=== PATIENT | female | born 1980 | race Caucasian/White ===

== ENCOUNTER 2020-10-09 18:44 | Inpatient (IN) | payer SELFPAY ==
--- NOTE | ~2020-10-09 | CT_ITS ---
EXAMINATION: CT abdomen pelvis w con EXAM DATE: 10/09/2020 21:21 INDICATION: Intractable vomiting. History of Crohn's disease. TECHNIQUE: Spiral CT of the abdomen and pelvis was performed following intravenous injection of 100 m L Omnipaque 350. Axial, coronal and sagittal images were reviewed. The dose-length product (DLP) fo r this examination was 270.61 mGy-cm. The exposure was tailored according to patient size (auto mA e xposure control), and iterative reconstruction (ASIR) was used as additional dose reduction technique . Comparison is made to prior examination from 06/18/2018. FINDINGS: There is 9 cm of jejunal intussusception. No pneumatosis of the bowel. Ileum is collapsed. There is stool in cecal base, but remainder of colon is essentially collapsed. The liver, spleen, adr enal glands and pancreas are unremarkable. There are cholecystectomy clips. Portal and splenic vein s are patent. Kidneys enhance symmetrically. There is no hydronephrosis. The uterus is anteverted and morphologically normal. The bladder is unremarkable. There is no retroperitoneal or pelvic ly mphadenopathy. Small umbilical fat-containing hernia. The appendix is not positively visualized. There is no pericecal inflammatory change to suggest appe ndicitis. No free intraperitoneal gas. The heart is normal in size. There are no pericardial o r pleural effusions. The lung bases are unremarkable. The bones are unremarkable. IMPRESSION: Jejunal intussusception. I discussed this case with Dr. Rajput in the emergency room at 10/09/2020 21:29 PRODUCTION CONTROL ANALYST. Reviewed, dictated and finalized at location A. UCTION CONTROL ANALYST IMPRESSION: Jejunal intussusception. I discussed this case with Dr. Rajput in the emergency room at 10/09/2020 21 :29 PRODUCTION CONTROL ANALYST.
--- NOTE | ~2020-10-09 | XR_ITS ---
EXAMINATION: XR sm bowel follow through WS DATE: 10/10/2020 09:26 INDICATION: Small bowel obstruction, history of Crohn disease TECHNIQUE: Popcorn Candy Maker radiograph(s) of the abdomen was/were obtained. Oral contrast was administered, and sequential radiographs of the abdomen were obtained until oral contrast was noted to be in the proxi mal colon. Spot fluoroscopic images of the small bowel were obtained. Fluoroscopy exposure time was 1 .1 minutes. The DAP for this procedure was 14.793 Gycm2. COMPARISON: None. FINDINGS: Popcorn Candy Maker radiograph demonstrates the nasogastric tube within the stomach. The bowel gas patter n is normal. A small amount of contrast material seen in the urinary bladder from prior CT examinatio n. Cholecystectomy clips are noted. Transit time from the stomach to proximal colon was approximately 30 minutes. There is normal caliber and mucosal fold pattern throughout the small bowel. Terminal i leum is normal. No tethering or abnormal mass effect observed upon the small bowel with real-time fl uoroscopy. IMPRESSION: 1. Unremarkable small bowel follow-through. Reviewed, dictated and finalized at location A. SOLE SEWER
--- NOTE | ~2020-10-09 | XR_ITS ---
EXAMINATION: XR abdomen obstructive series DATE: 10/11/2020 10:12 INDICATION: Epigastric abdominal pain TECHNIQUE: Upright and supine views of the abdomen were obtained. COMPARISON: 10/10/2020 FINDINGS: There are no dilated loops of bowel. No free intraperitoneal gas is identified. A small dominic unt of enteric contrast material is seen in the colon from yesterday's small bowel follow-through exa mination. Cholecystectomy clips are noted. The lung bases are clear. IMPRESSION: 1. Nonobstructive bowel gas pattern. Reviewed, dictated and finalized at location A. D ADVISOR
--- NOTE | ~2020-10-09 | XR_ITS ---
EXAMINATION: XR abdomen NG/feed tube insert EXAM DATE: 10/09/2020 23:38 INDICATION: Feeding tube placement. Intussusception. TECHNIQUE: Frontal projection(s) of the abdomen for interpretation. Correlation is made to CT abdomen pelvis same date. FINDINGS: Feeding tube tip and side-port project over the stomach, expected position. There is contra st within the kidneys from the CT scan performed earlier. Nonobstructive bowel gas pattern. No basila r airspace disease. IMPRESSION: Feeding tube in position. Reviewed, dictated and finalized at location G. MODYNAMICS TEACHER IMPRESSION: Feeding tube in position.
[2020-10-09 18:46] VITALS: BP 133/98; PULSE 57; RESP 21; TEMP 37.1; O2SAT 100
[2020-10-09] MEDS: SODIUM CHLORIDE 0.9% IV 1,000 ML 999 ML IV CONT (19:16)
[2020-10-09] MEDS: ONDANSETRON INJ 4 MG/2 ML VIAL IV PUSH (19:16)
[2020-10-09] MEDS: MORPHINE SULFATE (*CRX) 4 MG/ML INJ IV PUSH (19:17)
[2020-10-09 19:24] LABS: Basophils Absolute Auto 0.1 K/mm3 (0.0-0.1); Basophils Percent Auto 0.4 % (0.2-1.2); Eosinophils Absolute Auto 0.1 K/mm3 (0-0.3); Hematocrit 42.9 % (37.0-47.0); Hemoglobin 14.8 g/dL (12.0-15.0); Immature Granulocyte Absolute 0.05 K/mm3 (0.00-0.031); Immature Granulocyte Percent A 0.3 % (0-0.5); Lymphocytes Absolute Auto 1.87 K/mm3 (0.9-3.2); Lymphocytes Percent Auto 12.8 % (18.3-44.2); Mean Corpuscular HGB Conc 34.5 g/dl (32-36); Mean Corpuscular Hemoglobin 30.8 pg (26-34); Mean Corpuscular Volume 89.4 fl (80-100); Mean Platelet Volume 9.8 fl (7.4-10.4); Neutrophils Absolute Auto 11.5 K/mm3 (1.3-6.7); Neutrophils Percent Auto 78.5 % (45.5-73.1); Platelet Count Result 228 k/mm3 (150-375); Red Cell Distribution Width 12.7 % (11.5-14.5); White Blood Count 14.6 K/mm3 (4.5-10.0)
[2020-10-09] MEDS: LORazepam INJ (*CRX) 2 MG/ML VIAL 1 MG IV PUSH (19:32)
--- NOTE | 2020-10-09 19:32 | ED.NAVMDI ---
HPI - Nausea/Vomiting/Diarrhea General Chief complaint: Nausea/Vomiting/Diarrhea <Ryan Brooks MD - Last Filed: 10/09/20 20:44> Stated complaint: n/v/fever <Ryan Brooks MD - Last Filed: 10/09/20 20:44> Time Seen by Provider: 10/09/20 18:50 <Ryan Brooks MD - Last Filed: 10/09/20 20:44> History of Present Illness HPI Narrative: Patient is a 39-year-old female who presents ER with nausea and vomiting. Reports she has been having upset stomach for couple of days. Today she ate a bowl of cereal and she has been having significant increase in epigastric pain as well as vomiting. Upon arrival patient is actively forcing herself to retch and vomit by placing her fingers in her mouth. Reports she is also been having loose stools. No history of bowel obstruction. She endorses history of Crohn's disease for which she sees a GI physician at [facility]. She is unable to give me the name. She denies take any immunosuppressants. Patient is denying any radiation of her pain. She cannot describe the character or any aggravating factors outside of eating cereal. <Ryan Brooks MD - Last Filed: 10/09/20 20:44> Related Data Home medications: Home Medications Medication Instructions Recorded Confirmed pantoprazole [Protonix] 20 mg PO QAM 10/09/20 10/09/20 <Ryan Brooks MD - Last Filed: 10/09/20 20:44> Allergies/Adverse reactions: Allergies Allergy/AdvReac Type Severity Reaction Status Date / Time No Known Allergies Allergy Unverified 10/09/20 18:55 <Ryan Brooks MD - Last Filed: 10/09/20 20:44> Review of Systems Review of Systems: All systems reviewed & are unremarkable except as noted in HPI and below <Ryan Brooks MD - Last Filed: 10/09/20 20:44> Constitutional: Constitutional: Denies chills, Denies fever(s) and Denies weakness <Ryan Brooks MD - Last Filed: 10/09/20 20:44> ENT: Denies nasal congestion and Denies sore throat <Ryan Brooks MD - Last Filed: 10/09/20 20:44> Respiratory: Respiratory: Denies cough, Denies dyspnea and Denies wheezing <Ryan Brooks MD - Last Filed: 10/09/20 20:44> Gastrointestinal: Gastrointestinal: Reports abdominal pain, Reports diarrhea, Reports nausea and Reports vomiting <Ryan Brooks MD - Last Filed: 10/09/20 20:44> Genitourinary: Genitourinary: Denies nocturia and Denies dysuria <Ryan Brooks MD - Last Filed: 10/09/20 20:44> PMFSH Past Medical History Medical History: Medical History (Updated 10/09/20 @ 22:37 by Mazin Rajput MD) Crohn's disease History of pancreatitis IBS (irritable bowel syndrome) Kidney stones <Ryan Brooks MD - Last Filed: 10/09/20 20:44> Surgical History Surgical History: Surgical History (Updated 10/09/20 @ 19:52 by Ryan Brooks MD) H/O lithotripsy <Ryan Brooks MD - Last Filed: 10/09/20 20:44> Social History Social History: Social History (Updated 10/09/20 @ 19:54 by Ryan Brooks MD) Substance use type: marijuana Gender identity (if verbalized by the patient): Female <Ryan Brooks MD - Last Filed: 10/09/20 20:44> Exam Narrative: Exam Narrative: GENERAL: Uncomfortable appearing writhing around on the bed forcing herself to vomit, well-nourished. HEAD: Normocephalic, atraumatic. EYES: PERRL and EOMI. ENT: Mucous membranes moist. CHEST: Clear to auscultation. No respiratory distress. HEART: Regular rate and rhythm. Normal peripheral pulses. ABDOMEN: Soft, nontender, nondistended. EXTREMITIES: Normal range of motion. No edema. SKIN: Warm, dry, no rash. NEURO: Alert and oriented x3. <Ryan Brooks MD - Last Filed: 10/09/20 20:44> Course Reevaluation(s) Reevaluation #1: Unremarkable labs. Urine pending. Patient has received morphine and Toradol for pain. She has received Zofran and Haldol for her persistent emesis and retching. She is also received Ativan to qu
[2020-10-09 19:40] LABS: Alanine Aminotransferase 17 U/L (4-35); Albumin Level 4.4 g/dL (3.5-5.1); Alkaline Phosphatase 63 U/L (38-126); Anion Gap 11 mmol/L (8-16); Aspartate Amino Transferase 29 U/L (14-36); Bilirubin,Total 0.3 mg/dL (0.2-1.3); Blood Urea Nitrogen 13 mg/dL (7-17); Calcium 8.8 mg/dL (8.4-10.2); Carbon Dioxide 21 mmol/L (22-30); Chloride 107 mmol/L (98-107); Estimated Glomerular Filt Rate > 60; Glucose 152 mg/dL (65-105); Lipase 93 U/L (23-300); Potassium 4.1 mmol/L (3.4-5.0); Sodium 139 mmol/L (137-145)
[2020-10-09] MEDS: HALOPERIDOL LACTATE 5 MG/ML VIAL IV PUSH (19:46)
[2020-10-09] MEDS: KETOROLAC 30 MG/ML VIAL (*BKC) IV PUSH (20:00)
[2020-10-09 20:02] VITALS: BP 145/71; PULSE 56; RESP 20; O2SAT 100
[2020-10-09 20:58] LABS: Add Urine Microscopic? YES; Appearance Urine Clear (Clear); Bacteria Urine Trace /hpf; Bilirubin Urine Negative (Negative); Blood Urine Negative (Negative); Color Urine Yellow (Yellow); Glucose Urine UA Negative (Negative); Ketones Urine Negative (Negative); Leukocyte Esterase Ur Trace LEU/UL (Negative); Mucus Urine Rare /lpf; Nitrate Urine Negative (Negative); Protein Urine 1+ mg/dL (Negative); RBC Urine 0-2 /hpf (0-2); Specific Grav Ur 1.027 (1.001-1.035); Squamous Epithelial Cell Urine Many /hpf (Few); Urobilinogen Urine Negative mg/dL (<2.0); WBC Urine 0-3 /hpf
[2020-10-09 21:26] VITALS: BP 128/56; PULSE 67; RESP 20; O2SAT 97
[2020-10-09 22:13] VITALS: BP 120/75; PULSE 57; RESP 18; O2SAT 96
[2020-10-09] MEDS: HYDROmorphone HCL INJ (*CRX) 1 MG/ML SYR (22:28)
--- NOTE | 2020-10-09 23:50 | ADMGEN ---
This patient, Tessa Roberts, was admitted to Medical Room 349-01. Patient/family oriented to hospital policies and general routines including ID bracelet, bed and alarms, visiting hours, pain management, procedures, bathroom and other care routines, personal items, smoking policy, room service/diet, and visiting hours. Information on how to activate the Rapid Response Team has been discussed. Patient/Family are encouraged to report perceived risks to care and to ask questions if they do not understand what they are told or what they should do.
[2020-10-09] MEDS: SODIUM CHLORIDE 0.9% IV 1,000 ML 125 ML IV CONT (23:55)
[2020-10-10] VITALS: BP 152/75; PULSE 53; RESP 16; TEMP 36.2; O2SAT 99; BMI 26.2
--- NOTE | 2020-10-10 00:47 | PC.NURSE ---
Upon entering patient room in attempt to give pain medicine. Noted patient sleeping with minimal response to calling of name. Head is currently tilted back on pillows, sitting in upright position and audibly snoring.
[2020-10-10] MEDS: ONDANSETRON INJ 4 MG/2 ML VIAL IV PUSH (01:10)
[2020-10-10] MEDS: HYDROmorphone HCL INJ (*CRX) 1 MG/ML SYR IV PUSH ×5 (01:10→17:47)
[2020-10-10] MEDS: PHENOL/SOD PHENO SPRAY CHERRY (*BKC) 1 SPRAY MUCOUS MEM ×2 (04:37→12:24)
[2020-10-10 06:00] VITALS: BP 106/52; PULSE 67; RESP 14; TEMP 36.5; O2SAT 97
[2020-10-10 06:09] LABS: Basophils Percent Auto 0.1 % (0.2-1.2); Hematocrit 38.9 % (37.0-47.0); Hemoglobin 13.3 g/dL (12.0-15.0); Immature Granulocyte Absolute 0.04 K/mm3 (0.00-0.031); Immature Granulocyte Percent A 0.4 % (0-0.5); Lymphocytes Absolute Auto 1.05 K/mm3 (0.9-3.2); Lymphocytes Percent Auto 10.2 % (18.3-44.2); Mean Corpuscular HGB Conc 34.2 g/dl (32-36); Mean Corpuscular Hemoglobin 31.3 pg (26-34); Mean Corpuscular Volume 91.5 fl (80-100); Mean Platelet Volume 10.2 fl (7.4-10.4); Monocytes Absolute Auto 0.6 K/mm3 (0.1-0.6); Monocytes Percent Auto 6.1 % (2.6-8.5); Neutrophils Absolute Auto 8.6 K/mm3 (1.3-6.7); Neutrophils Percent Auto 83.2 % (45.5-73.1); Platelet Count Result 187 k/mm3 (150-375); Red Blood Count 4.25 M/mm3 (4.2-5.4); Red Cell Distribution Width 13.1 % (11.5-14.5); White Blood Count 10.3 K/mm3 (4.5-10.0)
[2020-10-10 06:14] LABS: Anion Gap 4 mmol/L (8-16); Blood Urea Nitrogen 12 mg/dL (7-17); Calcium 7.9 mg/dL (8.4-10.2); Carbon Dioxide 26 mmol/L (22-30); Chloride 109 mmol/L (98-107); Estimated CRCL calculation 89 ml/min; Estimated Glomerular Filt Rate > 60; Glucose 104 mg/dL (65-105); Lipase 80 U/L (23-300); Potassium 4.4 mmol/L (3.4-5.0); Sodium 139 mmol/L (137-145)
[2020-10-10] MEDS: SODIUM CHLORIDE 0.9% IV 1,000 ML 125 ML IV CONT ×2 (09:44→20:56)
--- NOTE | 2020-10-10 13:23 | PM.IMHP ---
H&P: HPI History of Present Illness Date/Time: 10/10/20 13:23 Chief Complaint: abdominal pain Narrative: Tessa Roberts is a 39 year old female presenting to ED c/o severe upper abd pain, N/V. Pt reports symptoms progressively worsening over last few days. Pt c h/o Crohns' and managed at [facility]. Pt reports diarrhea during this episode. Review of Systems Constitutional: Constitutional: Reports anorexia, Denies chills, Reports fatigue, Denies fever(s), Denies increased appetite, Reports lethargy, Reports malaise, Reports poor appetite, Reports weakness, Denies weight gain and Denies weight loss Eyes: Eyes: Reports no additional eye complaints ENT: Reports system reviewed and no additional complaints, except as documented Cardiovascular: Cardiovascular: Reports no additional cardiovascular complaints Respiratory: Respiratory: Reports no additional respiratory complaints Gastrointestinal: Gastrointestinal: Reports as per HPI Genitourinary: Genitourinary: Reports no additional female genitourinary complaints Musculoskeletal: Musculoskeletal: Reports no additional musculoskeletal complaints Integumentary/Breasts: Skin/Breast: Reports system reviewed and no additional complaints, except as docu Neurologic: Reports system reviewed and no additional complaints, except as documented Psychiatric: Psychiatric: Reports no additional psychiatric complaints Endocrine: Endocrine: Reports no additional endocrine complaints Hematologic/Lymphatic: Hematologic/Lymphatic: Reports no additional hematologic/lymphatic complaints Allergic/Immunologic: Allergic/Immunologic: Reports no additional allergic/immunologic complaints PMFSH Past Medical History Medical History Crohn's disease History of pancreatitis IBS (irritable bowel syndrome) Kidney stones Surgical History Surgical History H/O lithotripsy Social History Social History Smoking status: Current every day smoker Second hand tobacco smoke exposure: No Additional smoking assessment comments: marijuana Alcohol intake: former Substance use: current Substance use type: marijuana Gender identity (if verbalized by the patient): Female Spiritual care concerns: No Comments pt denies any FH of IBD, CRC Meds Home Medications and Allergies Home Medications Medication Instructions Recorded Confirmed Type pantoprazole [Protonix] 20 mg PO TID 10/09/20 10/10/20 History Allergies Allergy/AdvReac Type Severity Reaction Status Date / Time No Known Allergies Allergy Unverified 10/10/20 00:01 Vital Signs Vital Signs - 24 hr 10/09/20 18:46 10/09/20 20:02 10/09/20 21:26 Temperature 37.1 C Pulse Rate 57 L 56 L 67 Respiratory Rate 21 H 20 20 Blood Pressure 133/98 H 145/71 H 128/56 L Pulse Oximetry 100 100 97 10/09/20 22:13 10/10/20 00:00 10/10/20 06:00 Temperature 36.2 C L 36.5 C Pulse Rate 57 L 53 L 67 Respiratory Rate 18 16 14 Blood Pressure 120/75 152/75 H 106/52 L Pulse Oximetry 96 99 97 Exam Const: General: cooperative, alert, awake, Physically active and acute distress mild Nutritional Appearance: average body habitus Orientation/consciousness: patient oriented x3 Limitations: no limitations HENMT: Head: normal to inspection, normocephalic and atraumatic Ears: hearing grossly normal bilaterally General nose exam: Normal external nose present Face and sinus: normal facial exam Mouth: Yes Normal oral and palatal mucosa present and Yes moist mucous membranes Eyes: General: appearance normal, both eyes and all related structures Pupils: Equal, round and reactive pupils present EOM: EOMs intact bilaterally Neck: Neck: normal visual inspection, full ROM and no lymphadenopathy Chest: Chest palpation & inspection: normal inspection of the chest Resp: Effort & Insp
[2020-10-10 14:00] VITALS: BP 121/65; PULSE 73; RESP 16; TEMP 36.8; O2SAT 99
--- NOTE | 2020-10-10 16:08 | WPDGICN ---
Assessment and Plan Assessment and plan (1) Jejunal intussusception: Code(s): K56.1 - Intussusception Status: Acute Assessment and Plan: treated medically SBFT ordered, she is feeling better now and tolerating liquid diet surgery on board (2) Abdominal pain: Qualifiers: Abdominal location: generalized Qualified Code(s): R10.84 - Generalized abdominal pain Code(s): R10.9 - Unspecified abdominal pain Status: Acute Assessment and Plan: improved now (3) Crohn's disease: Code(s): K50.90 - Crohn's disease, unspecified, without complications Status: Acute Assessment and Plan: I do not have old records (will request) and I am not even sure if indeed she has Crohn's- she is not on any treatment either will get inflammatory markers and awaiting on SBFT result (4) Marijuana smoker: Code(s): F12.90 - Cannabis use, unspecified, uncomplicated Status: Acute Assessment and Plan: probably contributing to nausea (5) Nausea and vomiting in adult: Code(s): R11.2 - Nausea with vomiting, unspecified Status: Acute Assessment and Plan: resolved (6) Anxiety: Code(s): F41.9 - Anxiety disorder, unspecified Status: Acute Assessment and Plan: she has high level of anxiety and says that sometimes triggers her gi symptoms GI Consult Note Consult date/time: 10/10/20 16:08 Reason for consult: abdominal pain HPI: Tessa Roberts is a 39 year old female with significant anxiety, IBS and also diagnosed with Crohn's disease about 1-2 years ago. She says that had EGD/colonoscopy last Nov at [facility] by GI physician but she is not taking any medication for Crohn's (she told me that was prescribed pantoprazole and bentyl for that). She smokes marijuana and says that recently took a new job position with high level of anxiety, normally she says that GI issues will get worse after being very anxious. She came here with nausea, vomiting and upset stomach for couple of days, moderate intensity and also had diarrhea (she says that at baseline has normal BM's). CT scan reviewed, showed 9 cm of jejunal intussusception. No pneumatosis of the bowel. Ileum is collapsed. There is stool in cecal base, but remainder of colon is essentially collapsed. Had mild leukocytosis yesterday, normal liver enzymes and lipase. She is feeling better now, no abdominal pain or nausea, tolerated liquid diet. Review of Systems Constitutional: Constitutional: Denies headache(s) and Denies weakness Eyes: Eyes: Denies blurry vision ENT: Reports Normal hearing present, Denies headache(s) and Denies neck pain Cardiovascular: Cardiovascular: Denies chest pain and Denies dyspnea Respiratory: Respiratory: Denies dyspnea Gastrointestinal: Gastrointestinal: Reports no additional gastrointestinal complaints Genitourinary: Genitourinary: Denies dysuria Musculoskeletal: Musculoskeletal: Denies neck pain Integumentary/Breasts: Skin/Breast: Denies dry skin Neurologic: Reports Normal hearing present, Denies headache(s) and Denies weakness Psychiatric: Psychiatric: Reports anxiety Endocrine: Endocrine: Denies change in body appearance Hematologic/Lymphatic: Hematologic/Lymphatic: Denies easy bleeding Allergic/Immunologic: Allergic/Immunologic: Denies urticaria PMFSH Past Medical History Medical History (Updated 10/10/20 @ 16:30 by Edgardo Bennett MD) Anxiety Crohn's disease History of pancreatitis IBS (irritable bowel syndrome) Kidney stones Marijuana smoker Nausea and vomiting in adult Surgical History Surgical History H/O lithotripsy Social History Social History Smoking status: Current every day smoker Second hand tobacco smoke exposure: No Additional smoking assessment comments: marijuana Alcohol intake: former Substance u
[2020-10-10 20:09] VITALS: BP 140/60; PULSE 55; RESP 14; TEMP 36.6; O2SAT 100
[2020-10-10] MEDS: HYDROcodone/acetaminophen (*CRX) 7.5-325 MG TABLET 1 TAB PO (22:06)
[2020-10-10] MEDS: ZOLPIDEM TARTRATE (*CRX) 5 MG TABLET PO (22:06)
[2020-10-11] MEDS: HYDROcodone/acetaminophen (*CRX) 7.5-325 MG TABLET 1 TAB PO (05:50)
[2020-10-11 06:00] VITALS: BP 139/70; PULSE 61; RESP 14; TEMP 36.6; O2SAT 100
[2020-10-11 06:17] LABS: CRP < 0.5 mg/dL (<1.0)
[2020-10-11] MEDS: ONDANSETRON INJ 4 MG/2 ML VIAL IV PUSH (07:50)
[2020-10-11] MEDS: HYDROmorphone HCL INJ (*CRX) 1 MG/ML SYR IV PUSH (07:50)
[2020-10-11] MEDS: SODIUM CHLORIDE 0.9% IV 1,000 ML 125 ML IV CONT (07:58)
[2020-10-11] MEDS: ALPRAZolam (*CRX) 0.5 MG TABLET PO (09:21)
[2020-10-11 09:27] LABS: Erythrocyte Sedimentation Rate 12 mm/hr (0-20)
--- NOTE | 2020-10-11 09:48 | PM.PNGS ---
Progress Note: A&P Assessment and Plan (1) Abdominal pain: Qualifiers: Abdominal location: generalized Qualified Code(s): R10.84 - Generalized abdominal pain Code(s): R10.9 - Unspecified abdominal pain Status: Acute Assessment and Plan: improved c bowel rest, NG decompression. patient did pretty well overnight. Tried clear liquids for supper last night and did alright but not doing well this morning. Will do a plain film the abdomen and see how she is feeling by lunch. Encouraged her to get up and walk once the pain medicine has taken hold. (2) Crohn's disease: Code(s): K50.90 - Crohn's disease, unspecified, without complications Status: Acute Assessment and Plan: ? flare, await GI workup and input. normal inflammatory markers. Another possibility may be gastritis or peptic ulcer disease. Will be sure patient is on a PPI. (3) Jejunal intussusception: Code(s): K56.1 - Intussusception Status: Acute Assessment and Plan: No findings on subsequent SBS, likely incidental intussusception caught on CT scan. (4) Anxiety: Code(s): F41.9 - Anxiety disorder, unspecified Status: Acute Assessment and Plan: using Anxiolytic for this now. Subjective Subjective Date/Time Seen: 10/11/20 09:48 Ms. Cope is lying in bed when I entered the room. The nurse called me and told me that she is complaining of rather severe central upper abdominal pain again this morning. Patient states that is at the level of her umbilicus and above. She had a small bowel movement yesterday but none yet today. She states she is passing gas. She is not hungry. Also somewhat anxious in the nurse gave her something for that about 2 hours ago. Review of Systems Constitutional: Constitutional: Reports anorexia, Denies chills, Reports fatigue, Denies fever(s), Denies increased appetite, Reports lethargy, Reports malaise, Reports poor appetite, Reports weakness, Denies weight gain and Denies weight loss Eyes: Eyes: Reports no additional eye complaints ENT: Reports system reviewed and no additional complaints, except as documented Cardiovascular: Cardiovascular: Reports no additional cardiovascular complaints Respiratory: Respiratory: Reports no additional respiratory complaints Gastrointestinal: Gastrointestinal: Reports as per HPI, Reports abdominal pain ( Mainly upper abdominal.) and Reports other ( No history of peptic ulcer disease in the past.) Comments: History of a laparoscopic cholecystectomy several years back. discussed with Dr. Pyle. Her history of Crohn's disease is not complete. She may have IBS. She was not on anything for Crohn's disease upon admission. Genitourinary: Genitourinary: Reports no additional female genitourinary complaints Musculoskeletal: Musculoskeletal: Reports no additional musculoskeletal complaints Integumentary/Breasts: Skin/Breast: Reports system reviewed and no additional complaints, except as docu Neurologic: Reports system reviewed and no additional complaints, except as documented and Reports weakness Psychiatric: Psychiatric: Reports no additional psychiatric complaints and Reports as per HPI Comments: History of anxiety. Endocrine: Endocrine: Reports no additional endocrine complaints and Reports fatigue Hematologic/Lymphatic: Hematologic/Lymphatic: Reports no additional hematologic/lymphatic complaints Allergic/Immunologic: Allergic/Immunologic: Reports no additional allergic/immunologic complaints Exam Const: General: cooperative, alert, awake, Physically active and acute distress mild Nutritional Appearance: average body habitus Orientation/consciousness: patient oriented x3 Limitations: no limitations HENMT: Head: normal to inspection, normocephalic and atraumatic Ears: hearing grossly normal bilaterally General nose exam: Normal external nose present Face and sinus: normal facial exam Mouth: Ye
[2020-10-11 09:59] VITALS: O2SAT 98
--- NOTE | 2020-10-11 10:24 | WPDGIPROGNO ---
Progress Note: A&P Assessment and Plan (1) Jejunal intussusception: Code(s): K56.1 - Intussusception Status: Acute Assessment and Plan: SBFT reviewed and no signs of abnormal findings now probably can go home today if pain is better and tolerates diet (2) Abdominal pain: Qualifiers: Abdominal location: generalized Qualified Code(s): R10.84 - Generalized abdominal pain Code(s): R10.9 - Unspecified abdominal pain Status: Acute Assessment and Plan: improved, she is feeling like going home (3) Nausea and vomiting in adult: Code(s): R11.2 - Nausea with vomiting, unspecified Status: Acute (4) Marijuana smoker: Code(s): F12.90 - Cannabis use, unspecified, uncomplicated Status: Acute (5) Crohn's disease: Code(s): K50.90 - Crohn's disease, unspecified, without complications Status: Acute Assessment and Plan: unsure if she has Crohn's, will need previous records to document history and she can follow-up with me or her former GI doctor in 3-4 weeks inflammatory markers are normal. (6) Anxiety: Code(s): F41.9 - Anxiety disorder, unspecified Status: Acute Assessment and Plan: she is quite anxious and will need follow-up with her pcp Subjective Date/time seen: 10/11/20 10:24 Interval history: today was quite anxious and had more abdominal pain but now feeling better after got pain med and xanax. She would like to go home Review of Systems Review of Systems: All systems reviewed & are unremarkable except as noted in HPI and below Exam Const: General: comfortable and no acute distress HENMT: General nose exam: Normal nares present Eyes: General: appearance normal, both eyes and all related structures Neck: Neck: no JVD Resp: Auscultation: clear to auscultation bilaterally Cardio: Rate: regular rate Rhythm: regular rhythm GI: Inspection: non-distended GI Palp: Yes Soft to palpation and No Guarding due to palpation present (GI) Auscultation: normal bowel sounds Skin: General skin exam: normal color Neuro: Speech: normal speech Motor exam (neuro): Normal motor muscle tone present throughout Extrem: General: normal to inspection Psych: Mental Status: mental status grossly normal Objective Data Vital Signs Vital Signs: Vital Signs - 24 hr 10/10/20 14:00 10/10/20 20:09 10/11/20 06:00 Temperature 98.3 F 98 F 97.8 F Pulse Rate 73 55 L 61 Respiratory Rate 16 14 14 Blood Pressure 121/65 140/60 139/70 Pulse Oximetry 99 100 100 10/11/20 09:59 Temperature Pulse Rate Respiratory Rate Blood Pressure Pulse Oximetry 98 Intake/Output Intake/Output: Intake & Output 10/08/20 10/09/20 10/10/20 10/11/20 23:59 23:59 23:59 23:59 Intake Total 2240 1000 Output Total 2100 400 Balance 140 600 Meds/Results Medications: Active Medications Generic Name Dose Route Start Last Admin Trade Name Freq PRN Reason Stop Dose Admin Acetaminophen 1,000 mg 10/10/20 21:44 Acetaminophen 500 Mg Tablet PO Q6H PRN Mild Pain (1-3) or Fever Hydrocodone Bitart/Acetaminophen 1 tab 10/10/20 21:44 Hydrocodone/Acetaminophen (*Crx) 5-325 Mg Tablet PO Q6H PRN Pain Rated 4-6 Hydrocodone Bitart/Acetaminophen 1 tab 10/10/20 21:44 10/11/20 05:50 Hydrocodone/Acetaminophen (*Crx) 7.5-325 Mg Tablet PO 1 tab Q6H PRN Administration Pain Rated 7-10 Alprazolam 0.5 mg 10/11/20 08:13 10/11/20 09:21 Alprazolam (*Crx) 0.5 Mg Tablet PO 0.5 mg Q8HR PRN Administration Anxiety Hydromorphone HCl 1 mg 10/09/20 22:31 10/11/20 07:50 Hydromorphone Hcl Inj (*Crx) 1 Mg/Ml Syr IV PUSH 1 mg Q4H PRN Administration Pain Rated 7-10 Sodium Chloride 1,000 mls @ 125 mls/hr 10/09/20 22:35 10/11/20 07:58 Normal Saline Iv IV CONT 125 mls/hr .Q8H JAZMIN Administration Ondansetron HCl 4 mg 10/09/20 22:31 10/11/20 07:50 Ondansetron Inj 4 Mg/2 Ml
[2020-10-11] MEDS: PANTOPRAZOLE 40 MG TABLET PO (12:33)
[2020-10-11 14:00] VITALS: BP 149/86; PULSE 58; RESP 18; TEMP 36.7; O2SAT 99
--- NOTE | 2020-10-11 15:56 | PM.DS ---
DS: Admitting Diagnosis Admitting Diagnosis Admitting Diagnosis: Abdominal pain DS: Discharge Diagnosis Discharge Diagnosis (1) Anxiety: Onset Date: Unknown Code(s): F41.9 - Anxiety disorder, unspecified Status: Acute Assessment and Plan: apparently this has been a problem for the patient as an outpatient for some time period we suggested that she see her PCP regarding this and work with him for further counseling as needed. (2) Marijuana smoker: Code(s): F12.90 - Cannabis use, unspecified, uncomplicated Status: Acute Assessment and Plan: Recommended smoking cessation (3) Jejunal intussusception: Code(s): K56.1 - Intussusception Status: Acute Assessment and Plan: This was probably transitory and caught on CT scan when she had her CT in the ER for her abdominal pain. No other specific problems identified. No specific thickening of the distal ileum to suggest recurrent Crohn's disease or even primary Crohn's disease. (4) Abdominal pain: Onset Date: ~10/09/20 Qualifiers: Abdominal location: generalized Qualified Code(s): R10.84 - Generalized abdominal pain Code(s): R10.9 - Unspecified abdominal pain Status: Acute Assessment and Plan: Unknown etiology. May be related to anxiety or may be related to IBS. GI consultation was obtained. Her inflammatory markers were normal. Dr. Pyle stated that he would be willing to follow her in the office or if she wants to go to the GI physician she had at [facility] she can schedule appointment with them as an outpatient after discharge also. DS: Summary Hospital Course Reason for hospitalization: Abdominal pain with transient jejunal intussusception by CT Hospital Course: hospital course: The patient was admitted after being evaluated in the emergency room and still having abdominal pain. She was treated with bowel rest and NG decompression. Subsequent small-bowel follow-through showed no obstruction. Therefore, NG was removed and she was started on clear liquids. Over the next 24 hour she gradually was able to tolerate these. She exhibited significant anxiety and had to be started on Xanax q.[address] anxiety[address] Dr. Pyle saw her in consultation and he felt that he was not even sure that she has had a true diagnosis of Crohn's disease. She may have anxiety and IBS. He is willing to follow her up as an outpatient or she can reschedule to see her GI physician at [facility] as an outpatient as an alternative. We suggested that she follow-up with her PCP for further evaluation and treatment of the anxiety. By the time of discharge in the afternoon of 10/11/2020 she was not complaining of abdominal pain or nausea she was tolerating liquids and wanting to go home. Time spent discussing smoking cessation with patient: more than 10 minutes Status at Discharge Cognitive/behavioral status at discharge: Still showing some a element of anxiety. Functional status at discharge: independent ambulation Overall status at discharge: patient is not back to baseline ( still showing some element of anxiety) Time Spent with Patient Time attestation: Total time spent providing and/or coordinating discharge services: Time spent: Greater than 30 minutes Specific discharge activities: Patient follow-up with PCP regarding anxiety Patient to follow up with either Dr. Spangler or her [facility] top icer for further workup. Exam Const: General: cooperative, no acute distress, alert and awake Orientation/consciousness: patient oriented x3 HENMT: Mouth: Yes moist mucous membranes Neck: Neck: normal visual inspection Chest: Chest palpation & inspection: normal inspection of the chest Resp: Effort & Inspection: normal respiratory effort Auscultation: clear to auscultation bilaterally Cardio: Jugular venous distension: no JVD Rate: regular rate Rhythm: regular rhythm GI: Inspection: normal to
--- NOTE | 2020-10-11 16:39 | PC.NURSE ---
Went thoroughly over discharge packet with patient. Information on Crohns given. 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
== END 2020-10-11 16:40 | disposition home or self-care (01) | DRG 247 ==
LOC: ANHED 22:37 → ANH3MED 23:06
PROVIDERS: Emergency Medicine; Internal Medicine Gastroenterology; Admitting Provider Surgery; Emergency Provider Emergency Medicine; PCP Family Medicine; Visit Provider Surgery
DX: K56.1 Intussusception (principal); K58.9 Irritable bowel syndrome, unspecified; F41.9 Anxiety disorder, unspecified; F17.200 Nicotine dependence, unspecified, uncomplicated; F12.90 Cannabis use, unspecified, uncomplicated; Z79.899 Other long term (current) drug therapy
CPT/HCPCS: 36415; 74019; 74177; 74250; 80048; 80053; 81001; 83690; 85025; 85652; 86140; 96361; 96374; 96375; 96376; 99285; A9270; G0378; G0379; J1170; J1630; J1885; J2060; J2270; J2405; J7030; Q9967

== ENCOUNTER 2020-10-22 23:07 | Emergency (ER) | payer OTHER, SELFPAY ==
--- NOTE | ~2020-10-22 | CT_ITS ---
EXAMINATION: CT abdomen pelvis w con DATE: 10/23/2020 01:24 INDICATION: Abdominal pain. TECHNIQUE: Computed tomography (CT) of the abdomen and pelvis was performed with 100 mL Omnipaque 350 intravenous contrast. Automated exposure control and iterative reconstruction technique were employe d. The dose-length product was 253.65 mGy-cm. COMPARISON: CT abdomen and pelvis 10/09/2020 FINDINGS: The visualized portions of the lung bases are clear without pneumonia or pleural effusion. The heart size is normal. No pericardial effusion. The nasogastric tube tip is in the stomach. The li clive is normal. There are changes of cholecystectomy. The spleen, pancreas, adrenal glands, and kidney s are normal. There are no dilated loops of bowel. There are no pathologically enlarged lymph nodes. There is no free intraperitoneal fluid. There is severe lower lumbar spondylosis. IMPRESSION: 1. No etiology for the patient's symptoms. Reviewed, dictated and finalized at location A. HT RESERVATIONS MANAGER
--- NOTE | ~2020-10-22 | XR_ITS ---
EXAMINATION: XR abdomen NG/feed tube insert DATE: 10/23/2020 00:39 INDICATION: Nasogastric tube placement. TECHNIQUE: An upright view of the abdomen was obtained. COMPARISON: CT abdomen and pelvis 10/23/2020 FINDINGS: The lower abdomen is excluded. Surgical clips in the right upper quadrant are likely from c holecystectomy. The nasogastric tube tip is in the stomach. IMPRESSION: 1. Nasogastric tube tip in the stomach. Reviewed, dictated and finalized at location A. SEALER
[2020-10-22 23:09] VITALS: BP 142/100; PULSE 76; RESP 16; TEMP 36.2; O2SAT 96
[2020-10-22 23:42] LABS: Basophils Absolute Auto 0.1 K/mm3 (0.0-0.1); Basophils Percent Auto 0.6 % (0.2-1.2); Eosinophils Absolute Auto 0.2 K/mm3 (0-0.3); Eosinophils Percent Auto 2.1 % (0-4.4); Hematocrit 40.8 % (37.0-47.0); Hemoglobin 13.8 g/dL (12.0-15.0); Immature Granulocyte Absolute 0.04 K/mm3 (0.00-0.031); Immature Granulocyte Percent A 0.3 % (0-0.5); Lymphocytes Absolute Auto 5.25 K/mm3 (0.9-3.2); Lymphocytes Percent Auto 45.1 % (18.3-44.2); Mean Corpuscular HGB Conc 33.8 g/dl (32-36); Mean Corpuscular Hemoglobin 30.4 pg (26-34); Mean Corpuscular Volume 89.9 fl (80-100); Mean Platelet Volume 10.3 fl (7.4-10.4); Monocytes Percent Auto 8.8 % (2.6-8.5); Neutrophils Percent Auto 43.1 % (45.5-73.1); Platelet Count Result 259 k/mm3 (150-375); Red Blood Count 4.54 M/mm3 (4.2-5.4); White Blood Count 11.6 K/mm3 (4.5-10.0)
[2020-10-22 23:50] LABS: Alanine Aminotransferase 18 U/L (4-35); Albumin Level 4.2 g/dL (3.5-5.1); Alkaline Phosphatase 55 U/L (38-126); Anion Gap 8 mmol/L (8-16); Aspartate Amino Transferase 31 U/L (14-36); Bilirubin,Total 0.4 mg/dL (0.2-1.3); Blood Urea Nitrogen 11 mg/dL (7-17); Calcium 8.5 mg/dL (8.4-10.2); Carbon Dioxide 26 mmol/L (22-30); Chloride 105 mmol/L (98-107); Estimated Glomerular Filt Rate > 60; Glucose 94 mg/dL (65-105); Lipase 158 U/L (23-300); Potassium 3.6 mmol/L (3.4-5.0); Sodium 139 mmol/L (137-145)
[2020-10-23] MEDS: HYDROmorphone HCL INJ (*CRX) 1 MG/ML SYR IV PUSH (00:15)
--- NOTE | 2020-10-23 00:39 | PC.NURSE ---
Patient refusing to urinate at this time.
[2020-10-23] MEDS: ONDANSETRON INJ 4 MG/2 ML VIAL IV PUSH (00:41)
[2020-10-23 00:45] VITALS: TEMP 36.2
--- NOTE | 2020-10-23 01:28 | PC.NURSE ---
Patient returned to ED from CT. Patient still rolling in bed screaming please help me. EDP Todd aware of patient's pain.
[2020-10-23] MEDS: LORazepam INJ (*CRX) 2 MG/ML VIAL 1 MG IV PUSH (01:37)
[2020-10-23] MEDS: DICYCLOMINE HCL INJ 20 MG/2 ML VIAL IM (01:40)
--- NOTE | 2020-10-23 01:56 | PC.NURSE ---
Patient unable to urinate at this time due to pain.
--- NOTE | 2020-10-23 01:59 | ED.ABDPAIN ---
HPI - Abdominal Pain General Chief Complaint: Abdominal Pain <Ryan Brooks MD - Last Filed: 10/23/20 02:04> Stated Complaint: abd pain <Ryan Brooks MD - Last Filed: 10/23/20 02:04> Time Seen by Provider: 10/23/20 00:07 <Ryan Brooks MD - Last Filed: 10/23/20 02:04> History of Present Illness HPI narrative: Patient is a 39-year-old female who presents ER with abdominal pain and nausea and vomiting. Sudden onset tonight. Reports she cannot stand the pain. Reports in her upper abdomen. Patient has history of irritable bowel syndrome and also reports Crohn's disease. She is seen here recently and diagnosed with a 9 cm intussusception of the jejunum. She was observed in the hospital and the intussusception cleared with bowel rest. Patient reports she was just hospitalized at [facility] in [place] for enteritis and possible colitis. She reports they thought she was septic and she is discharged yesterday. She is not discharged with any medications. <Ryan Brooks MD - Last Filed: 10/23/20 02:04> Related Data Home Medications: Home Medications Medication Instructions Recorded Confirmed pantoprazole [Protonix] 20 mg PO TID 10/09/20 10/10/20 <Ryan Brooks MD - Last Filed: 10/23/20 02:04> Allergies/Adverse Reactions: Allergies Allergy/AdvReac Type Severity Reaction Status Date / Time No Known Allergies Allergy Unverified 10/10/20 00:01 <Ryan Brooks MD - Last Filed: 10/23/20 02:04> Review of Systems Review of Systems: All systems reviewed & are unremarkable except as noted in HPI and below <Ryan Brooks MD - Last Filed: 10/23/20 02:04> Constitutional: Constitutional: Denies chills, Denies fever(s) and Denies weakness <Ryan Brooks MD - Last Filed: 10/23/20 02:04> Cardiovascular: Cardiovascular: Denies chest pain and Denies rapid heart rate <Ryan Brooks MD - Last Filed: 10/23/20 02:04> Respiratory: Respiratory: Denies cough and Denies dyspnea <Ryan Brooks MD - Last Filed: 10/23/20 02:04> Gastrointestinal: Gastrointestinal: Reports abdominal pain, Denies bloating, Denies diarrhea, Reports nausea and Reports vomiting <Ryan Brooks MD - Last Filed: 10/23/20 02:04> [facility] Past Medical History Medical History: Medical History (Updated 10/23/20 @ 02:55 by Filiberto Parrish MD) Anxiety (Unknown) Crohn's disease History of pancreatitis IBS (irritable bowel syndrome) Kidney stones Marijuana smoker Nausea and vomiting in adult <Ryan Brooks MD - Last Filed: 10/23/20 02:04> Surgical History Surgical History: Surgical History H/O lithotripsy <Ryan Brooks MD - Last Filed: 10/23/20 02:04> Social History Social History: Social History Smoking status: Current every day smoker Second hand tobacco smoke exposure: No Additional smoking assessment comments: marijuana Alcohol intake: former Substance use: current Substance use type: marijuana Gender identity (if verbalized by the patient): Female Spiritual care concerns: No <Ryan Brooks MD - Last Filed: 10/23/20 02:04> Exam Narrative: Exam Narrative: GENERAL: Uncomfortable-appearing, well-nourished, and thrashing around in bed moaning. HEAD: Normocephalic, atraumatic. ENT: Mucous membranes moist. CHEST: Clear to auscultation. No respiratory distress. HEART: Regular rate and rhythm. Normal peripheral pulses. ABDOMEN: Soft, nontender, nondistended. EXTREMITIES: Normal range of motion. No edema. SKIN: Warm, dry, no rash. NEURO: Alert and oriented x3. PSYCH: Normal mood and affect. <Ryan Brooks MD - Last Filed: 10/23/20 02:04> Course Course Emergency Course: NG tube immediately placed by nursing staff with 500 mL return of gastric contents. Patient given Dilaudid for pain. Af
--- NOTE | 2020-10-23 02:01 | PC.NURSE ---
Patient had bowel movement in bed [place].
--- NOTE | 2020-10-23 02:07 | PC.NURSE ---
Per WILLEM Brooks, no urine specimen needed.
--- NOTE | 2020-10-23 02:09 | PC.NURSE ---
PO challenging patient at this time.
[2020-10-23 02:33] VITALS: BP 125/87; PULSE 61; RESP 14; O2SAT 97
[2020-10-23] MEDS: SODIUM CHLORIDE 0.9% IV 1,000 ML 999 ML IV CONT (02:50)
--- NOTE | 2020-10-23 03:27 | PC.NURSE ---
Patient updated on plan of care for IV fluid administration then discharge. Patient able to avoid emesis after PO liquids. Patient is stating, can I at least have a pain shot or Ativan before I go. WILLEM Parrish aware.
== END 2020-10-23 04:08 | disposition home or self-care (01) ==
PROVIDERS: Emergency Provider Emergency Medicine; PCP Family Medicine
DX: R11.2 Nausea with vomiting, unspecified (principal); R10.10 Upper abdominal pain, unspecified; K50.90 Crohn's disease, unspecified, without complications; Z87.442 Personal history of urinary calculi; F17.200 Nicotine dependence, unspecified, uncomplicated
CPT/HCPCS: 36415; 74177; 80053; 83690; 85025; 96361; 96372; 96374; 96375; 99284; J0500; J1170; J2060; J2405; J7030; Q9967

== ENCOUNTER 2020-10-23 12:18 | Emergency (ER) | payer OTHER, SELFPAY ==
--- NOTE | ~2020-10-23 | CT_ITS ---
EXAMINATION: CT abdomen pelvis wo con EXAM DATE: 10/23/2020 13:27 INDICATION: Generalized pain. History Crohn's disease. TECHNIQUE: Spiral CT of the abdomen and pelvis was performed without contrast. Axial, coronal and sag ittal images were reviewed. The dose-length product (DLP) for this examination was 265.47 mGy-cm. T he exposure was tailored according to patient size (auto mA exposure control), and iterative reconstr uction (ASIR) was used as additional dose reduction technique. Comparison is made to prior examinatio n from earlier same date. FINDINGS: Study is limited due to patient motion. Nasogastric tube has been removed. Mild persistent contrast within the collecting system from CT scan performed earlier. The uterus is anteverted and m orphologically normal. The bladder is unremarkable. Mild hepatomegaly. The spleen, adrenal glands a nd pancreas are unremarkable. Gallbladder not identified, patient likely has had cholecystectomy. T here is no retroperitoneal or pelvic lymphadenopathy. Small umbilical fat-containing hernia. There are no findings to suggest appendicitis. The stomach and small bowel are unremarkable. There is expected amount of colonic stool. No free intraperitoneal gas. The heart is normal in size. T here are no pericardial or pleural effusions. The lung bases are unremarkable. There are no osteobl astic or osteolytic lesions identified. IMPRESSION: 1. No acute intra-abdominal findings. 2. Mild hepatomegaly. Reviewed, dictated and finalized at location A. 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
[2020-10-23 12:37] VITALS: BP 180/78; PULSE 66; RESP 22; TEMP 37.1; O2SAT 99
--- NOTE | 2020-10-23 12:37 | ED.ABDPAIN ---
HPI - Abdominal Pain General Chief Complaint: Abdominal Pain Stated Complaint: abd pain Time Seen by Provider: 10/23/20 12:37 History of Present Illness HPI narrative: Generalized abdominal pain and vomiting. She was seen here overnight for the same thing. She had a negative CT with contrast and unremarkable labs. She was discharged home and says that she was feeling better. History limited by poor historian. Related Data Home Medications Medication Instructions Recorded Confirmed pantoprazole [Protonix] 20 mg PO TID 10/09/20 10/10/20 Allergies Allergy/AdvReac Type Severity Reaction Status Date / Time No Known Allergies Allergy Verified 10/23/20 12:19 Review of Systems Review of Systems: All systems reviewed & are unremarkable except as noted in HPI and below Constitutional: Constitutional: Denies fever(s) and Reports weakness Cardiovascular: Cardiovascular: Denies chest pain Respiratory: Respiratory: Denies dyspnea Gastrointestinal: Gastrointestinal: Reports abdominal pain, Reports nausea and Reports vomiting Genitourinary: Genitourinary: Denies dysuria PMFSH Past Medical History Medical History Anxiety (Unknown) Crohn's disease History of pancreatitis IBS (irritable bowel syndrome) Kidney stones Marijuana smoker Nausea and vomiting in adult Surgical History Surgical History H/O lithotripsy Social History Social History Smoking status: Current every day smoker Second hand tobacco smoke exposure: No Additional smoking assessment comments: marijuana Alcohol intake: former Substance use: current Substance use type: marijuana Gender identity (if verbalized by the patient): Female Spiritual care concerns: No Exam Const: General: alert Nutritional Appearance: well nourished Orientation/consciousness: patient oriented x3 Other: restless, writhing in bed and thrashing her legs. HENMT: Head: normal to inspection Resp: Effort & Inspection: normal respiratory effort Auscultation: clear to auscultation bilaterally Cardio: Rate: regular rate Rhythm: regular rhythm GI: Inspection: non-distended GI Palp: Yes Soft to palpation Other: Not allowing thorough exam Skin: General skin exam: normal color Neuro: General: patient oriented x3 and moves all extremities Speech: normal speech Extrem: General: normal to inspection Course Course Emergency Course: I attempted to discharge the patient after her work-up again failed to reveal any cuase for her symptoms. Shortly after going to the waiting room she returned to the desk to check herself back in. She was once again thrashing around in bed and inconsolable. I called the hospitalist about possible admission. She reviewed the chart and said that they could find no reason to admit her at this time. I explained this to the patient. I will attempt to discharge her again. Vital Signs Vital signs: Vital Signs Temperature 37.1 C 10/23/20 12:37 Pulse Rate 66 10/23/20 12:37 Respiratory Rate 22 H 10/23/20 12:37 Blood Pressure 180/78 H 10/23/20 12:37 Pulse Oximetry 99 10/23/20 12:37 Temperature 37.1 C 10/23/20 12:37 Pulse Rate 64 10/23/20 15:59 Respiratory Rate 18 10/23/20 15:59 Blood Pressure 176/74 H 10/23/20 15:59 Pulse Oximetry 99 10/23/20 15:59 MDM - Abdominal Pain MDM Narrative Medical decision making narrative: Labs and imaging unremarkable. Lab Data Result diagrams: 10/23/20 12:55 10/23/20 12:55 Labs: Lab Results 10/23/20 10/23/20 10/23/20 Range/Units 12:55 12:55 15:00 WBC 15.9 H (4.5-10.0) K/mm3 RBC 4.46 (4.2-5.4) M/mm3 Hgb 13.8 (12.0-15.0) g/dL Hct 39.8 (37.0-47.0) % MCV 89.2 (80-100) fl MCH 30.9 (26-34) pg MCHC 34.7 (32-36) g/dl RDW 12.9 (1
[2020-10-23] MEDS: DICYCLOMINE HCL INJ 20 MG/2 ML VIAL IM (13:00)
[2020-10-23 13:13] LABS: Basophils Percent Auto 0.1 % (0.2-1.2); Hematocrit 39.8 % (37.0-47.0); Hemoglobin 13.8 g/dL (12.0-15.0); Immature Granulocyte Absolute 0.05 K/mm3 (0.00-0.031); Immature Granulocyte Percent A 0.3 % (0-0.5); Lymphocytes Absolute Auto 2.06 K/mm3 (0.9-3.2); Mean Corpuscular HGB Conc 34.7 g/dl (32-36); Mean Corpuscular Hemoglobin 30.9 pg (26-34); Mean Corpuscular Volume 89.2 fl (80-100); Mean Platelet Volume 10.7 fl (7.4-10.4); Monocytes Absolute Auto 1.5 K/mm3 (0.1-0.6); Monocytes Percent Auto 9.5 % (2.6-8.5); Neutrophils Absolute Auto 12.3 K/mm3 (1.3-6.7); Neutrophils Percent Auto 77.1 % (45.5-73.1); Platelet Count Result 243 k/mm3 (150-375); Red Blood Count 4.46 M/mm3 (4.2-5.4); Red Cell Distribution Width 12.9 % (11.5-14.5); White Blood Count 15.9 K/mm3 (4.5-10.0)
--- NOTE | 2020-10-23 13:38 | PC.NURSE ---
Pt unable to give urine at this time.
[2020-10-23 13:53] LABS: Alanine Aminotransferase 20 U/L (4-35); Albumin Level 4.4 g/dL (3.5-5.1); Alkaline Phosphatase 62 U/L (38-126); Anion Gap 10 mmol/L (8-16); Aspartate Amino Transferase 48 U/L (14-36); Bilirubin,Total 0.7 mg/dL (0.2-1.3); Blood Urea Nitrogen 9 mg/dL (7-17); Calcium 8.9 mg/dL (8.4-10.2); Carbon Dioxide 23 mmol/L (22-30); Chloride 105 mmol/L (98-107); Estimated CRCL calculation 77 ml/min; Estimated Glomerular Filt Rate > 60; Glucose 97 mg/dL (65-105); Lipase 68 U/L (23-300); Potassium 3.7 mmol/L (3.4-5.0); Sodium 138 mmol/L (137-145)
[2020-10-23] MEDS: KETOROLAC 30 MG/ML VIAL (*BKC) IV PUSH (14:48)
[2020-10-23 15:11] LABS: Add Urine Microscopic? YES; Appearance Urine Clear (Clear); Bilirubin Urine Negative (Negative); Blood Urine Negative (Negative); Color Urine Yellow (Yellow); Glucose Urine UA Negative (Negative); Ketones Urine 1+ mg/dL (Negative); Leukocyte Esterase Ur Trace LEU/UL (Negative); Mucus Urine Rare /lpf; Nitrate Urine Negative (Negative); Protein Urine 1+ mg/dL (Negative); Specific Grav Ur 1.028 (1.001-1.035); Squamous Epithelial Cell Urine Occasional /hpf (Few); Urobilinogen Urine Negative mg/dL (<2.0); WBC Urine 0-3 /hpf
[2020-10-23 15:59] VITALS: BP 176/74; PULSE 64; RESP 18; O2SAT 99
[2020-10-23] MEDS: METOCLOPRAMIDE HCL INJ 10 MG/2 ML VIAL IV PUSH (16:45)
== END 2020-10-23 17:48 | disposition home or self-care (01) ==
PROVIDERS: Emergency Medicine; Emergency Provider Emergency Medicine; PCP Family Medicine
DX: R10.84 Generalized abdominal pain (principal); K50.90 Crohn's disease, unspecified, without complications; Z87.442 Personal history of urinary calculi; F17.200 Nicotine dependence, unspecified, uncomplicated; R16.0 Hepatomegaly, not elsewhere classified
CPT/HCPCS: 36415; 74176; 80053; 81001; 81025; 83690; 85025; 96372; 96374; 96375; 99284; J0500; J1885; J2765

== ENCOUNTER 2020-10-24 04:07 | Emergency (ER) | payer OTHER, SELFPAY ==
[2020-10-24 04:05] VITALS: BP 160/94; PULSE 60; RESP 20; TEMP 36.6; O2SAT 99
--- NOTE | 2020-10-24 04:18 | ECG_ITS ---
Measurements Intervals [place] Rate: 57 P: 73 RI: 152 QRS: 65 QRSD: 113 T: 56 QT: 439 QTc: 430 Interpretive Statements SINUS BRADYCARDIA INTRAVENTRICULAR CONDUCTION DELAY BASELINE ARTIFACT- I, II, III, AVR, AVL, AVF, V1-V6 BORDERLINE ECG Electronically Signed On 10-24-2020 7:01:23 PEANUT BUTTER MAKER by Gaston Moctezuma D.O.
[2020-10-24] MEDS: LACTATED RINGERS 1,000 ML 999 ML IV CONT (04:23)
[2020-10-24] MEDS: LORazepam INJ (*CRX) 2 MG/ML VIAL 1 MG IV PUSH (04:24)
[2020-10-24] MEDS: HALOPERIDOL LACTATE 5 MG/ML VIAL IM (04:24)
--- NOTE | 2020-10-24 04:25 | ED.ABDPAIN ---
HPI - Abdominal Pain General Chief Complaint: Abdominal Pain Stated Complaint: Abd pain Time Seen by Provider: 10/24/20 04:08 Source: patient Mode of arrival: EMS History of Present Illness HPI narrative: This is a 39 year old female with history of colitis and anxiety who presents via EMS for evaluation of abdominal pain. Patient reports severe right lower abdominal pain and flank pain that has been presents for the past 3 weeks. She was admitted to hospital 3 weeks ago with this pain and she was diagnosed with intussuseption. She was discharged from the hospital after evaluation by GI And general surgery. GI did not think patient had chrohns. This is her 3rd ER visit in the past 24 hours for this pain. She had labs and CT performed. Her CT scan was unremarkable so she was discharged home. Related Data Home Medications Medication Instructions Recorded Confirmed pantoprazole [Protonix] 20 mg PO TID 10/09/20 10/10/20 Allergies Allergy/AdvReac Type Severity Reaction Status Date / Time No Known Allergies Allergy Verified 10/23/20 12:19 Review of Systems Review of Systems: All systems reviewed & are unremarkable except as noted in HPI and below Constitutional: Constitutional: Denies chills and Denies fever(s) Gastrointestinal: Gastrointestinal: Reports abdominal pain and Reports nausea PMFSH Past Medical History Medical History Anxiety (Unknown) Crohn's disease History of pancreatitis IBS (irritable bowel syndrome) Kidney stones Marijuana smoker Nausea and vomiting in adult Surgical History Surgical History H/O lithotripsy Social History Social History Smoking status: Current every day smoker Second hand tobacco smoke exposure: No Additional smoking assessment comments: marijuana Alcohol intake: former Substance use: current Substance use type: marijuana Gender identity (if verbalized by the patient): Female Spiritual care concerns: No Exam Const: General: alert Orientation/consciousness: patient oriented x3 Other: patient restless in bed Eyes: EOM: EOMs intact bilaterally Resp: Effort & Inspection: normal respiratory effort and no retractions Auscultation: clear to auscultation bilaterally Cardio: Rate: regular rate Rhythm: regular rhythm GI: GI Palp: Yes Soft to palpation, No Tenderness to palpation present (GI), No Guarding due to palpation present (GI) and No Rigid due to palpation Auscultation: normal bowel sounds Neuro: General: patient oriented x3 and moves all extremities Psych: Affect: Anxious affect present Course Reevaluation(s) Reevaluation #1: Patient is laying comfortably in bed. No acute distress. sHe states she feels better. I Discussed I Reviewed her previous ED visits. She has received 2 CT scans in past 24 hours so I will not repeat as they have been unremarkable. wbc has decreased. She will discontinue her antibiotics as CT was normal. She has an appointment with Dr. Pyle in 1 week. Date: 10/24/20 Time: 05:45 Reevaluation #2: she states she feels better. She is sitting up in bed with no complaints. She has no vomiting in ER. Date: 10/24/20 Time: 07:11 Vital Signs Vital signs: Vital Signs Temperature 97.9 F 10/24/20 04:05 Pulse Rate 60 10/24/20 04:05 Respiratory Rate 20 10/24/20 04:05 Blood Pressure 160/94 H 10/24/20 04:05 Pulse Oximetry 99 10/24/20 04:05 Temperature 97.9 F 10/24/20 04:05 Pulse Rate 60 10/24/20 04:05 Respiratory Rate 20 10/24/20 04:05 Blood Pressure 109/70 10/24/20 06:30 Pulse Oximetry 98 10/24/20 04:46 MDM - Abdominal Pain Medical Records Attestation: I reviewed the patient's medical records. Lab Data Attestation: I reviewed the patient's lab results. Result diagrams: 10/24/20 04:31
[2020-10-24 04:45] LABS: Basophils Absolute Auto 0.1 K/mm3 (0.0-0.1); Basophils Percent Auto 0.4 % (0.2-1.2); Eosinophils Percent Auto 0.2 % (0-4.4); Hematocrit 41.8 % (37.0-47.0); Hemoglobin 14.3 g/dL (12.0-15.0); Immature Granulocyte Absolute 0.05 K/mm3 (0.00-0.031); Immature Granulocyte Percent A 0.4 % (0-0.5); Lymphocytes Absolute Auto 1.69 K/mm3 (0.9-3.2); Lymphocytes Percent Auto 12.7 % (18.3-44.2); Mean Corpuscular HGB Conc 34.2 g/dl (32-36); Mean Corpuscular Volume 90.5 fl (80-100); Mean Platelet Volume 10.1 fl (7.4-10.4); Monocytes Percent Auto 7.7 % (2.6-8.5); Neutrophils Absolute Auto 10.5 K/mm3 (1.3-6.7); Neutrophils Percent Auto 78.6 % (45.5-73.1); Platelet Count Result 231 k/mm3 (150-375); Red Blood Count 4.62 M/mm3 (4.2-5.4); Red Cell Distribution Width 12.9 % (11.5-14.5); White Blood Count 13.3 K/mm3 (4.5-10.0)
[2020-10-24 04:46] VITALS: O2SAT 98
[2020-10-24 04:58] LABS: Alanine Aminotransferase 23 U/L (4-35); Albumin Level 4.2 g/dL (3.5-5.1); Alkaline Phosphatase 60 U/L (38-126); Anion Gap 7 mmol/L (8-16); Aspartate Amino Transferase 45 U/L (14-36); Bilirubin,Total 0.8 mg/dL (0.2-1.3); Blood Urea Nitrogen 12 mg/dL (7-17); Calcium 8.8 mg/dL (8.4-10.2); Carbon Dioxide 28 mmol/L (22-30); Chloride 102 mmol/L (98-107); Estimated CRCL calculation 61 ml/min; Estimated Glomerular Filt Rate > 60; Glucose 105 mg/dL (65-105); Lipase 132 U/L (23-300); Potassium 2.9 mmol/L (3.4-5.0); Sodium 137 mmol/L (137-145)
--- NOTE | 2020-10-24 05:33 | PC.NURSE ---
Called to add on trop.
[2020-10-24 05:56] LABS: Troponin I < 0.012 ng/mL (0.000-0.034)
[2020-10-24 06:30] VITALS: BP 109/70
[2020-10-24] MEDS: diphenhydrAMINE HCl INJ 50 MG/ML VIAL 25 MG IV PUSH (06:38)
[2020-10-24 07:55] VITALS: BP 111/71; PULSE 65; RESP 18; O2SAT 100
== END 2020-10-24 07:30 | disposition home or self-care (01) ==
PROVIDERS: Emergency Provider General Practice; PCP Family Medicine
DX: R11.2 Nausea with vomiting, unspecified (principal); K50.90 Crohn's disease, unspecified, without complications; Z87.442 Personal history of urinary calculi; F17.200 Nicotine dependence, unspecified, uncomplicated; R00.1 Bradycardia, unspecified; I45.9 Conduction disorder, unspecified
CPT/HCPCS: 36415; 80053; 81025; 83690; 84484; 85025; 93005; 96361; 96372; 96374; 96375; 99284; J1200; J1630; J2060; J7120

== ENCOUNTER 2020-10-25 04:03 | Observation (INO) | payer OTHER, SELFPAY ==
[2020-10-25] VITALS (9 sets, daily range): BP systolic 94–172; BP diastolic 50–91; PULSE 52–68; RESP 18–24; TEMP 36.2–36.7; O2SAT 97–100
--- NOTE | ~2020-10-25 | US_ITS ---
EXAMINATION: US abdomen complete EXAM DATE: 10/25/2020 07:49 INDICATION: Abdominal pain with nausea, vomiting. TECHNIQUE: Multiple grayscale and Doppler images of the complete abdomen were obtained (by a technolo gist who performed the scan) and subsequently reviewed. Correlation is made to CT abdomen 10/23/2020. FINDINGS: The abdominal aorta is normal in caliber. Visualized portion IVC is patent. The pancreatic head a nd body are normal in appearance. The pancreatic tail is not visualized. The liver has normal echogenicity and contour. There are no focal liver lesions identified. There is no evidence of intrahepatic biliary duct dilation. Portal venous flow was seen in the hepatopedal , normal direction and has normal Doppler waveform. Common bile duct measures 2 mm, which is normal. The gallbladder fossa is unremarkable. Right kidney: There is normal contour and echogenicity. It measures 11.2 x 3.3 x 5.7 centimeters. There are no focal renal lesions identified. There is no hydronephrosis. Left kidney: There is normal contour and echogenicity. It measures 12.7 x 4.9 x 4.4 centimeters. T here are no focal renal lesions identified. There is no hydronephrosis. The spleen measures 10 centimeters and is morphologically normal. IMPRESSION: 1. Unremarkable complete abdominal ultrasound exam. Reviewed, dictated and finalized at location A. UTER ENGINEERING TECHNOLOGIST
--- NOTE | 2020-10-25 04:20 | PC.NURSE ---
pt placed fingers down her throat to make herself vomit, aware
[2020-10-25 04:40] LABS: Basophils Absolute Auto 0.1 K/mm3 (0.0-0.1); Basophils Percent Auto 0.5 % (0.2-1.2); Eosinophils Absolute Auto 0.1 K/mm3 (0-0.3); Hematocrit 40.1 % (37.0-47.0); Hemoglobin 13.9 g/dL (12.0-15.0); Immature Granulocyte Absolute 0.03 K/mm3 (0.00-0.031); Immature Granulocyte Percent A 0.2 % (0-0.5); Lymphocytes Absolute Auto 1.82 K/mm3 (0.9-3.2); Lymphocytes Percent Auto 13.6 % (18.3-44.2); Mean Corpuscular HGB Conc 34.7 g/dl (32-36); Mean Corpuscular Hemoglobin 31.1 pg (26-34); Mean Corpuscular Volume 89.7 fl (80-100); Mean Platelet Volume 9.9 fl (7.4-10.4); Monocytes Percent Auto 7.3 % (2.6-8.5); Neutrophils Absolute Auto 10.3 K/mm3 (1.3-6.7); Neutrophils Percent Auto 77.4 % (45.5-73.1); Platelet Count Result 198 k/mm3 (150-375); Red Blood Count 4.47 M/mm3 (4.2-5.4); Red Cell Distribution Width 12.5 % (11.5-14.5); White Blood Count 13.4 K/mm3 (4.5-10.0)
[2020-10-25 04:52] LABS: Alanine Aminotransferase 24 U/L (4-35); Alkaline Phosphatase 53 U/L (38-126); Anion Gap 8 mmol/L (8-16); Aspartate Amino Transferase 43 U/L (14-36); Bilirubin,Total 0.7 mg/dL (0.2-1.3); Blood Urea Nitrogen 12 mg/dL (7-17); Calcium 8.3 mg/dL (8.4-10.2); Carbon Dioxide 25 mmol/L (22-30); Chloride 103 mmol/L (98-107); Estimated CRCL calculation 68 ml/min; Estimated Glomerular Filt Rate > 60; Glucose 121 mg/dL (65-105); Lipase 75 U/L (23-300); Potassium 3.1 mmol/L (3.4-5.0); Sodium 136 mmol/L (137-145)
[2020-10-25 04:53] LABS: Lactic Acid Reflex 1.6 mmol/L (0.7-2.1)
[2020-10-25] MEDS: HALOPERIDOL LACTATE 5 MG/ML VIAL IM (04:56)
[2020-10-25 06:43] LABS: Add Urine Microscopic? YES; Appearance Urine Clear (Clear); Bacteria Urine Trace /hpf; Bilirubin Urine Negative (Negative); Blood Urine Negative (Negative); Color Urine Yellow (Yellow); Glucose Urine UA Negative (Negative); Ketones Urine 1+ mg/dL (Negative); Leukocyte Esterase Ur Negative LEU/UL (Negative); Mucus Urine Rare /lpf; Nitrate Urine Negative (Negative); Protein Urine 1+ mg/dL (Negative); RBC Urine 0-2 /hpf (0-2); Squamous Epithelial Cell Urine Rare /hpf (Few); Urobilinogen Urine Negative mg/dL (<2.0); WBC Urine 0-3 /hpf
--- NOTE | 2020-10-25 07:01 | ED.GENADULT ---
HPI - General Adult General Chief complaint: Abdominal Pain Stated complaint: abd pain Time Seen by Provider: 10/25/20 04:03 History of Present Illness HPI narrative: Patient is a 39-year-old female who presents to the ER with abdominal pain and reports of vomiting. Reports she woke up around 2 PM yesterday and started having recurrence of her abdominal pain. She then started feeling nauseated and retching. As patient arrived she is received 8 of Zofran from EMS orally. She is actively trying to make herself vomit by forcing her fingers into the back of her throat. She is rolling around on the cot will not sit still. Patient has been seen multiple times in the last 48 hours and has had 2 CT scans of her abdomen. Patient reports symptoms are aggravated by eating food. Reports she had a turkey sandwich today which may have made things worse. Denies using marijuana. Related Data Home Medications Medication Instructions Recorded Confirmed pantoprazole [Protonix] 20 mg PO TID 10/09/20 10/10/20 Allergies Allergy/AdvReac Type Severity Reaction Status Date / Time No Known Allergies Allergy Verified 10/25/20 07:26 Review of Systems Review of Systems: All systems reviewed & are unremarkable except as noted in HPI and below Constitutional: Constitutional: Denies chills, Reports fatigue and Denies fever(s) Cardiovascular: Cardiovascular: Denies chest pain and Denies radiating jaw, neck or arm pain Respiratory: Respiratory: Denies cough and Denies dyspnea Gastrointestinal: Gastrointestinal: Reports abdominal pain, Denies diarrhea, Reports nausea and Reports vomiting Genitourinary: Genitourinary: Denies nocturia and Denies dysuria [facility] Past Medical History Medical History Anxiety (Unknown) Crohn's disease History of pancreatitis IBS (irritable bowel syndrome) Kidney stones Marijuana smoker Nausea and vomiting in adult Surgical History Surgical History H/O lithotripsy Social History Social History Smoking status: Current every day smoker Second hand tobacco smoke exposure: No Additional smoking assessment comments: marijuana Alcohol intake: former Substance use: current Substance use type: marijuana Gender identity (if verbalized by the patient): Female Spiritual care concerns: No Exam Narrative: Exam Narrative: GENERAL: Unkempt-appearing, well-nourished, and rolling around on the gurney. HEAD: Normocephalic, atraumatic. EYES: PERRL and EOMI. ENT: Mucous membranes moist. CHEST: Clear to auscultation. No respiratory distress. HEART: Regular rate and rhythm. Normal peripheral pulses. ABDOMEN: Soft, mild diffuse discomfort without rebound or guarding, nondistended. EXTREMITIES: Normal range of motion. No edema. SKIN: Warm, dry, no rash. NEURO: Alert and oriented x3. Course Course Emergency Course: Patient has had no real change in her lab work. She has been imaged multiple times. Seems to be improving with Haldol and is no longer trying to force herself to vomit. Patient is still squirming in the bed and reporting diffuse discomfort of her abdomen and nausea. Patient will be admitted for observation and I discussed this with the hospitalist service. I will keep her n.p.o. and give her IV fluids. Will perform an ultrasound of her abdomen and they will later determine if she needs an MRI. I think most of this stems from untreated psychiatric issues and she may require transition to a psychiatric bed if all organic pathology can be ruled out. Vital Signs Vital signs: Vital Signs Temperature 98.0 F 10/25/20 04:02 Pulse Rate 68 10/25/20 04:02 Respiratory Rate 24 H 10/25/20 04:02 Blood Pressure 153/91 H 10/25/20 04:02 Pulse Oximetry 98 10/25/20 04:02 Temperature 98.0 F 10/25/20 04:02 Pulse Rate 68
[2020-10-25] MEDS: PROMETHAZINE HCL 25 MG/ML AMPUL 12.5 MG IV PUSH ×3 (08:10→19:34)
[2020-10-25] MEDS: SODIUM CHLORIDE 0.9% IV 50 ML 100 ML (08:11)
--- NOTE | 2020-10-25 09:02 | ADMGEN ---
This patient, Tessa Roberts, was admitted to Medical Room 249-01. Patient/family oriented to hospital policies and general routines including ID bracelet, bed and alarms, visiting hours, pain management, procedures, bathroom and other care routines, personal items, smoking policy, room service/diet, and visiting hours. Information on how to activate the Rapid Response Team has been discussed. Patient/Family are encouraged to report perceived risks to care and to ask questions if they do not understand what they are told or what they should do.
--- NOTE | 2020-10-25 09:48 | PM.IMHP ---
H&P: HPI History of Present Illness Date/Time: 10/25/20 09:48 Chief Complaint: Generalized abdominal pain Narrative: Tessa Roberts is a 39 year old female presented emergency department with a complaint abdominal pain nausea and vomiting this is patient 5th visit to ER in last 2 days, CT scan abdomen did not show any pathology, her pain is persisting, patient states the pain is so severe she woulk like to remove her intestine, in ER patient was given Phenergan with little improvement, I discussed with the ER physician to further evaluate we ordered abdominal ultrasound which is essentially normal without any pathology, patient states and 1 time she was diagnosed with a colitis and feels is having same symptoms, patient also burning epigastric pain, will start the patient on Protonix drip, Carafate, Zosyn and IV fluids, will given [place] 5/325 every 6 hours as needed, will try to avoid IV pain medications. Will continue to monitor, we did not have GI for weekend, will continue to monitor and if the patient dementia in the hospital will consult GI on Tuesday. Review of Systems Review of Systems: All systems reviewed & are unremarkable except as noted in HPI and below PMFSH Past Medical History Medical History Anxiety (Unknown) Crohn's disease History of pancreatitis IBS (irritable bowel syndrome) Kidney stones Marijuana smoker Nausea and vomiting in adult Surgical History Surgical History H/O lithotripsy Social History Social History Smoking status: Current every day smoker Second hand tobacco smoke exposure: No Additional smoking assessment comments: marijuana Alcohol intake: former Substance use: current Substance use type: marijuana Gender identity (if verbalized by the patient): Female Spiritual care concerns: No Meds Home Medications and Allergies Home Medications Medication Instructions Recorded Confirmed Type pantoprazole [Protonix] 20 mg PO TID 10/09/20 10/10/20 History alprazolam 0.5 mg PO Q8HR PRN #6 tablet 10/11/20 Rx ondansetron HCl [Zofran] 4 mg PO Q8H PRN #10 tablet 10/23/20 Rx hyoscyamine sulfate [Levsin] 0.125 mg PO QID PRN #10 tablet 10/24/20 Rx Lidocaine Base PO Q6H PRN 10/25/20 History amitriptyline 12 mg PO HS 10/25/20 10/25/20 History ciprofloxacin HCl 10/25/20 History metronidazole 10/25/20 History sucralfate 1 g PO QID 10/25/20 10/25/20 History Allergies Allergy/AdvReac Type Severity Reaction Status Date / Time No Known Allergies Allergy Verified 10/25/20 11:13 Vital Signs Vital Signs - 24 hr 10/25/20 04:02 10/25/20 07:30 10/25/20 08:00 Temperature 98.0 F 97.5 F L Pulse Rate 68 57 L 52 L Respiratory Rate 24 H 18 20 Blood Pressure 153/91 H 172/81 H 168/70 H Pulse Oximetry 98 97 100 10/25/20 08:22 10/25/20 08:52 Temperature 98.0 F 98.0 F Pulse Rate Respiratory Rate Blood Pressure Pulse Oximetry Exam Narrative: Exam Narrative: Patient is comfortable, NAD HEENT: eyes are clear and none icteric LUNGS:CTA HEART: RR S1S2 ABD: BS+, Soft diffusely tender Lower extremities: no edema SKIN: nonjaundiced Neuro: grossly intact. H&P: Results Labs Labs: Short CBC 10/25/20 Range/Units 04:35 WBC 13.4 H (4.5-10.0) K/mm3 Hgb 13.9 (12.0-15.0) g/dL Hct 40.1 (37.0-47.0) % Plt Count 198 (150-375) k/mm3 BMP 10/25/20 04:35 Sodium 136 L Potassium 3.1 L Chloride 103 Carbon Dioxide 25 BUN 12 Creatinine 0.80 Glucose 121 H Calcium 8.3 L Liver Function 10/25/20 Range/Units 04:35 Total Bilirubin 0.7 (0.2-1.3) mg/dL AST 43 H (14-36) U/L ALT 24 (4-35) U/L Alkaline Phosphatase 53 (38-126) U/L Albumin 4.0 (3.5-5.1) g/dL Urine 10/25/20 Range/Units 06:32 Urine Color Yellow (Yellow) Urine Appearance Cl
[2020-10-25] MEDS: ALPRAZolam (*CRX) 0.25 MG TABLET PO ×2 (10:01→18:10)
[2020-10-25] MEDS: SODIUM CHLORIDE 0.9% IV 1,000 ML 125 ML IV CONT ×2 (10:01→18:11)
[2020-10-25] MEDS: SUCRALFATE SUSP 100 MG/ML 10 ML UDC 1000 MG PO ×3 (11:03→20:16)
[2020-10-25] MEDS: HYDROcodone/acetaminophen (*CRX) 5-325 MG TABLET 1 TAB PO ×2 (14:09→19:39)
[2020-10-26] MEDS: METOCLOPRAMIDE HCL INJ 10 MG/2 ML VIAL IV PUSH (00:41)
[2020-10-26] MEDS: ALPRAZolam (*CRX) 0.25 MG TABLET PO (00:44)
--- NOTE | 2020-10-26 00:52 | PC.NURSE ---
10/25/20 @ 1999 Pt requested that I call the Doctor and get her IV pain medications. She said, I need IV pain medication! I explained to her that her [place] is due and she said, I will take it but it doesn't work! She took the [place] then again said, CALL THE DOCTOR AND GET ME IV PAIN MEDICATION! She is swaying in the bed. Is very anxious and restless. She is yelling that she needs something more for pain. Notified Marcie LIZAMA She did not want to change her pain medication nor give her more nausea medication.
--- NOTE | 2020-10-26 00:55 | PC.NURSE ---
10/25/20 @ 2313 Pt requesting more pain medications and nausea medications. She said, I need more pain medication She walked up to the nurses station requesting I call the doctor now to get her more pain medication. Dr. Sousa was at the nurses station and witnessed her request. I directed the patient to her room and explained to her I was discussing her requests with the DR. At this time Dr. Sousa does not want to increase or change her pain medication. I also explained to Dr. Sousa that Marcie dc'd her Phenergan so I have nothing PRN for her nausea. Dr. Sousa said she does not need PRN nausea medication. She said after midnight I can give her a one time dose of Reglan 10mg IVP.
--- NOTE | 2020-10-26 01:02 | PC.NURSE ---
10/25/20 @ 0026 Pt requesting a heating pad for abdominal pain. Also wants something for nausea. Pt is also requesting IV pain medications. Notified Dr. Sousa and she ordered a K-pad and just wanted me to give her the one time dose of Reglan.
--- NOTE | 2020-10-26 01:04 | PC.NURSE ---
Addendum entered by Geeta Ayoub RN 10/26/20 01:06: on 10/25/20 at 2100 Original Note: At 2100 observed pt lying in bed relaxed. She is watching TV and playing on her phone. No emesis visible. Have the green emesis bag at bedside and it is empty.
--- NOTE | 2020-10-26 01:07 | PC.NURSE ---
10/25/20 at 2145 Pt is lying in bed with eyes closed.
--- NOTE | 2020-10-26 01:08 | PC.NURSE ---
10/25/20 at 2300 pt is on the bed positioned on her knees rocking back and fourth on the bed. She is yelling, I am in pain, I am in pain! She is now requesting to take a shower. We are getting her shower set up. Will monitor closely.
--- NOTE | 2020-10-26 01:11 | PC.NURSE ---
At 0000 received a call from the patients mom. She is asking that we give her daughter pain medication. She also said Tessa called her and asked her to speak to her nurse and see if they will give me more pain medication. I spent some time with her mom on the phone and explained to her all the medications we are giving her and the current plan of care. Her mom voiced understanding with no complaints.
[2020-10-26] MEDS: HYDROcodone/acetaminophen (*CRX) 5-325 MG TABLET 1 TAB PO ×2 (02:10→08:04)
[2020-10-26] MEDS: SODIUM CHLORIDE 0.9% IV 1,000 ML 125 ML IV CONT ×2 (02:16→09:17)
[2020-10-26 05:17] LABS: Hematocrit 35.7 % (37.0-47.0); Hemoglobin 12.4 g/dL (12.0-15.0); Mean Corpuscular HGB Conc 34.7 g/dl (32-36); Mean Corpuscular Hemoglobin 30.9 pg (26-34); Mean Platelet Volume 10.1 fl (7.4-10.4); Platelet Count Result 196 k/mm3 (150-375); Red Blood Count 4.01 M/mm3 (4.2-5.4); Red Cell Distribution Width 12.2 % (11.5-14.5); White Blood Count 8.4 K/mm3 (4.5-10.0)
[2020-10-26 05:27] VITALS: BP 111/58; PULSE 73; RESP 16; TEMP 36.4; O2SAT 100
[2020-10-26 05:27] LABS: Magnesium 1.7 mg/dL (1.6-2.3)
[2020-10-26] MEDS: SUCRALFATE SUSP 100 MG/ML 10 ML UDC 1000 MG PO (06:07)
--- NOTE | 2020-10-26 08:12 | PC.NURSE ---
Pt asked to speak to a copy supervisor. I spoke to the patient in her room. Pt sitting in bed, rocking, squirming, crying, stating, I can't do this today. Pt complaint that she was in trouble for asking for meds from the night doctor. Pt requesting more pain medicine. Pt received [place] five minutes before requesting me come speak to her. Pt asking if she can get her tylenol & phenergen back. I told her I would speak to the doctor about it.
--- NOTE | 2020-10-26 08:18 | PC.NURSE ---
Patient screaming, crying in room when I entered. She requested pain medication at 0730 and was instructed it was not due until 0810 and I would be back to administer it then. Pt repeatedly called out asking for me to administer it early. Instructed patient, again, that I was only able to administer it per the parameters and I would be back at 0810 to give it to her. Upon arrival to room, patient hysterically crying stating we are all hurting her. She requested to speak to my supervisor cured meats. Gabriela Renee called and is at bedside speaking with patient.
--- NOTE | 2020-10-26 08:27 | PC.NURSE ---
Dr. Richard notified of patients request for IV Tylenol and anti nausea medicine.
--- NOTE | 2020-10-26 09:00 | PC.NURSE ---
At bedside with Dr. Richard. Dr. Richard discussing lab results, scans, etc. to patient and patient became agitated and screaming at us to leave. Pt states we haven't done anything for her RLQ pain. Dr Richard discussed discharge with patient at bedside. Pt still agitated and yelling.
--- NOTE | 2020-10-26 09:08 | PM.DS ---
DS: Admitting Diagnosis Admitting Diagnosis Admitting Diagnosis: Chief Complaint: Generalized abdominal pain DS: Discharge Diagnosis Discharge Diagnosis (1) Generalized abdominal pain: Code(s): R10.84 - Generalized abdominal pain Status: Acute Assessment and Plan: Tessa Roberts is a 39 year old female presented emergency department with a complaint abdominal pain nausea and vomiting this is patient 5th visit to ER in last 2 days, CT scan abdomen did not show any pathology, her pain is persisting, patient states the pain is so severe she woulk like to remove her intestine, in ER patient was given Phenergan with little improvement, I discussed with the ER physician to further evaluate we ordered abdominal ultrasound which is essentially normal without any pathology, patient states and 1 time she was diagnosed with a colitis and feels is having same symptoms, patient also burning epigastric pain, will start the patient on Protonix drip, Carafate, Zosyn and IV fluids, will given [place] 5/325 every 6 hours as needed, will try to avoid IV pain medications. Will continue to monitor, we did not have GI for weekend, will continue to monitor and if the patient dementia in the hospital will consult GI on Tuesday. (2) Anxiety: Onset Date: Unknown Code(s): F41.9 - Anxiety disorder, unspecified Status: Acute Assessment and Plan: Will give Xanax her home medication as needed (3) Nausea and vomiting in adult: Code(s): R11.2 - Nausea with vomiting, unspecified Status: Acute Assessment and Plan: Etiology uncertain will monitor and consult GI for further recommendation DS: Summary Hospital Course Reason for hospitalization: Chief Complaint: Generalized abdominal pain Narrative: Tessa Roberts is a 39 year old female presented emergency department with a complaint abdominal pain nausea and vomiting this is patient 5th visit to ER in last 2 days, CT scan abdomen did not show any pathology, her pain is persisting, patient states the pain is so severe she woulk like to remove her intestine, in ER patient was given Phenergan with little improvement, I discussed with the ER physician to further evaluate we ordered abdominal ultrasound which is essentially normal without any pathology, patient states and 1 time she was diagnosed with a colitis and feels is having same symptoms, patient also burning epigastric pain, will start the patient on Protonix drip, Carafate, Zosyn and IV fluids, will given [place] 5/325 every 6 hours as needed, will try to avoid IV pain medications. Will continue to monitor, we did not have GI for weekend, will continue to monitor and if the patient dementia in the hospital will consult GI on Tuesday. Hospital Course: Tessa Roberts is a 39 year old female presented emergency department with a complaint abdominal pain nausea and vomiting this is patient 5th visit to ER in last 2 days, CT scan abdomen did not show any pathology, her pain is persisting, patient states the pain is so severe she woulk like to remove her intestine, in ER patient was given Phenergan with little improvement, I discussed with the ER physician to further evaluate we ordered abdominal ultrasound which is essentially normal without any pathology, patient states and 1 time she was diagnosed with a colitis and feels is having same symptoms, patient also burning epigastric pain, will start the patient on Protonix drip, Carafate, Zosyn and IV fluids, will given [place] 5/325 every 6 hours as needed, will try to avoid IV pain medications. Will continue to monitor, we did not have GI for weekend, will continue to monitor and if the patient dementia in the hospital will consult GI on Tuesday. Patient is clinically stable, will discharge to follow up with GI as an outpatient. Status at Discharge Functional status at discharge: independent ambulation Overall status at discharge: patient is back to baseline Time Spent with Patient Time
--- NOTE | 2020-10-26 09:15 | PC.NURSE ---
Patient refused to allow me to go over discharge instructions.
--- NOTE | 2020-10-26 09:32 | PC.NURSE ---
0105 Pt call light answered. Pt states, Send somebody in here right now to take these IVs out of my arm. IVs removed and dressing applied to 2 IV sites. Pt states, I'm going to [facility] and I'm calling a tankage grinder operator as soon as I get out of here. This doctor is a quack. Pt no longer rocking and squirming in the bed. Pt jumped out of bed and walked into bathroom without assistance. Steady gait.
== END 2020-10-26 09:25 | disposition home or self-care (01) ==
LOC: ANHED 07:26 → ANH2MED 08:19
PROVIDERS: Admitting Provider Family Medicine; Emergency Provider Emergency Medicine; PCP Family Medicine; Visit Provider Family Medicine
DX: R10.84 Generalized abdominal pain (principal); F12.90 Cannabis use, unspecified, uncomplicated; F41.9 Anxiety disorder, unspecified; R11.2 Nausea with vomiting, unspecified
CPT/HCPCS: 36415; 76700; 80053; 81001; 81025; 83605; 83690; 83735; 85025; 85027; 96365; 96366; 96367; 96368; 96372; 96375; 96376; 99285; A9270; C9113; G0378; J0131; J1630; J2543; J2550; J2765; J7030; J7060

== ENCOUNTER 2020-12-02 19:48 | Observation (INO) | payer OTHER, SELFPAY ==
--- NOTE | ~2020-12-02 | CT_ITS ---
EXAMINATION: CT abdomen pelvis w con DATE: 12/02/2020 23:11 INDICATION: Abdominal pain TECHNIQUE: Computed tomography (CT) of the abdomen and pelvis was performed with 100 cc Omnipaque 350 intravenous contrast. Automated exposure control and iterative reconstruction technique were employe d. Exam dose: 223.54 mGy-cm total exam DLP. COMPARISON: 10/25/2020 complete abdominal ultrasound examination, reported unremarkable 10/25/[address] abdomen pelvis FINDINGS: Emphysematous changes of the lungs are suggested. No infiltrate or consolidation at the radha g bases. Normal heart size. No pericardial or pleural effusion. Status post cholecystectomy. No bile duct or pancreatic duct dilatation. Diffuse hepatic steatosis. No hepatic space-occupying mass lesion. No pancreatic mass lesion is evide nt. Normal splenic size. No adrenal mass lesion. 6 mm upper pole right renal cyst. Approximately 3 mm nonobstructing mid right renal calculus possible subtle pinpoint nonobstructing lower pole right renal calculus. No other urinary tract calculus or h ydroureteronephrosis is evident. Normal caliber of the abdominal aorta. No intraperitoneal or retroperitoneal or pelvic mass lesion or adenopathy or ascites. Uterus, adnexal areas and urinary bladder are unremarkable. There is small bowel small bowel intussusception in the left parasagittal abdomen slightly below the level of the umbilicus. No bowel obstruction or intraperitoneal free air. Small fat-containing umbilical hernia. No suspicious osteolytic or osteoblastic lesions are noted. IMPRESSION: Small bowel small bowel intussusception at mid abdomen, without evidence of obstruction; consider surgical consultation and investigation for lead point Status post cholecystectomy line diffuse hepatic steatosis 6 mm upper pole right renal cyst Small nonobstructing right renal calculus (calculi) Reviewed, dictated and finalized at [facility]. Reviewed, dictated and finalized at location A. IMPRESSION: Small bowel small bowel intussusception at mid abdomen, without ev idence of obstruction; consider surgical consultation and investigation for eimly d point Status post cholecystectomy line diffuse hepatic steatosis 6 mm upper pole right renal cyst Small nonobstructing right renal calculus (calculi)
--- NOTE | ~2020-12-02 | XR_ITS ---
EXAMINATION: XR abdomen obstructive series DATE: 12/04/2020 15:35 INDICATION: Abdominal pain TECHNIQUE: Upright and supine views of the abdomen were obtained. COMPARISON: 12/03/2020 FINDINGS: Enteric contrast material from yesterday's small bowel follow-through partially opacifies t he colon. Contrast is seen in the rectum. No dilated loops of bowel are identified. The small bowel i s relatively gasless. No free intraperitoneal gas is seen. Cholecystectomy clips are noted. The visua lized lung bases are clear. IMPRESSION: 1. Nonobstructive bowel gas pattern. Reviewed, dictated and finalized at location B.
--- NOTE | ~2020-12-02 | XR_ITS ---
EXAMINATION: XR sm bowel follow through WS EXAM DATE: 12/03/2020 12:09 INDICATION: Recurrent small bowel intussusception. TECHNIQUE: Missile Tracking Technician radiograph was acquired. Small bowel series was performed with water-soluble Omnip aque 350 solution. Spot images of the small bowel were acquired. Pulsed dose reduction fluoroscopy was used with fluoroscopic time of 0.1 minutes. A total of 27 images obtained for the exam. The DAP for this procedure was 10.3 Gycm2. Correlation is made to CT abdomen pelvis from 12/02/2020. FINDINGS: At 15 minutes, contrast is within stomach and proximal portion of the duodenum which is nor mal in caliber. 30 minutes demonstrates more contrast within jejunum which is mildly distended. By 45 minutes, contrast throughout most of the ileum, and at 1 hour to the hepatic flexure of the colon, n ormal transit time. There is no masslike displacement of bowel loops or other finding to suggest pers istent intussusception. No intraluminal filling defects are identified. Terminal ileal region is unre markable. IMPRESSION: 1. Mildly dilated jejunum probably mild ileus. 2. No evidence of intussusception. Normal transit time. Reviewed, dictated and finalized at location A.
[2020-12-02 19:49] VITALS: BP 164/89; PULSE 70; RESP 14; TEMP 36.7; O2SAT 99
--- NOTE | 2020-12-02 20:00 | PC.NURSE ---
Pt. screaming at bedside. I hurts It hurts. Can I get help in here. grad intern informed pt. she cannot be yelling.
--- NOTE | 2020-12-02 20:05 | PC.NURSE ---
WILLEM Greer notified of pt symptoms and presentation, further intervention required at this time.
[2020-12-02 20:08] LABS: Basophils Absolute Auto 0.1 K/mm3 (0.0-0.1); Basophils Percent Auto 0.3 % (0.2-1.2); Eosinophils Absolute Auto 0.2 K/mm3 (0-0.3); Eosinophils Percent Auto 1.2 % (0-4.4); Hemoglobin 13.9 g/dL (12.0-15.0); Immature Granulocyte Absolute 0.06 K/mm3 (0.00-0.031); Immature Granulocyte Percent A 0.4 % (0-0.5); Lymphocytes Absolute Auto 2.83 K/mm3 (0.9-3.2); Lymphocytes Percent Auto 16.8 % (18.3-44.2); Mean Corpuscular HGB Conc 34.8 g/dl (32-36); Mean Corpuscular Hemoglobin 30.6 pg (26-34); Mean Corpuscular Volume 88.1 fl (80-100); Mean Platelet Volume 9.9 fl (7.4-10.4); Monocytes Absolute Auto 1.1 K/mm3 (0.1-0.6); Monocytes Percent Auto 6.5 % (2.6-8.5); Neutrophils Absolute Auto 12.6 K/mm3 (1.3-6.7); Neutrophils Percent Auto 74.8 % (45.5-73.1); Platelet Count Result 192 k/mm3 (150-375); Red Blood Count 4.54 M/mm3 (4.2-5.4); Red Cell Distribution Width 12.7 % (11.5-14.5); White Blood Count 16.8 K/mm3 (4.5-10.0)
[2020-12-02 20:18] LABS: Alanine Aminotransferase 19 U/L (4-35); Albumin Level 4.4 g/dL (3.5-5.1); Alkaline Phosphatase 56 U/L (38-126); Anion Gap 8 mmol/L (8-16); Aspartate Amino Transferase 33 U/L (14-36); Bilirubin,Total 0.5 mg/dL (0.2-1.3); Blood Urea Nitrogen 14 mg/dL (7-17); Carbon Dioxide 23 mmol/L (22-30); Chloride 110 mmol/L (98-107); Estimated CRCL calculation 93 ml/min; Estimated Glomerular Filt Rate > 60; Glucose 137 mg/dL (65-105); Lipase 129 U/L (23-300); Potassium 3.5 mmol/L (3.4-5.0); Sodium 141 mmol/L (137-145)
--- NOTE | 2020-12-02 20:20 | PC.NURSE ---
PT. thrashing in bed and holding her breath saying My muscles are locked, my muscles are locked.
--- NOTE | 2020-12-02 20:34 | PC.NURSE ---
pt is in the waiting room yelling and screaming and throwing herself to the floor. explained to the patient that there was people in front of her and we would see her when it was her turn. pt continues to yell and scream.
--- NOTE | 2020-12-02 20:45 | PC.NURSE ---
Pt. attempting to stand up on stretcher and leaning over the bed. pt. repeatedly placed in bed an instructed to remain still and calm. Pt. not cooperative. Sitter at bedside.
--- NOTE | 2020-12-02 21:00 | PC.NURSE ---
Pt. requesting to have a BM in bed [place]. pt. provided with bed [place] and wipes to clean up. PT. refusing to provide a urine sample at this time.
--- NOTE | 2020-12-02 21:30 | PC.NURSE ---
Pt. verbalized to RN it is okay to preform a straight cath. on pt.
--- NOTE | 2020-12-02 21:53 | ED.GENADULT ---
HPI - General Adult General Chief complaint: Nausea/Vomiting/Diarrhea Stated complaint: abd pain Time Seen by Provider: 12/02/20 21:35 History of Present Illness HPI narrative: Patient is a 40-year-old female since emergency department with chief complaint of abdominal pain nausea and vomiting. The patient states the discomfort began approximately 6 PM tonight states that she has been unable to get comfortable in any position and has had multiple episodes of trying to vomit. Patient does have prior history of multiple visits to the emergency department with abdominal pain complaints has one time had intussusception and patient is followed by gastroenterology. Patient reports that she is unable to get comfortable in any position. Patient reports is not improved by anything. Related Data Home Medications Medication Instructions Recorded Confirmed sucralfate 1 g PO QID 10/25/20 11/19/20 Allergies Allergy/AdvReac Type Severity Reaction Status Date / Time No Known Allergies Allergy Verified 11/19/20 14:40 Review of Systems Review of Systems: Narrative: A 10 system review of systems was completed on the patient and is negative except for what is stated in the HPI. Nursing and ancillary documentation was reviewed. [facility] Past Medical History Medical History Anxiety (Unknown) Crohn's disease History of pancreatitis IBS (irritable bowel syndrome) Irritable bowel syndrome with constipation Kidney stones Marijuana smoker Nausea and vomiting in adult Surgical History Surgical History H/O lithotripsy Social History Social History Smoking status: Former smoker Second hand tobacco smoke exposure: No Additional smoking assessment comments: marijuana Alcohol intake: former Substance use: current Substance use type: marijuana Gender identity (if verbalized by the patient): Female Spiritual care concerns: No Exam Narrative: Exam Narrative: GENERAL: Well-appearing, well-nourished, extremely anxious writhing around on the stretcher. HEAD: Normocephalic, atraumatic. EYES: PERRLA and EOMI. ENT: Nares clear, no rhinorrhea or epistaxis. Mucous membranes moist. NECK: Supple. CHEST: Clear to auscultation. No respiratory distress. HEART: Regular rate and rhythm. No murmur heard. Normal peripheral pulses. ABDOMEN: Soft, mild tenderness to palpation, nondistended, normal active bowel sounds. EXTREMITIES: Normal range of motion. No edema. SKIN: Warm, dry, no rash. NEURO: No focal deficits. Alert and oriented x3. PSYCH: Anxious affect Course Course Emergency Course: CT scan showed evidence of intussusception. The case was discussed with Dr. Eugene who is on-call for general surgery he is actually familiar with the patient he recommended that the patient be admitted to the hospitalist service for medical management and he will be happy to consult from a surgical perspective I also recommended that tomorrow that the hospitalist service should consider consulting gastroenterology. Vital Signs Vital signs: Vital Signs Temperature 36.7 C 12/02/20 19:49 Pulse Rate 70 12/02/20 19:49 Respiratory Rate 14 12/02/20 19:49 Blood Pressure 164/89 H 12/02/20 19:49 Pulse Oximetry 99 12/02/20 19:49 Temperature 36.7 C 12/02/20 19:49 Pulse Rate 70 12/02/20 22:54 Respiratory Rate 19 12/02/20 22:54 Blood Pressure 140/74 12/02/20 22:54 Pulse Oximetry 97 12/02/20 22:54 Medical Decision Making Vital Signs Vital Signs: Vital Signs Temperature 36.7 C 12/02/20 19:49 Pulse Rate 70 12/02/20 19:49 Respiratory Rate 14 12/02/20 19:49 Blood Pressure 164/89 H 12/02/20 19:49 Pulse Oximetry 99 12/02/20 19:49 Temperature 36.7 C 12/02/20 19:49 Pulse Rate 70 12/02/20 22:54 Respiratory Ra
[2020-12-02] MEDS: DICYCLOMINE HCL INJ 20 MG/2 ML VIAL IM (21:55)
[2020-12-02] MEDS: diphenhydrAMINE HCl INJ 50 MG/ML VIAL IV PUSH (21:55)
[2020-12-02] MEDS: SODIUM CHLORIDE 0.9% IV 1,000 ML 999 ML IV CONT (21:55)
[2020-12-02] MEDS: HALOPERIDOL LACTATE 5 MG/ML VIAL IV PUSH (21:55)
[2020-12-02 22:11] VITALS: BP 143/74; PULSE 75; RESP 14; O2SAT 98
--- NOTE | 2020-12-02 22:20 | PC.NURSE ---
pt. unable to urinate at this time.
[2020-12-02 22:54] VITALS: BP 140/74; PULSE 70; RESP 19; O2SAT 97
[2020-12-02 22:56] LABS: Add Urine Microscopic? YES; Appearance Urine Cloudy (Clear); Bilirubin Urine Negative (Negative); Blood Urine 3+ (Negative); Color Urine Straw (Yellow); Glucose Urine UA 1+ mg/dL (Negative); Ketones Urine 1+ mg/dL (Negative); Leukocyte Esterase Ur Trace LEU/UL (Negative); Mucus Urine Rare /lpf; Nitrate Urine Negative (Negative); Protein Urine 1+ mg/dL (Negative); RBC Urine >75 /hpf (0-2); Specific Grav Ur 1.014 (1.001-1.035); Squamous Epithelial Cell Urine Occasional /hpf (Few); Urobilinogen Urine Negative mg/dL (<2.0)
[2020-12-03] MEDS: HYDROmorphone HCL INJ (*CRX) 1 MG/ML SYR IV PUSH (00:31)
[2020-12-03 00:33] VITALS: BP 128/78; PULSE 79; RESP 12; O2SAT 97
[2020-12-03] MEDS: SODIUM CHLORIDE 0.9% IV 1,000 ML 125 ML IV CONT ×2 (00:51→09:15)
--- NOTE | 2020-12-03 00:54 | ADMGEN ---
This patient, Tessa Roberts, was admitted to Medical Room 254-01. Patient/family oriented to hospital policies and general routines including ID bracelet, bed and alarms, visiting hours, pain management, procedures, bathroom and other care routines, personal items, smoking policy, room service/diet, and visiting hours. Information on how to activate the Rapid Response Team has been discussed. Patient/Family are encouraged to report perceived risks to care and to ask questions if they do not understand what they are told or what they should do.
[2020-12-03 00:56] VITALS: BMI 23.3
[2020-12-03 00:57] VITALS: BP 171/77; PULSE 55; RESP 20; TEMP 36.3; O2SAT 100
[2020-12-03] MEDS: ONDANSETRON INJ 4 MG/2 ML VIAL IV PUSH ×4 (00:58→20:41)
--- NOTE | 2020-12-03 01:09 | PC.NURSE ---
PT SLEEPING AT THIS TIME
[2020-12-03] MEDS: MORPHINE SULFATE (*CRX) 4 MG/ML INJ IV PUSH ×6 (02:03→13:38)
--- NOTE | 2020-12-03 05:00 | PM.IMHP ---
H&P: HPI History of Present Illness Date/Time: 12/03/20 05:00 Chief Complaint: Acute Abdominal pain, nausea, and vomiting. Narrative: This is a pleasant 40-year-old female with known past medical history of Crohn's disease and IBS who presented to the hospital with a complaint of diffuse lower abdominal pain, nausea, and vomiting that started yesterday around 6:00 p.m.. The patient does have a history of previous kidney stones and initially believe she was having another kidney stone. She denies any fevers, chills, shortness of breath, chest pain, diarrhea, hematuria, dysuria, or other symptoms. The patient tonight also complains of right flank discomfort. The patient was found to have a small bowel intussusception at mid abdomen on CT scan without evidence of obstruction. She does have a history of a previous intussusception. General surgery was consulted by ER provider as well as Gastroenterology. General surgery has asked that we admit the patient to the hospital for them. On my encounter with the patient she was having minimal abdominal discomfort and not having any nausea or vomiting. She has no other complaints at this time. Review of Systems Review of Systems: All systems reviewed & are unremarkable except as noted in HPI and below PMFSH Past Medical History Medical History Anxiety (Unknown) Crohn's disease History of pancreatitis IBS (irritable bowel syndrome) Irritable bowel syndrome with constipation Kidney stones Marijuana smoker Nausea and vomiting in adult Surgical History Surgical History H/O lithotripsy History of cholecystectomy Family History Family History Mother Acute myocardial infarction Asthma Chronic obstructive pulmonary disease Son Asthma Father Chronic obstructive pulmonary disease Diabetes mellitus Sibling Diabetes mellitus Social History Social History Smoking status: Former smoker Second hand tobacco smoke exposure: No Additional smoking assessment comments: marijuana Alcohol intake: never Substance use: never Substance use type: marijuana Gender identity (if verbalized by the patient): Female Sexual Orientation (if Verbalized by the Patient): Straight or Heterosexual Spiritual care concerns: No Meds Home Medications and Allergies Home Medications Medication Instructions Recorded Confirmed Type linaclotide 145 mcg capsule 145 mcg PO DAILY #30 cap 10/30/20 12/03/20 Rx dicyclomine 10 mg PO DAILY PRN 12/03/20 12/03/20 History Allergies Allergy/AdvReac Type Severity Reaction Status Date / Time No Known Allergies Allergy Verified 12/03/20 01:13 Vital Signs Vital Signs - 24 hr 12/02/20 19:49 12/02/20 22:11 12/02/20 22:54 Temperature 36.7 C Pulse Rate 70 75 70 Respiratory Rate 14 14 19 Blood Pressure 164/89 H 143/74 H 140/74 Pulse Oximetry 99 98 97 12/03/20 00:33 12/03/20 00:57 Temperature 36.3 C L Pulse Rate 79 55 L Respiratory Rate 12 20 Blood Pressure 128/78 171/77 H Pulse Oximetry 97 100 Exam Const: General: cooperative, no acute distress, alert and awake Nutritional Appearance: well nourished Orientation/consciousness: patient oriented x3 HENMT: Head: normal to inspection General nose exam: Normal external nose present Face and sinus: normal facial exam Mouth: Yes Normal oral and palatal mucosa present and Yes oropharynx normal Eyes: Pupils: Equal, round and reactive pupils present EOM: EOMs intact bilaterally Neck: Neck: supple and no JVD Thyroid: thyroid normal Lymphatic: lymphadenopathy not noted Resp: Effort & Inspection: normal respiratory effort Auscultation: clear to auscultation bilaterally Cardio: Rate: regular rate Rhythm: regular rhythm Heart sounds: no murmurs GI: Inspect
[2020-12-03 05:09] VITALS: BP 112/81; PULSE 56; RESP 18; TEMP 36.3; O2SAT 100
[2020-12-03 05:43] LABS: Basophils Percent Auto 0.1 % (0.2-1.2); Hematocrit 36.8 % (37.0-47.0); Hemoglobin 12.7 g/dL (12.0-15.0); Immature Granulocyte Absolute 0.06 K/mm3 (0.00-0.031); Immature Granulocyte Percent A 0.4 % (0-0.5); Lymphocytes Absolute Auto 1.03 K/mm3 (0.9-3.2); Lymphocytes Percent Auto 7.3 % (18.3-44.2); Mean Corpuscular HGB Conc 34.5 g/dl (32-36); Mean Corpuscular Hemoglobin 30.3 pg (26-34); Mean Corpuscular Volume 87.8 fl (80-100); Monocytes Absolute Auto 0.4 K/mm3 (0.1-0.6); Monocytes Percent Auto 2.8 % (2.6-8.5); Neutrophils Absolute Auto 12.6 K/mm3 (1.3-6.7); Neutrophils Percent Auto 89.4 % (45.5-73.1); Platelet Count Result 153 k/mm3 (150-375); Red Blood Count 4.19 M/mm3 (4.2-5.4); Red Cell Distribution Width 12.5 % (11.5-14.5); White Blood Count 14.1 K/mm3 (4.5-10.0)
[2020-12-03 05:50] LABS: Anion Gap 6 mmol/L (8-16); Blood Urea Nitrogen 9 mg/dL (7-17); Calcium 8.3 mg/dL (8.4-10.2); Carbon Dioxide 26 mmol/L (22-30); Chloride 108 mmol/L (98-107); Estimated CRCL calculation 88 ml/min; Estimated Glomerular Filt Rate > 60; Glucose 107 mg/dL (65-105); Potassium 3.7 mmol/L (3.4-5.0); Sodium 140 mmol/L (137-145)
--- NOTE | 2020-12-03 11:37 | PM.CNGS ---
Assessment and Plan Assessment and plan (1) Intussusception of small bowel: Code(s): K56.1 - Intussusception Status: Acute Assessment and Plan: Small bowel intussusception seen on the CT scan. Discussed findings with patient in detail. Since this is her second presentation with this in the past 2 months, there is more concern for a lead point. She has clinically improved and her exam is benign this morning. She is hemodynamically stable. We will get a Gastrografin small bowel follow through today to further assess. Keep her NPO and on IV fluids while awaiting these results. Further plan depending on how she progresses. We may need to consider seeing if GI could do a capsule endoscopy to evaluate the small bowel as an outpatient. Thank you for allowing us to see the patient in consultation and we will continue to follow along with you. (2) Leukocytosis: Qualifiers: Leukocytosis type: unspecified Qualified Code(s): D72.829 - Elevated white blood cell count, unspecified Code(s): D72.829 - Elevated white blood cell count, unspecified Status: Acute Assessment and Plan: WBC down today. Continue to trend labs. Could be related to the inflammation from intussusception. Discussed with the Hospitalist who feels she may also have also passed a kidney stone. (3) Crohn's disease: Qualifiers: Digestive disease complication type: other complication Gastrointestinal tract location: unspecified location Qualified Code(s): K50.918 - Crohn's disease, unspecified, with other complication Code(s): K50.90 - Crohn's disease, unspecified, without complications Status: Chronic Assessment and Plan: Follow-up with GI as scheduled. (4) Irritable bowel syndrome with constipation: Code(s): K58.1 - Irritable bowel syndrome with constipation Status: Acute (5) Anxiety: Onset Date: Unknown Code(s): F41.9 - Anxiety disorder, unspecified Status: Acute Additional Plan I have discussed the patient's case and plan of care with Dr. Eugene. History of Present Illness Consult details Consult date: 12/03/20 Reason for consult: other (Small-bowel intussusception) Requesting physician: Mazin Rajput MD Narrative: This is a 40-year-old female with a history of Crohn's disease, irritable bowel syndrome, chronic abdominal pain, and fairly recent jejunal intussusception in September 2020 that was felt to be transient and treated conservatively. The patient reports dealing with a longstanding history abdominal pain that occurs daily. She has recently established care with a supervisor dock in September of 2020 and started new medications, which she feels has helped her abdominal pain. Although yesterday, she developed a sudden onset of severe generalized abdominal pain in the afternoon after drinking some water. She also reports associated nausea, vomiting, and chills. She nearly immediately came to the ER for evaluation. CT scan of the abdomen and pelvis showed a small bowel intussusception at the mid abdomen without obstruction. Labs revealed a white blood cell count 16,000. Urinalysis showed + ketones, +blood, + protein, > 75 RBC. The patient was admitted to the hospitalist service. She was started on IV fluids, analgesics, and made NPO. Our service was consulted for the recurrent small bowel intussusception. The patient is now seen on the medical floor. She reports her abdominal pain and bloating has improved significantly. She is no longer feeling nauseated. She reports vomiting in the ER, but has not vomited since being on the medical floor. She also reports having diarrhea about 15 times over the past 24 hours, with the last loose bowel movement around 5:00 a.m. this morning. Denies hematochezia or melena. No other complaints at this time. When she was last seen in September for a jejunal intussusception, she had a Gastrografin small-bowel follow-throu
[2020-12-03 13:45] VITALS: BP 114/61; PULSE 67; RESP 16; TEMP 36.2; O2SAT 99
[2020-12-03 13:57] VITALS: BMI 23.3
--- NOTE | 2020-12-03 14:05 | PC.NURSE ---
On 12/03/20, the student, [Yessy Escobedo ], provided care and completed [facility] documentation on this patient. I have reviewed the student's documentation and agree with the findings.
--- NOTE | 2020-12-03 14:32 | PM.IMPN ---
Progress Note: A&P Assessment and Plan (1) Intussusception of small bowel: Code(s): K56.1 - Intussusception Status: Acute Assessment and Plan: The patient has been placed in observation status. The patient is nontoxic appearing. Continue pain control and antiemetics as needed. Continue IV fluid hydration. General surgery has been consulted and ordered a SBFT which is pending. General surgery to manage intussusception of small bowel. Continue monitoring symptoms. Stable at this time. (2) Leukocytosis: Qualifiers: Leukocytosis type: unspecified Qualified Code(s): D72.829 - Elevated white blood cell count, unspecified Code(s): D72.829 - Elevated white blood cell count, unspecified Status: Acute Assessment and Plan: Likely secondary to intussusception in inflammation. Monitor CBCD (3) Crohn's disease: Qualifiers: Gastrointestinal tract location: unspecified location Digestive disease complication type: other complication Qualified Code(s): K50.918 - Crohn's disease, unspecified, with other complication Code(s): K50.90 - Crohn's disease, unspecified, without complications Status: Chronic Assessment and Plan: Gastroenterology has been consulted by ER provider. Continue GI recommendations. Time Spent With Patient Time with patient: 25 - 35 minutes Subjective Date/time seen: 12/03/20 14:32 Interval history: Date of Service 12/03/20: She is still having abdominal pain, central abdomen. No nausea, vomiting at this time. She is having some bowel movements after SBFT. She denies any fever, chills, chest pain, SOB, cough, dysuria, leg swelling, calf pain or any other symptoms at this time. Review of Systems Review of Systems: All systems reviewed & are unremarkable except as noted in HPI and below Exam Narrative: Exam Narrative: General: 40-year-old woman laying in bed resting, then comes to a sitting position to talk to me. Appears comfortable. In no acute distress. Skin: No jaundice or cyanosis. Good skin turgor. Neck: Full range of motion. Supple. Respiratory: Lungs are clear to auscultation bilaterally. No bony chest wall tenderness. Cardiovascular: The heart has a regular rate and rhythm without murmur. No carotid bruits. Lower extremities: No lower extremity edema. Distal pulses are easily palpated. No calf tenderness to palpation. Gastrointestinal: Slight tenderness to palpation, no rebound or guarding. The abdomen is otherwise soft, nondistended with active bowel sounds. Psychiatric: Lucid and oriented. Memory intact. Neurologic: No focal deficits. Speech is clear. No facial drooping. Objective Data Vital Signs Vital Signs: Vital Signs - 24 hr 12/02/20 19:49 12/02/20 22:11 12/02/20 22:54 Temperature 98.0 F Pulse Rate 70 75 70 Respiratory Rate 14 14 19 Blood Pressure 164/89 H 143/74 H 140/74 Pulse Oximetry 99 98 97 12/03/20 00:33 12/03/20 00:57 12/03/20 05:09 Temperature 97.4 F L 97.4 F L Pulse Rate 79 55 L 56 L Respiratory Rate 12 20 18 Blood Pressure 128/78 171/77 H 112/81 Pulse Oximetry 97 100 100 12/03/20 13:45 Temperature 97.2 F L Pulse Rate 67 Respiratory Rate 16 Blood Pressure 114/61 Pulse Oximetry 99 Intake/Output Intake/Output: Intake & Output 11/30/20 12/01/20 12/02/20 12/03/20 23:59 23:59 23:59 23:59 Intake Total 1100 1000 Output Total 300 Balance 1100 700 Meds/Results Medications: Active Medications Generic Name Dose Route Start Last Admin Trade Name Freq PRN Reason Stop Dose Admin Acetaminophen 1,000 mg in 100 mls @ 400 mls/hr 12/03/20 00:12 Ofirmev 1,000 Mg Ivpb IVPB 12/04/20 00:13 Q6H PRN Mild Pain (1-3) or Fever Sodium Chloride 1,000 mls @ 125 mls/hr 12/03/20 00:15 12/03/20 09:15 Norm
[2020-12-03] MEDS: HYDROcodone/acetaminophen (*CRX) 5-325 MG TABLET 1 TAB PO ×2 (15:56→23:46)
--- NOTE | 2020-12-03 16:58 | WPDGICN ---
Assessment and Plan Assessment and plan (1) Intussusception of small bowel: Code(s): K56.1 - Intussusception Status: Acute Assessment and Plan: second episode, she is responding to conservative management and SBFT without anymore intussusception may need surgical intervention if recurrent episodes will try to get records of previous EGD/colonoscopy but if can not find then we can perform both scopes as outpatient, also consideration to do small bowel capsule endoscopy to assess small bowel I am not even sure if she has Crohn's (she is not taking any meds for IBD) she has been treated for ibs-constipation at home (2) Leukocytosis: Qualifiers: Leukocytosis type: unspecified Qualified Code(s): D72.829 - Elevated white blood cell count, unspecified Code(s): D72.829 - Elevated white blood cell count, unspecified Status: Acute (3) Irritable bowel syndrome with constipation: Code(s): K58.1 - Irritable bowel syndrome with constipation Status: Acute Assessment and Plan: treated as outpatient (4) Generalized abdominal pain: Code(s): R10.84 - Generalized abdominal pain Status: Acute Assessment and Plan: chronic and previous ER visit (5) Anxiety: Onset Date: Unknown Code(s): F41.9 - Anxiety disorder, unspecified Status: Acute GI Consult Note Consult date/time: 12/03/20 16:58 HPI: Tessa Roberts is a 40 year old female who I met her during recent hospitalization 09/2020 then follow up in office in two different times. She has significant anxiety, IBS, constipation and was admitted last time with 9 cm of jejunal intussusception but this was followed by a normal SBFT and repeat CT scan normal. Apparently she had egd and colonoscopy at [place] more than a year ago (no records to review- she wonders if had Crohn's however never been on any medication for IBD), work up during recent hospitalization with normal esr, crp and SBFT. She had chronic abdominal pain and since her office visit using elavil, linzess and bentyl with good control of symptoms. This time she was admitted with sudden onset of severe generalized abdominal pain after drinking some water, also associated nausea, vomiting, and chills. CT scan of the abdomen and pelvis reviewed and showed a small bowel intussusception at the mid abdomen without obstruction. Labs revealed a white blood cell count 16,000. Admitted to hospital, she is doing better today. Still npo. New SBFT showed mildly dilated jejunum probably mild ileus, no evidence of intussusception. Normal transit time. Review of Systems Constitutional: Constitutional: Reports chills Eyes: Eyes: Denies blurry vision ENT: Reports Normal hearing present Cardiovascular: Cardiovascular: Denies chest pain Respiratory: Respiratory: Denies dyspnea Gastrointestinal: Gastrointestinal: Reports abdominal pain, Reports nausea and Reports vomiting Genitourinary: Genitourinary: Denies hematuria Musculoskeletal: Musculoskeletal: Denies neck pain Integumentary/Breasts: Skin/Breast: Denies dry skin Neurologic: Denies headache(s) Psychiatric: Psychiatric: Reports anxiety PMFSH Past Medical History Medical History Anxiety (Unknown) Crohn's disease History of pancreatitis Irritable bowel syndrome with constipation Kidney stones Marijuana smoker Nausea and vomiting in adult Surgical History Surgical History H/O lithotripsy History of cholecystectomy Laparoscopic cholecystectomy Family History Family History Mother Acute myocardial infarction Asthma Chronic obstructive pulmonary disease Son Asthma Father Chronic obstructive pulmonary disease Diabetes mellitus Sibling Diabetes mellitus Social History Social History (Reviewed 12/03/20 @ 11:38 by Dread
[2020-12-03] MEDS: SODIUM CHLORIDE 0.9% IV 1,000 ML 50 ML IV CONT (19:07)
[2020-12-03 20:00] VITALS: PULSE 66; RESP 18; O2SAT 99
[2020-12-03] MEDS: ACETAMINOPHEN 500 MG TABLET 1000 MG PO (20:39)
[2020-12-03] MEDS: FAMOTIDINE 20 MG TABLET PO (21:00)
[2020-12-03 21:40] VITALS: BP 108/65; PULSE 66; RESP 18; TEMP 37.2; O2SAT 99
[2020-12-04 05:50] VITALS: BP 116/72; PULSE 54; RESP 16; TEMP 36.7; O2SAT 99
[2020-12-04] MEDS: HYDROcodone/acetaminophen (*CRX) 5-325 MG TABLET 1 TAB PO ×2 (06:28→12:42)
[2020-12-04 06:41] LABS: Anion Gap 4 mmol/L (8-16); Blood Urea Nitrogen 7 mg/dL (7-17); Carbon Dioxide 25 mmol/L (22-30); Chloride 112 mmol/L (98-107); Estimated CRCL calculation 76 ml/min; Estimated Glomerular Filt Rate > 60; Glucose 77 mg/dL (65-105); Potassium 3.4 mmol/L (3.4-5.0); Sodium 141 mmol/L (137-145)
[2020-12-04 07:05] LABS: Basophils Percent Auto 0.5 % (0.2-1.2); Eosinophils Absolute Auto 0.1 K/mm3 (0-0.3); Eosinophils Percent Auto 1.4 % (0-4.4); Hemoglobin 11.9 g/dL (12.0-15.0); Immature Granulocyte Absolute 0.04 K/mm3 (0.00-0.031); Immature Granulocyte Percent A 0.6 % (0-0.5); Lymphocytes Absolute Auto 2.69 K/mm3 (0.9-3.2); Lymphocytes Percent Auto 43.1 % (18.3-44.2); Mean Corpuscular Hemoglobin 30.3 pg (26-34); Mean Corpuscular Volume 89.1 fl (80-100); Mean Platelet Volume 10.5 fl (7.4-10.4); Monocytes Absolute Auto 0.5 K/mm3 (0.1-0.6); Monocytes Percent Auto 7.7 % (2.6-8.5); Neutrophils Absolute Auto 2.9 K/mm3 (1.3-6.7); Neutrophils Percent Auto 46.7 % (45.5-73.1); Platelet Count Result 152 k/mm3 (150-375); Red Blood Count 3.93 M/mm3 (4.2-5.4); Red Cell Distribution Width 12.8 % (11.5-14.5); White Blood Count 6.2 K/mm3 (4.5-10.0)
[2020-12-04 10:10] VITALS: PULSE 117; RESP 18; O2SAT 93
[2020-12-04] MEDS: FAMOTIDINE 20 MG TABLET PO ×2 (10:22→22:07)
--- NOTE | 2020-12-04 10:52 | PM.PNGS ---
Progress Note: A&P Assessment and Plan (1) Intussusception of small bowel: Code(s): K56.1 - Intussusception Status: Acute Assessment and Plan: SBFT showed normal transit time to the colon and no intussusception. Her diet has been advanced to a low fiber diet, which she is tolerating well. +Bowel function. Abdominal pain has improved. GI's recommendations noted and appreciated. Okay from a surgical standpoint to discharge the patient today. Follow-up with surgery only on an as needed basis. Recommend to follow-up with GI as planned for further outpatient work-up. (2) Leukocytosis: Qualifiers: Leukocytosis type: unspecified Qualified Code(s): D72.829 - Elevated white blood cell count, unspecified Code(s): D72.829 - Elevated white blood cell count, unspecified Status: Acute Assessment and Plan: Resolved. (3) Crohn's disease: Qualifiers: Gastrointestinal tract location: unspecified location Digestive disease complication type: other complication Qualified Code(s): K50.918 - Crohn's disease, unspecified, with other complication Code(s): K50.90 - Crohn's disease, unspecified, without complications Status: Chronic Assessment and Plan: GI attempting to obtain records. (4) Irritable bowel syndrome with constipation: Code(s): K58.1 - Irritable bowel syndrome with constipation Status: Acute Assessment and Plan: Continue current treatment for this per GI. Symptoms have improved since establishing care with Dr. Pyle. Additional Plan I have discussed the patient's case and plan of care with Dr. Eugene. Subjective Subjective Date/Time Seen: 12/04/20 10:00 Patient reports: no new complaints, feels better, pain is less, flatus and bowel movement Interval history: Patient seen this morning with no new complaints. Feeling better and reports her abdominal pain is actually better now than the chronic abd pain she typically deals with. No nausea, vomiting, or bloating. Reports headache. No other complaints. Review of Systems Review of Systems: All systems reviewed & are unremarkable except as noted in HPI and below Exam Const: General: comfortable, no acute distress, alert and awake GI: Inspection: non-distended GI Palp: Yes Soft to palpation, Yes Tenderness to palpation present (GI) (diffusely tender in upper abdomen), No Guarding due to palpation present (GI), No Hernia present and No Rebound tenderness present Auscultation: normal bowel sounds Neuro: General: moves all extremities and no focal motor deficits Extrem: General: no clubbing, cyanosis or edema Psych: Mental Status: mental status grossly normal Insight: Good insight present (Psych) Judgement: Good judgement present (Psych) Objective Data Vital Signs Vital Signs: Vital Signs - 24 hr 12/03/20 13:45 12/03/20 20:00 12/03/20 21:40 Temperature 97.2 F L 99.0 F Pulse Rate 67 66 66 Respiratory Rate 16 18 18 Blood Pressure 114/61 108/65 Pulse Oximetry 99 99 99 12/04/20 05:50 Temperature 98.0 F Pulse Rate 54 L Respiratory Rate 16 Blood Pressure 116/72 Pulse Oximetry 99 Intake/Output Intake/Output: Intake & Output 12/01/20 12/02/20 12/03/20 12/04/20 23:59 23:59 23:59 23:59 Intake Total 1100 2240 350 Output Total 300 700 Balance 1100 1940 -350 Meds/Results Medications: Active Medications Generic Name Dose Route Start Last Admin Trade Name Freq PRN Reason Stop Dose Admin Acetaminophen 1,000 mg 12/03/20 14:38 12/03/20 20:39 Acetaminophen 500 Mg Tablet PO 1,000 mg Q6H PRN Administration Mild Pain (1-3) or Fever Hydrocodone Bitart/Acetaminophen 1 tab 12/03/20 14:38 12/04/20 06:28 Hydrocodone/Acetaminophen (*Crx) 5-325 Mg Tablet PO 1 tab Q6H PRN Administration Pain Rated 4-6 Famotidine 20 mg 12/03/20 21:00 12/04/20 10:22 Famotidine 20 Mg Tablet PO 20 mg Q12HR JAZMIN Administration Ket
[2020-12-04] MEDS: KETOROLAC 15 MG/ML VIAL (*BKC) IV PUSH (11:11)
[2020-12-04] MEDS: ONDANSETRON INJ 4 MG/2 ML VIAL IV PUSH ×2 (12:44→17:04)
--- NOTE | 2020-12-04 14:05 | PC.NURSE ---
Patient called around 1320, freaking out, hollering about being in pain. MD notified and to come and see patient.
--- NOTE | 2020-12-04 14:26 | PC.NURSE ---
Patient continuing to call and complain of pain, says she needs a doctor/yelling. Ally notified x 2 and to come and evaluate patient.
--- NOTE | 2020-12-04 14:31 | PC.NURSE ---
On 12/04/20, the student, [ Korin Wilhelm], provided care and completed [facility] documentation on this patient. I have reviewed the student's documentation and agree with the findings.
[2020-12-04] MEDS: MORPHINE SULFATE (*CRX) 4 MG/ML INJ IV PUSH ×4 (15:24→22:07)
--- NOTE | 2020-12-04 15:32 | PM.IMPN ---
Progress Note: A&P Assessment and Plan (1) Abdominal pain: Code(s): R10.9 - Unspecified abdominal pain Status: Acute Assessment and Plan: I was called to the patient's at 14:30 and was told that the patient was driving in pain. I evaluated the patient in she was squatting down on the side of the bed, complaining of central diffuse abdominal pain and cramping. She is still having some diarrhea episodes. Denies any melena or hematochezia. She had been given oral [place] and nausea meds prior to this episode and is not improved her pain much at all. She states this is the pain that she has been getting intermittently 1 brought her into the emergency room initially a few days ago. She denies any vomiting, fever, chills. She is concerned at this time to assess or intussusception causing the symptoms. I called the GI specialist Dr. Pyle to had just reviewed her and is copy and colonoscopy from an outside hospital and stated there was no evidence of Crohn's disease and otherwise was unremarkable. He is unsure why she is having so much pain at this time and recommended talking to surgery for further recommendations. From his standpoint he wants her to follow-up as an outpatient to have a capsule endoscopy in further evaluation. I called Dr. Eugene surgery who recommended getting an obstructive series and a urinalysis because when she came in she had blood in her urine which could have min she had a kidney stone which she had had in the past. We will continue monitoring the patient, pain control with IV morphine, p.o. [place], antiemetics p.r.n.. Continue her on diet this time since she has not had any vomiting episodes. Continue monitoring symptoms. Stable at this time. (2) Hematuria: Code(s): R31.9 - Hematuria, unspecified Status: Acute Assessment and Plan: Patient had hematuria on arrival 3+ Blood and >75 wbcs. She does have a history of kidney stones in the past. CT Abd showed Small nonobstructing right renal calculus (calculi). Will check repeat UA to see if still having blood which could mean her abdominal pain is from a kidney stone. (3) Intussusception of small bowel: Code(s): K56.1 - Intussusception Status: Acute Assessment and Plan: The patient has been placed in observation status. The patient is nontoxic appearing. Continue pain control and antiemetics as needed. Continue IV fluid hydration. General surgery had ordered a small-bowel follow-through showing mildly dilated jejunum, probable mild ileus. No evidence of intussusception. Normal transit time. General surgery recommended due to her normal small-bowel follow-through, they recommended a low-fiber diet and to follow-up with GI as an outpatient. No needs for surgical evaluation as outpatient. (4) Leukocytosis: Qualifiers: Leukocytosis type: unspecified Qualified Code(s): D72.829 - Elevated white blood cell count, unspecified Code(s): D72.829 - Elevated white blood cell count, unspecified Status: Acute Assessment and Plan: Likely secondary to intussusception in inflammation. Normalized. Normal neutrophil count. Monitor CBCD (5) Crohn's disease: Qualifiers: Gastrointestinal tract location: unspecified location Digestive disease complication type: other complication Qualified Code(s): K50.918 - Crohn's disease, unspecified, with other complication Code(s): K50.90 - Crohn's disease, unspecified, without complications Status: Chronic Assessment and Plan: GI evaluated the patient's EGD and colonoscopy from [facility] and said there were no signs of Crohn's disease and otherwise was unremarkable. GI would like follow-up of further capsule endoscopy as a
--- NOTE | 2020-12-04 16:11 | WPDGIPROGNO ---
Progress Note: A&P Assessment and Plan (1) Jejunal intussusception: Code(s): K56.1 - Intussusception Status: Acute Assessment and Plan: resolved after repeat small bowel XR but she is having pain again agree with obstructive series she had colonoscopy 02/2020 that showed normal colon mucosa (including random colon bx, no signs of Crohn's), EGD 04/2020 only mild gastritis, bx negative for celiac (she has known history of intermittent abdominal pain)- records reviewed personally ([facility]) (2) Abdominal pain: Onset Date: ~10/09/20 Qualifiers: Abdominal location: generalized Qualified Code(s): R10.84 - Generalized abdominal pain Code(s): R10.9 - Unspecified abdominal pain Status: Acute Assessment and Plan: get obstructive series, get UA and then reassess will add random porphyria in urine given chronic abdominal pain (3) Nausea and vomiting in adult: Code(s): R11.2 - Nausea with vomiting, unspecified Status: Acute (4) Marijuana smoker: Code(s): F12.90 - Cannabis use, unspecified, uncomplicated Status: Acute (5) Anxiety: Onset Date: Unknown Code(s): F41.9 - Anxiety disorder, unspecified Status: Acute Assessment and Plan: she is quite anxious and will need follow-up with her pcp Subjective Date/time seen: 12/04/20 16:12 Interval history: she was doing much better but after lunch again with more abdominal pain, also loose stools Review of Systems Review of Systems: All systems reviewed & are unremarkable except as noted in HPI and below Exam Const: Other: now is complaining of abdominal pain again HENMT: General nose exam: Normal nares present Eyes: General: appearance normal, both eyes and all related structures Neck: Neck: supple Resp: Auscultation: clear to auscultation bilaterally Cardio: Rate: regular rate GI: GI Palp: Yes Tenderness to palpation present (GI) and No Guarding due to palpation present (GI) Auscultation: normal bowel sounds Other: no rebound Skin: General skin exam: normal color Neuro: Speech: normal speech Extrem: General: normal to inspection Psych: Affect: Anxious affect present Other: tearful Objective Data Vital Signs Vital Signs: Vital Signs - 24 hr 12/03/20 20:00 12/03/20 21:40 12/04/20 05:50 Temperature 99.0 F 98.0 F Pulse Rate 66 66 54 L Respiratory Rate 18 18 16 Blood Pressure 108/65 116/72 Pulse Oximetry 99 99 99 Intake/Output Intake/Output: Intake & Output 12/01/20 12/02/20 12/03/20 12/04/20 23:59 23:59 23:59 23:59 Intake Total 1100 2240 350 Output Total 300 700 Balance 1100 1940 -350 Meds/Results Medications: Active Medications Generic Name Dose Route Start Last Admin Trade Name Freq PRN Reason Stop Dose Admin Acetaminophen 1,000 mg 12/03/20 14:38 12/03/20 20:39 Acetaminophen 500 Mg Tablet PO 1,000 mg Q6H PRN Administration Mild Pain (1-3) or Fever Hydrocodone Bitart/Acetaminophen 1 tab 12/03/20 14:38 12/04/20 12:42 Hydrocodone/Acetaminophen (*Crx) 5-325 Mg Tablet PO 1 tab Q6H PRN Administration Pain Rated 4-6 Famotidine 20 mg 12/03/20 21:00 12/04/20 10:22 Famotidine 20 Mg Tablet PO 20 mg Q12HR JAZMIN Administration Ketorolac Tromethamine 15 mg 12/04/20 10:27 12/04/20 11:11 Ketorolac 15 Mg/Ml Vial (*Bkc) IV PUSH 15 mg Q6H PRN Administration Pain Rated 4-6 Morphine Sulfate 4 mg 12/04/20 15:16 12/04/20 15:24 Morphine Sulfate (*Crx) 4 Mg/Ml Inj IV PUSH 4 mg Q2H PRN Administration Pain Rated 7-10 Ondansetron HCl 4 mg 12/03/20 00:12 12/04/20 12:44 Ondansetron Inj 4 Mg/2 Ml Vial IV PUSH 4 mg Q4H PRN Administration Nausea Radiology Results: ITS Impressions Abdomen/Pelvis CT 12/02/20 23:25 IMPRESSION: Small bowel small bowel intussusception at mid abdomen, without evidence of obstruction; consider surgical consultation and inve
[2020-12-04 17:54] LABS: Add Urine Microscopic? YES; Appearance Urine Cloudy (Clear); Bilirubin Urine Negative (Negative); Blood Urine 3+ (Negative); Color Urine Yellow (Yellow); Glucose Urine UA Negative (Negative); Ketones Urine Trace mg/dL (Negative); Leukocyte Esterase Ur Negative LEU/UL (Negative); Mucus Urine Rare /lpf; Nitrate Urine Negative (Negative); Protein Urine Negative (Negative); RBC Urine 0-2 /hpf (0-2); Specific Grav Ur 1.016 (1.001-1.035); Squamous Epithelial Cell Urine Many /hpf (Few); Urobilinogen Urine Negative mg/dL (<2.0); WBC Urine 0-3 /hpf
[2020-12-04 20:59] VITALS: BP 133/79; PULSE 53; RESP 18; TEMP 36.3; O2SAT 100
[2020-12-04] MEDS: busPIRone HCL 5 MG TABLET PO (22:07)
[2020-12-05] MEDS: MORPHINE SULFATE (*CRX) 4 MG/ML INJ IV PUSH ×3 (00:21→06:00)
[2020-12-05] MEDS: ONDANSETRON INJ 4 MG/2 ML VIAL IV PUSH (02:36)
[2020-12-05] MEDS: HYDROcodone/acetaminophen (*CRX) 5-325 MG TABLET 1 TAB PO (04:01)
[2020-12-05 05:06] VITALS: BP 132/82; PULSE 50; RESP 18; TEMP 36.3; O2SAT 99
[2020-12-05 05:36] LABS: Hematocrit 33.7 % (37.0-47.0); Hemoglobin 11.9 g/dL (12.0-15.0); Mean Corpuscular HGB Conc 35.3 g/dl (32-36); Mean Corpuscular Hemoglobin 30.8 pg (26-34); Mean Corpuscular Volume 87.3 fl (80-100); Platelet Count Result 151 k/mm3 (150-375); Red Blood Count 3.86 M/mm3 (4.2-5.4); Red Cell Distribution Width 12.2 % (11.5-14.5); White Blood Count 7.8 K/mm3 (4.5-10.0)
[2020-12-05 05:48] LABS: Anion Gap 2 mmol/L (8-16); Blood Urea Nitrogen 8 mg/dL (7-17); Calcium 7.9 mg/dL (8.4-10.2); Carbon Dioxide 28 mmol/L (22-30); Chloride 109 mmol/L (98-107); Estimated CRCL calculation 76 ml/min; Estimated Glomerular Filt Rate > 60; Glucose 79 mg/dL (65-105); Magnesium 1.7 mg/dL (1.6-2.3); Potassium 3.4 mmol/L (3.4-5.0); Sodium 139 mmol/L (137-145)
--- NOTE | 2020-12-05 08:17 | PM.DS ---
DS: Admitting Diagnosis Admitting Diagnosis Admitting Diagnosis: Abd pain DS: Discharge Diagnosis Discharge Diagnosis (1) Abdominal pain: Code(s): R10.9 - Unspecified abdominal pain Status: Acute Assessment and Plan: I was called to the patient's at 14:30 and was told that the patient was driving in pain. I evaluated the patient in she was squatting down on the side of the bed, complaining of central diffuse abdominal pain and cramping. She is still having some diarrhea episodes. Denies any melena or hematochezia. She had been given oral Pierce and nausea meds prior to this episode and is not improved her pain much at all. She states this is the pain that she has been getting intermittently 1 brought her into the emergency room initially a few days ago. She denies any vomiting, fever, chills. She is concerned at this time to assess or intussusception causing the symptoms. I called the GI specialist Dr. Pyle to had just reviewed her and is copy and colonoscopy from an outside hospital and stated there was no evidence of Crohn's disease and otherwise was unremarkable. He is unsure why she is having so much pain at this time and recommended talking to surgery for further recommendations. From his standpoint he wants her to follow-up as an outpatient to have a capsule endoscopy in further evaluation. I called Dr. Eugene surgery who recommended getting an obstructive series and a urinalysis because when she came in she had blood in her urine which could have min she had a kidney stone which she had had in the past. We will continue monitoring the patient, pain control with IV morphine, p.o. Pierce, antiemetics p.r.n.. Continue her on diet this time since she has not had any vomiting episodes. 12/05/20-patient is feeling much better today. She is eating when drinking without any issues at this time. Repeat obstructive Series showed nonobstructive bowel gas pattern. Repeat urinalysis showed 3+ blood present, no signs of UTI. The patient is feeling much better at this time and wants to go home. Will discharge home with a few doses oral Zofran for nausea in the future. (2) Hematuria: Code(s): R31.9 - Hematuria, unspecified Status: Acute Assessment and Plan: Patient had hematuria on arrival 3+ Blood and >75 wbcs. She does have a history of kidney stones in the past. CT Abd showed Small nonobstructing right renal calculus (calculi). Repeat UA showed 3+ blood still present. Patient not having any urinary symptoms or flank pain at this time. She is asymptomatic and stable for discharge. May need a further evaluate per primary care. (3) Intussusception of small bowel: Code(s): K56.1 - Intussusception Status: Acute Assessment and Plan: The patient has been placed in observation status. The patient is nontoxic appearing. Continue pain control and antiemetics as needed. Continue IV fluid hydration. General surgery had ordered a small-bowel follow-through showing mildly dilated jejunum, probable mild ileus. No evidence of intussusception. Normal transit time. Repeat obstructive series was normal. Surgery recommends a low-fiber diet and to follow-up with GI as an outpatient. No needs for surgical evaluation as outpatient. (4) Leukocytosis: Qualifiers: Leukocytosis type: unspecified Qualified Code(s): D72.829 - Elevated white blood cell count, unspecified Code(s): D72.829 - Elevated white blood cell count, unspecified Status: Acute Assessment and Plan: Likely secondary to intussusception in inflammation. Normalized. Normal neutrophil count. (5) Crohn's disease: Qualifiers: Digestive disease complication type: other complication Gastrointestinal
== END 2020-12-05 08:17 | disposition home or self-care (01) ==
LOC: ANHED 12-03 00:10 → ANH2MED 12-03 00:24
PROVIDERS: Emergency Medicine; Physician Assistant; Admitting Provider Family Medicine; Emergency Provider Emergency Medicine; PCP Family Medicine; Visit Provider Internal Medicine
DX: R10.84 Generalized abdominal pain (principal); K56.1 Intussusception; R11.2 Nausea with vomiting, unspecified; D72.829 Elevated white blood cell count, unspecified; R31.9 Hematuria, unspecified; K58.1 Irritable bowel syndrome with constipation; G89.29 Other chronic pain; F41.9 Anxiety disorder, unspecified; K76.0 Fatty (change of) liver, not elsewhere classified; N20.0 Calculus of kidney; N28.1 Cyst of kidney, acquired; F12.90 Cannabis use, unspecified, uncomplicated; Z87.891 Personal history of nicotine dependence
CPT/HCPCS: 36415; 51701; 74019; 74177; 74250; 80048; 80053; 81001; 81025; 83690; 83735; 85025; 85027; 87086; 96361; 96372; 96374; 96375; 96376; 99285; A9270; G0378; J0131; J0500; J1170; J1200; J1630; J1885; J2270; J2405; J7030; Q9967

== ENCOUNTER 2020-12-26 05:36 | Outpatient (CLI) | payer OTHER, SELFPAY ==
--- NOTE | 2020-12-22 12:01 | PC.NURSE ---
CAPSULE PRE-OP QUESTIONARE INTERVIEW DONE, MEDICATIONS AND ALLERGIES UPDATED. INSTRUCTIONS REVIEWED FOR PATENCY CAPSULE WITH PATIENT FOR DAY PRIOR TO PROCEDURE AND DAY OF PROCEDURE. WILL REVIEW AGAIN WHEN PATIENT IS IN FOR PROCEDURE
--- NOTE | 2020-12-26 07:07 | SUR.OPER ---
Patient brought to GI Lab. Instructions for patient undergoing Capsule Endoscopy reviewed with patient. Consent form signed. Patient swallowed capsule with 8 ozs of water . Patient instructed they may have clear liquids at 0900 this AM and eat or drink at 1100 this AM. Patient instructed to WATCH FOR THE CAPSULE TO PASS THROUGH, IF UNABLE TO VISULIZE BY NOON THE DAY AFTER PROCEED TO [facility] WITH YOUR PRESCRIPTION FOR KUB and to call [phone] or to return to the hospital if any nausea and vomiting or abdominal pain is experienced.
== END 2020-12-26 05:37 | disposition home or self-care (01) ==
PROVIDERS: PCP Family Medicine; Visit Provider Internal Medicine Gastroenterology
PROC: 0DJ07ZZ Inspection of Upper Intestinal Tract, Via Natural or Artificial Opening (ICD-10-PCS; CPT 91110; principal; 2020-12-26 07:00)
DX: Z01.818 Encounter for other preprocedural examination (principal)
CPT/HCPCS: 91110

== ENCOUNTER 2020-12-27 09:45 | Outpatient (CLI) | payer OTHER, SELFPAY ==
--- NOTE | ~2020-12-27 | XR_ITS ---
XR abdomen/kub 1V 12/27/2020 10:04 Indication: Capsule study. Procedure: KUB Comparison: Comparison to multiple prior studies sequentially, with oldest reviewed study dated 10/11. Findings: Bowel gas pattern nonobstructive. There is a radiopaque capsule overlying the upper sacrum, , possibly in the transverse colon. There are pelvic phleboliths. There are cholecystectomy clips. Impression: 1: Radiopaque capsule in the central lower abdomen, possibly in transverse colon. Reviewed, dictated and finalized at location A. Impression: 1: Radiopaque capsule in the central lower abdomen, possibly in transverse colo n.
== END 2020-12-27 09:46 | disposition home or self-care (01) ==
LOC: ANHIMG 09:52
PROVIDERS: PCP Family Medicine; Visit Provider Internal Medicine Gastroenterology
DX: Z12.10 Encounter for screening for malignant neoplasm of intestinal tract, unspecified (principal)
CPT/HCPCS: 74018

== ENCOUNTER 2020-12-29 22:23 | Emergency (ER) | payer OTHER, SELFPAY ==
--- NOTE | ~2020-12-29 | CT_ITS ---
EXAMINATION: CT abdomen pelvis w con DATE: 12/30/2020 00:43 INDICATION: Abdominal pain. TECHNIQUE: Computed tomography (CT) of the abdomen and pelvis was performed with 100 mL Omnipaque 350 intravenous contrast. Automated exposure control and iterative reconstruction technique were employe d. The dose-length product was 257.75 mGy-cm. COMPARISON: CT abdomen and pelvis 12/02/2020 FINDINGS: The visualized portions of the lung bases are clear without pneumonia or pleural effusion. The heart size is normal. No pericardial effusion. The liver is normal. There are changes of cholecys tectomy. The spleen, pancreas, adrenal glands, and kidneys are normal. There are no dilated loops of bowel. The appendix is normal. There are no pathologically enlarged lymph nodes. There is no free int raperitoneal fluid. There is severe lower lumbar spondylosis. IMPRESSION: 1. No specific etiology for the patient's symptoms. Reviewed, dictated and finalized at location B.
[2020-12-29 22:31] VITALS: BP 151/89; PULSE 65; RESP 18; TEMP 35.3; O2SAT 100
[2020-12-29] MEDS: HYDROmorphone HCL INJ (*CRX) 1 MG/ML SYR (22:58)
[2020-12-29] MEDS: SODIUM CHLORIDE 0.9% IV 1,000 ML 999 ML IV CONT (22:58)
[2020-12-29] MEDS: ONDANSETRON INJ 4 MG/2 ML VIAL IV PUSH (22:58)
[2020-12-29 23:13] LABS: Basophils Absolute Auto 0.1 K/mm3 (0.0-0.1); Basophils Percent Auto 0.5 % (0.2-1.2); Eosinophils Absolute Auto 0.2 K/mm3 (0-0.3); Eosinophils Percent Auto 1.7 % (0-4.4); Hemoglobin 14.7 g/dL (12.0-15.0); Immature Granulocyte Absolute 0.03 K/mm3 (0.00-0.031); Immature Granulocyte Percent A 0.2 % (0-0.5); Lymphocytes Absolute Auto 2.99 K/mm3 (0.9-3.2); Lymphocytes Percent Auto 22.3 % (18.3-44.2); Mean Corpuscular HGB Conc 34.2 g/dl (32-36); Mean Corpuscular Hemoglobin 30.7 pg (26-34); Mean Corpuscular Volume 89.8 fl (80-100); Mean Platelet Volume 10.2 fl (7.4-10.4); Monocytes Absolute Auto 0.9 K/mm3 (0.1-0.6); Monocytes Percent Auto 6.5 % (2.6-8.5); Neutrophils Absolute Auto 9.2 K/mm3 (1.3-6.7); Neutrophils Percent Auto 68.8 % (45.5-73.1); Platelet Count Result 270 k/mm3 (150-375); Red Blood Count 4.79 M/mm3 (4.2-5.4); White Blood Count 13.4 K/mm3 (4.5-10.0)
[2020-12-29 23:31] LABS: INR 0.9; Prothrombin Time 13.2 Seconds (11.1-14.7)
[2020-12-29] MEDS: HYDROmorphone HCL INJ (*CRX) 1 MG/ML SYR IV PUSH (23:43)
[2020-12-30 00:14] LABS: Alanine Aminotransferase 17 U/L (4-35); Albumin Level 4.5 g/dL (3.5-5.1); Alkaline Phosphatase 58 U/L (38-126); Anion Gap 8 mmol/L (8-16); Aspartate Amino Transferase 30 U/L (14-36); Bilirubin,Total 0.4 mg/dL (0.2-1.3); Blood Urea Nitrogen 16 mg/dL (7-17); Calcium 9.3 mg/dL (8.4-10.2); Carbon Dioxide 25 mmol/L (22-30); Chloride 108 mmol/L (98-107); Estimated CRCL calculation 76 ml/min; Estimated Glomerular Filt Rate > 60; Glucose 145 mg/dL (65-105); Lipase 86 U/L (23-300); Potassium 3.7 mmol/L (3.4-5.0); Sodium 141 mmol/L (137-145)
[2020-12-30 00:15] LABS: Lactic Acid Reflex 2.1 mmol/L (0.7-2.1)
[2020-12-30 00:33] LABS: Add Urine Microscopic? YES; Amorphous Sediment Urine Few; Appearance Urine Cloudy (Clear); Bacteria Urine 2+ /hpf; Bilirubin Urine Negative (Negative); Blood Urine 2+ (Negative); Color Urine Yellow (Yellow); Glucose Urine UA Negative (Negative); Ketones Urine Trace mg/dL (Negative); Leukocyte Esterase Ur Trace LEU/UL (Negative); Mucus Urine Rare /lpf; Nitrate Urine Negative (Negative); Protein Urine 2+ mg/dL (Negative); RBC Urine >75 /hpf (0-2); Specific Grav Ur 1.018 (1.001-1.035); Squamous Epithelial Cell Urine Moderate /hpf (Few); Urobilinogen Urine Negative mg/dL (<2.0)
[2020-12-30 00:41] LABS: Amphetamine Screen Urine Negative (Negative); Barbiturate Screen Urine Negative (Negative); Benzodiazepines Screen Urine Negative (Negative); Cannabinoid Screen Urine Positive (Negative); Cocaine Screen Urine Negative (Negative); Methadone Screen Urine Negative (Negative); Opiate Screen Urine Positive (Negative); Phencyclidine Screen Urine Negative (Negative)
[2020-12-30] MEDS: ONDANSETRON INJ 4 MG/2 ML VIAL (00:46)
--- NOTE | 2020-12-30 00:47 | PC.NURSE ---
pt is actively putting fingers in throat to make herself vomit
[2020-12-30 00:55] VITALS: BP 163/97; PULSE 63; RESP 20; O2SAT 97
--- NOTE | 2020-12-30 00:58 | PC.NURSE ---
Pt has been continuously using the call light to request medication, although this RN and other ED staff have been present in room for much of pt's visit. pt alternates between yelling, moaning, and gagging, even seen putting her fingers down her throat in effort to make herself vomit. pt will not keep mask on, and is coughing on staff whenever they are present in room. will not keep monitoring equipment on, although asked to repeatedly by this RN and other staff. Pt reports she took mag citrate earlier this evening before her arrival, as she is scheduled to have a camera scope done in am. passing gas.
[2020-12-30] MEDS: HALOPERIDOL LACTATE 5 MG/ML VIAL IV PUSH (01:05)
--- NOTE | 2020-12-30 01:23 | ED.ABDPAIN ---
HPI - Abdominal Pain General Chief Complaint: Abdominal Pain Stated Complaint: abd pain Time Seen by Provider: 12/29/20 22:34 Source: patient Mode of arrival: ambulatory Limitations: no limitations History of Present Illness HPI narrative: 40-year-old with a history of anxiety, cannabis use, history of intussusception here with the complaints of severe abdominal pain, nausea vomiting for past few hours. She denies any fever or chills. Patient states that she is scheduled for capsule endoscopy tomorrow morning. MD elicited complaint: abdominal pain Pertinent past history: none Pain Consistency: constant Location: diffuse Severity: severe Quality: cramping Radiation: none Migration to: no migration Exacerbating factors: nothing Relieving factors: nothing Related Data Home Medications Medication Instructions Recorded Confirmed dicyclomine 10 mg PO DAILY PRN 12/03/20 12/22/20 Allergies Allergy/AdvReac Type Severity Reaction Status Date / Time codeine AdvReac Intermediate Nausea and Verified 12/26/20 06:30 Vomiting Review of Systems Review of Systems: All systems reviewed & are unremarkable except as noted in HPI and below Constitutional: Constitutional: Reports no additional constitutional complaints Eyes: Eyes: Reports no additional eye complaints ENT: Reports system reviewed and no additional complaints, except as documented Cardiovascular: Cardiovascular: Reports no additional cardiovascular complaints Respiratory: Respiratory: Reports no additional respiratory complaints Gastrointestinal: Gastrointestinal: Reports as per HPI Genitourinary: Genitourinary: Reports no additional female genitourinary complaints Neurologic: Reports system reviewed and no additional complaints, except as documented PMF Past Medical History Medical History Anxiety (Unknown) Crohn's disease History of pancreatitis Irritable bowel syndrome with constipation Kidney stones Marijuana smoker Nausea and vomiting in adult Surgical History Surgical History H/O lithotripsy History of cholecystectomy Laparoscopic cholecystectomy Family History Family History Mother Acute myocardial infarction Asthma Chronic obstructive pulmonary disease Son Asthma Father Chronic obstructive pulmonary disease Diabetes mellitus Sibling Diabetes mellitus Social History Social History Smoking status: Former smoker Second hand tobacco smoke exposure: No Additional smoking assessment comments: marijuana Alcohol intake: never Substance use: never Substance use type: marijuana Gender identity (if verbalized by the patient): Female Spiritual care concerns: No Exam Narrative: Exam Narrative: GENERAL: Patient is in moderate distress secondary to pain unable to lay down still dry heaving at the same time. HEAD: Normocephalic, atraumatic. EYES: PERRLA and EOMI. NECK: Supple. CHEST: Clear to auscultation. No respiratory distress. HEART: Regular rate and rhythm. No murmur heard. Normal peripheral pulses. ABDOMEN: Soft, diffuse tenderness , nondistended, normal active bowel sounds. EXTREMITIES: Normal range of motion. No edema. SKIN: Warm, dry, no rash. NEURO: No focal deficits. Alert and oriented x3. PSYCH: Normal mood and affect. Course Course Emergency Course: Potassium given history of intussusception not do CBC chemistry and a CT of the abdomen meanwhile I will give hydromorphone for pain and Zofran for nausea. Patient continues to be in pain even after 2 mg of IV Dilaudid and she continues to have dry heaves I did give her 5 mg of Haldol to control her nausea and pain. I discussed lab value and CT findings with the patient. Advised her to follow-up with her GI doctor for recurrent abdominal
[2020-12-30 02:57] LABS: Reflex Lactic Acid Yes or No Add Lactic
== END 2020-12-30 01:55 | disposition home or self-care (01) ==
PROVIDERS: Emergency Provider Family Medicine; PCP Family Medicine
DX: R10.84 Generalized abdominal pain (principal); F41.9 Anxiety disorder, unspecified; K50.90 Crohn's disease, unspecified, without complications; K56.1 Intussusception; Z87.442 Personal history of urinary calculi; Z87.891 Personal history of nicotine dependence
CPT/HCPCS: 36415; 74177; 80053; 80307; 81001; 83605; 83690; 85025; 85610; 87086; 87088; 96361; 96374; 96375; 99284; J1170; J1630; J2405; J7030; Q9967

== ENCOUNTER 2020-12-30 06:01 | Outpatient (CLI) | payer OTHER, SELFPAY ==
--- NOTE | 2020-12-30 06:33 | SUR.OPER ---
Patient brought to GI Lab. Instructions for patient undergoing Capsule Endoscopy reviewed with patient. Consent form signed. Sensor array applied to patient's abdomen and connected to recorded. Patient swallowed capsule with 16 ozs of water infused with Simethicone. Patient instructed they may have clear liquids at 0830 this AM and eat or drink at 1030 this AM. Patient instructed to return to GI Lab at 1500 this afternoon for removal of recording device and to call [phone] or to return to the hospital if any nausea and vomiting or abdominal pain is experienced.
== END 2020-12-30 06:02 | disposition home or self-care (01) ==
PROVIDERS: PCP Family Medicine; Visit Provider Internal Medicine Gastroenterology
PROC: 0DJ07ZZ Inspection of Upper Intestinal Tract, Via Natural or Artificial Opening (ICD-10-PCS; CPT 91110; principal; 2020-12-30 07:00)
DX: Z12.13 Encounter for screening for malignant neoplasm of small intestine (principal)
CPT/HCPCS: 91110

== ENCOUNTER 2021-01-24 22:15 | Emergency (ER) | payer OTHER, SELFPAY ==
--- NOTE | ~2021-01-24 | CT_ITS ---
EXAMINATION: CT abdomen pelvis w con DATE: 01/25/2021 01:14 INDICATION: Abdominal pain. Nausea and vomiting. TECHNIQUE: Computed tomography (CT) of the abdomen and pelvis was performed with 100 cc Omnipaque 350 intravenous contrast. Automated exposure control and iterative reconstruction technique were employe d. Exam dose: 217.43 mGy-cm total exam DLP. COMPARISON: 12/30/2020 CT abdomen pelvis FINDINGS: The lung bases are clear. Normal heart size. No pericardial or pleural effusion. Hepatic steatosis. Status post cholecystectomy. No bile duct or pancreatic duct dilatation. No hepati c, splenic, pancreatic, and adrenal or suspicious renal space occupying mass lesion is detected. Ther e is a 7 mm right renal cyst. No apparent urinary tract calculus; no hydroureteronephrosis is evident . The urinary bladder is evacuated, essentially unremarkable. There is some fluid in the endometrial cavity of uterus. The uterus and adnexal areas are otherwise unremarkable. Moderately prominent degenerative disc disease and mild retrolisthesis at L5-S1. No suspicious osteol ytic or osteoblastic lesions are noted. IMPRESSION: Status post cholecystectomy Hepatic steatosis. Reviewed, dictated and finalized at Location [facility]. Reviewed, dictated and finalized at location A.
[2021-01-24 22:34] VITALS: BP 157/88; PULSE 72; RESP 16; TEMP 36.6; O2SAT 98
[2021-01-24 22:47] VITALS: O2SAT 100
[2021-01-24 22:49] VITALS: BP 143/114; O2SAT 98
[2021-01-24] MEDS: HYDROmorphone HCL INJ (*CRX) 1 MG/ML SYR 0.5 MG IV PUSH ×2 (23:02→23:30)
[2021-01-24] MEDS: SODIUM CHLORIDE 0.9% IV 1,000 ML 999 ML IV CONT (23:02)
[2021-01-24] MEDS: ONDANSETRON INJ 4 MG/2 ML VIAL 8 MG IV PUSH (23:02)
--- NOTE | 2021-01-24 23:02 | ED.ABDPAIN ---
HPI - Abdominal Pain General Chief Complaint: Abdominal Pain <Zoe Hastings MD - Last Filed: 01/25/21 00:32> Stated Complaint: abdominal pain <Zoe Hastings MD - Last Filed: 01/25/21 00:32> Time Seen by Provider: 01/24/21 22:52 <Zoe Hastings MD - Last Filed: 01/25/21 00:32> Source: family and RN notes reviewed <Zoe Hastings MD - Last Filed: 01/25/21 00:32> History of Present Illness HPI narrative: Patient is 40 years old white female presents with sudden onset of mid abdominal pain prior to arrival to the emergency room associated with nausea. Patient had recurrent similar symptoms. CAT scan on December 02, 2020 showed small bowel intussusception at mid abdomen without evidence of obstruction. Patient in severe pain, unable to answer questions, at the bedside <Zoe Hastings MD - Last Filed: 01/25/21 00:32> Related Data Home Medications: Home Medications Medication Instructions Recorded Confirmed dicyclomine 10 mg PO DAILY PRN 12/03/20 12/22/20 <Zoe Hastings MD - Last Filed: 01/25/21 00:32> Allergies/Adverse Reactions: Allergies Allergy/AdvReac Type Severity Reaction Status Date / Time codeine AdvReac Intermediate Nausea and Verified 01/24/21 22:34 Vomiting <Zoe Hastings MD - Last Filed: 01/25/21 00:32> Review of Systems Review of Systems: ROS unobtainable: Yes unobtainable due to medical condition <Zoe Hastings MD - Last Filed: 01/25/21 00:32> [facility] Past Medical History Medical History: Medical History Anxiety (Unknown) Crohn's disease History of pancreatitis Irritable bowel syndrome with constipation Kidney stones Marijuana smoker Nausea and vomiting in adult <Zoe Hastings MD - Last Filed: 01/25/21 00:32> Surgical History Surgical History: Surgical History H/O lithotripsy History of cholecystectomy Laparoscopic cholecystectomy <Zoe Hastings MD - Last Filed: 01/25/21 00:32> Family History Family History: Family History Mother Acute myocardial infarction Asthma Chronic obstructive pulmonary disease Son Asthma Father Chronic obstructive pulmonary disease Diabetes mellitus Sibling Diabetes mellitus <Zoe Hastings MD - Last Filed: 01/25/21 00:32> Social History Social History: Social History Smoking status: Former smoker Second hand tobacco smoke exposure: No Additional smoking assessment comments: marijuana Alcohol intake: never Substance use: never Substance use type: marijuana Gender identity (if verbalized by the patient): Female Spiritual care concerns: No <Zoe Hastings MD - Last Filed: 01/25/21 00:32> Exam Narrative: Exam Narrative: General appearance: Well-developed, well-nourished, in pain, at the bedside Skin: Normal color Head: Normocephalic, nontraumatic Eyes: Clear conjunctiva ENT: Oropharynx normal, ears normal, nose normal Neck: Supple, nontender Chest and respiratory: Airway patent, no respiratory distress, no accessory muscle use Heart: Regular rate/rhythm Abdomen: Diffuse tenderness, and guarding, quiet bowel sounds <Zoe Hastings MD - Last Filed: 01/25/21 00:32> Course Course Emergency Course: Stable, improving <Zoe Hastings MD - Last Filed: 01/25/21 00:32> Care turned over to myself at shift change seen evaluate myself agrees initial H&P reviewed old records patient's been seen this facility several times for similar complaints performed past
[2021-01-24 23:33] LABS: Basophils Absolute Auto 0.1 K/mm3 (0.0-0.1); Basophils Percent Auto 0.6 % (0.2-1.2); Eosinophils Absolute Auto 0.3 K/mm3 (0-0.3); Eosinophils Percent Auto 2.2 % (0-4.4); Hematocrit 44.8 % (37.0-47.0); Hemoglobin 15.3 g/dL (12.0-15.0); Immature Granulocyte Absolute 0.03 K/mm3 (0.00-0.031); Immature Granulocyte Percent A 0.2 % (0-0.5); Lymphocytes Absolute Auto 2.92 K/mm3 (0.9-3.2); Lymphocytes Percent Auto 21.2 % (18.3-44.2); Mean Corpuscular HGB Conc 34.2 g/dl (32-36); Mean Corpuscular Hemoglobin 30.8 pg (26-34); Mean Corpuscular Volume 90.3 fl (80-100); Mean Platelet Volume 10.1 fl (7.4-10.4); Monocytes Absolute Auto 0.9 K/mm3 (0.1-0.6); Monocytes Percent Auto 6.4 % (2.6-8.5); Neutrophils Absolute Auto 9.5 K/mm3 (1.3-6.7); Neutrophils Percent Auto 69.4 % (45.5-73.1); Platelet Count Result 281 k/mm3 (150-375); Red Blood Count 4.96 M/mm3 (4.2-5.4); Red Cell Distribution Width 13.2 % (11.5-14.5); White Blood Count 13.8 K/mm3 (4.5-10.0)
[2021-01-24 23:38] LABS: Alanine Aminotransferase 20 U/L (4-35); Albumin Level 4.6 g/dL (3.5-5.1); Alkaline Phosphatase 51 U/L (38-126); Anion Gap 11 mmol/L (8-16); Aspartate Amino Transferase 40 U/L (14-36); Bilirubin,Total 0.3 mg/dL (0.2-1.3); Blood Urea Nitrogen 16 mg/dL (7-17); Calcium 9.4 mg/dL (8.4-10.2); Carbon Dioxide 22 mmol/L (22-30); Chloride 109 mmol/L (98-107); Estimated CRCL calculation 76 ml/min; Estimated Glomerular Filt Rate > 60; Glucose 104 mg/dL (65-105); Lipase 163 U/L (23-300); Potassium 4.1 mmol/L (3.4-5.0); Sodium 142 mmol/L (137-145)
[2021-01-24 23:39] VITALS: O2SAT 79
--- NOTE | 2021-01-24 23:40 | PC.NURSE ---
pt screaming in room 11, states shes in pain. this rn informed her that she just got a dose of dilaudid and it may take some time to take full affect and we will reassess shortly. still denies being able to give urine sample.
--- NOTE | 2021-01-24 23:40 | PC.NURSE ---
pt states she isnt able to give urine sample at this time, refused straight cath.
[2021-01-24] MEDS: LORazepam INJ (*CRX) 2 MG/ML VIAL 0.5 MG IV PUSH (23:53)
[2021-01-25 00:30] VITALS: BP 140/89; PULSE 50; RESP 18; O2SAT 100
[2021-01-25] MEDS: HYDROmorphone HCL INJ (*CRX) 1 MG/ML SYR 0.5 MG IV PUSH ×2 (00:39→02:10)
[2021-01-25] MEDS: LORazepam INJ (*CRX) 2 MG/ML VIAL 0.5 MG IV PUSH (00:42)
--- NOTE | 2021-01-25 00:46 | PC.NURSE ---
pt ambulated to restroom at this time.
--- NOTE | 2021-01-25 01:01 | PC.NURSE ---
pt in ct at this time.
[2021-01-25 01:07] LABS: Add Urine Microscopic? YES; Appearance Urine Cloudy (Clear); Bacteria Urine Trace /hpf; Bilirubin Urine Negative (Negative); Blood Urine 3+ (Negative); Color Urine Yellow (Yellow); Glucose Urine UA Negative (Negative); Ketones Urine Negative (Negative); Leukocyte Esterase Ur Negative LEU/UL (Negative); Mucus Urine Rare /lpf; Nitrate Urine Negative (Negative); Protein Urine 1+ mg/dL (Negative); RBC Urine 21-50 /hpf (0-2); Specific Grav Ur 1.024 (1.001-1.035); Squamous Epithelial Cell Urine Occasional /hpf (Few); Urobilinogen Urine Negative mg/dL (<2.0); WBC Urine 0-3 /hpf
[2021-01-25 01:13] VITALS: O2SAT 100
[2021-01-25 01:30] VITALS: BP 149/86; O2SAT 100
--- NOTE | 2021-01-25 01:55 | PC.NURSE ---
pt has used call light to contact nurses station 10x in last 15 minutes stating her pain is 10/10. pt instructed that md has been made aware.
[2021-01-25 02:24] VITALS: BP 153/77; PULSE 53; RESP 20; O2SAT 100
== END 2021-01-25 02:17 | disposition home or self-care (01) ==
PROVIDERS: Emergency Medicine; Emergency Provider Emergency Medicine; PCP Family Medicine
DX: K50.90 Crohn's disease, unspecified, without complications (principal); Z87.442 Personal history of urinary calculi; Z87.891 Personal history of nicotine dependence; R10.84 Generalized abdominal pain
CPT/HCPCS: 36415; 74177; 80053; 81001; 81025; 83690; 85025; 96361; 96374; 96375; 96376; 99284; J1170; J2060; J2405; J7030; Q9967

== ENCOUNTER 2021-01-25 06:34 | Emergency (ER) | payer OTHER, SELFPAY ==
[2021-01-25 06:40] VITALS: BP 135/75; PULSE 63; RESP 18; TEMP 36.6; O2SAT 100
--- NOTE | 2021-01-25 07:22 | ECG_ITS ---
Measurements Intervals [place] Rate: 57 P: 75 GA: 155 QRS: 67 QRSD: 107 T: 33 QT: 486 QTc: 476 Interpretive Statements SINUS BRADYCARDIA WITH SINUS ARRHYTHMIA PROLONGED QT INTERVAL ABNORMAL ECG Electronically Signed On 01-25-2021 7:48:22 CDT by Gaston Moctezuma D.O.
[2021-01-25] MEDS: LACTATED RINGERS 1,000 ML 999 ML IV CONT ×2 (07:40→09:30)
[2021-01-25] MEDS: METOCLOPRAMIDE HCL INJ 10 MG/2 ML VIAL IV PUSH (07:41)
[2021-01-25] MEDS: diphenhydrAMINE HCl INJ 50 MG/ML VIAL IV PUSH (07:41)
--- NOTE | 2021-01-25 07:41 | ED.ABDPAIN ---
HPI - Abdominal Pain General Chief Complaint: Abdominal Pain Stated Complaint: abdominal pain Time Seen by Provider: 01/25/21 07:01 Source: patient, RN notes reviewed and old records reviewed Mode of arrival: ambulatory Limitations: no limitations History of Present Illness HPI narrative: This is a 40 year old female with history of IBS, recurrent abdominal pain, anxiety who presents for evaluation of mid abdominal pain and back pain. She states her pain started last night. She was evaluated in ER and discharged a few hours ago. She was given pain medication and discharged after her CT was shown to be unremarkable. She states she thinks she has been stressed at work that that exacerbates her pain. She states she was vomiting prior to arrival, but she denies diarrhea. She is unsure of fever but she states she has intermittent swelling. She is currently on her menstrual cycle. This patient has been admitted several times for this pain. She recently had small bowel endoscopy performed with pill cam and it was unremarkable. Related Data Home Medications Medication Instructions Recorded Confirmed linaclotide [Linzess] mcg 01/25/21 Allergies Allergy/AdvReac Type Severity Reaction Status Date / Time codeine AdvReac Intermediate Nausea and Verified 01/25/21 06:48 Vomiting Review of Systems Review of Systems: All systems reviewed & are unremarkable except as noted in HPI and below PMFSH Past Medical History Medical History Anxiety (Unknown) Crohn's disease History of pancreatitis Irritable bowel syndrome with constipation Kidney stones Marijuana smoker Nausea and vomiting in adult Surgical History Surgical History H/O lithotripsy History of cholecystectomy Laparoscopic cholecystectomy Family History Family History Mother Acute myocardial infarction Asthma Chronic obstructive pulmonary disease Son Asthma Father Chronic obstructive pulmonary disease Diabetes mellitus Sibling Diabetes mellitus Social History Social History Smoking status: Former smoker Second hand tobacco smoke exposure: No Additional smoking assessment comments: marijuana Alcohol intake: never Substance use: never Substance use type: marijuana Gender identity (if verbalized by the patient): Female Spiritual care concerns: No Exam Const: General: alert Orientation/consciousness: patient oriented x3 Other: patient is anxious and rolling around in bed Resp: Effort & Inspection: normal respiratory effort and no retractions Cardio: Rate: regular rate Rhythm: regular rhythm Heart sounds: no murmurs GI: GI Palp: Yes Soft to palpation, No Guarding due to palpation present (GI) and No Rigid due to palpation Auscultation: normal bowel sounds Other: abdomen is soft, no guarding or grimacing with palpation when talking to patient. : Other: no rectal bleeding Back/Spine/Pelvis: Back: no CVA tenderness Skin: General skin exam: normal color Rashes: no rashes Neuro: General: patient oriented x3, moves all extremities and CN's II-XI intact bilaterally Course Reevaluation(s) Reevaluation #1: Patient has been ambulatory around ER in no distress for the past 2 hours. She also has had no emesis or dry heaving in ER. I discussed I reviewed her labs and imaging for earlier this morning and CT was normal. Date: 01/25/21 Time: 10:09 Reevaluation #2: Patient was able to tolerate PO. Nursing staff reports she is eager for dishcarge home Date: 01/25/21 Time: 10:37 Vital Signs Vital signs: Vital Signs Temperature 98 F 01/25/21 06:40 Pulse Rate 63 01/25/21 06:40 Respiratory Rate 18 01/25/21 06:40 Blood Pressure 135/75 01/25/21 06:40 Pulse Oximetry 100 01/25/21 06:40 Te
[2021-01-25] MEDS: LORazepam INJ (*CRX) 2 MG/ML VIAL 1 MG IV PUSH (07:42)
[2021-01-25 09:16] LABS: Alanine Aminotransferase 26 U/L (4-35); Albumin Level 4.6 g/dL (3.5-5.1); Alkaline Phosphatase 54 U/L (38-126); Anion Gap 14 mmol/L (8-16); Aspartate Amino Transferase 39 U/L (14-36); Bilirubin,Total 0.6 mg/dL (0.2-1.3); Blood Urea Nitrogen 11 mg/dL (7-17); Calcium 9.5 mg/dL (8.4-10.2); Carbon Dioxide 20 mmol/L (22-30); Chloride 105 mmol/L (98-107); Estimated Glomerular Filt Rate > 60; Glucose 110 mg/dL (65-105); Lipase 103 U/L (23-300); Magnesium 1.5 mg/dL (1.6-2.3); Potassium 3.7 mmol/L (3.4-5.0); Sodium 139 mmol/L (137-145)
[2021-01-25] MEDS: MAGNESIUM SULF 1 GM/D5W 100 ML 1 GM/100 ML BAG IVPB (09:36)
[2021-01-25 09:46] VITALS: BP 127/87; PULSE 62; RESP 18; O2SAT 100
[2021-01-25] MEDS: KETOROLAC 30 MG/ML VIAL (*BKC) IV PUSH (10:02)
[2021-01-25] MEDS: ONDANSETRON INJ 4 MG/2 ML VIAL IV PUSH (10:03)
== END 2021-01-25 10:44 | disposition home or self-care (01) ==
PROVIDERS: Emergency Provider General Practice; PCP Family Medicine
DX: K58.1 Irritable bowel syndrome with constipation (principal); F41.9 Anxiety disorder, unspecified; Z87.442 Personal history of urinary calculi; Z87.891 Personal history of nicotine dependence; R10.84 Generalized abdominal pain
CPT/HCPCS: 36415; 80053; 81025; 83690; 83735; 93005; 96361; 96365; 96375; 99284; J1200; J1885; J2060; J2405; J2765; J3475; J7120

== ENCOUNTER 2021-01-26 21:22 | Emergency (ER) | payer OTHER, SELFPAY ==
[2021-01-26 21:56] VITALS: BP 144/78; PULSE 54; RESP 14; TEMP 36.3; O2SAT 99
[2021-01-26 22:07] LABS: Basophils Absolute Auto 0.1 K/mm3 (0.0-0.1); Basophils Percent Auto 0.7 % (0.2-1.2); Eosinophils Absolute Auto 0.4 K/mm3 (0-0.3); Eosinophils Percent Auto 3.3 % (0-4.4); Hematocrit 41.9 % (37.0-47.0); Hemoglobin 14.2 g/dL (12.0-15.0); Immature Granulocyte Absolute 0.04 K/mm3 (0.00-0.031); Immature Granulocyte Percent A 0.4 % (0-0.5); Lymphocytes Absolute Auto 3.35 K/mm3 (0.9-3.2); Lymphocytes Percent Auto 30.3 % (18.3-44.2); Mean Corpuscular HGB Conc 33.9 g/dl (32-36); Mean Corpuscular Hemoglobin 30.5 pg (26-34); Mean Corpuscular Volume 89.9 fl (80-100); Mean Platelet Volume 9.3 fl (7.4-10.4); Monocytes Absolute Auto 0.9 K/mm3 (0.1-0.6); Monocytes Percent Auto 8.3 % (2.6-8.5); Neutrophils Absolute Auto 6.3 K/mm3 (1.3-6.7); Platelet Count Result 241 k/mm3 (150-375); Red Blood Count 4.66 M/mm3 (4.2-5.4); Red Cell Distribution Width 13.2 % (11.5-14.5); White Blood Count 11.1 K/mm3 (4.5-10.0)
[2021-01-26 22:20] LABS: Alanine Aminotransferase 27 U/L (4-35); Albumin Level 4.3 g/dL (3.5-5.1); Alkaline Phosphatase 49 U/L (38-126); Anion Gap 11 mmol/L (8-16); Aspartate Amino Transferase 47 U/L (14-36); Bilirubin,Total 0.3 mg/dL (0.2-1.3); Blood Urea Nitrogen 13 mg/dL (7-17); Calcium 8.7 mg/dL (8.4-10.2); Carbon Dioxide 25 mmol/L (22-30); Chloride 106 mmol/L (98-107); Estimated CRCL calculation 70 ml/min; Estimated Glomerular Filt Rate > 60; Glucose 96 mg/dL (65-105); Lipase 177 U/L (23-300); Potassium 3.3 mmol/L (3.4-5.0); Sodium 142 mmol/L (137-145)
[2021-01-26] MEDS: HALOPERIDOL LACTATE 5 MG/ML VIAL IM (23:07)
--- NOTE | 2021-01-26 23:08 | PC.NURSE ---
Pt continuously yelling and screaming in room, can be heard throughout entire ED. multiple staff members attempted to educate pt on lower voice and not screaming at staff. Labs resulted and this RN in room to administer meds as ordered. pt provided with mask as she is coughing and spitting uncontrollably while yelling, and at present talking on the phone loudly I need my Daddy! I need my Daddy! Pt instructed to remain still for IM injection, but continues to writhe around in bed and has spilled and/or thrown one of her full vomit bags onto the floor. this RN exited the room, and charge nurse notified. pt then allegedly called the [place] police department, reporting to them that the ED doctor would not help her, and she was having pain. charge nurse aware and pd in room to talk to pt.
[2021-01-27] MEDS: LORazepam INJ (*CRX) 2 MG/ML VIAL 0.5 MG IM (00:17)
[2021-01-27 00:38] LABS: Add Urine Microscopic? YES; Appearance Urine Clear (Clear); Bilirubin Urine Negative (Negative); Blood Urine 3+ (Negative); Color Urine Yellow (Yellow); Glucose Urine UA Negative (Negative); Ketones Urine Negative (Negative); Leukocyte Esterase Ur Negative LEU/UL (Negative); Mucus Urine Rare /lpf; Nitrate Urine Negative (Negative); Protein Urine 1+ mg/dL (Negative); Specific Grav Ur 1.021 (1.001-1.035); Squamous Epithelial Cell Urine Few /hpf (Few); Urobilinogen Urine Negative mg/dL (<2.0)
[2021-01-27 01:28] VITALS: BP 132/89; PULSE 57; O2SAT 100
--- NOTE | 2021-01-27 01:29 | ED.ABDPAIN ---
HPI - Abdominal Pain General Chief Complaint: Abdominal Pain Stated Complaint: n/v, abd pain Time Seen by Provider: 01/26/21 22:50 Source: patient Mode of arrival: ambulatory Limitations: no limitations History of Present Illness HPI narrative: 40-year-old with a history of recurrent abdominal pain here with complaints of abdominal pain, nausea and vomiting. She stated the pain started few hours ago. She is is a poor historian. Any question asked she started screaming I am in pain and main pain. MD elicited complaint: abdominal pain Pertinent past history: other (Recurrent abdominal pain) Onset (ago): day(s) (1) Pain Consistency: constant Location: diffuse Severity: moderate Quality: cramping Radiation: none Migration to: no migration Exacerbating factors: nothing Relieving factors: nothing Related Data Home Medications Medication Instructions Recorded Confirmed linaclotide [Linzess] mcg 01/25/21 Allergies Allergy/AdvReac Type Severity Reaction Status Date / Time codeine AdvReac Intermediate Nausea and Verified 01/25/21 06:48 Vomiting Review of Systems Review of Systems: All systems reviewed & are unremarkable except as noted in HPI and below Constitutional: Constitutional: Reports no additional constitutional complaints Eyes: Eyes: Reports no additional eye complaints ENT: Reports system reviewed and no additional complaints, except as documented Cardiovascular: Cardiovascular: Reports no additional cardiovascular complaints Respiratory: Respiratory: Reports no additional respiratory complaints Gastrointestinal: Gastrointestinal: Reports as per HPI Genitourinary: Genitourinary: Reports no additional female genitourinary complaints [facility] Past Medical History Medical History Anxiety (Unknown) Crohn's disease History of pancreatitis Irritable bowel syndrome with constipation Kidney stones Marijuana smoker Nausea and vomiting in adult Surgical History Surgical History H/O lithotripsy History of cholecystectomy Laparoscopic cholecystectomy Family History Family History Mother Acute myocardial infarction Asthma Chronic obstructive pulmonary disease Son Asthma Father Chronic obstructive pulmonary disease Diabetes mellitus Sibling Diabetes mellitus Social History Social History Smoking status: Former smoker Second hand tobacco smoke exposure: No Additional smoking assessment comments: marijuana Alcohol intake: never Substance use: never Substance use type: marijuana Gender identity (if verbalized by the patient): Female Spiritual care concerns: No Exam Narrative: Exam Narrative: GENERAL:rolling on the bed screaming I am in pain. HEAD: Normocephalic, atraumatic. EYES: PERRLA and EOMI. ENT: Nares clear, no rhinorrhea or epistaxis. Mucous membranes moist. NECK: Supple. CHEST: Clear to auscultation. No respiratory distress. HEART: Regular rate and rhythm. No murmur heard. Normal peripheral pulses. ABDOMEN: Soft, nontender, nondistended, normal active bowel sounds.surgical scar EXTREMITIES: Normal range of motion. No edema. SKIN: Warm, dry, no rash. NEURO: No focal deficits. Alert and oriented x3. PSYCH: Normal mood and affect. Course Course Emergency Course: I have clearly told her that I would not give her any narcotic pain medication I will give her Haldol for her nausea and abdominal pain. Patient called 911. After there PD arrival patient agreed to take Haldol. She started screaming again. I did give her Ativan to calm her down. I have observed her for close to 2 hours she did not have any further episodes of nausea or vomiting. Vital Signs Vital signs: Vital Signs Temperature 36.3 C L 01/26/21 21:56 Pulse Rate 54 L 01/26/21 21:
== END 2021-01-27 02:09 | disposition home or self-care (01) ==
PROVIDERS: Emergency Provider Family Medicine; PCP Family Medicine
DX: R10.84 Generalized abdominal pain (principal); F41.9 Anxiety disorder, unspecified; K50.90 Crohn's disease, unspecified, without complications; Z87.891 Personal history of nicotine dependence
CPT/HCPCS: 36415; 80053; 81001; 81025; 83690; 85025; 96372; 99284; J1630; J2060

== ENCOUNTER 2021-03-13 23:39 | Emergency (ER) | payer OTHER, SELFPAY ==
[2021-03-13 23:42] VITALS: BP 138/92; PULSE 64; RESP 20; TEMP 35.7; O2SAT 100
--- NOTE | 2021-03-13 23:48 | PC.NURSE ---
Patient refusing to sit still and refusing blood draw. Patient being uncooperative and yelling in triage.
--- NOTE | 2021-03-14 01:44 | PC.NURSE ---
Patient yelling in the waiting room, screaming help me! help me! and laying on the floor. Patient leaning and reaching across the intake desk. Patient informed she cannot lay on the ground and that she must go wait in the waiting room. Patient still refusing any blood draw. Patient continues to yell. regulatory affairs portfolio leader aware.
--- NOTE | 2021-03-14 01:55 | PC.NURSE ---
Patient did allow this nurse to draw blood.
[2021-03-14 02:00] LABS: Basophils Absolute Auto 0.1 K/mm3 (0.0-0.1); Basophils Percent Auto 0.4 % (0.2-1.2); Eosinophils Percent Auto 0.1 % (0-4.4); Hematocrit 45.7 % (37.0-47.0); Hemoglobin 15.2 g/dL (12.0-15.0); Immature Granulocyte Absolute 0.07 K/mm3 (0.00-0.031); Immature Granulocyte Percent A 0.4 % (0-0.5); Lymphocytes Absolute Auto 2.04 K/mm3 (0.9-3.2); Lymphocytes Percent Auto 12.1 % (18.3-44.2); Mean Corpuscular HGB Conc 33.3 g/dl (32-36); Mean Corpuscular Hemoglobin 30.3 pg (26-34); Mean Platelet Volume 9.5 fl (7.4-10.4); Monocytes Absolute Auto 0.7 K/mm3 (0.1-0.6); Platelet Count Result 249 k/mm3 (150-375); Red Blood Count 5.02 M/mm3 (4.2-5.4); Red Cell Distribution Width 12.9 % (11.5-14.5); White Blood Count 16.9 K/mm3 (4.5-10.0)
[2021-03-14 02:10] LABS: Alanine Aminotransferase 29 U/L (4-35); Albumin Level 4.9 g/dL (3.5-5.1); Alkaline Phosphatase 59 U/L (38-126); Anion Gap 10 mmol/L (8-16); Aspartate Amino Transferase 35 U/L (14-36); Bilirubin,Total 0.4 mg/dL (0.2-1.3); Blood Urea Nitrogen 12 mg/dL (7-17); Calcium 9.3 mg/dL (8.4-10.2); Carbon Dioxide 22 mmol/L (22-30); Chloride 110 mmol/L (98-107); Estimated Glomerular Filt Rate > 60; Glucose 139 mg/dL (65-110); Lipase 100 U/L (23-300); Potassium 3.9 mmol/L (3.4-5.0); Sodium 142 mmol/L (137-145)
--- NOTE | 2021-03-14 02:42 | PC.NURSE ---
Patient ambulated to the intake desk, yelling I'm going home! I'm leaving. Patient seen leaving ED and to parking lot at [phone].
== END 2021-03-14 04:01 | disposition left against medical advice (07) ==
LOC: ANHED 03-14 02:49
PROVIDERS: Emergency Provider Emergency Medicine; PCP Family Medicine
DX: R10.9 Unspecified abdominal pain (principal)
CPT/HCPCS: 36415; 80053; 83690; 85025; 99199

== ENCOUNTER 2021-03-14 09:15 | Emergency (ER) | payer OTHER, SELFPAY ==
--- NOTE | ~2021-03-14 | CT_ITS ---
EXAMINATION: CT abdomen pelvis w con EXAM DATE: 03/14/2021 11:27 INDICATION: Lower abdominal pain. TECHNIQUE: Spiral CT of the abdomen and pelvis was performed following intravenous injection of 100 m L Omnipaque 350. Axial, coronal and sagittal images of the abdomen and pelvis were reviewed. The do se-length product (DLP) for this examination was 258.50 mGy-cm. The exposure was tailored according to patient size (auto mA exposure control), and iterative reconstruction (ASIR) was used as additiona l dose reduction technique. Comparison is made to prior examination from 01/25/2021. FINDINGS: The liver, spleen, adrenal glands and pancreas are unremarkable. There are cholecystectomy clips. Portal and splenic veins are patent. Kidneys enhance symmetrically. There is no hydronephr osis. The uterus is anteverted and morphologically normal. The bladder is unremarkable. There is no retroperitoneal or pelvic lymphadenopathy. The appendix is normal. The stomach and small bowel are unremarkable. There is expected amount of c olonic stool. No free intraperitoneal gas. The heart is normal in size. There are no pericardial or pleural effusions. The lung bases are unremarkable. There are no osteoblastic or osteolytic les ions identified. IMPRESSION: 1. No acute intra-abdominal findings. Reviewed, dictated and finalized at location G.
[2021-03-14 09:13] VITALS: PULSE 72; RESP 20; TEMP 37; O2SAT 100
--- NOTE | 2021-03-14 09:29 | ED.ABDPAIN ---
HPI - Abdominal Pain General Chief Complaint: Abdominal Pain Stated Complaint: abd pain, n Time Seen by Provider: 03/14/21 09:21 History of Present Illness HPI narrative: 40 yo female with chronic abdominal pain presents to the ED for LLQ pain. This is associated with nausea, vomiting, and diarrhea. She sees Dr. Pyle. He evaluation from him has been largely unremarkable. She was reportedly here last night, but left without being seen because the wait was too long. Related Data Home Medications Medication Instructions Recorded Confirmed linaclotide [Linzess] 145 mcg PO DAILY 01/25/21 03/14/21 Allergies Allergy/AdvReac Type Severity Reaction Status Date / Time codeine AdvReac Intermediate Nausea and Verified 03/14/21 09:19 Vomiting Review of Systems Review of Systems: All systems reviewed & are unremarkable except as noted in HPI and below Constitutional: Constitutional: Denies fever(s) Cardiovascular: Cardiovascular: Denies chest pain Respiratory: Respiratory: Denies dyspnea Genitourinary: Genitourinary: Reports no additional female genitourinary complaints PMFSH Past Medical History Medical History Anxiety (Unknown) Crohn's disease History of pancreatitis Irritable bowel syndrome with constipation Kidney stones Marijuana smoker Nausea and vomiting in adult Surgical History Surgical History H/O lithotripsy History of cholecystectomy Laparoscopic cholecystectomy Family History Family History Mother Acute myocardial infarction Asthma Chronic obstructive pulmonary disease Son Asthma Father Chronic obstructive pulmonary disease Diabetes mellitus Sibling Diabetes mellitus Social History Social History Smoking status: Former smoker Second hand tobacco smoke exposure: No Additional smoking assessment comments: marijuana Alcohol intake: never Substance use: never Substance use type: marijuana Gender identity (if verbalized by the patient): Female Spiritual care concerns: No Exam Const: General: alert Nutritional Appearance: well nourished Orientation/consciousness: patient oriented x3 Other: Flailing and gyrating in bed. Yelling out. HENMT: Head: normal to inspection Resp: Effort & Inspection: normal respiratory effort Auscultation: clear to auscultation bilaterally Cardio: Rate: regular rate Rhythm: regular rhythm GI: Inspection: non-distended GI Palp: Yes Soft to palpation and Yes Tenderness to palpation present (GI) Skin: General skin exam: normal color Neuro: General: patient oriented x3 and moves all extremities Extrem: General: normal to inspection Psych: Affect: Anxious affect present Course Vital Signs Vital signs: Vital Signs Temperature 37.0 C 03/14/21 09:13 Pulse Rate 72 03/14/21 09:13 Respiratory Rate 03/14/21 09:13 Pulse Oximetry 100 03/14/21 09:13 Temperature 37.0 C 03/14/21 09:13 Pulse Rate 64 03/14/21 11:58 Respiratory Rate 03/14/21 11:58 Blood Pressure 120/82 03/14/21 11:58 Pulse Oximetry 100 03/14/21 11:58 MDM - Abdominal Pain MDM Narrative Medical decision making narrative: CT negative. Moderate leukocytosis. No localizing signs of infection Differential Diagnosis Differential diagnosis: Likely constipation, diverticulitis, pancreatitis and small bowel obstruction Medical Records Attestation: I reviewed the patient's medical records. Lab Data Attestation: I reviewed the patient's lab results. Result diagrams: 03/14/21 09:24 03/14/21 10:22 Labs: Lab Results 03/14/21 03/14/21 03/14/21 Range/Units 09:24 10:22 10:31 WBC 18.0 H (4.5-10.0) K/mm3 RBC 4.77 (4.2-5.4) M/mm3 Hgb 14.8 (12.0-15.0) g/dL Hct 4
[2021-03-14 09:32] LABS: Basophils Percent Auto 0.1 % (0.2-1.2); Hematocrit 41.8 % (37.0-47.0); Hemoglobin 14.8 g/dL (12.0-15.0); Immature Granulocyte Absolute 0.06 K/mm3 (0.00-0.031); Immature Granulocyte Percent A 0.3 % (0-0.5); Immature Platelet Fraction Pct 3.4 % (0.9-11.2); Lymphocytes Absolute Auto 1.32 K/mm3 (0.9-3.2); Lymphocytes Percent Auto 7.3 % (18.3-44.2); Mean Corpuscular HGB Conc 35.4 g/dl (32-36); Mean Corpuscular Volume 87.6 fl (80-100); Mean Platelet Volume 9.9 fl (7.4-10.4); Monocytes Absolute Auto 0.5 K/mm3 (0.1-0.6); Monocytes Percent Auto 2.8 % (2.6-8.5); Neutrophils Absolute Auto 16.1 K/mm3 (1.3-6.7); Neutrophils Percent Auto 89.5 % (45.5-73.1); Platelet Count Result 226 k/mm3 (150-375); Red Blood Count 4.77 M/mm3 (4.2-5.4); Red Cell Distribution Width 12.5 % (11.5-14.5)
[2021-03-14] MEDS: DICYCLOMINE HCL INJ 20 MG/2 ML VIAL IM (09:51)
[2021-03-14] MEDS: SODIUM CHLORIDE 0.9% IV 1,000 ML 999 ML IV CONT (09:51)
[2021-03-14] MEDS: PANTOPRAZOLE SODIUM IV 40 MG VIAL IV PUSH (09:52)
[2021-03-14 10:00] VITALS: BP 119/99; PULSE 70; RESP 20; O2SAT 100
--- NOTE | 2021-03-14 10:01 | PC.NURSE ---
PT ATTEMPTED TO URINATE. UNSUCCESSFUL. WILL CONTINUE TO MONITOR
[2021-03-14] MEDS: fentaNYL CITRATE INJ (*CRX) 100 MCG/2 ML VIAL 50 MCG IV PUSH (10:12)
[2021-03-14 10:45] LABS: Alanine Aminotransferase 39 U/L (4-35); Albumin Level 4.9 g/dL (3.5-5.1); Alkaline Phosphatase 55 U/L (38-126); Anion Gap 14 mmol/L (8-16); Aspartate Amino Transferase 49 U/L (14-36); Bilirubin,Total 0.8 mg/dL (0.2-1.3); Blood Urea Nitrogen 12 mg/dL (7-17); Calcium 9.5 mg/dL (8.4-10.2); Carbon Dioxide 18 mmol/L (22-30); Chloride 108 mmol/L (98-107); Estimated CRCL calculation 88 ml/min; Estimated Glomerular Filt Rate > 60; Glucose 107 mg/dL (65-110); Lipase 72 U/L (23-300); Potassium 3.5 mmol/L (3.4-5.0); Sodium 140 mmol/L (137-145)
[2021-03-14 10:48] LABS: Add Urine Microscopic? YES; Appearance Urine Clear (Clear); Bacteria Urine Trace /hpf; Bilirubin Urine Negative (Negative); Blood Urine Negative (Negative); Color Urine Yellow (Yellow); Glucose Urine UA Negative (Negative); Ketones Urine 2+ mg/dL (Negative); Leukocyte Esterase Ur Negative LEU/UL (Negative); Mucus Urine Few /lpf; Nitrate Urine Negative (Negative); Protein Urine 2+ mg/dL (Negative); Specific Grav Ur 1.029 (1.001-1.035); Squamous Epithelial Cell Urine Occasional /hpf (Few); Urobilinogen Urine Negative mg/dL (<2.0); WBC Urine 0-3 /hpf
[2021-03-14 11:58] VITALS: BP 120/82; PULSE 64; RESP 20; O2SAT 100
== END 2021-03-14 12:04 | disposition home or self-care (01) ==
PROVIDERS: Emergency Provider Emergency Medicine; PCP Family Medicine
DX: R10.32 Left lower quadrant pain (principal); G89.29 Other chronic pain; K50.90 Crohn's disease, unspecified, without complications; Z87.442 Personal history of urinary calculi; Z87.891 Personal history of nicotine dependence
CPT/HCPCS: 36415; 74177; 80053; 81001; 81025; 83690; 85025; 85055; 96361; 96372; 96374; 96375; 99284; C9113; J0500; J3010; J7030; Q9967

== ENCOUNTER 2021-03-15 22:40 | Emergency (ER) | payer OTHER, SELFPAY ==
[2021-03-15 22:42] VITALS: BP 157/91; PULSE 98; RESP 17; TEMP 36.7; O2SAT 99
[2021-03-16] VITALS (15 sets, daily range): BP systolic 120–132; BP diastolic 56–92; PULSE 53–63; RESP 13–23; O2SAT 95–100
--- NOTE | 2021-03-16 02:01 | ECG_ITS ---
Measurements Intervals [place] Rate: 58 P: 78 [place]: 141 QRS: 48 QRSD: 117 T: 45 QT: 455 QTc: 448 Interpretive Statements SINUS BRADYCARDIA BASELINE ARTIFACT- I, II, III, AVR, AVL, AVF, V3-V6 BORDERLINE ECG Electronically Signed On 03-16-2021 6:31:52 CDT by Gaston Moctezuma D.O.
[2021-03-16] MEDS: KETOROLAC 30 MG/ML VIAL (*BKC) IV PUSH (02:09)
[2021-03-16] MEDS: LORazepam INJ (*CRX) 2 MG/ML VIAL 1 MG IV PUSH (02:09)
--- NOTE | 2021-03-16 03:08 | PC.NURSE ---
Patient tough stick. 2 RNs attempted to obtain blood, unsuccessful.
--- NOTE | 2021-03-16 03:10 | ED.ABDPAIN ---
HPI - Abdominal Pain General Chief Complaint: Abdominal Pain Stated Complaint: abd pain Time Seen by Provider: 03/16/21 01:27 Source: patient and RN notes reviewed Mode of arrival: ambulatory Limitations: no limitations History of Present Illness HPI narrative: This is a 40 year old female with history of anxiety and chronic abdominal pain who presents for evaluation of abdominal pain. She reports severe abdominal pain and vaginal spotting. She was diagnosed with endometriosis last week. She states she was given an injection that was suppose to stop her pain. She does not understand why she is bleeding. She states her bleeding is not heavy , and she is not even using a pad or tampon. She was evaluated at here 2 days ago for abdominal pain. She has labs and unremarkable CT abdomen and pelvis. PAtient is well known to ER and come frequently for this pain. Related Data Home Medications Medication Instructions Recorded Confirmed linaclotide [Linzess] 145 mcg PO DAILY 01/25/21 03/14/21 Allergies Allergy/AdvReac Type Severity Reaction Status Date / Time codeine AdvReac Intermediate Nausea and Verified 03/14/21 09:19 Vomiting Review of Systems Review of Systems: All systems reviewed & are unremarkable except as noted in HPI and below PMFSH Past Medical History Medical History Anxiety (Unknown) Crohn's disease History of pancreatitis Irritable bowel syndrome with constipation Kidney stones Marijuana smoker Nausea and vomiting in adult Surgical History Surgical History H/O lithotripsy History of cholecystectomy Laparoscopic cholecystectomy Family History Family History Mother Acute myocardial infarction Asthma Chronic obstructive pulmonary disease Son Asthma Father Chronic obstructive pulmonary disease Diabetes mellitus Sibling Diabetes mellitus Social History Social History Smoking status: Former smoker Second hand tobacco smoke exposure: No Additional smoking assessment comments: marijuana Alcohol intake: never Substance use: never Substance use type: marijuana Gender identity (if verbalized by the patient): Female Spiritual care concerns: No Exam Const: General: alert Nutritional Appearance: thin Other: patient is restless , anxious Eyes: EOM: EOMs intact bilaterally Resp: Effort & Inspection: normal respiratory effort and no retractions Auscultation: clear to auscultation bilaterally Cardio: Rate: regular rate Rhythm: regular rhythm Heart sounds: no murmurs GI: GI Palp: Yes Soft to palpation, No Tenderness to palpation present (GI), No Guarding due to palpation present (GI) and No Rigid due to palpation Auscultation: normal bowel sounds Neuro: General: patient oriented x3 and moves all extremities Psych: Affect: Anxious affect present Course Reevaluation(s) Reevaluation #1: PAtient states she feels much better. She is scheduled for a laparoscopy tomorrow with OBGYN to evaluated for endometriosis as the cause of her abdominal pain issues. She wants it noted the she was instantly better after she received ativan tonight. Her labs are unremarkable with improving leukocytosis. Her symptoms are likely related to anxiety. Date: 03/16/21 Time: 04:57 Vital Signs Vital signs: Vital Signs Temperature 98.1 F 03/15/21 22:42 Pulse Rate 98 03/15/21 22:42 Respiratory Rate 17 03/15/21 22:42 Blood Pressure 157/91 H 03/15/21 22:42 Pulse Oximetry 99 03/15/21 22:42 Temperature 98.1 F 03/15/21 22:42 Pulse Rate 57 L 03/16/21 05:09 Respiratory Rate 18 03/16/21 05:09 Blood Pressure 121/61 03/16/21 05:09 Pulse Oximetry 95 03/16/21 05:09 MDM - Abdominal Pain Lab Data Attestation: I reviewed the patient's
[2021-03-16 03:39] LABS: Basophils Percent Auto 0.2 % (0.2-1.2); Hematocrit 36.7 % (37.0-47.0); Hemoglobin 12.8 g/dL (12.0-15.0); Immature Granulocyte Absolute 0.05 K/mm3 (0.00-0.031); Immature Granulocyte Percent A 0.4 % (0-0.5); Lymphocytes Absolute Auto 0.98 K/mm3 (0.9-3.2); Lymphocytes Percent Auto 7.9 % (18.3-44.2); Mean Corpuscular HGB Conc 34.9 g/dl (32-36); Mean Corpuscular Hemoglobin 30.9 pg (26-34); Mean Corpuscular Volume 88.6 fl (80-100); Mean Platelet Volume 9.6 fl (7.4-10.4); Monocytes Absolute Auto 0.3 K/mm3 (0.1-0.6); Monocytes Percent Auto 2.4 % (2.6-8.5); Neutrophils Absolute Auto 11.1 K/mm3 (1.3-6.7); Neutrophils Percent Auto 89.1 % (45.5-73.1); Platelet Count Result 177 k/mm3 (150-375); Red Blood Count 4.14 M/mm3 (4.2-5.4); Red Cell Distribution Width 12.4 % (11.5-14.5); White Blood Count 12.4 K/mm3 (4.5-10.0)
[2021-03-16 03:59] LABS: Alanine Aminotransferase 28 U/L (4-35); Alkaline Phosphatase 39 U/L (38-126); Anion Gap 10 mmol/L (8-16); Aspartate Amino Transferase 45 U/L (14-36); Bilirubin,Total 0.8 mg/dL (0.2-1.3); Blood Urea Nitrogen 14 mg/dL (7-17); Calcium 8.2 mg/dL (8.4-10.2); Carbon Dioxide 22 mmol/L (22-30); Chloride 102 mmol/L (98-107); Estimated CRCL calculation 103 ml/min; Estimated Glomerular Filt Rate > 60; Glucose 96 mg/dL (65-110); Lipase 66 U/L (23-300); Potassium 3.7 mmol/L (3.4-5.0); Sodium 134 mmol/L (137-145)
== END 2021-03-16 05:11 | disposition home or self-care (01) ==
PROVIDERS: Emergency Provider General Practice; PCP Family Medicine
DX: F41.9 Anxiety disorder, unspecified (principal); R10.84 Generalized abdominal pain; N80.9 Endometriosis, unspecified; K50.90 Crohn's disease, unspecified, without complications; Z87.442 Personal history of urinary calculi; Z87.891 Personal history of nicotine dependence; R00.1 Bradycardia, unspecified
CPT/HCPCS: 36415; 80053; 83690; 85025; 93005; 96374; 96375; 99284; J1885; J2060

== ENCOUNTER 2021-05-24 02:54 | Emergency (ER) | payer OTHER, SELFPAY ==
--- NOTE | ~2021-05-24 | CT_ITS ---
EXAMINATION: CT abdomen pelvis w con DATE: 05/24/2021 05:14 INDICATION: Epigastric pain. History of intussusception. Nausea, vomiting and diarrhea TECHNIQUE: Computed tomography (CT) of the abdomen and pelvis was performed with 100 cc Omnipaque 350 intravenous contrast. The dose-length product was 202.56 mGy-cm. Automated exposure control and iter ative reconstruction technique were employed. COMPARISON: CT dated 03/14/2021. FINDINGS: Lung bases are unremarkable. Heart size normal. No significant pleural or pericardial effus ion. No significant vascular abnormality. No lymphadenopathy. Mild diffuse colonic wall thickening, c onsistent with colitis. Status post cholecystectomy with prominence of the bile ducts. The spleen, pancreas, adrenal glands a nd kidneys are unremarkable. No evidence for obstruction. No free air or free fluid. There are promin ent parametrial vessels, associated with pelvic congestion syndrome. IMPRESSION: 1. Diffuse thickening of the colon, compatible with colitis. 2: Prominent parametrial vessels, associated with pelvic congestion syndrome. Correlate clinically. Reviewed, dictated and finalized at location A. IMPRESSION: 1. Diffuse thickening of the colon, compatible with colitis. 2: Prominent parametrial vessels, associated with pelvic congestion syndrome. C orrelate clinically.
[2021-05-24 02:53] VITALS: BP 130/82; PULSE 64; RESP 20; TEMP 36.6; O2SAT 100
--- NOTE | 2021-05-24 03:30 | PC.NURSE ---
Pt refuses to change into gown per ER request.
[2021-05-24 04:19] LABS: Basophils Percent Auto 0.3 % (0.2-1.2); Eosinophils Percent Auto 0.1 % (0-4.4); Hematocrit 42.4 % (37.0-47.0); Hemoglobin 15.3 g/dL (12.0-15.0); Immature Granulocyte Absolute 0.03 K/mm3 (0.00-0.031); Immature Granulocyte Percent A 0.3 % (0-0.5); Lymphocytes Absolute Auto 1.13 K/mm3 (0.9-3.2); Lymphocytes Percent Auto 9.8 % (18.3-44.2); Mean Corpuscular HGB Conc 36.1 g/dl (32-36); Mean Corpuscular Hemoglobin 32.2 pg (26-34); Mean Corpuscular Volume 89.3 fl (80-100); Mean Platelet Volume 9.5 fl (7.4-10.4); Monocytes Absolute Auto 0.4 K/mm3 (0.1-0.6); Monocytes Percent Auto 3.4 % (2.6-8.5); Neutrophils Percent Auto 86.1 % (45.5-73.1); Platelet Count Result 225 k/mm3 (150-375); Red Blood Count 4.75 M/mm3 (4.2-5.4); Red Cell Distribution Width 12.4 % (11.5-14.5); White Blood Count 11.6 K/mm3 (4.5-10.0)
[2021-05-24 04:37] LABS: Alanine Aminotransferase 19 U/L (4-35); Albumin Level 5.2 g/dL (3.5-5.1); Alkaline Phosphatase 60 U/L (38-126); Anion Gap 13 mmol/L (8-16); Aspartate Amino Transferase 29 U/L (14-36); Bilirubin,Total 0.7 mg/dL (0.2-1.3); Blood Urea Nitrogen 15 mg/dL (7-17); Calcium 9.5 mg/dL (8.4-10.2); Carbon Dioxide 21 mmol/L (22-30); Chloride 105 mmol/L (98-107); Estimated CRCL calculation 67 ml/min; Estimated Glomerular Filt Rate > 60; Glucose 112 mg/dL (65-110); Lipase 87 U/L (23-300); Potassium 4.3 mmol/L (3.4-5.0); Sodium 139 mmol/L (137-145)
[2021-05-24] MEDS: MORPHINE SULFATE (*CRX) 4 MG/ML INJ IV PUSH (04:37)
[2021-05-24] MEDS: ONDANSETRON INJ 4 MG/2 ML VIAL IV PUSH (04:37)
[2021-05-24 04:52] LABS: Add Urine Microscopic? YES; Appearance Urine Clear (Clear); Bilirubin Urine Negative (Negative); Blood Urine Negative (Negative); Color Urine Yellow (Yellow); Glucose Urine UA Negative (Negative); Ketones Urine 1+ mg/dL (Negative); Leukocyte Esterase Ur Negative LEU/UL (Negative); Mucus Urine Rare /lpf; Nitrate Urine Negative (Negative); Protein Urine 1+ mg/dL (Negative); RBC Urine 21-50 /hpf (0-2); Specific Grav Ur 1.028 (1.001-1.035); Squamous Epithelial Cell Urine Moderate /hpf (Few); Urobilinogen Urine Negative mg/dL (<2.0); WBC Urine 0-3 /hpf
[2021-05-24] MEDS: LORazepam INJ (*CRX) 2 MG/ML VIAL 1 MG IV PUSH (05:38)
--- NOTE | 2021-05-24 06:06 | ED.ABDPAIN ---
HPI - Abdominal Pain General Chief Complaint: Abdominal Pain Stated Complaint: abd pain Time Seen by Provider: 05/24/21 04:02 History of Present Illness HPI narrative: Patient is a 40-year-old female who presents ER with abdominal pain. Sudden onset this evening. Has history of intussusception and Crohn's disease. She sees Dr. Pyle here. She reports that this pain is ruining her life and she does not have a controlled. She has tried Linzess as well as Bentyl and Zofran at home without relief of discomfort. She reports she has been compliant with her strict diet and has not deviated. She did have emesis tonight. Patient did have some diarrhea yesterday that was nonbloody. Related Data Allergies Allergy/AdvReac Type Severity Reaction Status Date / Time codeine AdvReac Intermediate Nausea and Verified 03/14/21 09:19 Vomiting Review of Systems Review of Systems: All systems reviewed & are unremarkable except as noted in HPI and below Constitutional: Constitutional: Denies chills, Denies fever(s) and Denies weakness ENT: Denies nasal congestion and Denies sore throat Gastrointestinal: Gastrointestinal: Reports abdominal pain, Reports bloating, Denies diarrhea, Reports nausea and Reports vomiting Genitourinary: Genitourinary: Denies nocturia and Denies dysuria Neurologic: Denies focal weakness and Denies numbness PMFSH Past Medical History Medical History Anxiety (Unknown) Crohn's disease History of pancreatitis Irritable bowel syndrome with constipation Kidney stones Marijuana smoker Nausea and vomiting in adult Surgical History Surgical History H/O lithotripsy History of cholecystectomy Laparoscopic cholecystectomy Family History Family History Mother Acute myocardial infarction Asthma Chronic obstructive pulmonary disease Son Asthma Father Chronic obstructive pulmonary disease Diabetes mellitus Sibling Diabetes mellitus Social History Social History Smoking status: Former smoker Second hand tobacco smoke exposure: No Additional smoking assessment comments: marijuana Alcohol intake: never Substance use: never Substance use type: marijuana Gender identity (if verbalized by the patient): Female Sexual Orientation (if Verbalized by the Patient): Straight or Heterosexual Spiritual care concerns: No Exam Narrative: GENERAL: Uncomfortable-appearing, well-nourished, and in moderate distress. HEAD: Normocephalic, atraumatic. ENT: Mucous membranes moist. CHEST: Clear to auscultation. No respiratory distress. HEART: Regular rate and rhythm. Normal peripheral pulses. ABDOMEN: Soft, mild diffuse tenderness with increased pain in the epigastrium, nondistended, normal active bowel sounds. EXTREMITIES: Normal range of motion. No edema. SKIN: Warm, dry, no rash. NEURO: Alert and oriented x3. PSYCH: Normal mood and affect. Course Course Emergency Course: Patient feels markedly improved after Ativan/morphine/Zofran. Informed of results. Discharge home. Vital Signs Vital signs: Vital Signs Temperature 97.9 F 05/24/21 02:53 Pulse Rate 64 05/24/21 02:53 Respiratory Rate 20 05/24/21 02:53 Blood Pressure 130/82 05/24/21 02:53 Pulse Oximetry 100 05/24/21 02:53 Temperature 97.9 F 05/24/21 02:53 Pulse Rate 80 05/24/21 06:08 Respiratory Rate 18 05/24/21 06:08 Blood Pressure 136/78 05/24/21 06:08 Pulse Oximetry 99 05/24/21 06:08 MDM - Abdominal Pain Lab Data Result diagrams: 05/24/21 03:54 05/24/21 03:54 Labs: Lab Results 05/24/21 05/24/21 05/24/21 Range/Units 03:54 03:54 04:35 WBC 11.6 H (4.5-10.0) K/mm3 RBC 4.75 (4.2-5.4) M/mm3 Hgb 15.3 H (12.0-15.0) g/dL Hct
[2021-05-24 06:08] VITALS: BP 136/78; PULSE 80; RESP 18; O2SAT 99
== END 2021-05-24 06:39 | disposition home or self-care (01) ==
PROVIDERS: Emergency Provider Emergency Medicine; PCP Family Medicine
DX: K52.9 Noninfective gastroenteritis and colitis, unspecified (principal); K50.90 Crohn's disease, unspecified, without complications; K56.1 Intussusception; Z87.442 Personal history of urinary calculi; Z87.891 Personal history of nicotine dependence
CPT/HCPCS: 36415; 74177; 80053; 81001; 81025; 83690; 85025; 96374; 96375; 99284; J2060; J2270; J2405; Q9967

== ENCOUNTER 2021-07-03 02:05 | Emergency (ER) | payer OTHER, SELFPAY ==
[2021-07-03 02:03] VITALS: BP 144/106; PULSE 66; RESP 18; TEMP 36.2; O2SAT 98
[2021-07-03] MEDS: SODIUM CHLORIDE 0.9% IV 1,000 ML 999 ML IV CONT (02:24)
[2021-07-03] MEDS: MORPHINE SULFATE (*CRX) 4 MG/ML INJ IV PUSH (02:27)
[2021-07-03] MEDS: ONDANSETRON INJ 4 MG/2 ML VIAL IV PUSH (02:28)
[2021-07-03] MEDS: LORazepam INJ (*CRX) 2 MG/ML VIAL 1 MG IV PUSH (02:29)
--- NOTE | 2021-07-03 02:29 | ED.GENADULT ---
HPI - General Adult General Chief complaint: Abdominal Pain Stated complaint: abd pain Time Seen by Provider: 07/03/21 02:06 History of Present Illness HPI narrative: Patient 40-year-old female presents the emergency department with chief complaint of abdominal pain. The patient has been seen multiple times in the emergency department for chronic abdominal pain patient states she is scheduled for surgery at [facility] this month and reports that she had sudden onset this evening of diffuse abdominal pain reports with certain typical flareup. Patient reports has had nausea with this reports she still had bowel movements and is still passing gas. Related Data Allergies Allergy/AdvReac Type Severity Reaction Status Date / Time codeine AdvReac Intermediate Nausea and Verified 03/14/21 09:19 Vomiting Review of Systems Review of Systems: A 10 system review of systems was completed on the patient and is negative except for what is stated in the HPI. Nursing and ancillary documentation was reviewed. [facility] Past Medical History Medical History Anxiety (Unknown) Crohn's disease History of pancreatitis Irritable bowel syndrome with constipation Kidney stones Marijuana smoker Nausea and vomiting in adult Surgical History Surgical History H/O lithotripsy History of cholecystectomy Laparoscopic cholecystectomy Family History Family History Mother Acute myocardial infarction Asthma Chronic obstructive pulmonary disease Son Asthma Father Chronic obstructive pulmonary disease Diabetes mellitus Sibling Diabetes mellitus Social History Social History Smoking status: Former smoker Second hand tobacco smoke exposure: No Additional smoking assessment comments: marijuana Alcohol intake: never Substance use: never Substance use type: marijuana Gender identity (if verbalized by the patient): Female Sexual Orientation (if Verbalized by the Patient): Straight or Heterosexual Spiritual care concerns: No Exam Narrative: GENERAL: Well-appearing, well-nourished, and in moderate acute pain distress. HEAD: Normocephalic, atraumatic. EYES: PERRLA and EOMI. ENT: Nares clear, no rhinorrhea or epistaxis. Mucous membranes moist. NECK: Supple. CHEST: Clear to auscultation. No respiratory distress. HEART: Regular rate and rhythm. No murmur heard. Normal peripheral pulses. ABDOMEN: Soft, diffusely tender, nondistended, normal active bowel sounds. EXTREMITIES: Normal range of motion. No edema. SKIN: Warm, dry, no rash. NEURO: No focal deficits. Alert and oriented x3. PSYCH: Normal mood and affect. Course Vital Signs Vital signs: Vital Signs Temperature 36.2 C L 07/03/21 02:03 Pulse Rate 66 07/03/21 02:03 Respiratory Rate 18 07/03/21 02:03 Blood Pressure 144/106 H 07/03/21 02:03 Pulse Oximetry 98 07/03/21 02:03 Temperature 36.2 C L 07/03/21 02:03 Pulse Rate 64 07/03/21 03:50 Respiratory Rate 14 07/03/21 03:50 Blood Pressure 131/67 07/03/21 03:50 Pulse Oximetry 99 07/03/21 03:50 Medical Decision Making Vital Signs Vital Signs: Vital Signs Temperature 36.2 C L 07/03/21 02:03 Pulse Rate 66 07/03/21 02:03 Respiratory Rate 18 07/03/21 02:03 Blood Pressure 144/106 H 07/03/21 02:03 Pulse Oximetry 98 07/03/21 02:03 Temperature 36.2 C L 07/03/21 02:03 Pulse Rate 64 07/03/21 03:50 Respiratory Rate 14 07/03/21 03:50 Blood Pressure 131/67 07/03/21 03:50 Pulse Oximetry 99 07/03/21 03:50 Lab Data Result diagrams: 07/03/21 02:21 07/03/21 02:21 Labs: Lab Results 07/03/21 07/03/21 07/03/21 Range/Units 02:21 02:21 02:21 WBC 14.0 H (4.5-10.0) K/mm3 R
[2021-07-03 02:32] LABS: Basophils Absolute Auto 0.1 K/mm3 (0.0-0.1); Basophils Percent Auto 0.6 % (0.2-1.2); Eosinophils Absolute Auto 0.1 K/mm3 (0-0.3); Eosinophils Percent Auto 0.5 % (0-4.4); Hematocrit 43.9 % (37.0-47.0); Hemoglobin 15.4 g/dL (12.0-15.0); Immature Granulocyte Absolute 0.04 K/mm3 (0.00-0.031); Immature Granulocyte Percent A 0.3 % (0-0.5); Lymphocytes Percent Auto 14.3 % (18.3-44.2); Mean Corpuscular HGB Conc 35.1 g/dl (32-36); Mean Corpuscular Hemoglobin 31.8 pg (26-34); Mean Corpuscular Volume 90.7 fl (80-100); Mean Platelet Volume 9.8 fl (7.4-10.4); Monocytes Absolute Auto 0.6 K/mm3 (0.1-0.6); Monocytes Percent Auto 4.5 % (2.6-8.5); Neutrophils Absolute Auto 11.2 K/mm3 (1.3-6.7); Neutrophils Percent Auto 79.8 % (45.5-73.1); Platelet Count Result 222 k/mm3 (150-375); Red Blood Count 4.84 M/mm3 (4.2-5.4); Red Cell Distribution Width 12.6 % (11.5-14.5)
[2021-07-03 02:43] LABS: Lactic Acid Reflex 1.3 mmol/L (0.7-2.1)
[2021-07-03] MEDS: HALOPERIDOL LACTATE 5 MG/ML VIAL IV PUSH (02:55)
[2021-07-03] MEDS: HYDROmorphone HCL INJ (*CRX) 1 MG/ML SYR IV PUSH (02:55)
[2021-07-03 03:25] LABS: Potassium 4.4 mmol/L (3.4-5.0)
[2021-07-03 03:27] LABS: Alanine Aminotransferase 22 U/L (4-35); Albumin Level 4.9 g/dL (3.5-5.1); Alkaline Phosphatase 51 U/L (38-126); Anion Gap 10 mmol/L (8-16); Aspartate Amino Transferase 33 U/L (14-36); Bilirubin,Total 0.6 mg/dL (0.2-1.3); Blood Urea Nitrogen 11 mg/dL (7-17); Calcium 9.8 mg/dL (8.4-10.2); Carbon Dioxide 20 mmol/L (22-30); Chloride 111 mmol/L (98-107); Estimated CRCL calculation 76 ml/min; Estimated Glomerular Filt Rate > 60; Glucose 138 mg/dL (65-110); Lipase 79 U/L (23-300); Magnesium 1.9 mg/dL (1.6-2.3); Sodium 141 mmol/L (137-145)
[2021-07-03 03:50] VITALS: BP 131/67; PULSE 64; RESP 14; O2SAT 99
[2021-07-03 04:20] LABS: Add Urine Microscopic? YES; Appearance Urine Clear (Clear); Bilirubin Urine Negative (Negative); Blood Urine 2+ (Negative); Color Urine Yellow (Yellow); Glucose Urine UA Negative (Negative); Ketones Urine Trace mg/dL (Negative); Leukocyte Esterase Ur Negative LEU/UL (Negative); Mucus Urine Rare /lpf; Nitrate Urine Negative (Negative); Protein Urine Negative (Negative); Specific Grav Ur 1.019 (1.001-1.035); Squamous Epithelial Cell Urine Occasional /hpf (Few); Urobilinogen Urine Negative mg/dL (<2.0); WBC Urine 0-3 /hpf
[2021-07-03 04:53] VITALS: BP 146/78; PULSE 67; RESP 18; O2SAT 99
== END 2021-07-03 04:54 | disposition home or self-care (01) ==
PROVIDERS: Emergency Provider Emergency Medicine; PCP Family Medicine
DX: G89.29 Other chronic pain (principal); R10.84 Generalized abdominal pain; F41.9 Anxiety disorder, unspecified; Z87.19 Personal history of other diseases of the digestive system; Z87.442 Personal history of urinary calculi; Z90.49 Acquired absence of other specified parts of digestive tract; Z87.891 Personal history of nicotine dependence
CPT/HCPCS: 36415; 80053; 81001; 83605; 83690; 83735; 85025; 96361; 96374; 96375; 99284; J1170; J1630; J2060; J2270; J2405; J7030

== ENCOUNTER 2021-07-08 12:14 | Emergency (ER) | payer OTHER, SELFPAY ==
[2021-07-08 12:17] VITALS: BP 116/84; PULSE 65; RESP 16; TEMP 36.5; O2SAT 99
[2021-07-08 12:51] LABS: Basophils Absolute Auto 0.1 K/mm3 (0.0-0.1); Basophils Percent Auto 0.6 % (0.2-1.2); Eosinophils Absolute Auto 0.3 K/mm3 (0-0.3); Eosinophils Percent Auto 2.9 % (0-4.4); Hematocrit 38.7 % (37.0-47.0); Hemoglobin 13.8 g/dL (12.0-15.0); Immature Granulocyte Absolute 0.03 K/mm3 (0.00-0.031); Immature Granulocyte Percent A 0.3 % (0-0.5); Lymphocytes Percent Auto 22.2 % (18.3-44.2); Mean Corpuscular HGB Conc 35.7 g/dl (32-36); Mean Corpuscular Hemoglobin 32.1 pg (26-34); Mean Platelet Volume 9.3 fl (7.4-10.4); Monocytes Absolute Auto 0.8 K/mm3 (0.1-0.6); Monocytes Percent Auto 7.5 % (2.6-8.5); Neutrophils Absolute Auto 7.2 K/mm3 (1.3-6.7); Neutrophils Percent Auto 66.5 % (45.5-73.1); Platelet Count Result 188 k/mm3 (150-375); Red Cell Distribution Width 12.6 % (11.5-14.5); White Blood Count 10.8 K/mm3 (4.5-10.0)
[2021-07-08] MEDS: PROMETHAZINE HCL 25 MG/ML AMPUL 12.5 MG IV PUSH (12:52)
[2021-07-08] MEDS: SODIUM CHLORIDE 0.9% IV 1,000 ML 999 ML IV CONT (12:53)
[2021-07-08 13:07] LABS: Alanine Aminotransferase 28 U/L (4-35); Albumin Level 4.2 g/dL (3.5-5.1); Alkaline Phosphatase 49 U/L (38-126); Anion Gap 10 mmol/L (8-16); Aspartate Amino Transferase 34 U/L (14-36); Bilirubin,Total 0.4 mg/dL (0.2-1.3); Blood Urea Nitrogen 16 mg/dL (7-17); Calcium 8.6 mg/dL (8.4-10.2); Carbon Dioxide 23 mmol/L (22-30); Chloride 103 mmol/L (98-107); Estimated CRCL calculation 67 ml/min; Estimated Glomerular Filt Rate > 60; Glucose 94 mg/dL (65-110); Lipase 173 U/L (23-300); Potassium 3.5 mmol/L (3.4-5.0); Sodium 136 mmol/L (137-145)
[2021-07-08] MEDS: MORPHINE SULFATE (*CRX) 4 MG/ML INJ IV PUSH ×2 (13:08→14:07)
[2021-07-08 14:47] LABS: Add Urine Microscopic? YES; Amorphous Sediment Urine Moderate; Appearance Urine Cloudy (Clear); Bilirubin Urine Negative (Negative); Blood Urine 2+ (Negative); Color Urine Yellow (Yellow); Glucose Urine UA Negative (Negative); Ketones Urine Negative (Negative); Leukocyte Esterase Ur Negative LEU/UL (Negative); Mucus Urine Rare /lpf; Nitrate Urine Negative (Negative); Protein Urine Negative (Negative); Specific Grav Ur 1.015 (1.001-1.035); Squamous Epithelial Cell Urine Moderate /hpf (Few)
--- NOTE | 2021-07-08 15:24 | ED.ABDPAIN ---
HPI - Abdominal Pain General Chief Complaint: Abdominal Pain Stated Complaint: ABD pain Time Seen by Provider: 07/08/21 12:22 History of Present Illness HPI narrative: Patient is a 40-year-old female with history of Crohn's disease and small bowel intussusception that presents ER with abdominal pain. She reports when anytime she eats she feels like she needs to vomit. Last bowel movement was yesterday. Does not think she has passed gas today. No abdominal distention. She has been taking her Linzess as well as her Bentyl at home with only mild relief. No fevers or chills or sweats. No vomiting today despite feeling nauseated when she eats. Patient has a hysterectomy scheduled for next month and then is supposed to see specialist at [facility] to help manage her small bowel issues. She is unsure if they will be performing the surgery or not. Related Data Allergies Allergy/AdvReac Type Severity Reaction Status Date / Time codeine AdvReac Intermediate Nausea and Verified 03/14/21 09:19 Vomiting Review of Systems Review of Systems: All systems reviewed & are unremarkable except as noted in HPI and below Constitutional: Constitutional: Denies chills, Denies fever(s) and Denies weakness ENT: Denies nasal congestion and Denies sore throat Cardiovascular: Cardiovascular: Denies chest pain, Denies rapid heart rate and Denies radiating jaw, neck or arm pain Respiratory: Respiratory: Denies cough and Denies dyspnea Gastrointestinal: Gastrointestinal: Reports abdominal pain, Denies bloating, Denies diarrhea, Reports nausea and Denies vomiting Genitourinary: Genitourinary: Denies nocturia and Denies dysuria [facility] Past Medical History Medical History Anxiety (Unknown) Crohn's disease History of pancreatitis Irritable bowel syndrome with constipation Kidney stones Marijuana smoker Nausea and vomiting in adult Surgical History Surgical History H/O lithotripsy History of cholecystectomy Laparoscopic cholecystectomy Family History Family History Mother Acute myocardial infarction Asthma Chronic obstructive pulmonary disease Son Asthma Father Chronic obstructive pulmonary disease Diabetes mellitus Sibling Diabetes mellitus Social History Social History Smoking status: Former smoker Second hand tobacco smoke exposure: No Additional smoking assessment comments: marijuana Alcohol intake: never Substance use: never Substance use type: marijuana Gender identity (if verbalized by the patient): Female Sexual Orientation (if Verbalized by the Patient): Straight or Heterosexual Spiritual care concerns: No Exam Narrative: GENERAL: Anxious-appearing, well-nourished, and in no acute distress. HEAD: Normocephalic, atraumatic. ENT: Mucous membranes moist. CHEST: Clear to auscultation. No respiratory distress. HEART: Regular rate and rhythm. Normal peripheral pulses. ABDOMEN: Soft, nontender, nondistended. EXTREMITIES: Normal range of motion. No edema. SKIN: Warm, dry, no rash. NEURO: Alert and oriented x3. Course Course Emergency Course: Labs unremarkable. Exam without distension or focal tenderness. Appears more comfortable and less anxious. D/c. Vital Signs Vital signs: Vital Signs Temperature 97.7 F 07/08/21 12:17 Pulse Rate 65 07/08/21 12:17 Respiratory Rate 16 07/08/21 12:17 Blood Pressure 116/84 07/08/21 12:17 Pulse Oximetry 99 07/08/21 12:17 Temperature 97.7 F 07/08/21 12:17 Pulse Rate 65 07/08/21 12:17 Respiratory Rate 16 07/08/21 12:17 Blood Pressure 116/84 07/08/21 12:17 Pulse Oximetry 99 07/08/21 12:17 MDM - Abdominal Pain Lab Data Result diagrams: 07/08/21 12:46 07/08/21 12:46
[2021-07-08 17:18] VITALS: BP 120/87; PULSE 68; RESP 16; O2SAT 99
== END 2021-07-08 17:05 | disposition home or self-care (01) ==
PROVIDERS: Emergency Provider Emergency Medicine; PCP Family Medicine
DX: R10.84 Generalized abdominal pain (principal); R11.2 Nausea with vomiting, unspecified; F41.9 Anxiety disorder, unspecified
CPT/HCPCS: 36415; 80053; 81001; 81025; 83690; 85025; 96361; 96374; 96375; 96376; 99284; J2270; J2550; J7030

== ENCOUNTER 2021-08-18 03:44 | Emergency (ER) | payer OTHER, SELFPAY ==
--- NOTE | ~2021-08-18 | CT_ITS ---
EXAMINATION: CT abdomen pelvis w con EXAM DATE: 08/18/2021 06:57 INDICATION: Abdominal pain . History Crohn's disease, pancreatitis. TECHNIQUE: Spiral CT of the abdomen and pelvis was performed following intravenous injection of 100 m L Omnipaque 350. Axial, coronal and sagittal images of the abdomen and pelvis were reviewed. The do se-length product (DLP) for this examination was 205.90 mGy-cm. The exposure was tailored according to patient size (auto mA exposure control), and iterative reconstruction (ASIR) was used as additiona l dose reduction technique. Comparison is made to prior examination from 05/24/2021. FINDINGS: The liver, spleen, adrenal glands and pancreas are unremarkable. There are cholecystectomy clips. Portal and splenic veins are patent. Kidneys enhance symmetrically. There is no hydronephr osis. The uterus is anteverted and morphologically normal. The bladder is unremarkable. There is no retroperitoneal or pelvic lymphadenopathy. Probable identification of a normal appendix. No pericecal inflammation. The stomach and small hazel l are unremarkable. The colon is underdistended. No free intraperitoneal gas. The heart is milagros l in size. There are no pericardial or pleural effusions. The lung bases are unremarkable. There a re no osteoblastic or osteolytic lesions identified. IMPRESSION: 1. No acute intra-abdominal findings. Reviewed, dictated and finalized at location A. DIALYSIS TECHNICIAN
[2021-08-18 03:51] VITALS: BP 140/72; PULSE 66; RESP 22; TEMP 36.7; O2SAT 97
[2021-08-18] MEDS: HYDROmorphone HCL INJ (*CRX) 1 MG/ML SYR IV PUSH (04:41)
[2021-08-18] MEDS: ONDANSETRON INJ 4 MG/2 ML VIAL IV PUSH (04:41)
[2021-08-18] MEDS: SODIUM CHLORIDE 0.9% IV 1,000 ML 999 ML IV CONT ×2 (04:46→06:38)
--- NOTE | 2021-08-18 05:06 | ED.ABDPAIN ---
HPI - Abdominal Pain General Chief Complaint: Abdominal Pain <DO Michel Gaspar Last Filed: 08/18/21 07:07> Stated Complaint: abd pain <DO Michel Gaspar Last Filed: 08/18/21 07:07> Time Seen by Provider: 08/18/21 04:32 <DO Michel Gaspar Last Filed: 08/18/21 07:07> Source: RN notes reviewed <DO Michel Gaspar Last Filed: 08/18/21 07:07> History of Present Illness HPI narrative: Patient presents emergency room from home via EMS for abdominal pain. Patient states she has a history of endometriosis was to be having a hysterectomy next month states that she had increased pain last evening associated with nausea vomiting pain is diffuse throughout the abdomen described as sharp and stabbing states she had several episodes of nausea vomiting states she is not taking any pain medication or nausea medication at home. She denies any fevers or chills chest pain or any other symptoms <DO Michel Gaspar Last Filed: 08/18/21 07:07> Related Data Allergies/Adverse Reactions: Allergies Allergy/AdvReac Type Severity Reaction Status Date / Time codeine AdvReac Intermediate Nausea and Verified 03/14/21 09:19 Vomiting <DO Michel Gaspar Last Filed: 08/18/21 07:07> Review of Systems Review of Systems: Gen.: Denies fevers or chills ENT: Denies congestion Respiratory: Denies shortness of breath or cough CV: Denies chest pain or palpitations GI: See HPI denies burning, urgency, frequency or hematuria Musculoskeletal: Denies back pain or muscle pain Neuro: Denies numbness, tingling, weakness or focal weakness Skin: Denies rash Except as documented, all other systems reviewed and negative <DO Michel Gaspar Last Filed: 08/18/21 07:07> PMFSH Past Medical History Medical History: Medical History Anxiety (Unknown) Crohn's disease History of pancreatitis Irritable bowel syndrome with constipation Kidney stones Marijuana smoker Nausea and vomiting in adult <DO Michel Gaspar Last Filed: 08/18/21 07:07> Surgical History Surgical History: Surgical History H/O lithotripsy History of cholecystectomy Laparoscopic cholecystectomy <DO Michel Gaspar Last Filed: 08/18/21 07:07> Family History Family History: Family History Mother Acute myocardial infarction Asthma Chronic obstructive pulmonary disease Son Asthma Father Chronic obstructive pulmonary disease Diabetes mellitus Sibling Diabetes mellitus <Filiberto Marc DO - Last Filed: 08/18/21 07:07> Social History Social History: Social History Smoking status: Former smoker Second hand tobacco smoke exposure: No Additional smoking assessment comments: marijuana Alcohol intake: never Substance use: never Substance use type: marijuana Gender identity (if verbalized by the patient): Female Sexual Orientation (if Verbalized by the Patient): Straight or Heterosexual Spiritual care concerns: No <DO Michel Gaspar Last Filed: 08/18/21 07:07> Exam Narrative: APPEARANCE: Writhing in bed nontoxic in appearance HEENT: Normocephalic, atraumatic, OMM RESPIRATORY: No respiratory distress, clear to auscultation bilaterally with no rhonchi wheezing or rales CARDIOVASCULAR: RRR s murmur ABDOMINAL: Soft nondistended diffusely tender to palpation no rebound or guarding MUSCULOSKELETAl: Moves all extremities. No clubbing, cyanosis or edema. NEURO: Awake and alert. Following commands, speech normal, no focal deficits SKIN:: Warm, dry. Normal Color PSYCHIATRIC: Normal affect/mood <Filiberto Marc DO - Last Filed: 08/18/21 07:07> Course Course Emergency Course: Care turned over to Dr. madison at shift change a
[2021-08-18 05:21] LABS: Basophils Absolute Auto 0.1 K/mm3 (0.0-0.1); Basophils Percent Auto 0.6 % (0.2-1.2); Eosinophils Percent Auto 0.1 % (0-4.4); Hematocrit 43.7 % (37.0-47.0); Hemoglobin 15.3 g/dL (12.0-15.0); Immature Granulocyte Absolute 0.04 K/mm3 (0.00-0.031); Immature Granulocyte Percent A 0.4 % (0-0.5); Lymphocytes Absolute Auto 1.28 K/mm3 (0.9-3.2); Lymphocytes Percent Auto 11.9 % (18.3-44.2); Mean Corpuscular Hemoglobin 31.6 pg (26-34); Mean Corpuscular Volume 90.3 fl (80-100); Mean Platelet Volume 9.7 fl (7.4-10.4); Monocytes Absolute Auto 0.4 K/mm3 (0.1-0.6); Monocytes Percent Auto 3.8 % (2.6-8.5); Neutrophils Percent Auto 83.2 % (45.5-73.1); Platelet Count Result 188 k/mm3 (150-375); Red Blood Count 4.84 M/mm3 (4.2-5.4); Red Cell Distribution Width 12.5 % (11.5-14.5); White Blood Count 10.8 K/mm3 (4.5-10.0)
[2021-08-18 05:38] LABS: Alanine Aminotransferase 22 U/L (4-35); Albumin Level 4.8 g/dL (3.5-5.1); Alkaline Phosphatase 71 U/L (38-126); Anion Gap 10 mmol/L (8-16); Aspartate Amino Transferase 29 U/L (14-36); Bilirubin,Total 0.5 mg/dL (0.2-1.3); Blood Urea Nitrogen 12 mg/dL (7-17); Calcium 9.6 mg/dL (8.4-10.2); Carbon Dioxide 19 mmol/L (22-30); Chloride 110 mmol/L (98-107); Estimated Glomerular Filt Rate > 60; Glucose 148 mg/dL (65-110); Lipase 67 U/L (23-300); Potassium 3.8 mmol/L (3.4-5.0); Sodium 139 mmol/L (137-145)
[2021-08-18] MEDS: DICYCLOMINE HCL INJ 20 MG/2 ML VIAL IM (05:48)
[2021-08-18 06:30] LABS: Add Urine Microscopic? YES; Appearance Urine Clear (Clear); Bilirubin Urine Negative (Negative); Blood Urine 1+ (Negative); Color Urine Yellow (Yellow); Glucose Urine UA Negative (Negative); Ketones Urine 2+ mg/dL (Negative); Leukocyte Esterase Ur Negative LEU/UL (Negative); Mucus Urine Rare /lpf; Nitrate Urine Negative (Negative); Protein Urine 1+ mg/dL (Negative); RBC Urine 0-2 /hpf (0-2); Specific Grav Ur 1.026 (1.001-1.035); Squamous Epithelial Cell Urine Few /hpf (Few); Urobilinogen Urine Negative mg/dL (<2.0); WBC Urine 0-3 /hpf
[2021-08-18] MEDS: HYDROmorphone HCL INJ (*CRX) 1 MG/ML SYR 0.5 MG IV PUSH (06:49)
--- NOTE | 2021-08-18 08:23 | PC.NURSE ---
Patient yelling out in room about more pain medications at this time. patient yelling and thrashing around in bed.
== END 2021-08-18 09:06 | disposition left against medical advice (07) ==
PROVIDERS: Emergency Provider Emergency Medicine; PCP Family Medicine
DX: R10.9 Unspecified abdominal pain (principal); Z87.19 Personal history of other diseases of the digestive system; Z87.442 Personal history of urinary calculi; Z87.891 Personal history of nicotine dependence
CPT/HCPCS: 36415; 74177; 80053; 81001; 81025; 83690; 85025; 96361; 96372; 96374; 96375; 96376; 99284; J0500; J1170; J2405; J7030; Q9967

== ENCOUNTER 2021-08-18 10:41 | Emergency (ER) | payer OTHER, SELFPAY ==
[2021-08-18 10:55] VITALS: BP 127/79; PULSE 73; RESP 20; TEMP 36.7; O2SAT 99
--- NOTE | 2021-08-18 12:33 | PC.NURSE ---
States her pain is almost gone and she wants to leave. IV from left hand removed.
== END 2021-08-19 02:56 | disposition left against medical advice (07) ==
LOC: ANHED 12:39
PROVIDERS: PCP Family Medicine
DX: Z53.21 Procedure and treatment not carried out due to patient leaving prior to being seen by health care provider (principal)
CPT/HCPCS: 99199

== ENCOUNTER 2021-08-20 01:03 | Emergency (ER) | payer OTHER, SELFPAY ==
[2021-08-20 01:10] VITALS: BP 166/91; PULSE 67; RESP 22; TEMP 37.1; O2SAT 98
--- NOTE | 2021-08-20 01:20 | PC.NURSE ---
pt given ms 4mg and zofran 4mg per ems
[2021-08-20 01:56] LABS: Basophils Absolute Auto 0.1 K/mm3 (0.0-0.1); Basophils Percent Auto 0.7 % (0.2-1.2); Eosinophils Absolute Auto 0.2 K/mm3 (0-0.3); Eosinophils Percent Auto 2.1 % (0-4.4); Hematocrit 40.1 % (37.0-47.0); Immature Granulocyte Absolute 0.02 K/mm3 (0.00-0.031); Immature Granulocyte Percent A 0.2 % (0-0.5); Lymphocytes Absolute Auto 2.51 K/mm3 (0.9-3.2); Lymphocytes Percent Auto 24.8 % (18.3-44.2); Mean Corpuscular HGB Conc 34.9 g/dl (32-36); Mean Corpuscular Hemoglobin 31.7 pg (26-34); Mean Corpuscular Volume 90.7 fl (80-100); Mean Platelet Volume 9.4 fl (7.4-10.4); Monocytes Absolute Auto 0.9 K/mm3 (0.1-0.6); Monocytes Percent Auto 8.5 % (2.6-8.5); Neutrophils Absolute Auto 6.4 K/mm3 (1.3-6.7); Neutrophils Percent Auto 63.7 % (45.5-73.1); Platelet Count Result 200 k/mm3 (150-375); Red Blood Count 4.42 M/mm3 (4.2-5.4); Red Cell Distribution Width 12.6 % (11.5-14.5); White Blood Count 10.1 K/mm3 (4.5-10.0)
[2021-08-20 02:45] LABS: Alanine Aminotransferase 26 U/L (4-35); Albumin Level 4.6 g/dL (3.5-5.1); Alkaline Phosphatase 44 U/L (38-126); Anion Gap 10 mmol/L (8-16); Aspartate Amino Transferase 49 U/L (14-36); Bilirubin,Total 0.4 mg/dL (0.2-1.3); Blood Urea Nitrogen 16 mg/dL (7-17); Calcium 8.9 mg/dL (8.4-10.2); Carbon Dioxide 21 mmol/L (22-30); Chloride 106 mmol/L (98-107); Estimated CRCL calculation 67 ml/min; Estimated Glomerular Filt Rate > 60; Glucose 105 mg/dL (65-110); Lipase 134 U/L (23-300); Potassium 4.3 mmol/L (3.4-5.0); Sodium 137 mmol/L (137-145)
--- NOTE | 2021-08-20 03:24 | PC.NURSE ---
PT CONTINUES TO CALL OUT CENTRIFUGAL CASTING MACHINE OPERATOR LIGHT I AM IN PAIN AND NO ONE WILL GIVE ME PAIN MEDICINE . NURSE AND CHARGE NURSE WERE TOLD.
--- NOTE | 2021-08-20 03:44 | PC.NURSE ---
pt yelling and crying states no one is helping her with her pain
[2021-08-20 03:45] VITALS: BP 175/100; PULSE 66; RESP 22; O2SAT 98
[2021-08-20] MEDS: LORazepam INJ (*CRX) 2 MG/ML VIAL 0.5 MG IV PUSH (03:45)
--- NOTE | 2021-08-20 04:12 | PC.NURSE ---
pt called out data operations manager light and stated I called my doctor at [facility] and he said you could transfer me there . This tech told certified caregiverJuliane and EDP Dr Brooks.
--- NOTE | 2021-08-20 04:20 | ED.GENADULT ---
HPI - General Adult General Chief complaint: Abdominal Pain Stated complaint: abd pain Time Seen by Provider: 08/20/21 01:14 History of Present Illness HPI narrative: Patient is a 40-year-old female who presents ER with lower abdominal pain. She reports that one of her surgeons at [facility] called her with abnormal lab results that were drawn 2 days ago and told her that there is something wrong with her colon. She is unsure what is wrong and after getting the phone call she was having a lot of pain. Patient was seen in this emergency department on 08/18 with normal lab work and a normal CT scan of the abdomen and pelvis. Patient has history in the past of intussusception as well as irritable bowel syndrome. Patient reports she is supposed to have a hysterectomy for endometriosis and is supposed to have a follow-up intestinal surgery. Patient reports she thinks she has diverticulitis because she is having some bloating along with her pain. Related Data Allergies Allergy/AdvReac Type Severity Reaction Status Date / Time codeine AdvReac Intermediate Nausea and Verified 03/14/21 09:19 Vomiting Review of Systems Review of Systems: All systems reviewed & are unremarkable except as noted in HPI and below Constitutional: Constitutional: Denies chills, Denies fever(s) and Denies weakness Cardiovascular: Cardiovascular: Denies chest pain, Denies rapid heart rate and Denies radiating jaw, neck or arm pain Respiratory: Respiratory: Denies cough and Denies dyspnea Gastrointestinal: Gastrointestinal: Reports abdominal pain, Reports bloating, Reports nausea and Reports vomiting Neurologic: Denies headache(s), Denies focal weakness and Denies numbness Psychiatric: Psychiatric: Reports anxiety PMFSH Past Medical History Medical History Anxiety (Unknown) Crohn's disease History of pancreatitis Irritable bowel syndrome with constipation Kidney stones Marijuana smoker Nausea and vomiting in adult Surgical History Surgical History H/O lithotripsy History of cholecystectomy Laparoscopic cholecystectomy Family History Family History Mother Acute myocardial infarction Asthma Chronic obstructive pulmonary disease Son Asthma Father Chronic obstructive pulmonary disease Diabetes mellitus Sibling Diabetes mellitus Social History Social History Smoking status: Former smoker Second hand tobacco smoke exposure: No Additional smoking assessment comments: marijuana Alcohol intake: never Substance use: never Substance use type: marijuana Gender identity (if verbalized by the patient): Female Sexual Orientation (if Verbalized by the Patient): Straight or Heterosexual Spiritual care concerns: No Exam Narrative: GENERAL: Well-nourished, rolling around in bed shouting. HEAD: Normocephalic, atraumatic. ENT: Mucous membranes moist. CHEST: Clear to auscultation. No respiratory distress. HEART: Regular rate and rhythm. Normal peripheral pulses. ABDOMEN: Soft, tender palpation left lower quadrant intermittently with voluntary guarding, nondistended, normal active bowel sounds. EXTREMITIES: Normal range of motion. No edema. SKIN: Warm, dry, no rash. NEURO: Alert and oriented x3 Course Course Emergency Course: Patient informed of normal blood work. Patient had a normal CT scan 2 days ago. Patient was given a small dose of Ativan for anxiety. She had received morphine and Zofran by EMS for pain and nausea. Discussed with patient I would not give her any additional narcotic therapy. Patient requesting a transfer for an evaluation in a different hospital by a different ER physician. Discussed with her that there is no acute decompensating issue that were necessitate transfer and th
--- NOTE | 2021-08-20 04:33 | PC.NURSE ---
to room with Dr. Brooks per pt request. pt sitting in stretcher, no longer thrashing. pt states she wants to go to [facility] where they know what's going on . pt not in any distress.
== END 2021-08-20 04:41 | disposition home or self-care (01) ==
PROVIDERS: Emergency Provider Emergency Medicine; PCP Family Medicine
DX: R10.30 Lower abdominal pain, unspecified (principal); K50.90 Crohn's disease, unspecified, without complications; Z87.442 Personal history of urinary calculi; Z87.891 Personal history of nicotine dependence
CPT/HCPCS: 36415; 80053; 83690; 85025; 96374; 99284; J2060

== ENCOUNTER 2021-10-09 23:08 | Emergency (ER) | payer OTHER, SELFPAY ==
--- NOTE | ~2021-10-09 | CT_ITS ---
EXAMINATION: CT abdomen pelvis w con DATE: 10/10/2021 01:02 INDICATION: Diffuse abdominal pain, back pain, nausea and vomiting TECHNIQUE: Computed tomography (CT) of the abdomen and pelvis was performed with 100 mL Omnipaque-350 intravenous contrast. Automated exposure control and iterative reconstruction technique were employe d. The dose-length product was 240.86 mGy-cm. COMPARISON: 08/18/2021 FINDINGS: Lung bases are clear. Heart size is normal. No pericardial or pleural effusion. Cholecystectomy clips the gallbladder fossa. Liver, spleen, pancreas, bilateral adrenal glands and left kidney are normal. 2 mm nonobstructing right renal stone. The appendix is not visualized. No pericecal inflammatory arlette nge to suggest acute appendicitis. No bowel obstruction. No bladder, anteverted uterus and bilateral adnexa are unremarkable. Free intraperitoneal gas or fluid. No pathologically enlarged abdominal or p elvic lymphadenopathy. Moderate to severe disc height loss at L5-S1 and moderate disc height loss at a few levels in the lower thoracic spine. IMPRESSION: 1. No acute intra-abdominal/pelvic process. Reviewed, dictated and finalized at location A. TRONIC ASSEMBLER GROUP LEADER
[2021-10-09 23:17] VITALS: BP 145/86; PULSE 61; RESP 24; TEMP 35.8; O2SAT 98
[2021-10-09] MEDS: SODIUM CHLORIDE 0.9% IV 1,000 ML 999 ML IV CONT (23:28)
[2021-10-09] MEDS: ONDANSETRON INJ 4 MG/2 ML VIAL IV PUSH (23:28)
[2021-10-09 23:38] LABS: Basophils Absolute Auto 0.1 K/mm3 (0.0-0.1); Basophils Percent Auto 0.5 % (0.2-1.2); Eosinophils Absolute Auto 0.2 K/mm3 (0-0.3); Hematocrit 43.2 % (37.0-47.0); Immature Granulocyte Absolute 0.04 K/mm3 (0.00-0.031); Immature Granulocyte Percent A 0.4 % (0-0.5); Lymphocytes Percent Auto 21.9 % (18.3-44.2); Mean Corpuscular HGB Conc 34.7 g/dl (32-36); Mean Corpuscular Hemoglobin 31.7 pg (26-34); Mean Corpuscular Volume 91.3 fl (80-100); Mean Platelet Volume 9.9 fl (7.4-10.4); Monocytes Absolute Auto 0.6 K/mm3 (0.1-0.6); Monocytes Percent Auto 5.2 % (2.6-8.5); Platelet Count Result 195 k/mm3 (150-375); Red Blood Count 4.73 M/mm3 (4.2-5.4); Red Cell Distribution Width 12.7 % (11.5-14.5); White Blood Count 11.4 K/mm3 (4.5-10.0)
--- NOTE | 2021-10-09 23:52 | ED.ABDPAIN ---
HPI - Abdominal Pain General Chief Complaint: Abdominal Pain Stated Complaint: abd pain worsening anxiety with pain Time Seen by Provider: 10/09/21 23:21 History of Present Illness HPI narrative: 40-year-old female presenting to the emergency room complaining of abdominal pain started 3 hours prior to arrival, associated with multiple episodes of vomiting. Patient states she is supposed to have surgery for hysterectomy and an intussusception. Related Data Allergies Allergy/AdvReac Type Severity Reaction Status Date / Time codeine AdvReac Intermediate Nausea and Verified 09/10/21 09:54 Vomiting Review of Systems Review of Systems: CONSTITUTIONAL: Denies fever, chills, or sweats. EYES: Denies visual changes, redness, or discharge. ENT: Denies rhinorrhea, congestion, sore throat, or otalgia. CARDIOVASCULAR: Denies chest pain, palpitations, or edema. RESPIRATORY: Denies cough or dyspnea. GASTROINTESTINAL: Reports abdominal pain, nausea, vomiting. GENITOURINARY: Denies dysuria or hematuria. SKIN: Denies rash or itching. MUSCULOSKELETAL: Denies back pain, joint pain, or myalgia. NEUROLOGIC: Denies headache, numbness, dizziness, or weakness. PSYCHIATRIC: Denies anxiety or depression. PMFSH Past Medical History Medical History Anxiety (Unknown) Crohn's disease History of pancreatitis Irritable bowel syndrome with constipation Kidney stones Marijuana smoker Nausea and vomiting in adult Pelvic congestion Surgical History Surgical History H/O lithotripsy History of cholecystectomy Laparoscopic cholecystectomy Family History Family History Mother Acute myocardial infarction Asthma Chronic obstructive pulmonary disease Son Asthma Father Chronic obstructive pulmonary disease Diabetes mellitus Sibling Diabetes mellitus Social History Social History Second hand tobacco smoke exposure: No Additional smoking assessment comments: marijuana Alcohol intake: never Substance use: never Substance use type: marijuana Gender identity (if verbalized by the patient): Female Sexual Orientation (if Verbalized by the Patient): Straight or Heterosexual Spiritual care concerns: No Exam Narrative: GENERAL: Well-appearing, well-nourished. HEAD: Normocephalic, atraumatic. EYES: PERRLA and EOMI. NECK: Supple. No adenopathy or masses. No carotid bruits or JVD CHEST: Clear to auscultation. No respiratory distress. No wheezes rales or rhonchi HEART: Regular rate and rhythm. No murmur heard. Normal peripheral pulses. ABDOMEN: Soft, diffuse tenderness, nondistended, normal active bowel sounds. EXTREMITIES: Normal range of motion. No edema. SKIN: Warm, dry, no rash. NEURO: No focal deficits. Alert and oriented x3. PSYCH: Anxious. Course Course Emergency Course: 4-year-old female presented to the emergency room with complaints of abdominal pain multiple episodes of vomiting. Patient given 2 L of fluid Phenergan Zofran 1 mg of Ativan due to highly anxious behavior. CBC CMP were within normal limits. CT abdomen demonstrated no acute abnormalities. Will discharge patient and have her follow-up with PCP in 3 to 4 days. Vital Signs Vital signs: Vital Signs Temperature 35.8 C L 10/09/21 23:17 Pulse Rate 61 10/09/21 23:17 Respiratory Rate 24 H 10/09/21 23:17 Blood Pressure 145/86 H 10/09/21 23:17 Pulse Oximetry 98 10/09/21 23:17 Temperature 35.8 C L 10/09/21 23:17 Pulse Rate 61 10/09/21 23:17 Respiratory Rate 24 H 10/09/21 23:17 Blood Pressure 145/86 H 10/09/21 23:17 Pulse Oximetry 98 10/09/21 23:17 MDM - Abdominal Pain Differential Diagnosis Differential diagnosis: Likely abdominal pain Lab Data Result diagrams: 10/09/21 23:30 10/09/21 2
[2021-10-09 23:59] LABS: Alanine Aminotransferase 23 U/L (4-35); Albumin Level 4.8 g/dL (3.5-5.1); Alkaline Phosphatase 45 U/L (38-126); Anion Gap 10 mmol/L (8-16); Aspartate Amino Transferase 31 U/L (14-36); Bilirubin,Total 0.4 mg/dL (0.2-1.3); Blood Urea Nitrogen 16 mg/dL (7-17); Calcium 9.6 mg/dL (8.4-10.2); Carbon Dioxide 21 mmol/L (22-30); Chloride 112 mmol/L (98-107); Estimated CRCL calculation 67 ml/min; Estimated Glomerular Filt Rate > 60; Glucose 112 mg/dL (65-110); Potassium 4.3 mmol/L (3.4-5.0); Sodium 143 mmol/L (137-145)
[2021-10-10] MEDS: PROMETHAZINE HCL 25 MG/ML AMPUL 12.5 MG IV PUSH (00:23)
[2021-10-10] MEDS: SODIUM CHLORIDE 0.9% IV 1,000 ML 999 ML IV CONT (00:24)
[2021-10-10] MEDS: LORazepam INJ (*CRX) 2 MG/ML VIAL 1 MG IV PUSH (00:42)
[2021-10-10 01:48] VITALS: BP 118/73; PULSE 81; RESP 20; TEMP 36.2; O2SAT 100
== END 2021-10-10 01:47 | disposition home or self-care (01) ==
PROVIDERS: Emergency Provider Nurse Practitioner Family; PCP Family Medicine
DX: R10.84 Generalized abdominal pain (principal); F41.9 Anxiety disorder, unspecified; K50.90 Crohn's disease, unspecified, without complications; Z87.442 Personal history of urinary calculi
CPT/HCPCS: 36415; 74177; 80053; 85025; 96361; 96374; 96375; 99284; J2060; J2405; J2550; J7030; Q9967

== ENCOUNTER 2022-01-27 03:16 | Emergency (ER) | payer OTHER, SELFPAY ==
--- NOTE | ~2022-01-27 | CT_ITS ---
EXAMINATION: CT abdomen pelvis wo con DATE: 01/27/2022 04:22 INDICATION: Generalized abdominal pain. TECHNIQUE: Computed tomography (CT) of the abdomen and pelvis was performed without intravenous contr ast. Automated exposure control and iterative reconstruction technique were employed. The dose-length product was 232.39 mGy-cm. COMPARISON: CT abdomen and pelvis 10/10/2021 FINDINGS: The visualized portions of the lung bases demonstrate mild atelectasis. No pleural effusion . The heart size is normal. No pericardial effusion. The liver is normal. There are changes of cholec ystectomy. The spleen, pancreas, and adrenal glands are normal. There are 1 mm and 2 mm stones in rig ht kidney. Left kidney is normal. There is diverticulosis of the colon without evidence of diverticul itis. There are no dilated loops of bowel. The appendix is normal. There are no pathologically enlarg ed lymph nodes. There is no free intraperitoneal fluid. There is severe lower lumbar spondylosis. The re is mild thoracic spondylosis. IMPRESSION: 1. No etiology for the patient's symptoms. Reviewed, dictated and finalized at location A.
[2022-01-27 03:17] VITALS: BP 168/108; PULSE 60; RESP 18; TEMP 36.6; O2SAT 100
[2022-01-27 03:37] LABS: Basophils Absolute Auto 0.1 K/mm3 (0.0-0.1); Basophils Percent Auto 0.6 % (0.2-1.2); Eosinophils Absolute Auto 0.4 K/mm3 (0-0.3); Eosinophils Percent Auto 2.9 % (0-4.4); Hematocrit 40.6 % (37.0-47.0); Immature Granulocyte Absolute 0.06 K/mm3 (0.00-0.031); Immature Granulocyte Percent A 0.4 % (0-0.5); Lymphocytes Absolute Auto 2.82 K/mm3 (0.9-3.2); Lymphocytes Percent Auto 20.7 % (18.3-44.2); Mean Corpuscular HGB Conc 34.5 g/dl (32-36); Mean Corpuscular Hemoglobin 31.2 pg (26-34); Mean Corpuscular Volume 90.4 fl (80-100); Mean Platelet Volume 9.8 fl (7.4-10.4); Monocytes Absolute Auto 0.9 K/mm3 (0.1-0.6); Monocytes Percent Auto 6.4 % (2.6-8.5); Neutrophils Absolute Auto 9.4 K/mm3 (1.3-6.7); Platelet Count Result 257 k/mm3 (150-375); Red Blood Count 4.49 M/mm3 (4.2-5.4); Red Cell Distribution Width 12.9 % (11.5-14.5); White Blood Count 13.7 K/mm3 (4.5-10.0)
[2022-01-27] MEDS: LACTATED RINGERS 1,000 ML 999 ML IV CONT (03:42)
[2022-01-27] MEDS: MORPHINE SULFATE (*CRX) 4 MG/ML INJ IV PUSH (03:43)
--- NOTE | 2022-01-27 03:51 | ED.ABDPAIN ---
HPI - Abdominal Pain General Chief Complaint: Abdominal Pain Stated Complaint: ABD PAIN Time Seen by Provider: 01/27/22 03:23 History of Present Illness HPI narrative: 41-year-old female with history of endometriosis for which she had a radical hysterectomy 3 weeks ago presents with severe pain in her abdomen, she describes it as sharp and stabbing, similar to her prior endometriosis pain, no particular area that hurts, she is also endorsing nausea and vomiting. Related Data Allergies Allergy/AdvReac Type Severity Reaction Status Date / Time codeine AdvReac Intermediate Nausea and Verified 09/10/21 09:54 Vomiting Review of Systems Review of Systems: CONST: No fever. HEENT: No sore throat C/V: No chest pain RESP: No cough GI: Reports abdominal pain, nausea, vomiting : No dysuria. Minimal vaginal discharge. M/S: No joint pain. SKIN: No rash. NEURO: [No headache or focal numbness or weakness] PSYCH: [No depression] PMFSH Past Medical History Medical History Anxiety (Unknown) Crohn's disease History of pancreatitis Irritable bowel syndrome with constipation Kidney stones Marijuana smoker Nausea and vomiting in adult Pelvic congestion Surgical History Surgical History H/O lithotripsy History of cholecystectomy Laparoscopic cholecystectomy Family History Family History Mother Acute myocardial infarction Asthma Chronic obstructive pulmonary disease Son Asthma Father Chronic obstructive pulmonary disease Diabetes mellitus Sibling Diabetes mellitus Social History Social History Second hand tobacco smoke exposure: No Additional smoking assessment comments: marijuana Alcohol intake: never Substance use: never Substance use type: marijuana Gender identity (if verbalized by the patient): Female Sexual Orientation (if Verbalized by the Patient): Straight or Heterosexual Spiritual care concerns: No Exam Narrative: EXAMINATION OF ORGAN SYSTEMS/BODY AREAS: Constitutional: Vital signs per nursing GENERAL: Writhing in pain HEAD: Normal with no signs of head trauma. EYES: EOMI, conjunctiva normal ENT: Hearing grossly intact LUNGS: Nonlabored breathing. HEART: [Regular rate and rhythm] ABD: [Soft], [nontender to palpation] : No adnexal or cervical motion tenderness, minimal blood in vault without any discharge EXT: Normal range of motion SKIN: [No rashes or lesions.] NEURO: [Alert and oriented x 3. No gross focal sensory or strength deficits.] Course Vital Signs Vital signs: Vital Signs Temperature 97.8 F 01/27/22 03:17 Pulse Rate 60 01/27/22 03:17 Respiratory Rate 18 01/27/22 03:17 Blood Pressure 168/108 H 01/27/22 03:17 Pulse Oximetry 100 01/27/22 03:17 Oxygen Delivery Room Air 01/27/22 03:17 Temperature 97.8 F 01/27/22 03:17 Pulse Rate 60 01/27/22 03:17 Respiratory Rate 18 01/27/22 03:17 Blood Pressure 168/108 H 01/27/22 03:17 Pulse Oximetry 100 01/27/22 03:17 Oxygen Delivery Room Air 01/27/22 03:17 MDM - Abdominal Pain MDM Narrative Medical decision making narrative: 41-year-old female presenting with abdominal pain 3 weeks after hysterectomy, vital signs stable, exam shows patient was writhing around in the bed screaming that she is in pain, but abdomen is soft and nontender to palpation, and no vaginal discharge or tenderness on pelvic exam. Differential diagnosis includes postop pain, doubt PID/TOA without pelvic tenderness and no discharge and patient has not been sexually active since surgery, also considered appendicitis or kidney stones or pyelonephritis. Labs notable only for leukocytosis, CT of the abdomen pelvis is negative for any acute abnormality. Patient is given multiple rounds of pain medication, and afterwar
[2022-01-27 03:55] LABS: Lactic Acid Reflex 1.7 mmol/L (0.7-2.0)
[2022-01-27 03:56] LABS: Alanine Aminotransferase 18 U/L (6-35); Albumin Level 4.8 g/dL (3.5-5.1); Alkaline Phosphatase 58 U/L (38-126); Anion Gap 9 mmol/L (8-16); Aspartate Amino Transferase 31 U/L (14-36); Bilirubin,Total 0.4 mg/dL (0.2-1.3); Blood Urea Nitrogen 19 mg/dL (7-17); Carbon Dioxide 30 mmol/L (22-30); Chloride 104 mmol/L (98-107); Estimated Glomerular Filt Rate > 60; Glucose 122 mg/dL (65-110); Lipase 178 U/L (23-300); Sodium 143 mmol/L (137-145)
[2022-01-27] MEDS: diphenhydrAMINE HCl INJ 50 MG/ML VIAL 25 MG IV PUSH (04:46)
[2022-01-27] MEDS: HALOPERIDOL LACTATE 5 MG/ML VIAL 2.5 MG IV PUSH (04:46)
[2022-01-27] MEDS: HYDROmorphone HCL INJ (*CRX) 1 MG/ML SYR IV PUSH (04:47)
[2022-01-27 06:24] LABS: Appearance Urine Cloudy (Clear); Bilirubin Urine Negative (Negative); Blood Urine Negative (Negative); Color Urine Yellow (Yellow); Glucose Urine UA Negative (Negative); Ketones Urine Negative (Negative); Leukocyte Esterase Ur Negative LEU/UL (Negative); Nitrate Urine Negative (Negative); Protein Urine 1+ mg/dL (Negative); Specific Grav Ur 1.015 (1.001-1.035); Urobilinogen Urine 0.2 mg/dL (<2.0); pH Urine 8.5 (5.0-9.0)
[2022-01-27 06:32] LABS: Amorphous Sediment Urine Few; Mucus Urine Rare /lpf; RBC Urine 0-2 /hpf (0-2); Squamous Epithelial Cell Urine Rare /hpf (Few); WBC Urine 0-3 /hpf
[2022-01-27 06:35] LABS: Add Urine Microscopic? YES
[2022-01-27 06:52] VITALS: BP 106/63; PULSE 59; RESP 18; O2SAT 99
== END 2022-01-27 06:54 | disposition home or self-care (01) ==
LOC: ANHED 06:31
PROVIDERS: Emergency Provider Emergency Medicine; PCP Family Medicine
DX: R10.84 Generalized abdominal pain (principal); Z98.890 Other specified postprocedural states; K50.90 Crohn's disease, unspecified, without complications; Z87.442 Personal history of urinary calculi
CPT/HCPCS: 36415; 74176; 80053; 81001; 83605; 83690; 85025; 87070; 87491; 87591; 96361; 96374; 96375; 99284; J1170; J1200; J1630; J2270; J7120

== ENCOUNTER 2022-02-11 00:05 | Emergency (ER) | payer OTHER, SELFPAY ==
--- NOTE | ~2022-02-11 | CT_ITS ---
EXAMINATION: CT abdomen pelvis wo con DATE: 02/11/2022 02:48 INDICATION: Abdominal pain. TECHNIQUE: Computed tomography (CT) of the abdomen and pelvis was performed without intravenous contr ast. Automated exposure control and iterative reconstruction technique were employed. The dose-length product was 242.55 mGy-cm. COMPARISON: CT abdomen and pelvis 01/27/2022 FINDINGS: The visualized portions of the lung bases demonstrate minimal atelectasis on the left. No p leural effusion. The heart size is normal. No pericardial effusion. The liver is normal. There are ch anges of cholecystectomy. The spleen, pancreas, and adrenal glands are normal. There are two [address] yasemin in right kidney. Left kidney is normal. There are no dilated loops of bowel. The appendix is not visualized. There are no pathologically enlarged lymph nodes. There is no free intraperitoneal fluid. There is severe lower lumbar spondylosis. IMPRESSION: 1. Small nonobstructing right kidney stones. Reviewed, dictated and finalized at location A.
[2022-02-11 00:11] VITALS: BP 126/98; PULSE 68; RESP 16; O2SAT 99
[2022-02-11 00:28] LABS: Basophils Absolute Auto 0.1 K/mm3 (0.0-0.1); Basophils Percent Auto 0.4 % (0.2-1.2); Eosinophils Absolute Auto 0.1 K/mm3 (0-0.3); Eosinophils Percent Auto 0.4 % (0-4.4); Hematocrit 39.8 % (37.0-47.0); Hemoglobin 14.1 g/dL (12.0-15.0); Immature Granulocyte Absolute 0.03 K/mm3 (0.00-0.031); Immature Granulocyte Percent A 0.2 % (0-0.5); Lymphocytes Absolute Auto 1.48 K/mm3 (0.9-3.2); Lymphocytes Percent Auto 10.5 % (18.3-44.2); Mean Corpuscular HGB Conc 35.4 g/dl (32-36); Mean Corpuscular Hemoglobin 31.5 pg (26-34); Mean Corpuscular Volume 88.8 fl (80-100); Mean Platelet Volume 11.7 fl (7.4-10.4); Monocytes Absolute Auto 0.4 K/mm3 (0.1-0.6); Neutrophils Absolute Auto 12.1 K/mm3 (1.3-6.7); Neutrophils Percent Auto 85.5 % (45.5-73.1); Platelet Count Result 306 k/mm3 (150-375); Red Blood Count 4.48 M/mm3 (4.2-5.4); Red Cell Distribution Width 13.5 % (11.5-14.5); White Blood Count 14.1 K/mm3 (4.5-10.0)
[2022-02-11 01:54] LABS: Alanine Aminotransferase 24 U/L (6-35); Albumin Level 4.9 g/dL (3.5-5.1); Alkaline Phosphatase 69 U/L (38-126); Anion Gap 7 mmol/L (8-16); Aspartate Amino Transferase 30 U/L (14-36); Bilirubin,Total 0.2 mg/dL (0.2-1.3); Blood Urea Nitrogen 16 mg/dL (7-17); Carbon Dioxide 24 mmol/L (22-30); Chloride 108 mmol/L (98-107); Estimated CRCL calculation 75 ml/min; Estimated Glomerular Filt Rate > 60; Glucose 146 mg/dL (65-110); Lipase 69 U/L (23-300); Potassium 3.8 mmol/L (3.4-5.0); Sodium 139 mmol/L (137-145)
[2022-02-11] MEDS: ONDANSETRON INJ 4 MG/2 ML VIAL IV PUSH (02:05)
[2022-02-11] MEDS: SODIUM CHLORIDE 0.9% IV 1,000 ML 999 ML IV CONT (02:05)
[2022-02-11] MEDS: HALOPERIDOL LACTATE 5 MG/ML VIAL 2.5 MG IV PUSH (02:25)
--- NOTE | 2022-02-11 03:02 | ED.ABDPAIN ---
HPI - Abdominal Pain General Chief Complaint: Abdominal Pain Stated Complaint: abd pain Time Seen by Provider: 02/11/22 01:45 Source: patient Mode of arrival: ambulatory Limitations: no limitations History of Present Illness HPI narrative: 41-year-old female presents today with complaints of abdominal pain that woke her up out of sleep. Patient with history of abdominal pain, endometriosis, multiple ER visits due to abdominal pain. Patient states she has had pain like this before but it was after her surgery for endometriosis. Patient does endorse marijuana usage on a daily basis. Patient had hysterectomy with bilateral salpingo-oophorectomy and cholecystectomy. Patient states she still has her appendix. Patient endorses increased urinary frequency but denies dysuria, back pain. Related Data Allergies Allergy/AdvReac Type Severity Reaction Status Date / Time codeine AdvReac Intermediate Nausea and Verified 02/11/22 00:13 Vomiting Review of Systems Review of Systems: CONSTITUTIONAL: Denies fever, chills, or sweats. EYES: Denies visual changes, redness, or discharge. ENT: Denies rhinorrhea, congestion, sore throat, or otalgia. CARDIOVASCULAR: Denies chest pain, palpitations, or edema. RESPIRATORY: Denies cough or dyspnea. GASTROINTESTINAL: Abdominal pain. Denies nausea, vomiting, or diarrhea. GENITOURINARY: Denies dysuria or hematuria. SKIN: Denies rash or itching. MUSCULOSKELETAL: Denies back pain, joint pain, or myalgia. NEUROLOGIC: Denies headache, numbness, dizziness, or weakness. PSYCHIATRIC: Denies anxiety or depression. [facility] Past Medical History Medical History Anxiety (Unknown) Crohn's disease History of pancreatitis Irritable bowel syndrome with constipation Kidney stones Marijuana smoker Nausea and vomiting in adult Pelvic congestion Surgical History Surgical History H/O lithotripsy History of cholecystectomy Laparoscopic cholecystectomy Family History Family History Mother Acute myocardial infarction Asthma Chronic obstructive pulmonary disease Son Asthma Father Chronic obstructive pulmonary disease Diabetes mellitus Sibling Diabetes mellitus Social History Social History Second hand tobacco smoke exposure: No Additional smoking assessment comments: marijuana Alcohol intake: never Substance use: never Substance use type: marijuana Gender identity (if verbalized by the patient): Female Sexual Orientation (if Verbalized by the Patient): Straight or Heterosexual Spiritual care concerns: No Exam Narrative: GENERAL: illl-appearing, well-nourished, and in moderate distress from pain. HEAD: Normocephalic, atraumatic. EYES: PERRLA and EOMI. ENT: Nares clear, no rhinorrhea or epistaxis. Mucous membranes moist. Oropharynx without tonsillar hypertrophy exudate or other lesions. Bilateral TMs pearly cook nonbulging NECK: Supple. No adenopathy or masses. No carotid bruits or JVD CHEST: Clear to auscultation. No respiratory distress. No wheezes rales or rhonchi HEART: Regular rate and rhythm. No murmur heard. Normal peripheral pulses. ABDOMEN: Soft, nondistended, normal active bowel sounds. Patient abdomen tender in all quadrants. EXTREMITIES: Normal range of motion. No edema. SKIN: Warm, dry, no rash. NEURO: No focal deficits. Alert and oriented x3. PSYCH: Normal mood and affect. Course Course Emergency Course: 41-year-old female with much improvement after IV Zofran and Haldol. White count elevated at 14.1. CMP without concerning findings. CT shows no acute findings. Vital Signs Vital signs: Vital Signs Pulse Rate 68 02/11/22 00:11 Respiratory Rate 16 02/11/22 00:11 Blood Pressure 126/98 H 02/11/22 00:11 Pulse Oximetry 99 02/11
[2022-02-11 05:24] LABS: Appearance Urine Clear (Clear); Bilirubin Urine 1+ (Negative); Color Urine Yellow (Yellow); Glucose Urine UA Negative (Negative); Ketones Urine 3+ mg/dL (Negative); Leukocyte Esterase Ur Negative LEU/UL (Negative); Nitrate Urine Negative (Negative); Protein Urine Trace mg/dL (Negative); Urobilinogen Urine 0.2 mg/dL (<2.0)
[2022-02-11 05:29] LABS: Mucus Urine Rare /lpf; Squamous Epithelial Cell Urine Occasional /hpf (Few); WBC Urine 0-3 /hpf
[2022-02-11 05:33] LABS: Add Urine Microscopic? YES; Blood Urine Trace (Negative)
[2022-02-11 06:06] VITALS: BP 139/73; PULSE 86; RESP 18; O2SAT 98
== END 2022-02-11 06:09 | disposition home or self-care (01) ==
PROVIDERS: Emergency Medicine; Emergency Provider Nurse Practitioner Family; PCP Family Medicine
DX: R10.9 Unspecified abdominal pain (principal); R11.10 Vomiting, unspecified; K50.90 Crohn's disease, unspecified, without complications; Z87.442 Personal history of urinary calculi; N20.0 Calculus of kidney; F12.90 Cannabis use, unspecified, uncomplicated; Z90.710 Acquired absence of both cervix and uterus
CPT/HCPCS: 36415; 74176; 80053; 81001; 83690; 85025; 96361; 96374; 96375; 99284; J1630; J2405; J7030

== ENCOUNTER 2022-03-11 03:01 | Emergency (ER) | payer OTHER, SELFPAY ==
--- NOTE | ~2022-03-11 | CT_ITS ---
EXAMINATION: CT abdomen pelvis w con DATE: 03/11/2022 03:49 INDICATION: Generalized abdominal pain with nausea, vomiting and diarrhea. History of Crohn's disease . TECHNIQUE: Computed tomography (CT) of the abdomen and pelvis was performed with 100 cc Omnipaque 300 intravenous contrast. The dose-length product was 246.41 mGy-cm. Automated exposure control and iter ative reconstruction technique were employed. COMPARISON: CT dated 02/11/2022 lung bases are unremarkable. Heart size normal. FINDINGS: Lung bases unremarkable. Heart size normal. No significant pleural or pericardial effusion. No significant vascular abnormality. No lymphadenopathy. There is mild diffuse thickening of the colon. There is mild thickening of the terminal ileum. Findin gs suspicious for enterocolitis, possibly secondary to patient's known Crohn's disease. Trace free fl uid in the pelvis. Small low-density lesions in the kidneys, most likely benign cysts. Status post cholecystectomy. The liver, spleen, pancreas, adrenal glands and kidneys are unremarkable . Small fat-containing umbilical hernia. IMPRESSION: 1. Mild thickening of the colon and terminal ileum which may be due to underdistention, although ente rocolitis secondary to infection or Crohn's disease should be considered in the appropriate clinical setting. No obstruction. Reviewed, dictated and finalized at location L. IMPRESSION: 1. Mild thickening of the colon and terminal ileum which may be due to underdis tention, although enterocolitis secondary to infection or Crohn's disease shoul d be considered in the appropriate clinical setting. No obstruction.
[2022-03-11 03:02] VITALS: BP 162/86; PULSE 56; RESP 20; TEMP 36.4; O2SAT 100
--- NOTE | 2022-03-11 03:08 | ED.GENADULT ---
HPI - General Adult General Chief complaint: Abdominal Pain Stated complaint: ABD PAIN HX: CROHNS Time Seen by Provider: 03/11/22 03:05 History of Present Illness HPI narrative: Patient 41-year-old female who presents the emergency department with chief complaint of abdominal pain. The patient reports she has history of Crohn's has had surgeries before in her abdomen done over at [place] patient states this evening she woke up from sleep started having severe abdominal pain called EMS and was transported to the emergency department patient states pain is not improved by anything reports is worsened by movement. Related Data Allergies Allergy/AdvReac Type Severity Reaction Status Date / Time codeine AdvReac Intermediate Nausea and Verified 03/04/22 09:54 Vomiting Review of Systems Review of Systems: A 10 system review of systems was completed on the patient and is negative except for what is stated in the HPI. Nursing and ancillary documentation was reviewed. [facility] Past Medical History Medical History Anxiety (Unknown) Crohn's disease Endometriosis History of pancreatitis Irritable bowel syndrome with constipation Kidney stones Marijuana smoker Nausea and vomiting in adult Pelvic congestion Surgical History Surgical History H/O lithotripsy H/O: hysterectomy History of cholecystectomy Laparoscopic cholecystectomy Family History Family History Mother Acute myocardial infarction Asthma Chronic obstructive pulmonary disease Son Asthma Father Chronic obstructive pulmonary disease Diabetes mellitus Sibling Diabetes mellitus Social History Social History Smoking status: Never smoker Second hand tobacco smoke exposure: No Additional smoking assessment comments: marijuana Alcohol intake: never Substance use: never Substance use type: marijuana Gender identity (if verbalized by the patient): Female Sexual Orientation (if Verbalized by the Patient): Straight or Heterosexual Spiritual care concerns: No Exam Narrative: GENERAL: Extremely anxious screaming. HEAD: Normocephalic, atraumatic. EYES: PERRLA and EOMI. ENT: Nares clear, no rhinorrhea or epistaxis. Mucous membranes moist. NECK: Supple. CHEST: Clear to auscultation. No respiratory distress. HEART: Regular rate and rhythm. No murmur heard. Normal peripheral pulses. ABDOMEN: Soft, diffusely tender, nondistended, normal active bowel sounds. EXTREMITIES: Normal range of motion. No edema. SKIN: Warm, dry, no rash. NEURO: No focal deficits. Alert and oriented x3. PSYCH: Normal mood and affect. Course Vital Signs Vital signs: Vital Signs Temperature 36.4 C L 03/11/22 03:02 Pulse Rate 56 L 03/11/22 03:02 Respiratory Rate 20 03/11/22 03:02 Blood Pressure 162/86 H 03/11/22 03:02 Pulse Oximetry 100 03/11/22 03:02 Oxygen Delivery Room Air 03/11/22 03:02 Temperature 36.4 C L 03/11/22 03:02 Pulse Rate 60 03/11/22 05:22 Respiratory Rate 16 03/11/22 05:22 Blood Pressure 94/57 L 03/11/22 05:22 Pulse Oximetry 98 03/11/22 05:22 Oxygen Delivery Room Air 03/11/22 03:02 Medical Decision Making Vital Signs Vital Signs: Vital Signs Temperature 36.4 C L 03/11/22 03:02 Pulse Rate 56 L 03/11/22 03:02 Respiratory Rate 20 03/11/22 03:02 Blood Pressure 162/86 H 03/11/22 03:02 Pulse Oximetry 100 03/11/22 03:02 Oxygen Delivery Room Air 03/11/22 03:02 Temperature 36.4 C L 03/11/22 03:02 Pulse Rate 60 03/11/22 05:22 Respiratory Rate 16 03/11/22 05:22 Blood Pressure 94/57 L 03/11/22 05:22 Pulse Oximetry 98 03/11/22 05:22 Oxygen Delivery Room Air 03/11/22 03:02 Lab Data Result diagrams: 03/11/22 03:08
[2022-03-11] MEDS: SODIUM CHLORIDE 0.9% IV 1,000 ML 999 ML IV CONT (03:10)
[2022-03-11] MEDS: HYDROmorphone HCL INJ (*CRX) 1 MG/ML SYR IV PUSH (03:11)
[2022-03-11] MEDS: DICYCLOMINE HCL INJ 20 MG/2 ML VIAL IM (03:11)
[2022-03-11] MEDS: ONDANSETRON INJ 4 MG/2 ML VIAL IV PUSH (03:11)
[2022-03-11 03:13] LABS: Basophils Absolute Auto 0.1 K/mm3 (0.0-0.1); Basophils Percent Auto 0.3 % (0.2-1.2); Eosinophils Percent Auto 0.1 % (0-4.4); Hematocrit 38.4 % (37.0-47.0); Hemoglobin 13.1 g/dL (12.0-15.0); Immature Granulocyte Absolute 0.08 K/mm3 (0.00-0.031); Immature Granulocyte Percent A 0.4 % (0-0.5); Lymphocytes Absolute Auto 1.25 K/mm3 (0.9-3.2); Lymphocytes Percent Auto 6.4 % (18.3-44.2); Mean Corpuscular HGB Conc 34.1 g/dl (32-36); Mean Corpuscular Hemoglobin 31.2 pg (26-34); Mean Corpuscular Volume 91.4 fl (80-100); Mean Platelet Volume 9.7 fl (7.4-10.4); Monocytes Absolute Auto 1.3 K/mm3 (0.1-0.6); Monocytes Percent Auto 6.7 % (2.6-8.5); Neutrophils Absolute Auto 16.8 K/mm3 (1.3-6.7); Neutrophils Percent Auto 86.1 % (45.5-73.1); Platelet Count Result 208 k/mm3 (150-375); Red Cell Distribution Width 13.2 % (11.5-14.5); White Blood Count 19.5 K/mm3 (4.5-10.0)
[2022-03-11] MEDS: HALOPERIDOL LACTATE 5 MG/ML VIAL IV PUSH (03:13)
[2022-03-11 03:17] VITALS: BP 137/84; PULSE 58; RESP 16; O2SAT 100
[2022-03-11 03:31] LABS: Alanine Aminotransferase 24 U/L (6-35); Albumin Level 4.7 g/dL (3.5-5.1); Alkaline Phosphatase 65 U/L (38-126); Anion Gap 9 mmol/L (8-16); Aspartate Amino Transferase 29 U/L (14-36); Bilirubin,Total 0.8 mg/dL (0.2-1.3); Blood Urea Nitrogen 14 mg/dL (7-17); Calcium 8.8 mg/dL (8.4-10.2); Carbon Dioxide 22 mmol/L (22-30); Chloride 105 mmol/L (98-107); Estimated Glomerular Filt Rate > 60; Glucose 161 mg/dL (65-110); Lipase 42 U/L (23-300); Potassium 3.8 mmol/L (3.4-5.0); Sodium 136 mmol/L (137-145)
[2022-03-11 03:32] LABS: Lactic Acid Reflex 1.4 mmol/L (0.7-2.0)
[2022-03-11 04:10] LABS: Appearance Urine Clear (Clear); Bilirubin Urine Negative (Negative); Blood Urine Trace-lysed (Negative); Color Urine Yellow (Yellow); Glucose Urine UA Negative (Negative); Ketones Urine 3+ mg/dL (Negative); Leukocyte Esterase Ur Negative LEU/UL (Negative); Nitrate Urine Negative (Negative); Protein Urine Negative (Negative); Specific Grav Ur 1.015 (1.001-1.035); Urobilinogen Urine 0.2 mg/dL (<2.0); pH Urine 7.5 (5.0-9.0)
[2022-03-11 04:16] LABS: Mucus Urine Rare /lpf; Squamous Epithelial Cell Urine Occasional /hpf (Few)
[2022-03-11 04:23] LABS: Add Urine Microscopic? YES
[2022-03-11 04:27] VITALS: BP 126/74; PULSE 55; RESP 18; O2SAT 99
[2022-03-11 05:22] VITALS: BP 94/57; PULSE 60; RESP 16; O2SAT 98
[2022-03-11 06:03] VITALS: BP 97/65; PULSE 62; RESP 16; O2SAT 97
== END 2022-03-11 06:14 | disposition home or self-care (01) ==
PROVIDERS: Emergency Provider Emergency Medicine; PCP Family Medicine
DX: K52.9 Noninfective gastroenteritis and colitis, unspecified (principal); K50.90 Crohn's disease, unspecified, without complications; Z87.442 Personal history of urinary calculi
CPT/HCPCS: 36415; 74177; 80053; 81001; 81025; 83605; 83690; 85025; 96361; 96372; 96374; 96375; 99284; J0500; J1170; J1630; J2405; J7030; Q9967

== ENCOUNTER 2022-03-11 21:23 | Emergency (ER) | payer OTHER, SELFPAY ==
[2022-03-11 21:44] VITALS: BP 163/88; PULSE 72; RESP 18; TEMP 36.5; O2SAT 100
--- NOTE | 2022-03-11 23:45 | ED.GENADULT ---
HPI - General Adult General Chief complaint: Abdominal Pain Stated complaint: abd pain Time Seen by Provider: 03/11/22 23:37 History of Present Illness HPI narrative: 41-year-old female with history of Crohn's and frequent abdominal pain presents to the emergency department for evaluation of nausea vomiting and lower abdominal pain. Patient was evaluated emergency department last night and had a CT scan. Patient states at that time she did feel improved with medications for nausea and for pain control. Patient states that her symptoms really worsened today. Patient did have a recent hysterectomy. Patient does have follow-up with GI. Related Data Allergies Allergy/AdvReac Type Severity Reaction Status Date / Time codeine AdvReac Intermediate Nausea and Verified 03/11/22 15:00 Vomiting Review of Systems Review of Systems: CONSTITUTIONAL: Denies fever, chills, or sweats. EYES: Denies visual changes, redness, or discharge. ENT: Denies rhinorrhea, congestion, sore throat, or otalgia. CARDIOVASCULAR: Denies chest pain, palpitations, or edema. RESPIRATORY: Denies cough or dyspnea. GASTROINTESTINAL: See HPI GENITOURINARY: Denies dysuria or hematuria. SKIN: Denies rash or itching. MUSCULOSKELETAL: Denies back pain, joint pain, or myalgia. NEUROLOGIC: Denies headache, numbness, or weakness. [facility] Past Medical History Medical History (Updated 03/12/22 @ 01:32 by Raul Roland MD) Anxiety (Unknown) Crohn's disease Endometriosis History of pancreatitis Irritable bowel syndrome with constipation Kidney stones Marijuana smoker Nausea and vomiting in adult Pelvic congestion Surgical History Surgical History (Updated 03/11/22 @ 15:00 by Reji Frost) H/O lithotripsy H/O: hysterectomy History of cholecystectomy Laparoscopic cholecystectomy Family History Family History (System 03/11/22 @ 15:00 by Reji Frost) Mother Acute myocardial infarction Asthma Chronic obstructive pulmonary disease Son Asthma Father Chronic obstructive pulmonary disease Diabetes mellitus Sibling Diabetes mellitus Social History Social History (System 03/11/22 @ 15:00 by Reji Frost) Smoking status: Never smoker Second hand tobacco smoke exposure: No Additional smoking assessment comments: marijuana Alcohol intake: never Substance use: never Substance use type: marijuana Gender identity (if verbalized by the patient): Female Sexual Orientation (if Verbalized by the Patient): Straight or Heterosexual Spiritual care concerns: No Exam Narrative: APPEARANCE: Distressed appearing due to nausea HEAD: normocephalic, atraumatic. EYES: PERRLA/EOMI, conjunctivae clear. NOSE: Normal no drainage THROAT: Pharynx clear, no exudate. NECK: Supple. No adenopathy, no masses. RESPIRATORY: Airway patent, respirations nonlabored. Clear to auscultation bilaterally, no rales, rhonchi, wheezing. CARDIOVASCULAR: Regular rate and rhythm without murmurs rubs or gallops. ABDOMINAL: Soft, nondistended, normal bowel sounds. Minimal tenderness to palpation. No tenderness to palpation on reexamination. Nonsurgical abdomen. MUSCULOSKELETAL: Moves all extremities. Strength/ROM intact, No edema, No calf tenderness. NEURO: Alert. Cranial nerves II through XII intact. Grossly intact SKIN: Warm, dry. Normal Color Course Course Emergency Course: Patient's CT scan from this morning showed IMPRESSION: 1. Mild thickening of the colon and terminal ileum which may be due to underdistention, although enterocolitis secondary to infection or Crohn's disease should be considered in the appropriate clinical setting. No obstruction. Patient does have a leukocytosis but is afebrile. Patient does feel improved with treatment. Patient was encouraged to continue to follow-up with GI. All question concerns were addressed. Patient was well-appearing at time of discharge. Vital Signs Vital signs: Vital Signs Temperature 97.7 F 03/11/22 21
[2022-03-12] VITALS: BP 128/79; PULSE 88; RESP 14; TEMP 36.7; O2SAT 98
[2022-03-12] MEDS: SODIUM CHLORIDE 0.9% IV 1,000 ML 999 ML IV CONT ×2 (00:06→00:24)
[2022-03-12 00:21] LABS: Basophils Absolute Auto 0.1 K/mm3 (0.0-0.1); Basophils Percent Auto 0.2 % (0.2-1.2); Hematocrit 39.8 % (37.0-47.0); Hemoglobin 13.5 g/dL (12.0-15.0); Immature Granulocyte Percent A 0.4 % (0-0.5); Lymphocytes Absolute Auto 0.99 K/mm3 (0.9-3.2); Lymphocytes Percent Auto 4.4 % (18.3-44.2); Mean Corpuscular HGB Conc 33.9 g/dl (32-36); Mean Corpuscular Volume 91.5 fl (80-100); Mean Platelet Volume 10.1 fl (7.4-10.4); Monocytes Absolute Auto 1.1 K/mm3 (0.1-0.6); Neutrophils Absolute Auto 20.2 K/mm3 (1.3-6.7); Platelet Count Result 213 k/mm3 (150-375); Red Blood Count 4.35 M/mm3 (4.2-5.4); Red Cell Distribution Width 13.3 % (11.5-14.5); White Blood Count 22.5 K/mm3 (4.5-10.0)
[2022-03-12] MEDS: HALOPERIDOL LACTATE 5 MG/ML VIAL IM (00:23)
[2022-03-12] MEDS: DICYCLOMINE HCL INJ 20 MG/2 ML VIAL IM (00:23)
[2022-03-12] MEDS: HYDROmorphone HCL INJ (*CRX) 1 MG/ML SYR IV PUSH (00:24)
[2022-03-12 00:30] LABS: Alanine Aminotransferase 42 U/L (6-35); Albumin Level 4.9 g/dL (3.5-5.1); Alkaline Phosphatase 69 U/L (38-126); Anion Gap 10 mmol/L (8-16); Aspartate Amino Transferase 40 U/L (14-36); Blood Urea Nitrogen 10 mg/dL (7-17); Calcium 8.6 mg/dL (8.4-10.2); Carbon Dioxide 21 mmol/L (22-30); Chloride 104 mmol/L (98-107); Estimated CRCL calculation 87 ml/min; Estimated Glomerular Filt Rate > 60; Glucose 115 mg/dL (65-110); Lipase 48 U/L (23-300); Potassium 3.8 mmol/L (3.4-5.0); Sodium 135 mmol/L (137-145)
[2022-03-12 00:31] LABS: Lactic Acid Reflex 0.9 mmol/L (0.7-2.0)
[2022-03-12 01:00] VITALS: BP 111/64; PULSE 54; RESP 14; O2SAT 99
[2022-03-12] MEDS: ONDANSETRON INJ 4 MG/2 ML VIAL IV PUSH (01:03)
[2022-03-12 02:09] VITALS: BP 123/88; PULSE 67; RESP 14; O2SAT 100
[2022-03-12 02:25] VITALS: BP 136/88; PULSE 88; RESP 19; O2SAT 97
== END 2022-03-12 02:25 | disposition home or self-care (01) ==
PROVIDERS: Emergency Provider Emergency Medicine; PCP Family Medicine
DX: R11.2 Nausea with vomiting, unspecified (principal); R10.84 Generalized abdominal pain; K50.90 Crohn's disease, unspecified, without complications; Z90.710 Acquired absence of both cervix and uterus; Z87.442 Personal history of urinary calculi
CPT/HCPCS: 36415; 74177; 80053; 81001; 81025; 83605; 83690; 85025; 96361; 96372; 96374; 96375; 99284; J0500; J1170; J1630; J2405; J7030; Q9967

== ENCOUNTER 2022-03-12 09:09 | Inpatient (IN) | payer OTHER, SELFPAY ==
[2022-03-12 09:24] VITALS: BP 166/91; PULSE 63; RESP 16; TEMP 36.9; O2SAT 100
[2022-03-12] MEDS: DICYCLOMINE HCL INJ 20 MG/2 ML VIAL IM (10:25)
[2022-03-12] MEDS: PROMETHAZINE HCL 25 MG/ML AMPUL 12.5 MG IV PUSH ×3 (10:25→21:09)
[2022-03-12] MEDS: SODIUM CHLORIDE 0.9% IV 1,000 ML 999 ML IV CONT (10:25)
[2022-03-12] MEDS: HYDROmorphone HCL INJ (*CRX) 1 MG/ML SYR 0.5 MG IV PUSH ×3 (10:26→20:47)
--- NOTE | 2022-03-12 10:52 | ED.ABDPAIN ---
HPI - Abdominal Pain General Chief Complaint: Abdominal Pain Stated Complaint: abd pain Time Seen by Provider: 03/12/22 09:35 Source: patient, RN notes reviewed and old records reviewed Mode of arrival: ambulatory Limitations: no limitations History of Present Illness HPI narrative: This is a 41 year old female with history of anxiety who presents for evaluation of nausea, vomiting and abdominal pain. Patient has been having nausea, vomiting and diarrhea for 2 days. This is her 3rd ER in past 36 hours for these symptoms. She has had labs and CT abdomen/pelvis. She had CT done 03/11/22 that showed possible colitis, and she was discharged with Cipro and Flagyl. She states she has continued to have nausea and vomiting with diffuse abdominal pain. She last took Zofran 1 hour ago and her last episode of emesis was 1 hour ago. Related Data Home Medications Medication Instructions Recorded Confirmed linaclotide 290 mcg capsule 290 mcg PO DAILY 03/12/22 03/12/22 (Linzess) Allergies Allergy/AdvReac Type Severity Reaction Status Date / Time codeine AdvReac Intermediate Nausea and Verified 03/11/22 15:00 Vomiting Review of Systems Review of Systems: All systems reviewed & are unremarkable except as noted in HPI and below Constitutional: Constitutional: Denies chills, Denies fatigue and Denies fever(s) Cardiovascular: Cardiovascular: Denies chest pain Respiratory: Respiratory: Denies chest congestion and Denies cough Gastrointestinal: Gastrointestinal: Reports abdominal pain, Reports diarrhea, Reports nausea and Reports vomiting PMFSH Past Medical History Medical History Anxiety (Unknown) Crohn's disease Endometriosis History of pancreatitis Irritable bowel syndrome with constipation Kidney stones Pelvic congestion Surgical History Surgical History H/O lithotripsy H/O: hysterectomy History of cholecystectomy Laparoscopic cholecystectomy Family History Family History (Updated 03/12/22 @ 15:46 by Estela Thomas PA-C) Mother Acute myocardial infarction Asthma Chronic obstructive pulmonary disease Son Asthma Father Chronic obstructive pulmonary disease Diabetes mellitus Liver cancer Kidney malignancy Sibling Diabetes mellitus Social History Social History (Updated 03/12/22 @ 15:48 by Estela Thomas PA-C) Social History: She lives at home with her fiance and her step-father. She is independent in her daily activities. 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 Her PCP is Dr. Sunil Grant. She designates her fiance, Jae, as her surrogate decision maker. She would like to be a full code. Smoking status: Never smoker Second hand tobacco smoke exposure: No Additional smoking assessment comments: marijuana Alcohol intake: never Substance use type: marijuana Last use: 03/01/2022 Spiritual care concerns: No Exam Const: General: alert Orientation/consciousness: patient oriented x3 Limitations: no limitations Other: patient is moaning in pain. appears anxious HENMT: Mouth: Yes Normal oral and palatal mucosa present Throat: posterior oropharynx normal Neck: Neck: normal visual inspection Chest: Chest palpation & inspection: normal inspection of the chest Resp: Effort & Inspection: normal respiratory effort Auscultation: clear to auscultation bilaterally Cardio: Rate: regular rate Rhythm: regular rhythm Heart sounds: no murmurs GI: GI Palp: Yes Soft to palpation, Yes Tenderness to palpation present (GI) (diffuse), No Guarding due to palpation present (GI) and No Rigid due to palpation Auscultation: normal bowel sounds Skin: General skin exam: normal color Rashes: no rashes Wounds: no wounds Neuro: General: patient oriented x3, moves all extremities and CN's II-XI intact bilaterally Extrem: General: normal to inspection Psych:
[2022-03-12 11:31] LABS: SARS-CoV-2 RNA PCR Negative
[2022-03-12] MEDS: PIPERACILLIN/TAZOBACTAM SOD 4.5 GM in SODIUM CHLORIDE 0.9% IV 100 ML 200 ML IVPB (11:32)
[2022-03-12 12:27] VITALS: BP 142/72; PULSE 78; RESP 18; O2SAT 99
--- NOTE | 2022-03-12 14:03 | ADMGEN ---
This patient, Tessa Ovalle, was admitted to [facility] Surg Room 311-01 at 1340. Patient/family oriented to hospital policies and general routines including ID bracelet, bed and alarms, visiting hours, pain management, procedures, bathroom and other care routines, personal items, smoking policy, room service/diet, and visiting hours. Information on how to activate the Rapid Response Team has been discussed. Patient/Family are encouraged to report perceived risks to care and to ask questions if they do not understand what they are told or what they should do.
[2022-03-12 14:05] VITALS: BMI 23.0
[2022-03-12 14:10] VITALS: BP 110/64; PULSE 52; RESP 16; TEMP 36.5; O2SAT 99
[2022-03-12] MEDS: LACTATED RINGERS 1,000 ML 125 ML IV CONT (14:12)
--- NOTE | 2022-03-12 15:32 | PM.IMHP ---
H&P: HPI History of Present Illness Date/Time: 03/12/22 15:32 Chief Complaint: abdominal pain Narrative: Date of service: 03/12/2022 Tessa Ovalle is a 41-year-old female with a history of IBS, questionable Crohn's history ( diagnosed with Crohn's several years ago, recently told by GI that she does not have Crohn's and is not on medications), anxiety, nephrolithiasis, marijuana use, endometriosis s/p hysterectomy on 01/01/2022 who presented to the emergency department with complaints of abdominal pain. this was her 3rd emergency visit at this facility over 24 hours. She has a complicated GI history and is established with jordan man, Dr. Pyle. Patient states about 2 months ago after her hysterectomy she had been taking narcotic pain medications and became very constipated. She was admitted at [facility] for aggressive bowel series. constipation resolved and she was discharge. A few weeks later she went to [facility] with concerns of vaginal bleeding after her hysterectomy at that time also had blood in her stool. She was informed that this was due to hemorrhoids. She did see Dr. Pyle in the office on 03/04/2022 due to complaints of constipation. At that time, her Linzess was stopped and she was switched to Amitiza. She did not immediately start taking this and in fact just started taking the Amitiza yesterday. She has continued to take Linzess. 2 days ago, she had sexual intercourse after being cleared by her azure architect following her hysterectomy. Following this she developed vaginal bleeding and also again noted rectal bleeding. She described bright red blood in the toilet bowl mixed with stool. She also noticed that after intercourse she had very severe abdominal pain that she described as stabbing in nature throughout her whole abdomen, especially in the periumbilical region. She went to the ED yesterday due to this pain and had a CT scan of her abdomen / pelvis which showed mild thickening of the colon and terminal ileum which may be due to under distension, although enterocolitis secondary to infection or Crohn's disease could not be excluded. No evidence of obstruction. She was started on ciprofloxacin and metronidazole and has taken 3 doses of this medication. Unfortunately, her abdominal pain has been persistent the past 2 days without much improvement. She has been having diarrhea the past 2 days. Also endorses nausea and vomiting. She has not been able to tolerate meals. She last ate a turkey sandwich 2 days ago and has had no solids since then. She is able to keep down liquids. She endorses a fever of 101.3? at home yesterday, but has been afebrile in her ER visits and so far this admission. She estimates about 6 episodes of diarrhea today. her pain has gradually worsened and she states now that she can not stand this pain anymore. this prompted return to the ED this morning. On presentation, she was afebrile, her vital signs were stable, laboratory workup revealed increased leukocytosis ( WBC 22.5) with mildly elevated LFTs. Lipase within normal limits. She did receive antiemetics and Dilaudid for pain and she stated this helped for a bit but is now wearing off in her pain is very severe again. She is tearful during my encounter. She is being admitted to the hospitalist service for observation. Supervising physician for this history and physical is Dr. Zaina Richard. Review of Systems Review of Systems: All systems reviewed with pertinent positives and negatives as per HPI. Additionally, patient endorses feeling weak and fatigued. She denies shortness of breath, cough, chest pain. She completed COVID vaccination and flu vaccine. she stopped using marijuana 1.5 weeks ago as she was informed that this could contribute to nausea and vomiting. she has recently undergone colonoscopy an EGD that were reportedly unremarkable (we do not have access to these records in this EMR
[2022-03-12] MEDS: DICYCLOMINE HCL 10 MG CAPSULE PO (21:44)
[2022-03-12 22:00] VITALS: BP 108/57; PULSE 55; RESP 18; TEMP 36.7; O2SAT 98
[2022-03-13] MEDS: HYDROmorphone HCL INJ (*CRX) 1 MG/ML SYR 0.5 MG IV PUSH ×6 (01:07→20:43)
[2022-03-13] MEDS: LACTATED RINGERS 1,000 ML 75 ML IV CONT ×2 (01:09→16:30)
[2022-03-13] MEDS: DICYCLOMINE HCL 10 MG CAPSULE PO ×3 (04:45→23:54)
[2022-03-13 05:24] VITALS: BP 127/76; PULSE 58; RESP 18; TEMP 36.6; O2SAT 98
[2022-03-13 06:43] LABS: Basophils Percent Auto 0.3 % (0.2-1.2); Eosinophils Absolute Auto 0.1 K/mm3 (0-0.3); Eosinophils Percent Auto 0.5 % (0-4.4); Hematocrit 35.9 % (37.0-47.0); Hemoglobin 12.5 g/dL (12.0-15.0); Immature Granulocyte Absolute 0.04 K/mm3 (0.00-0.031); Immature Granulocyte Percent A 0.4 % (0-0.5); Lymphocytes Absolute Auto 1.93 K/mm3 (0.9-3.2); Mean Corpuscular HGB Conc 34.8 g/dl (32-36); Mean Corpuscular Hemoglobin 31.5 pg (26-34); Mean Corpuscular Volume 90.4 fl (80-100); Mean Platelet Volume 10.3 fl (7.4-10.4); Monocytes Absolute Auto 0.7 K/mm3 (0.1-0.6); Monocytes Percent Auto 7.5 % (2.6-8.5); Neutrophils Absolute Auto 6.9 K/mm3 (1.3-6.7); Neutrophils Percent Auto 71.3 % (45.5-73.1); Platelet Count Result 153 k/mm3 (150-375); Red Blood Count 3.97 M/mm3 (4.2-5.4); Red Cell Distribution Width 13.1 % (11.5-14.5); White Blood Count 9.7 K/mm3 (4.5-10.0)
[2022-03-13] MEDS: PROMETHAZINE HCL 25 MG/ML AMPUL 12.5 MG IV PUSH (06:46)
[2022-03-13 06:53] LABS: Alanine Aminotransferase 32 U/L (6-35); Albumin Level 3.4 g/dL (3.5-5.1); Alkaline Phosphatase 50 U/L (38-126); Anion Gap 9 mmol/L (8-16); Aspartate Amino Transferase 44 U/L (14-36); Bilirubin,Total 0.6 mg/dL (0.2-1.3); Blood Urea Nitrogen 9 mg/dL (7-17); Calcium 7.8 mg/dL (8.4-10.2); Carbon Dioxide 19 mmol/L (22-30); Chloride 108 mmol/L (98-107); Estimated CRCL calculation 75 ml/min; Estimated Glomerular Filt Rate > 60; Glucose 62 mg/dL (65-110); Potassium 3.2 mmol/L (3.4-5.0); Sodium 136 mmol/L (137-145)
[2022-03-13 07:55] VITALS: O2SAT 98
--- NOTE | 2022-03-13 08:08 | WPDGICN ---
Assessment and Plan Assessment and plan (1) Colitis: Code(s): K52.9 - Noninfective gastroenteritis and colitis, unspecified Status: Acute Assessment and Plan: CT scan done a couple days ago shows mild diffuse thickening of the entire colon and also in the terminal ileum, raising the possibility of inflammatory bowel disease she believes she had a colonoscopy here few years ago and was told that she had slight colitis. She states that she was once told that she had Crohn's disease when she was seen in an emergency room in [place] but was not placed on medication for that. We will schedule her for colonoscopy to be done on Tuesday. (2) Nausea and vomiting in adult: Code(s): R11.2 - Nausea with vomiting, unspecified Status: Acute Assessment and Plan: this began over last few days it may be related to Amitiza which she just began taking. She states however that she has nausea frequently and had blamed it on her endometriosis and other problems. She also had been hospitalized in the past with suspected jejunal intussusception. (3) Irritable bowel syndrome with constipation: Code(s): K58.1 - Irritable bowel syndrome with constipation Status: Acute Assessment and Plan: She takes dicyclomine which was prescribed by Dr. Pyle,which helps somewhat with her cramping. She usually takes it 3 times a day (4) Leukocytosis: Qualifiers: Leukocytosis type: unspecified Qualified Code(s): D72.829 - Elevated white blood cell count, unspecified Code(s): D72.829 - Elevated white blood cell count, unspecified Status: Acute Assessment and Plan: etiology unclear. She was started on antibiotics in the emergency room 2 days ago (5) Endometriosis: Code(s): N80.9 - Endometriosis, unspecified Status: Acute Assessment and Plan: she had surgery at [facility] for this and thought that her abdominal discomfort would be resolved after that surgery but actually is having more pain now. (6) Crohn's disease: Qualifiers: Digestive disease complication type: other complication Gastrointestinal tract location: unspecified location Qualified Code(s): K50.918 - Crohn's disease, unspecified, with other complication Code(s): K50.90 - Crohn's disease, unspecified, without complications Status: Chronic Assessment and Plan: This has never been documented, she was told she had Crohn's disease when emergency room physician saw her a few years ago. Apparently a colonoscopy done about 3 years ago was negative but I do not have those results, And cannot find evidence in our system but she has had 1 at this institution. She was scheduled for colonoscopy to be done Tuesday by Dr. Pyle GI Consult Note Consult date/time: 03/13/22 08:08 HPI: Tessa Ovalle is a 41 year old female who has been followed by Dr. Pyle for the past couple of years. There is remote history that she might have Crohn's disease but we do not have documentation of that. He has been treating her with antispasmodics and medication for her chronic constipation. She had been on Linzess and felt that it was no longer working. Last week he started her on Amitiza. 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 She did start having nausea and vomiting the last couple of days which was after she began taking Amitiza. Diarrhea she states is new for her. She has also lost weight. She states she has lost 60 lb in the last year so, that she normally weighs about 185 and has gone down to 126. She presented to the emergency department for evaluation of nausea vomiting and lower abdominal pain yesterday. Patient was evaluated emergency department The previous night and had a CT scan.? Patient states at that time she did
[2022-03-13] MEDS: POTASSIUM CHLORIDE 20 MEQ PACKET (FOR LIQUID) 40 MEQ PO (09:16)
--- NOTE | 2022-03-13 12:46 | P.PNIM_ITS ---
Progress Note: A&P Assessment and Plan (1) Abdominal pain: Onset Date: ~10/09/20 Qualifiers: Abdominal location: generalized Qualified Code(s): R10.84 - Generalized abdominal pain Code(s): R10.9 - Unspecified abdominal pain Status: Acute Assessment and Plan: Patient with persistent abdominal pain * CT of the abdomen/pelvis on 03/11 showed mild thickening of the colon and terminal ileum which may be due to under distension vs enterocolitis secondary to infection or Crohn's * Appreciate gastroenterology consultation * Supportive care. Analgesics available as needed. Continue dicyclomine * Findings concerning for inflammatory bowel disease. She does have questionable Crohn's history. Planning for colonoscopy on Tuesday * Holding on antibiotics at this time. White blood cell count has normalized. No signs/symptoms to suggest acute infection * Stool cultures ordered, awaiting specimen for collection * Advanced to clear liquid diet per GI recommendation. Continue gentle IV fluid hydration until tolerating p.o. intake (2) Rectal bleeding: Code(s): K62.5 - Hemorrhage of anus and rectum Status: Acute Assessment and Plan: Patient endorses bright red rectal bleeding * patient not on aspirin, NSAIDs, blood thinners * reports history of hemorrhoids * H&H is stable * No active bleeding at this time * Appreciate GI evaluation. Planning for colonoscopy (3) N&V (nausea and vomiting): Qualifiers: Vomiting type: unspecified Qualified Code(s): R11.2 - Nausea with vomiting, unspecified Code(s): R11.2 - Nausea with vomiting, unspecified Status: Inactive Assessment and Plan: Improved * see plan as above * antiemetics as needed (4) Irritable bowel syndrome with constipation: Code(s): K58.1 - Irritable bowel syndrome with constipation Status: Acute Assessment and Plan: Established with GI, has had extensive workup * recently transitioned from Linzess to Amitiza. Per GI, Amitiza may contribute to nausea. Hold both medications at this time (5) Leukocytosis: Qualifiers: Leukocytosis type: unspecified Qualified Code(s): D72.829 - Elevated white blood cell count, unspecified Code(s): D72.829 - Elevated white blood cell count, unspecified Status: Acute Assessment and Plan: Resolved. Appears patient has chronic leukocytosis on review of prior labs. * WBC elevated at 22 on presentation and declined to 9 today * Continue to monitor CBC with differential (6) Transaminitis: Code(s): R74.01 - Elevation of levels of liver transaminase levels Status: Acute Assessment and Plan: Mild elevation * AST mildly elevated at 44. ALT normal * Liver is unremarkable on CT a/p * Patient is s/p cholecystectomy * Continue to trend LFTs Subjective Date/time seen: 03/13/22 12:46 Interval history: Date of service: 03/13/2022 Tessa Ovalle is a 41-year-old female with a history of IBS, questionable Crohn's history ( diagnosed with Crohn's several years ago, recently told by GI that she does not have Crohn's and is not on medications), anxiety, nephrolithiasis, marijuana use, endometriosis s/p hysterectomy on 01/01/2022 who is seen in follow up for abdominal pain. She has no improvement in pain today. Continues to endorse 9/10 diffuse abdominal pain. Diarrhea has resolved. She has not had a bowel movement today. Denies rectal bleeding. She complains of gas discomfort and states she has
--- NOTE | 2022-03-13 12:46 | PM.IMPN ---
Progress Note: A&P Assessment and Plan (1) Abdominal pain: Onset Date: ~10/09/20 Qualifiers: Abdominal location: generalized Qualified Code(s): R10.84 - Generalized abdominal pain Code(s): R10.9 - Unspecified abdominal pain Status: Acute Assessment and Plan: Patient with persistent abdominal pain CT of the abdomen/pelvis on 03/11 showed mild thickening of the colon and terminal ileum which may be due to under distension vs enterocolitis secondary to infection or Crohn's Appreciate gastroenterology consultation Supportive care. Analgesics available as needed. Continue dicyclomine Findings concerning for inflammatory bowel disease. She does have questionable Crohn's history. Planning for colonoscopy on Tuesday Holding on antibiotics at this time. White blood cell count has normalized. No signs/symptoms to suggest acute infection Stool cultures ordered, awaiting specimen for collection Advanced to clear liquid diet per GI recommendation. Continue gentle IV fluid hydration until tolerating p.o. intake (2) Rectal bleeding: Code(s): K62.5 - Hemorrhage of anus and rectum Status: Acute Assessment and Plan: Patient endorses bright red rectal bleeding patient not on aspirin, NSAIDs, blood thinners reports history of hemorrhoids H&H is stable No active bleeding at this time Appreciate GI evaluation. Planning for colonoscopy (3) N&V (nausea and vomiting): Qualifiers: Vomiting type: unspecified Qualified Code(s): R11.2 - Nausea with vomiting, unspecified Code(s): R11.2 - Nausea with vomiting, unspecified Status: Inactive Assessment and Plan: Improved see plan as above antiemetics as needed (4) Irritable bowel syndrome with constipation: Code(s): K58.1 - Irritable bowel syndrome with constipation Status: Acute Assessment and Plan: Established with GI, has had extensive workup recently transitioned from Linzess to Amitiza. Per GI, Amitiza may contribute to nausea. Hold both medications at this time (5) Leukocytosis: Qualifiers: Leukocytosis type: unspecified Qualified Code(s): D72.829 - Elevated white blood cell count, unspecified Code(s): D72.829 - Elevated white blood cell count, unspecified Status: Acute Assessment and Plan: Resolved. Appears patient has chronic leukocytosis on review of prior labs. WBC elevated at 22 on presentation and declined to 9 today Continue to monitor CBC with differential (6) Transaminitis: Code(s): R74.01 - Elevation of levels of liver transaminase levels Status: Acute Assessment and Plan: Mild elevation AST mildly elevated at 44. ALT normal Liver is unremarkable on CT a/p Patient is s/p cholecystectomy Continue to trend LFTs Subjective Date/time seen: 03/13/22 12:46 Interval history: Date of service: 03/13/2022 Tessa Ovalle is a 41-year-old female with a history of IBS, questionable Crohn's history ( diagnosed with Crohn's several years ago, recently told by GI that she does not have Crohn's and is not on medications), anxiety, nephrolithiasis, marijuana use, endometriosis s/p hysterectomy on 01/01/2022 who is seen in follow up for abdominal pain. She has no improvement in pain today. Continues to endorse 9/10 diffuse abdominal pain. Diarrhea has resolved. She has not had a bowel movement today. Denies rectal bleeding. She complains of gas discomfort and states she has not been able to pass flatus. She endorses nausea but no vomiting. She has been NPO. She is going to try clear liquids today for lunch. Denies dysuria or hematuria. Denies vaginal bleeding. She denies SOB, cough, chest pain. No fevers or chills. Review of Systems Review of Systems: All systems reviewed & are unremarkable except as noted in HPI and below Exam Narrative: General: well-nourished, well-appearing
[2022-03-13] MEDS: HYDROcodone/acetaminophen (*CRX) 5-325 MG TABLET 1 TAB PO (13:39)
[2022-03-13] MEDS: ONDANSETRON INJ 4 MG/2 ML VIAL IV PUSH ×2 (13:39→23:14)
[2022-03-13 14:00] VITALS: BP 120/75; PULSE 62; RESP 18; TEMP 36.3; O2SAT 99
[2022-03-13 22:00] VITALS: BP 144/72; PULSE 61; RESP 18; TEMP 36.7; O2SAT 96
[2022-03-13] MEDS: HYDROmorphone HCL INJ (*CRX) 1 MG/ML SYR IV PUSH (23:50)
[2022-03-14] MEDS: HYDROmorphone HCL INJ (*CRX) 1 MG/ML SYR IV PUSH ×7 (03:40→23:59)
[2022-03-14 06:00] VITALS: BP 122/68; PULSE 54; RESP 18; TEMP 36.7; O2SAT 97
[2022-03-14 06:28] LABS: Hematocrit 33.1 % (37.0-47.0); Hemoglobin 11.5 g/dL (12.0-15.0); Mean Corpuscular HGB Conc 34.7 g/dl (32-36); Mean Corpuscular Volume 89.2 fl (80-100); Mean Platelet Volume 10.3 fl (7.4-10.4); Platelet Count Result 146 k/mm3 (150-375); Red Blood Count 3.71 M/mm3 (4.2-5.4); Red Cell Distribution Width 12.9 % (11.5-14.5); White Blood Count 5.4 K/mm3 (4.5-10.0)
[2022-03-14 06:40] LABS: Anion Gap 5 mmol/L (8-16); Blood Urea Nitrogen 3 mg/dL (7-17); Calcium 7.8 mg/dL (8.4-10.2); Carbon Dioxide 29 mmol/L (22-30); Chloride 105 mmol/L (98-107); Estimated CRCL calculation 87 ml/min; Estimated Glomerular Filt Rate > 60; Glucose 84 mg/dL (65-110); Magnesium 1.6 mg/dL (1.6-2.3); Potassium 3.5 mmol/L (3.4-5.0); Sodium 139 mmol/L (137-145)
[2022-03-14] MEDS: ONDANSETRON INJ 4 MG/2 ML VIAL IV PUSH (06:54)
[2022-03-14] MEDS: MAGNESIUM SULF 2 GM/WATER 50ML 2 GM/50 ML BAG IVPB (10:02)
[2022-03-14] MEDS: polyethylene glycoL 3350 238 GM BOTTLE PO (10:09)
--- NOTE | 2022-03-14 10:13 | WPDGIPROGNO ---
Progress Note: A&P Assessment and Plan (1) Colitis: Code(s): K52.9 - Noninfective gastroenteritis and colitis, unspecified Status: Acute Assessment and Plan: CT scan done a couple days ago shows mild diffuse thickening of the entire colon and also in the terminal ileum, raising the possibility of inflammatory bowel disease she believes she had a colonoscopy here few years ago and was told that she had slight colitis. She states that she was once told that she had Crohn's disease when she was seen in an emergency room in [place] but was not placed on medication for that. We will schedule her for colonoscopy to be done on Tuesday. (2) Nausea and vomiting in adult: Code(s): R11.2 - Nausea with vomiting, unspecified Status: Acute Assessment and Plan: this began over last few days it may be related to Amitiza which she just began taking. She states however that she has nausea frequently and had blamed it on her endometriosis and other problems. She also had been hospitalized in the past with suspected jejunal intussusception. 03/14/2022 she has done well with clear liquids. She is beginning her bowel prep now for colonoscopy to be done tomorrow. (3) Irritable bowel syndrome with constipation: Code(s): K58.1 - Irritable bowel syndrome with constipation Status: Acute Assessment and Plan: She takes dicyclomine which was prescribed by Dr. Pyle,which helps somewhat with her cramping. She usually takes it 3 times a day (4) Leukocytosis: Qualifiers: Leukocytosis type: unspecified Qualified Code(s): D72.829 - Elevated white blood cell count, unspecified Code(s): D72.829 - Elevated white blood cell count, unspecified Status: Acute Assessment and Plan: etiology unclear. She was started on antibiotics in the emergency room 2 days ago (5) Endometriosis: Code(s): N80.9 - Endometriosis, unspecified Status: Acute Assessment and Plan: she had surgery at [facility] for this and thought that her abdominal discomfort would be resolved after that surgery but actually is having more pain now. (6) Crohn's disease: Qualifiers: Gastrointestinal tract location: unspecified location Digestive disease complication type: other complication Qualified Code(s): K50.918 - Crohn's disease, unspecified, with other complication Code(s): K50.90 - Crohn's disease, unspecified, without complications Status: Chronic Assessment and Plan: This has never been documented, she was told she had Crohn's disease when emergency room physician saw her a few years ago. Apparently a colonoscopy done about 3 years ago was negative but I do not have those results, And cannot find evidence in our system but she has had 1 at this institution. She was scheduled for colonoscopy to be done Tuesday by Dr. Pyle Subjective Date/time seen: Tessa Ovalle is a 41 year old female? who has been followed by Dr. Pyle for the past couple of years.? There is remote history that she might have Crohn's disease but we do not have documentation of that.? He has been treating her with antispasmodics and medication for her chronic constipation.? She had been on Linzess and felt that it was no longer working.? Last week he started her on Amitiza.? 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 ? She did start having nausea and vomiting the last couple of days which was after she began taking Amitiza.? Diarrhea she states is new for her.? She has also lost weight.? She states she has lost 60 lb in the last year so, that she normally weighs about 185 and has gone down to 126. ? She presented to the emergency department for evaluation of nausea vomiting and lower abdominal pain? yesterday. 03/14/22 10:13 she has t
[2022-03-14] MEDS: DICYCLOMINE HCL 10 MG CAPSULE PO (13:53)
[2022-03-14] MEDS: HYDROcodone/acetaminophen (*CRX) 5-325 MG TABLET 1 TAB PO (13:58)
[2022-03-14 14:00] VITALS: BP 120/92; PULSE 64; RESP 14; TEMP 36.1; O2SAT 100
--- NOTE | 2022-03-14 15:50 | P.PNIM_ITS ---
Progress Note: A&P Assessment and Plan (1) Abdominal pain: Onset Date: ~10/09/20 Qualifiers: Abdominal location: generalized Qualified Code(s): R10.84 - Generalized abdominal pain Code(s): R10.9 - Unspecified abdominal pain Status: Acute Assessment and Plan: Patient with persistent abdominal pain * CT of the abdomen/pelvis on 03/11 showed mild thickening of the colon and terminal ileum which may be due to under distension vs enterocolitis secondary to infection or Crohn's * Appreciate gastroenterology consultation * Supportive care. Analgesics available as needed. Continue dicyclomine * Findings concerning for inflammatory bowel disease. She does have questionable Crohn's history. Planning for colonoscopy tomorrow * Holding on antibiotics at this time. White blood cell count has normalized. No signs/symptoms to suggest acute infection * Stool cultures ordered but have not been collected for unclear reasons * Continue clear liquid diet. NPO at midnight for colonoscopy. Continue gentle IV fluid hydration until tolerating p.o. intake (2) Rectal bleeding: Code(s): K62.5 - Hemorrhage of anus and rectum Status: Acute Assessment and Plan: Patient endorsed bright red rectal bleeding * patient not on aspirin, NSAIDs, blood thinners * reports history of hemorrhoids * H&H is stable * No active bleeding at this time * Appreciate GI evaluation. Planning for colonoscopy (3) N&V (nausea and vomiting): Qualifiers: Vomiting type: unspecified Qualified Code(s): R11.2 - Nausea with vomiting, unspecified Code(s): R11.2 - Nausea with vomiting, unspecified Status: Inactive Assessment and Plan: Improved * see plan as above * antiemetics as needed (4) Irritable bowel syndrome with constipation: Code(s): K58.1 - Irritable bowel syndrome with constipation Status: Acute Assessment and Plan: Established with GI, has had extensive workup * recently transitioned from Linzess to Amitiza. Per GI, Amitiza may contribute to nausea. Hold both medications at this time (5) Leukocytosis: Qualifiers: Leukocytosis type: unspecified Qualified Code(s): D72.829 - Elevated white blood cell count, unspecified Code(s): D72.829 - Elevated white blood cell count, unspecified Status: Acute Assessment and Plan: Resolved. Appears patient has chronic leukocytosis on review of prior labs. * WBC elevated at 22 on presentation and is now within normal limits * Continue to monitor CBC with differential (6) Transaminitis: Code(s): R74.01 - Elevation of levels of liver transaminase levels Status: Acute Assessment and Plan: Mild elevation * Nearly resolved * Liver is unremarkable on CT a/p * Patient is s/p cholecystectomy * Continue to trend LFTs (7) Hypomagnesemia: Code(s): E83.42 - Hypomagnesemia Status: Acute Assessment and Plan: magnesium 1.6 * 2 g IV magnesium sulfate * repeat tomorrow Subjective Date/time seen: 03/14/22 15:50 Interval history: Date of service: 03/13/2022 Tessa Ovalle is a 41-year-old female with a history of IBS, questionable Crohn's history ( diagnosed with Crohn's several years ago, recently told by GI that she does not have Crohn's and is not on medications), anxiety, nephrolithiasis, marijuana use, endometriosis s/p hysterectomy on 01/01/2022 who is seen in follow up for abdominal pain. she feel
--- NOTE | 2022-03-14 15:50 | PM.IMPN ---
Progress Note: A&P Assessment and Plan (1) Abdominal pain: Onset Date: ~10/09/20 Qualifiers: Abdominal location: generalized Qualified Code(s): R10.84 - Generalized abdominal pain Code(s): R10.9 - Unspecified abdominal pain Status: Acute Assessment and Plan: Patient with persistent abdominal pain CT of the abdomen/pelvis on 03/11 showed mild thickening of the colon and terminal ileum which may be due to under distension vs enterocolitis secondary to infection or Crohn's Appreciate gastroenterology consultation Supportive care. Analgesics available as needed. Continue dicyclomine Findings concerning for inflammatory bowel disease. She does have questionable Crohn's history. Planning for colonoscopy tomorrow Holding on antibiotics at this time. White blood cell count has normalized. No signs/symptoms to suggest acute infection Stool cultures ordered but have not been collected for unclear reasons Continue clear liquid diet. NPO at midnight for colonoscopy. Continue gentle IV fluid hydration until tolerating p.o. intake (2) Rectal bleeding: Code(s): K62.5 - Hemorrhage of anus and rectum Status: Acute Assessment and Plan: Patient endorsed bright red rectal bleeding patient not on aspirin, NSAIDs, blood thinners reports history of hemorrhoids H&H is stable No active bleeding at this time Appreciate GI evaluation. Planning for colonoscopy (3) N&V (nausea and vomiting): Qualifiers: Vomiting type: unspecified Qualified Code(s): R11.2 - Nausea with vomiting, unspecified Code(s): R11.2 - Nausea with vomiting, unspecified Status: Inactive Assessment and Plan: Improved see plan as above antiemetics as needed (4) Irritable bowel syndrome with constipation: Code(s): K58.1 - Irritable bowel syndrome with constipation Status: Acute Assessment and Plan: Established with GI, has had extensive workup recently transitioned from Linzess to Amitiza. Per GI, Amitiza may contribute to nausea. Hold both medications at this time (5) Leukocytosis: Qualifiers: Leukocytosis type: unspecified Qualified Code(s): D72.829 - Elevated white blood cell count, unspecified Code(s): D72.829 - Elevated white blood cell count, unspecified Status: Acute Assessment and Plan: Resolved. Appears patient has chronic leukocytosis on review of prior labs. WBC elevated at 22 on presentation and is now within normal limits Continue to monitor CBC with differential (6) Transaminitis: Code(s): R74.01 - Elevation of levels of liver transaminase levels Status: Acute Assessment and Plan: Mild elevation Nearly resolved Liver is unremarkable on CT a/p Patient is s/p cholecystectomy Continue to trend LFTs (7) Hypomagnesemia: Code(s): E83.42 - Hypomagnesemia Status: Acute Assessment and Plan: magnesium 1.6 2 g IV magnesium sulfate repeat tomorrow Subjective Date/time seen: 03/14/22 15:50 Interval history: Date of service: 03/13/2022 Tessa Ovalle is a 41-year-old female with a history of IBS, questionable Crohn's history ( diagnosed with Crohn's several years ago, recently told by GI that she does not have Crohn's and is not on medications), anxiety, nephrolithiasis, marijuana use, endometriosis s/p hysterectomy on 01/01/2022 who is seen in follow up for abdominal pain. she feels maybe just slightly improved today. This morning she was still rating her pain at 10/10. After taking analgesics, her pain has improved to 5/10. She continues to describe diffuse abdominal discomfort. Today she describes a soreness and a raw and stinging sensation. Pain is worse with movements. she is able to take deep breaths and this does not cause worsened abdominal pain. she endorses nausea but denies vomiting. She did feel that she had some
[2022-03-14 18:23] LABS: IFOB Positive Control Positive; Immunochemical Fecal Occult Bl Negative (N)
[2022-03-14 18:59] LABS: Toxigenic C. Diff NEGATIVE (NEGATIVE)
[2022-03-14] MEDS: MAGNESIUM CITRATE 300 ML BTL 180 ML PO (20:11)
[2022-03-14 22:00] VITALS: BP 117/77; PULSE 60; RESP 12; TEMP 36.1; O2SAT 100
[2022-03-15] VITALS (7 sets, daily range): BP systolic 104–146; BP diastolic 72–94; PULSE 53–77; RESP 14–19; TEMP 36.2–36.4; O2SAT 98–100
[2022-03-15] MEDS: HYDROmorphone HCL INJ (*CRX) 1 MG/ML SYR IV PUSH ×4 (04:34→15:31)
[2022-03-15 07:24] LABS: Hematocrit 35.9 % (37.0-47.0); Hemoglobin 11.9 g/dL (12.0-15.0); Immature Platelet Fraction Pct 5.9 % (0.9-11.2); Mean Corpuscular HGB Conc 33.1 g/dl (32-36); Mean Corpuscular Hemoglobin 30.4 pg (26-34); Mean Corpuscular Volume 91.8 fl (80-100); Mean Platelet Volume 10.7 fl (7.4-10.4); Platelet Count Result 133 k/mm3 (150-375); Red Blood Count 3.91 M/mm3 (4.2-5.4); Red Cell Distribution Width 13.1 % (11.5-14.5); White Blood Count 5.8 K/mm3 (4.5-10.0)
[2022-03-15 07:46] LABS: Alanine Aminotransferase 27 U/L (6-35); Albumin Level 3.3 g/dL (3.5-5.1); Alkaline Phosphatase 39 U/L (38-126); Anion Gap 10 mmol/L (8-16); Aspartate Amino Transferase 31 U/L (14-36); Bilirubin,Total 0.3 mg/dL (0.2-1.3); Blood Urea Nitrogen 3 mg/dL (7-17); Calcium 8.1 mg/dL (8.4-10.2); Carbon Dioxide 22 mmol/L (22-30); Chloride 107 mmol/L (98-107); Estimated CRCL calculation 87 ml/min; Estimated Glomerular Filt Rate > 60; Glucose 85 mg/dL (65-110); Sodium 139 mmol/L (137-145)
--- NOTE | 2022-03-15 07:58 | PC.NURSE ---
IV nurse called for US IV placement, pt difficult stick with positional IV site at this time.
--- NOTE | 2022-03-15 10:46 | P.PNIM_ITS ---
Progress Note: A&P Assessment and Plan (1) Abdominal pain: Onset Date: ~10/09/20 Qualifiers: Abdominal location: generalized Qualified Code(s): R10.84 - Generalized abdominal pain Code(s): R10.9 - Unspecified abdominal pain Status: Acute Assessment and Plan: Patient with persistent abdominal pain * CT of the abdomen/pelvis on 03/11 showed mild thickening of the colon and terminal ileum which may be due to under distension vs enterocolitis secondary to infection or Crohn's * Appreciate gastroenterology consultation * Supportive care. Analgesics available as needed. Continue dicyclomine * Findings concerning for inflammatory bowel disease. She does have questionable Crohn's history. Colonoscopy today * Holding on antibiotics at this time. White blood cell count has normalized. No signs/symptoms to suggest acute infection * Stool cultures pending * C diff PCR negative * NPO diet while awaiting colonoscopy. Continue gentle IV fluid hydration until tolerating p.o. intake (2) Rectal bleeding: Code(s): K62.5 - Hemorrhage of anus and rectum Status: Acute Assessment and Plan: Patient endorsed bright red rectal bleeding * patient not on aspirin, NSAIDs, blood thinners * reports history of hemorrhoids * H&H is stable * Today patient complains of black stools * Appreciate GI evaluation. Planning for colonoscopy. Consider EGD at GI discretion (3) N&V (nausea and vomiting): Qualifiers: Vomiting type: unspecified Qualified Code(s): R11.2 - Nausea with vomiting, unspecified Code(s): R11.2 - Nausea with vomiting, unspecified Status: Inactive Assessment and Plan: Improved * see plan as above * antiemetics as needed (4) Irritable bowel syndrome with constipation: Code(s): K58.1 - Irritable bowel syndrome with constipation Status: Acute Assessment and Plan: Established with GI, has had extensive workup * recently transitioned from Linzess to Amitiza. Per GI, Amitiza may contribute to nausea. Hold both medications at this time (5) Leukocytosis: Qualifiers: Leukocytosis type: unspecified Qualified Code(s): D72.829 - Elevated white blood cell count, unspecified Code(s): D72.829 - Elevated white blood cell count, unspecified Status: Acute Assessment and Plan: Resolved. Appears patient has chronic leukocytosis on review of prior labs. * WBC elevated at 22 on presentation and is now within normal limits * Continue to monitor CBC with differential (6) Transaminitis: Code(s): R74.01 - Elevation of levels of liver transaminase levels Status: Acute Assessment and Plan: Resolved * Liver is unremarkable on CT a/p * Patient is s/p cholecystectomy * LFTs within normal limits today (7) Hypomagnesemia: Code(s): E83.42 - Hypomagnesemia Status: Acute Assessment and Plan: magnesium has been supplemented * Magnesium level pending today Subjective Date/time seen: 03/15/22 10:46 Interval history: Date of service: 03/15/2022 Tessa Ovalle is a 41-year-old female with a history of IBS, questionable Crohn's history ( diagnosed with Crohn's several years ago, recently told by GI that she does not have Crohn's and is not on medications), anxiety, nephrolithiasis, marijuana use, endometriosis s/p hysterectomy on 01/01/2022 who is seen in follow up for abdominal pain. She feels better today. Her abdominal pain i
--- NOTE | 2022-03-15 10:46 | PM.IMPN ---
Progress Note: A&P Assessment and Plan (1) Abdominal pain: Onset Date: ~10/09/20 Qualifiers: Abdominal location: generalized Qualified Code(s): R10.84 - Generalized abdominal pain Code(s): R10.9 - Unspecified abdominal pain Status: Acute Assessment and Plan: Patient with persistent abdominal pain CT of the abdomen/pelvis on 03/11 showed mild thickening of the colon and terminal ileum which may be due to under distension vs enterocolitis secondary to infection or Crohn's Appreciate gastroenterology consultation Supportive care. Analgesics available as needed. Continue dicyclomine Findings concerning for inflammatory bowel disease. She does have questionable Crohn's history. Colonoscopy today Holding on antibiotics at this time. White blood cell count has normalized. No signs/symptoms to suggest acute infection Stool cultures pending C diff PCR negative NPO diet while awaiting colonoscopy. Continue gentle IV fluid hydration until tolerating p.o. intake (2) Rectal bleeding: Code(s): K62.5 - Hemorrhage of anus and rectum Status: Acute Assessment and Plan: Patient endorsed bright red rectal bleeding patient not on aspirin, NSAIDs, blood thinners reports history of hemorrhoids H&H is stable Today patient complains of black stools Appreciate GI evaluation. Planning for colonoscopy. Consider EGD at GI discretion (3) N&V (nausea and vomiting): Qualifiers: Vomiting type: unspecified Qualified Code(s): R11.2 - Nausea with vomiting, unspecified Code(s): R11.2 - Nausea with vomiting, unspecified Status: Inactive Assessment and Plan: Improved see plan as above antiemetics as needed (4) Irritable bowel syndrome with constipation: Code(s): K58.1 - Irritable bowel syndrome with constipation Status: Acute Assessment and Plan: Established with GI, has had extensive workup recently transitioned from Linzess to Amitiza. Per GI, Amitiza may contribute to nausea. Hold both medications at this time (5) Leukocytosis: Qualifiers: Leukocytosis type: unspecified Qualified Code(s): D72.829 - Elevated white blood cell count, unspecified Code(s): D72.829 - Elevated white blood cell count, unspecified Status: Acute Assessment and Plan: Resolved. Appears patient has chronic leukocytosis on review of prior labs. WBC elevated at 22 on presentation and is now within normal limits Continue to monitor CBC with differential (6) Transaminitis: Code(s): R74.01 - Elevation of levels of liver transaminase levels Status: Acute Assessment and Plan: Resolved Liver is unremarkable on CT a/p Patient is s/p cholecystectomy LFTs within normal limits today (7) Hypomagnesemia: Code(s): E83.42 - Hypomagnesemia Status: Acute Assessment and Plan: magnesium has been supplemented Magnesium level pending today Subjective Date/time seen: 03/15/22 10:46 Interval history: Date of service: 03/15/2022 Tessa Ovalle is a 41-year-old female with a history of IBS, questionable Crohn's history ( diagnosed with Crohn's several years ago, recently told by GI that she does not have Crohn's and is not on medications), anxiety, nephrolithiasis, marijuana use, endometriosis s/p hysterectomy on 01/01/2022 who is seen in follow up for abdominal pain. She feels better today. Her abdominal pain is better now. She states she is currently having pain when she is having bowel movements. She describes this as a feeling of pressure in her lower abdomen and states it feels ?raw.? She has been having stools with the colonoscopy prep and states they are now like sandpaper or coffee grounds . She states they are black in color. She denies nausea or vomiting. No fever or chills. Denies dizziness, lightheadedness, shortness breath, cough, chest pain, palpi
[2022-03-15] MEDS: LACTATED RINGERS 1,000 ML 150 ML IV CONT ×2 (10:54→11:22)
[2022-03-15] MEDS: ONDANSETRON INJ 4 MG/2 ML VIAL IV PUSH (10:56)
--- NOTE | 2022-03-15 11:12 | PC.NURSE ---
consent signed yesterday for colonscopy informed Theresa
[2022-03-15 11:15] LABS: Magnesium 2.4 mg/dL (1.6-2.3)
--- NOTE | 2022-03-15 12:05 | WPDANESEPPF ---
Anes - Initial Pre Proc Eval Procedure: Operation Date: 03/15/22 14:30 Proposed Procedures p Esophagogastroduodenoscopy & Colonoscopy - Edgardo Bennett MD Date/Time: 03/15/22 12:05 Surgeon: Estela Thomas PA-C Pre Op Diagnosis: Colitis/intractable nausea and vomiting Patient Data Age: 41 Gender: F Height: 1.6 m Weight: 59 kg Last Vital Signs Temp 36.2 C L 03/15/22 08:07 Pulse 54 L 03/15/22 08:07 Resp 14 03/15/22 08:07 BP 146/83 H 03/15/22 08:07 Pulse Ox 100 03/15/22 08:07 O2 Del Method Room Air 03/15/22 08:00 Allergies Allergy/AdvReac Type Severity Reaction Status Date / Time codeine AdvReac Intermediate Nausea and Verified 03/15/22 13:13 Vomiting Home Medications Medication Instructions Recorded Confirmed Type dicyclomine 10 mg capsule 10 mg PO QID PRN abdominal pain 05/14/21 03/12/22 Rx #90 caps ciprofloxacin HCl 500 mg tablet 500 mg PO Q12H #20 tabs 03/11/22 03/12/22 Rx metronidazole 500 mg tablet 500 mg PO Q8H 10 days #30 tabs 03/11/22 03/12/22 Rx linaclotide 290 mcg capsule 290 mcg PO DAILY 03/12/22 03/12/22 History (Linzess) Laboratory Tests 03/14/22 03/14/22 03/15/22 17:23 17:23 06:52 WBC RBC Hgb Hct MCV MCH MCHC RDW Plt Count MPV % Immature Plt Fraction Sodium Potassium Chloride Carbon Dioxide Anion Gap BUN Creatinine Estim Creat Clear Calc Estimated GFR Glucose Calcium Magnesium 2.4 mg/dL H mg/dL (1.6-2.3) Total Bilirubin AST ALT Alkaline Phosphatase Total Protein Albumin Stl Occult Blood (IFOB) Negative (N) C. difficile (PCR) Negative (NEGATIVE) 03/15/22 03/15/22 06:55 06:55 WBC 5.8 K/mm3 K/mm3 (4.5-10.0) RBC 3.91 M/mm3 L M/mm3 (4.2-5.4) Hgb 11.9 g/dL L g/dL (12.0-15.0) Hct 35.9 % L % (37.0-47.0) MCV 91.8 fl fl (80-100) MCH 30.4 pg pg (26-34) MCHC 33.1 g/dl g/dl (32-36) RDW 13.1 % % (11.5-14.5) Plt Count 133 k/mm3 L k/mm3 (150-375) MPV 10.7 fl H fl (7.4-10.4) % Immature Plt Fraction 5.9 % % (0.9-11.2) Sodium 139 mmol/L mmol/L (137-145) Potassium 4.0 mmol/L mmol/L (3.4-5.0) Chloride 107 mmol/L mmol/L (98-107) Carbon Dioxide 22 mmol/L mmol/L (22-30) Anion Gap 10 mmol/L mmol/L (8-16) BUN 3 mg/dL L mg/dL (7-17) Creatinine 0.60 mg/dL L mg/dL (0.7-1.0) Estim Creat Clear Calc 87 ml/min ml/min Estimated GFR > 60 (59 - ) Glucose 85 mg/dL mg/dL (65-110) Calcium 8.1 mg/dL L mg/dL (8.4-10.2) Magnesium Total Bilirubin 0.3 mg/dL mg/dL (0.2-1.3) AST 31 U/L U/L (14-36) ALT 27 U/L U/L (6-35) Alkaline Phosphatase 39 U/L U/L (38-126) Total Protein 6.0 g/dL L g/dL (6.3-8.2) Albumin 3.3 g/dL L g/dL (3.5-5.1) Stl Occult Blood (IFOB) C. difficile (PCR) Patient hx anesthesia problems: none Family hx anesthesia problems: none Results Review: All pre-operative results and documents have been reviewed as part of the pre-operative evaluation. [facility] Past Medical History Medical History (Updated 03/15/22 @ 12:06 by Milton Sage MD) Anxiety (Unknown) Crohn's disease Endometriosis Hematuria History of pancreatitis Intussusception of small bowel Irritable bowel syndrome with constipation Kidney stones Marijuana smoker Pelvic congestion Transaminitis Surgical History Surgical History H/O lithotripsy H/O: hysterectomy Histor
--- NOTE | 2022-03-15 14:53 | SUR.OPER ---
EGD START 1432, END 1436. COLONOSCOPY START 1440, END 1449.
--- NOTE | 2022-03-15 15:25 | PC.NURSE ---
pt back from colonscopy
[2022-03-15] MEDS: DICYCLOMINE HCL 10 MG CAPSULE PO (15:37)
[2022-03-15] MEDS: SIMETHICONE 80 MG TAB.CHEW PO (15:50)
--- NOTE | 2022-03-15 16:26 | PC.NURSE ---
pt to discharge tomorrow per Estela LIZAMA.
--- NOTE | 2022-03-15 16:49 | PC.NURSE ---
pt tolerated diet well, Estela to discharge pt per pt request. Awaiting discharge ordered.
--- NOTE | 2022-03-15 17:01 | PM.DS ---
DS: Admitting Diagnosis Discharge Date 03/15/2022 Admitting Diagnosis abdominal pain DS: Discharge Diagnosis Discharge Diagnosis (1) Abdominal pain: Onset Date: ~10/09/20 Qualifiers: Abdominal location: generalized Qualified Code(s): R10.84 - Generalized abdominal pain Code(s): R10.9 - Unspecified abdominal pain Status: Acute Assessment and Plan: Patient with persistent abdominal pain CT of the abdomen/pelvis on 03/11 showed mild thickening of the colon and terminal ileum which may be due to under distension vs enterocolitis secondary to infection or Crohn's She was seen in consultation by gastroenterology Had EGD and colonoscopy which were unremarkable. No evidence of inflammatory bowel disease or colitis. Continue with GI follow up and next colonoscopy in 5 years. Supportive care provided. Continue dicyclomine Stool cultures pending. Final results will be monitored. C diff PCR negative Antibiotics deferred as patient had no signs/symptoms to suggest acute infection. WBC normalized. (2) Rectal bleeding: Code(s): K62.5 - Hemorrhage of anus and rectum Status: Acute Assessment and Plan: Patient endorsed bright red rectal bleeding patient not on aspirin, NSAIDs, blood thinners reports history of hemorrhoids H&H remained stable EGD unremarkable. Colonoscopy with internal hemorrhoids that were not actively bleeding (3) N&V (nausea and vomiting): Qualifiers: Vomiting type: unspecified Qualified Code(s): R11.2 - Nausea with vomiting, unspecified Code(s): R11.2 - Nausea with vomiting, unspecified Status: Inactive Assessment and Plan: Resolved (4) Irritable bowel syndrome with constipation: Code(s): K58.1 - Irritable bowel syndrome with constipation Status: Acute Assessment and Plan: Established with GI, has had extensive workup Continue Leonarda (5) Leukocytosis: Qualifiers: Leukocytosis type: unspecified Qualified Code(s): D72.829 - Elevated white blood cell count, unspecified Code(s): D72.829 - Elevated white blood cell count, unspecified Status: Acute Assessment and Plan: Resolved. Appears patient has chronic leukocytosis on review of prior labs. WBC elevated at 22 on presentation and declined to normal limits (6) Transaminitis: Code(s): R74.01 - Elevation of levels of liver transaminase levels Status: Acute Assessment and Plan: Resolved Liver is unremarkable on CT a/p Patient is s/p cholecystectomy LFTs normalized (7) Hypomagnesemia: Code(s): E83.42 - Hypomagnesemia Status: Acute Assessment and Plan: Resolved with supplementation DS: Summary Hospital Course Hospital Course: Date of admission: 03/12/2022 Date of discharge: 03/15/2022 Tessa Ovalle is a 41-year-old female with a history of IBS, questionable Crohn's history ( diagnosed with Crohn's several years ago, recently told by GI that she does not have Crohn's and is not on medications), anxiety, nephrolithiasis, marijuana use, endometriosis s/p hysterectomy on 01/01/2022 who presented to the emergency department with complaints of abdominal pain.On presentation, she was afebrile, her vital signs were stable, laboratory workup revealed increased leukocytosis ( WBC 22.5) with mildly elevated LFTs.? Lipase within normal limits. She was admitted to the hospitalist service for further evaluation and management was seen in consultation by Gastroenterology. Please see above for further details. She underwent EGD and colonoscopy which were unremarkable. Her abdominal pain did improve. She will continue with dicyclomine and Linzess and follow-up with GI as an outpatient. The patient was very eager for discharge home. She had been taking IV pain medication frequently and I encouraged her to monitor her pain off IV analgesics to ensure that she w
[2022-03-20 15:12] LABS: ANCA Screen Negative (Negative); Myeloperoxidase Ab <1.0 AI (<1.0); Proteinase-3 Ab <1.0 AI (<1.0); S cerevisiae Ab (IgA) 5.4 U (<=20.0); S cerevisiae Ab (IgG) 6.9 U (<=20.0)
== END 2022-03-15 17:40 | disposition home or self-care (01) | DRG 392 ==
LOC: ANHED 10:17 → ANH3MEDSUR 13:27
PROVIDERS: Internal Medicine Gastroenterology; Admitting Provider Family Medicine; Emergency Provider General Practice; PCP Family Medicine; Visit Provider Physician Assistant
PROC: 0DJ08ZZ Inspection of Upper Intestinal Tract, Via Natural or Artificial Opening Endoscopic (ICD-10-PCS; CPT 43235; principal; 2022-03-15 14:30)
DX: K58.1 Irritable bowel syndrome with constipation (principal); K63.5 Polyp of colon; K64.8 Other hemorrhoids; D72.829 Elevated white blood cell count, unspecified; N80.9 Endometriosis, unspecified; Z87.442 Personal history of urinary calculi; Z90.49 Acquired absence of other specified parts of digestive tract; Z90.710 Acquired absence of both cervix and uterus
CPT/HCPCS: 36415; 80048; 80053; 82274; 83735; 85025; 85027; 85055; 86036; 86671; 87045; 87269; 87272; 87427; 87493; 88305; 89055; 96361; 96365; 96372; 96375; 96376; 99285; A9270; C9803; G0378; J0131; J0500; J1170; J2405; J2543; J2550; J2704; J3475; J7030; J7120; U0003; U0005

== ENCOUNTER 2022-03-17 04:50 | Emergency (ER) | payer OTHER, SELFPAY ==
--- NOTE | ~2022-03-17 | CT_ITS ---
EXAMINATION: CT abdomen pelvis w con DATE: 03/17/2022 06:53 INDICATION: Lower abdominal pain post colonoscopy. TECHNIQUE: Computed tomography (CT) of the abdomen and pelvis was performed with 100 mL Omnipaque-300 intravenous contrast. Automated exposure control and iterative reconstruction technique were employe d. The dose-length product was 247.71 mGy-cm. COMPARISON: 03/11/2022 FINDINGS: Lung bases are clear. Heart size is normal. No pericardial or pleural effusion. Cholecystectomy clips at the gallbladder fossa. A few tiny splenic calcific lesions consistent with old granulomatous dise ase. Liver, pancreas, bilateral adrenal glands and kidneys are normal. No abnormal bowel wall thicken ing or obstruction. Normal appendix. Bladder is normal. The uterus is not identified and has likely b een surgically resected. There is a small amount of free fluid in the cul-de-sac with nonspecific. No pathologically enlarged abdominal or pelvic lymphadenopathy. Subtle haziness to the surrounding fat in the region of the vaginal cuff. No pathologically enlarged abdominal or pelvic lymphadenopathy. M oderate lumbosacral spondylosis. IMPRESSION: 1. Minimal ascites in the cul-de-sac with nonspecific subtle haziness to the fat surrounding the vagi nal cuff post hysterectomy. No other acute intra-abdominal/pelvic process. Reviewed, dictated and finalized at location A. IMPRESSION: 1. Minimal ascites in the cul-de-sac with nonspecific subtle haziness to the fa t surrounding the vaginal cuff post hysterectomy. No other acute intra-abdomina l/pelvic process.
[2022-03-17 04:58] VITALS: BP 140/108; PULSE 66; RESP 18; TEMP 36.5; O2SAT 99
[2022-03-17 05:14] LABS: Basophils Absolute Auto 0.1 K/mm3 (0.0-0.1); Basophils Percent Auto 0.6 % (0.2-1.2); Eosinophils Absolute Auto 0.3 K/mm3 (0-0.3); Eosinophils Percent Auto 2.9 % (0-4.4); Hematocrit 43.8 % (37.0-47.0); Hemoglobin 14.7 g/dL (12.0-15.0); Immature Granulocyte Absolute 0.03 K/mm3 (0.00-0.031); Immature Granulocyte Percent A 0.3 % (0-0.5); Lymphocytes Percent Auto 25.9 % (18.3-44.2); Mean Corpuscular HGB Conc 33.6 g/dl (32-36); Mean Corpuscular Hemoglobin 30.5 pg (26-34); Mean Corpuscular Volume 90.9 fl (80-100); Mean Platelet Volume 9.8 fl (7.4-10.4); Monocytes Absolute Auto 0.8 K/mm3 (0.1-0.6); Monocytes Percent Auto 7.4 % (2.6-8.5); Neutrophils Absolute Auto 6.6 K/mm3 (1.3-6.7); Neutrophils Percent Auto 62.9 % (45.5-73.1); Platelet Count Result 240 k/mm3 (150-375); Red Blood Count 4.82 M/mm3 (4.2-5.4); Red Cell Distribution Width 13.1 % (11.5-14.5); White Blood Count 10.4 K/mm3 (4.5-10.0)
[2022-03-17] MEDS: LACTATED RINGERS 1,000 ML 999 ML IV CONT (05:16)
[2022-03-17] MEDS: HALOPERIDOL LACTATE 5 MG/ML VIAL IM (05:16)
--- NOTE | 2022-03-17 05:24 | ED.ABDPAIN ---
HPI - Abdominal Pain General Chief Complaint: Abdominal Pain Stated Complaint: ABD pain Time Seen by Provider: 03/17/22 04:59 Source: patient, RN notes reviewed and old records reviewed Mode of arrival: ambulatory Limitations: no limitations History of Present Illness HPI narrative: This is a 41 year old female with history of IBS who presents for evaluation of abdominal pain with nausea and vomiting. Patient was admitted to hospital on 03/12/22 for colitis with abdominal pain with nausea and vomiting. She was evaluated by head of digital advertising & integration with EGD and colonoscopy which were both normal. Colitis was not seen on her colonoscopy. Patient was discharged on 03/15/22 , and she states her abdominal pain returned several hours after discharge. She was able to go to work. She developed emesis on arrival to ER. She denies fever or chills. She reports lower abdominal pain going to her back. She reports she is passing gas and she has pain to her rectum. Related Data Home Medications Medication Instructions Recorded Confirmed linaclotide 290 mcg capsule 290 mcg PO DAILY 03/12/22 03/12/22 (Linzess) Allergies Allergy/AdvReac Type Severity Reaction Status Date / Time codeine AdvReac Intermediate Nausea and Verified 03/17/22 05:17 Vomiting Review of Systems Review of Systems: All systems reviewed & are unremarkable except as noted in HPI and below PMFSH Past Medical History Medical History Anxiety (Unknown) Crohn's disease Endometriosis Hematuria History of pancreatitis Intussusception of small bowel Irritable bowel syndrome with constipation Kidney stones Marijuana smoker Pelvic congestion Transaminitis Surgical History Surgical History H/O lithotripsy H/O: hysterectomy History of cholecystectomy Laparoscopic cholecystectomy Family History Family History Mother Acute myocardial infarction Asthma Chronic obstructive pulmonary disease Son Asthma Father Chronic obstructive pulmonary disease Diabetes mellitus Liver cancer Kidney malignancy Sibling Diabetes mellitus Social History Social History Social History: She lives at home with her fiance and her step-father. She is independent in her daily activities. 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 Her PCP is Dr. Sunil Grant. She designates her fianceJae, as her surrogate decision maker. She would like to be a full code. Smoking status: Never smoker Second hand tobacco smoke exposure: No Additional smoking assessment comments: marijuana Alcohol intake: never Substance use type: marijuana Last use: 03/01/2022 Spiritual care concerns: No Exam Const: General: alert Orientation/consciousness: patient oriented x3 Limitations: no limitations HENMT: Head: normal to inspection Mouth: Yes Normal oral and palatal mucosa present Eyes: EOM: EOMs intact bilaterally Chest: Chest palpation & inspection: normal inspection of the chest Resp: Effort & Inspection: normal respiratory effort Auscultation: clear to auscultation bilaterally Cardio: Rate: regular rate Rhythm: regular rhythm Heart sounds: no murmurs GI: GI Palp: Yes Soft to palpation, Yes Tenderness to palpation present (GI) (bilateral lower abdominal and suprapubic) and No Guarding due to palpation present (GI) Auscultation: normal bowel sounds Back/Spine/Pelvis: Back: no CVA tenderness Skin: General skin exam: normal color Rashes: no rashes Wounds: no wounds Neuro: General: patient oriented x3, moves all extremities and CN's II-XI intact bilaterally Extrem: General: normal to inspection Psych: Affect: Anxious affect present Course Reevaluation(s) Reevaluation #1: Patient presented with abdominal pain that may be due to her chronic IBS.
[2022-03-17 05:28] LABS: Alanine Aminotransferase 42 U/L (6-35); Albumin Level 4.8 g/dL (3.5-5.1); Alkaline Phosphatase 71 U/L (38-126); Anion Gap 11 mmol/L (8-16); Aspartate Amino Transferase 34 U/L (14-36); Bilirubin,Total 0.5 mg/dL (0.2-1.3); Blood Urea Nitrogen 10 mg/dL (7-17); Calcium 9.3 mg/dL (8.4-10.2); Carbon Dioxide 30 mmol/L (22-30); Chloride 102 mmol/L (98-107); Estimated CRCL calculation 75 ml/min; Estimated Glomerular Filt Rate > 60; Glucose 107 mg/dL (65-110); Lipase 162 U/L (23-300); Potassium 3.7 mmol/L (3.4-5.0); Sodium 143 mmol/L (137-145)
[2022-03-17] MEDS: LORazepam INJ (*CRX) 2 MG/ML VIAL 0.5 MG IV PUSH (05:37)
--- NOTE | 2022-03-17 06:06 | PC.NURSE ---
Lab called and stated there was not enough urine to run specimen
[2022-03-17] MEDS: ONDANSETRON INJ 4 MG/2 ML VIAL IV PUSH (06:37)
[2022-03-17 06:57] VITALS: BP 142/86; PULSE 67; RESP 18; O2SAT 99
--- NOTE | 2022-03-17 07:25 | PC.NURSE ---
Second urine sample sent due to low urine first attempt.
[2022-03-17 07:33] LABS: Appearance Urine Cloudy (Clear); Bilirubin Urine Negative (Negative); Blood Urine Negative (Negative); Glucose Urine UA Negative (Negative); Ketones Urine Negative (Negative); Leukocyte Esterase Ur Negative LEU/UL (Negative); Nitrate Urine Negative (Negative); Protein Urine Negative (Negative); Specific Grav Ur 1.015 (1.001-1.035); Urobilinogen Urine 0.2 mg/dL (<2.0)
[2022-03-17 07:42] LABS: Add Urine Microscopic? YES; Color Urine Light Yellow (Yellow)
[2022-03-17] MEDS: fentaNYL CITRATE INJ (*CRX) 100 MCG/2 ML VIAL 50 MCG IV PUSH (08:11)
--- NOTE | 2022-03-17 08:26 | PC.NURSE ---
When attempting to discharge patient, patient on phone calling GI and not interested in discharge information. Patient in no distress and states that she already called her ride home.
== END 2022-03-17 08:28 | disposition home or self-care (01) ==
PROVIDERS: General Practice; Emergency Provider Emergency Medicine; PCP Family Medicine
DX: F41.9 Anxiety disorder, unspecified (principal); R10.30 Lower abdominal pain, unspecified; K50.90 Crohn's disease, unspecified, without complications
CPT/HCPCS: 36415; 74177; 80053; 81001; 83690; 85025; 96361; 96365; 96372; 96375; 99284; J0131; J1630; J2060; J2405; J3010; J7120; Q9967

== ENCOUNTER 2022-07-24 17:26 | Emergency (ER) | payer OTHER, SELFPAY ==
--- NOTE | ~2022-07-24 | CT_ITS ---
EXAMINATION: CT abdomen pelvis w con DATE: 07/24/2022 20:23 INDICATION: abd pain, diarrhea TECHNIQUE: Computed tomography (CT) of the abdomen and pelvis was performed with 100 mL Omnipaque-350 intravenous contrast. Automated exposure control and iterative reconstruction technique were employe d. The dose-length product was 290.59 mGy-cm. COMPARISON: 03/17/2022. FINDINGS: Lower thorax: Unremarkable Liver: Hepatomegaly. Heterogeneous enhancement. Diffuse low-density of the liver relative to the sple en. Periportal edema. Biliary/Gallbladder: Gallbladder is absent. No bile duct dilation. Pancreas: No mass or duct dilation. Spleen: Normal. Adrenals:No mass. Kidneys: Nonobstructing punctate right renal calculi. Subcentimeter likely cyst in the right upper po le. No suspicious mass. No hydronephrosis. GI tract: No small or large bowel dilation. Normal appendix. Mesentery/Peritoneum: No ascites, mass, or free air. Retroperitoneum: No mass. Pelvis: Normal urinary bladder. Uterus absent. Small volume free pelvic fluid, within physiologic ran ge. 2.3 cm simple right ovarian cyst.. Soft Tissues: Soft tissues and body wall unremarkable. Bones: No acute osseous finding. IMPRESSION: Enlarged, low density liver, with heterogeneous parenchymal enhancement, and periportal edema. These findings can be seen with acute hepatitis or steatohepatitis/steatosis, correlate with liver labs. Reviewed, dictated and finalized at location K. ENT TRANSITION SPECIALIST IMPRESSION: Enlarged, low density liver, with heterogeneous parenchymal enhancement, and pe riportal edema. These findings can be seen with acute hepatitis or steatohepati tis/steatosis, correlate with liver labs.
[2022-07-24 17:28] VITALS: BP 153/72; PULSE 51; RESP 14; TEMP 37; O2SAT 100
[2022-07-24 17:45] LABS: Basophils Absolute Auto 0.1 K/mm3 (0.0-0.1); Basophils Percent Auto 0.5 % (0.2-1.2); Eosinophils Percent Auto 0.1 % (0-4.4); Hemoglobin 14.4 g/dL (12.0-15.0); Immature Granulocyte Absolute 0.02 K/mm3 (0.00-0.031); Immature Granulocyte Percent A 0.2 % (0-0.5); Lymphocytes Absolute Auto 0.97 K/mm3 (0.9-3.2); Lymphocytes Percent Auto 9.6 % (18.3-44.2); Mean Corpuscular HGB Conc 34.3 g/dl (32-36); Mean Corpuscular Hemoglobin 31.3 pg (26-34); Mean Corpuscular Volume 91.3 fl (80-100); Mean Platelet Volume 9.9 fl (7.4-10.4); Monocytes Absolute Auto 0.3 K/mm3 (0.1-0.6); Monocytes Percent Auto 3.2 % (2.6-8.5); Neutrophils Absolute Auto 8.7 K/mm3 (1.3-6.7); Neutrophils Percent Auto 86.4 % (45.5-73.1); Platelet Count Result 168 k/mm3 (150-375); Red Cell Distribution Width 13.2 % (11.5-14.5); White Blood Count 10.1 K/mm3 (4.5-10.0)
[2022-07-24 17:56] LABS: INR 1.1; Potassium 4.1 mmol/L (3.4-5.0); Prothrombin Time 13.7 Seconds (11.1-14.7)
[2022-07-24 18:00] LABS: Alanine Aminotransferase 40 U/L (6-35); Albumin Level 4.7 g/dL (3.5-5.1); Alkaline Phosphatase 58 U/L (38-126); Anion Gap 4 mmol/L (8-16); Aspartate Amino Transferase 49 U/L (14-36); Bilirubin,Total 0.4 mg/dL (0.2-1.3); Blood Urea Nitrogen 9 mg/dL (7-17); Calcium 8.5 mg/dL (8.4-10.2); Carbon Dioxide 25 mmol/L (22-30); Chloride 107 mmol/L (98-107); Estimated Glomerular Filt Rate > 60; Glucose 138 mg/dL (65-110); Lipase 67 U/L (23-300); Sodium 136 mmol/L (137-145)
[2022-07-24] MEDS: ONDANSETRON INJ 4 MG/2 ML VIAL IV PUSH (18:31)
[2022-07-24] MEDS: SODIUM CHLORIDE 0.9% IV 1,000 ML 999 ML IV CONT ×2 (18:31→19:59)
[2022-07-24] MEDS: PANTOPRAZOLE SODIUM IV 40 MG VIAL IV PUSH (18:31)
--- NOTE | 2022-07-24 18:34 | ED.ABDPAIN ---
HPI - Abdominal Pain General Chief Complaint: Abdominal Pain <GEMA Hinojosa Last Filed: 07/24/22 22:17> Stated Complaint: abd pain <GEMA Hinojosa Last Filed: 07/24/22 22:17> Time Seen by Provider: 07/24/22 17:27 <GEMA Hinojosa Last Filed: 07/24/22 22:17> Source: patient <GEMA Hinojosa Last Filed: 07/24/22 22:17> Mode of arrival: EMS <GEMA Hinojosa Last Filed: 07/24/22 22:17> Limitations: no limitations <GEMA Hinojosa Last Filed: 07/24/22 22:17> History of Present Illness HPI narrative: This is a 41-year-old female that presents to the emergency department for abdominal pain ongoing over the last several hours. Reports diffuse, crampy abdominal pain. Associated with nausea, vomiting and diarrhea. She does have history of chronic GI issues and sees Dr. Bennett. Denies fever, or dysuria. <GEMA Hinojosa Last Filed: 07/24/22 22:17> Related Data Home Medications: Home Medications Medication Instructions Recorded Confirmed linaclotide 290 mcg capsule 290 mcg PO DAILY 03/12/22 03/12/22 (Linzess) <GEMA Hinojosa Last Filed: 07/24/22 22:17> Allergies/Adverse Reactions: Allergies Allergy/AdvReac Type Severity Reaction Status Date / Time codeine AdvReac Intermediate Nausea and Verified 03/17/22 05:17 Vomiting <GEMA Hinojosa Last Filed: 07/24/22 22:17> Review of Systems Review of Systems: CONSTITUTIONAL: Denies fever ENT: Denies sore throat CARDIOVASCULAR: Denies chest pain, or edema. RESPIRATORY: Denies cough or dyspnea. GASTROINTESTINAL: Reports abdominal pain, nausea, vomiting, and diarrhea. GENITOURINARY: Denies dysuria SKIN: Denies rash MUSCULOSKELETAL: Denies back pain NEUROLOGIC: Reports generalized weakness. PSYCHIATRIC: Reports anxiety <GEMA Hinojosa Last Filed: 07/24/22 22:17> All systems reviewed & are unremarkable except as noted in HPI and below <Michelle Kaur PA-C - Last Filed: 07/24/22 22:17> PMFSH Past Medical History Medical History: Medical History Anxiety (Unknown) Crohn's disease Endometriosis Hematuria History of pancreatitis Intussusception of small bowel Irritable bowel syndrome with constipation Kidney stones Marijuana smoker Pelvic congestion Transaminitis <Michelle Kaur PA-C - Last Filed: 07/24/22 22:17> Surgical History Surgical History: Surgical History H/O lithotripsy H/O: hysterectomy History of cholecystectomy Laparoscopic cholecystectomy <Michelle Kaur PA-C - Last Filed: 07/24/22 22:17> Family History Family History: Family History Mother Acute myocardial infarction Asthma Chronic obstructive pulmonary disease Son Asthma Father Chronic obstructive pulmonary disease Diabetes mellitus Liver cancer Kidney malignancy Sibling Diabetes mellitus <Michelle Kaur PA-C - Last Filed: 07/24/22 22:17> Social History Social History: Social History Social History: She lives at home with her fiaustyn and her step-father. She is independent in her daily activities. 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 Her PCP is Dr. Sunil Grant. She designates her fianceJae, as her surrogate decision maker. She would like to be a full code. Smoking status: Never smoker Second hand tobacco smoke exposure: No Additional smoking assessment comments: marijuana Alcohol intake: never Substance use type: marijuana Last use: 03/01/2022 Spiritual care concerns: No <Michelle Kaur PA-C - Last Filed: 07/24/22 22:17> Exam Narrative: GENERAL: Well-appearing, well-nourished, and in no acute distress. HEAD: Normocephalic, atraumatic. EYES: EOMI. ENT: Nares clear
--- NOTE | 2022-07-24 19:12 | PC.NURSE ---
Patient report received from JIMMIE Roman. Assumed care of patient at this time.
[2022-07-24 19:46] LABS: Appearance Urine Clear (Clear); Bilirubin Urine Negative (Negative); Blood Urine Negative (Negative); Color Urine Yellow (Yellow); Glucose Urine UA Negative (Negative); Ketones Urine Negative (Negative); Leukocyte Esterase Ur Negative LEU/UL (Negative); Nitrate Urine Negative (Negative); Protein Urine 1+ mg/dL (Negative); Specific Grav Ur 1.015 (1.001-1.035); Urobilinogen Urine 0.2 mg/dL (<2.0); pH Urine >=9.0 (5.0-9.0)
[2022-07-24 19:49] LABS: Mucus Urine Rare /lpf; Squamous Epithelial Cell Urine Occasional /hpf (Few); WBC Urine 0-3 /hpf
[2022-07-24 19:50] LABS: Add Urine Microscopic? YES
[2022-07-24] MEDS: diphenhydrAMINE HCl INJ 50 MG/ML VIAL 25 MG IV PUSH (19:54)
[2022-07-24] MEDS: METOCLOPRAMIDE HCL INJ 10 MG/2 ML VIAL IV PUSH (19:54)
[2022-07-24] MEDS: DICYCLOMINE HCL INJ 20 MG/2 ML VIAL IM (19:55)
--- NOTE | 2022-07-24 20:20 | PC.NURSE ---
Patient returned from CT. Patient in bed on stretcher at this time. Patient taking herself off monitors, and getting out of bed. Patient a/ox4. Patient refusing bed alarm and refusing to stay on stretcher. Patient lowering bed rails on her own and getting out of bed.
[2022-07-24 20:22] LABS: Amphetamine Screen Urine Negative (Negative); Barbiturate Screen Urine Negative (Negative); Benzodiazepines Screen Urine Positive (Negative); Cannabinoid Screen Urine Positive (Negative); Cocaine Screen Urine Negative (Negative); Methadone Screen Urine Negative (Negative); Opiate Screen Urine Negative (Negative); Phencyclidine Screen Urine Negative (Negative)
--- NOTE | 2022-07-24 20:28 | ECG_ITS ---
Measurements Intervals [place] Rate: 62 P: 82 VT: 163 QRS: 61 QRSD: 101 T: 47 QT: 452 QTc: 462 Interpretive Statements SINUS RHYTHM BASELINE ARTIFACT POSSIBLE LEFT ATRIAL ENLARGEMENT BORDERLINE ECG NO PREVIOUS ECG AVAILABLE FOR COMPARISON Electronically Signed On 07-25-2022 13:34:59 [employer] by John Hughes M.D.
[2022-07-24] MEDS: HALOPERIDOL LACTATE 5 MG/ML VIAL IV PUSH (21:02)
[2022-07-24 21:03] VITALS: BP 169/78; PULSE 66; RESP 20; TEMP 36.7; O2SAT 100
--- NOTE | 2022-07-24 21:25 | PC.NURSE ---
Patient ambulated to the bathroom with an even steady unassisted gait.
[2022-07-24 22:22] LABS: Hepatitis B Surface Antigen Negative (Negative)
[2022-07-24 22:32] VITALS: BP 126/61; PULSE 62; RESP 17; TEMP 36.5; O2SAT 100
[2022-07-24 22:57] LABS: HAV RESULT Negative (Negative); Hepatitis B Core IgM Result Negative (Negative); Hepatitis C Virus Antibody Negative (Negative)
== END 2022-07-24 22:34 | disposition home or self-care (01) ==
PROVIDERS: Physician Assistant; Emergency Provider Emergency Medicine; PCP Family Medicine
DX: R10.84 Generalized abdominal pain (principal); K50.90 Crohn's disease, unspecified, without complications
CPT/HCPCS: 36415; 51701; 74177; 80053; 80074; 80307; 81001; 81025; 83690; 85025; 85610; 85730; 93005; 96361; 96365; 96372; 96375; 99284; C9113; J0131; J0500; J1200; J1630; J2405; J2765; J7030; Q9967

== ENCOUNTER 2022-08-05 19:25 | Emergency (ER) | payer OTHER, SELFPAY ==
[2022-08-05 19:32] VITALS: BP 145/105; PULSE 73; RESP 18; TEMP 36.4; O2SAT 100
== END 2022-08-05 22:01 | disposition left against medical advice (07) ==
LOC: ANHED 22:00
PROVIDERS: PCP Family Medicine
DX: R10.9 Unspecified abdominal pain (principal)
CPT/HCPCS: 99199

== ENCOUNTER 2022-09-28 07:07 | Outpatient (CLI) | payer OTHER, SELFPAY ==
--- NOTE | ~2022-09-28 | NM_ITS ---
EXAM: NM gastric emptying study DATE: 09/28/2022 12:06 INDICATION: Nausea and vomiting. TECHNIQUE: A gastric emptying study was performed using the methodology of Grzegorz CHOI, et al. J Nucl Med 2007; 48:568-572. The patient was given a meal consisting of 2 scrambled eggs labeled with 1.045 mCi Tc-99m sulfur colloid, 2 slices of toast, two packages of jam, and approximately 120 mL of water . Simultaneous anterior and posterior 1-min images of the abdomen were obtained with the patient supi ne at multiple time points over a total period of 4 hours. The geometric mean of anterior and posteri or views was determined, and the percentage retention was calculated for each time point. COMPARISON: CT abdomen and pelvis 07/24/2022 FINDINGS: Gastric retention of the radiotracer-labeled meal was 87%, 64%, and 35% at the 1-hour, 2-h our, and 4-hour time points, respectively. With this technique, apparent rapid gastric emptying is amato ggested by <30% gastric retention at 1 hour. Delayed gastric emptying is defined by gastric retention of >90% at 1 hour, >60% retention at 2 hours, or >10% retention at 4 hours. IMPRESSION: 1. Delayed gastric emptying. Reviewed, dictated and finalized at location A. HANDISER SEASONAL
== END 2022-09-28 07:08 | disposition home or self-care (01) ==
LOC: ANHIMG 07:12
PROVIDERS: PCP Family Medicine; Visit Provider Internal Medicine Gastroenterology
DX: R11.2 Nausea with vomiting, unspecified (principal); R10.84 Generalized abdominal pain; K30 Functional dyspepsia
CPT/HCPCS: 78264; A9541

== ENCOUNTER 2022-10-23 09:12 | Emergency (ER) | payer OTHER, SELFPAY ==
--- NOTE | 2022-10-23 09:28 | PC.NURSE ---
Friend of pt came to intake desk stating i'm going to take her home then call an ambulance for her to get in Explained that taking an ambulance in doesn't guarantee a room. The ER is full and will probably be sent to the waiting room due to full capacity in the ER.
[2022-10-23 09:39] VITALS: BP 152/85; PULSE 56; RESP 18; TEMP 36.8; O2SAT 100
[2022-10-23] MEDS: SODIUM CHLORIDE 0.9% IV 1,000 ML 999 ML IV CONT (10:04)
[2022-10-23] MEDS: METOCLOPRAMIDE HCL INJ 10 MG/2 ML VIAL IV PUSH (10:05)
[2022-10-23 10:08] LABS: Basophils Absolute Auto 0.1 K/mm3 (0.0-0.1); Basophils Percent Auto 0.9 % (0.2-1.2); Eosinophils Absolute Auto 0.4 K/mm3 (0-0.3); Eosinophils Percent Auto 4.4 % (0-4.4); Hematocrit 45.5 % (37.0-47.0); Hemoglobin 15.3 g/dL (12.0-15.0); Immature Granulocyte Absolute 0.02 K/mm3 (0.00-0.031); Immature Granulocyte Percent A 0.2 % (0-0.5); Lymphocytes Absolute Auto 2.51 K/mm3 (0.9-3.2); Lymphocytes Percent Auto 28.4 % (18.3-44.2); Mean Corpuscular HGB Conc 33.6 g/dl (32-36); Mean Corpuscular Hemoglobin 31.4 pg (26-34); Mean Corpuscular Volume 93.2 fl (80-100); Mean Platelet Volume 10.2 fl (7.4-10.4); Monocytes Absolute Auto 0.7 K/mm3 (0.1-0.6); Monocytes Percent Auto 8.2 % (2.6-8.5); Neutrophils Absolute Auto 5.1 K/mm3 (1.3-6.7); Neutrophils Percent Auto 57.9 % (45.5-73.1); Platelet Count Result 199 k/mm3 (150-375); Red Blood Count 4.88 M/mm3 (4.2-5.4); Red Cell Distribution Width 13.2 % (11.5-14.5); White Blood Count 8.8 K/mm3 (4.5-10.0)
[2022-10-23] MEDS: diphenhydrAMINE HCl INJ 50 MG/ML VIAL 25 MG IV PUSH (10:08)
[2022-10-23] MEDS: DICYCLOMINE HCL INJ 20 MG/2 ML VIAL IM (10:14)
--- NOTE | 2022-10-23 11:11 | ED.ABDPAIN ---
HPI - Abdominal Pain General Chief Complaint: Abdominal Pain Stated Complaint: abd pain Time Seen by Provider: 10/23/22 09:40 History of Present Illness HPI narrative: Patient is a 41-year-old female who presents ER with abdominal pain. Diffuse and cramping. Has history of gastroparesis and is followed by Dr. Pyle. This. She has been compliant with her home Bentyl/amitriptyline/Linzess/Zofran. No improvement today. She had nausea and vomiting. Patient reports she ate 3 chicken legs from [employer] last night. This is a typical Tuesday night meal. No diarrhea. Patient reports she is going to be seeing the [facility] in [place] in the next month. Related Data Allergies Allergy/AdvReac Type Severity Reaction Status Date / Time codeine AdvReac Intermediate Nausea and Verified 10/23/22 09:44 Vomiting Review of Systems Review of Systems: All systems reviewed & are unremarkable except as noted in HPI and below Constitutional: Constitutional: Denies chills, Denies fatigue and Denies fever(s) ENT: Denies nasal congestion and Denies sore throat Cardiovascular: Cardiovascular: Denies chest pain, Denies rapid heart rate and Denies radiating jaw, neck or arm pain Respiratory: Respiratory: Denies cough and Denies dyspnea Gastrointestinal: Gastrointestinal: Reports abdominal pain, Denies diarrhea, Reports nausea and Reports vomiting PMFSH Past Medical History Medical History (Updated 10/23/22 @ 12:02 by Ryan Brooks MD) Adenomatous colon polyp Anxiety (Unknown) Crohn's disease Endometriosis Hematuria History of pancreatitis Intussusception of small bowel Irritable bowel syndrome with constipation Kidney stones Marijuana smoker Pelvic congestion Transaminitis Weight loss Surgical History Surgical History H/O lithotripsy H/O: hysterectomy History of cholecystectomy Laparoscopic cholecystectomy Family History Family History Mother Acute myocardial infarction Asthma Chronic obstructive pulmonary disease Son Asthma Father Chronic obstructive pulmonary disease Diabetes mellitus Liver cancer Kidney malignancy Sibling Diabetes mellitus Social History Social History Social History: She lives at home with her fiance and her step-father. She is independent in her daily activities. 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 Her PCP is Dr. Sunil Grant. She designates her fiance, Jae, as her surrogate decision maker. She would like to be a full code. Smoking status: Never smoker Second hand tobacco smoke exposure: No Additional smoking assessment comments: marijuana Alcohol intake: never Substance use type: marijuana Last use: 03/01/2022 Spiritual care concerns: No Exam Narrative: GENERAL: Uncomfortable-appearing, well-nourished, and in no acute distress. HEAD: Normocephalic, atraumatic. ENT: Mucous membranes moist. CHEST: Clear to auscultation. No respiratory distress. HEART: Regular rate and rhythm. Normal peripheral pulses. ABDOMEN: Soft, nontender, nondistended. EXTREMITIES: Normal range of motion. No edema. SKIN: Warm, dry, no rash. NEURO: Alert and oriented x3. PSYCH: Normal mood and affect. Course Course Emergency Course: Patient received Reglan and Benadryl for gastroparesis, Bentyl for abdominal cramping, morphine for pain. Patient feels improved and wishes to leave. Patient informed of lab results. Patient not felt to need advanced imaging. Vital Signs Vital signs: Vital Signs Temperature 98.3 F 10/23/22 09:39 Pulse Rate 56 L 10/23/22 09:39 Respiratory Rate 18 10/23/22 09:39 Blood Pressure 152/85 H 10/23/22 09:39 Pulse Oximetry 100 10/23/22 09:39 Oxygen Delivery Room Air 10/23/22 09:39 Temperature 98.3 F 10/23/22 09:39 Pulse Rate 56 L 03
[2022-10-23 11:18] LABS: Alanine Aminotransferase 38 U/L (6-35); Albumin Level 4.4 g/dL (3.5-5.1); Alkaline Phosphatase 46 U/L (38-126); Anion Gap 6 mmol/L (8-16); Aspartate Amino Transferase 43 U/L (14-36); Bilirubin,Total 0.4 mg/dL (0.2-1.3); Blood Urea Nitrogen 14 mg/dL (7-17); Calcium 8.1 mg/dL (8.4-10.2); Carbon Dioxide 23 mmol/L (22-30); Chloride 108 mmol/L (98-107); Estimated CRCL calculation 107 ml/min; Estimated Glomerular Filt Rate > 60; Glucose 121 mg/dL (65-110); Lipase 108 U/L (23-300); Potassium 4.4 mmol/L (3.4-5.0); Sodium 137 mmol/L (137-145)
[2022-10-23] MEDS: MORPHINE SULFATE (*CRX) 4 MG/ML INJ IV PUSH (11:27)
--- NOTE | 2022-10-23 12:02 | PC.NURSE ---
Pt is not able to urinate at this time.
[2022-10-23 12:12] VITALS: BP 159/96; PULSE 65; RESP 18; O2SAT 98
== END 2022-10-23 12:14 | disposition home or self-care (01) ==
PROVIDERS: Emergency Provider Emergency Medicine; PCP Family Medicine
DX: K31.84 Gastroparesis (principal); R10.13 Epigastric pain; F41.9 Anxiety disorder, unspecified; K50.90 Crohn's disease, unspecified, without complications; Z87.442 Personal history of urinary calculi
CPT/HCPCS: 36415; 80053; 83690; 85025; 96361; 96372; 96374; 96375; 99284; J0500; J1200; J2270; J2765; J7030

== ENCOUNTER 2022-10-23 19:33 | Emergency (ER) | payer OTHER, SELFPAY ==
--- NOTE | ~2022-10-23 | CT_ITS ---
EXAMINATION: CT abdomen pelvis w con DATE: 10/23/2022 22:07 INDICATION: Epigastric abdominal pain. Generalized abdominal pain. Nausea and vomiting. TECHNIQUE: Computed tomography (CT) of the abdomen and pelvis was performed with 100 mL Omnipaque 350 intravenous contrast. Automated exposure control and iterative reconstruction technique were employe d. The dose-length product was 205.14 mGy-cm. COMPARISON: CT abdomen and pelvis 07/24/2022 FINDINGS: The visualized portions of the lung bases are clear without pneumonia or pleural effusion. The heart size is normal. No pericardial effusion. There is periportal edema in the liver. The spleen is normal. There are changes of cholecystectomy. The pancreas and adrenal glands are normal. There a re cysts in the kidneys measuring up to 7 mm on the right. There are no dilated loops of bowel. There are no pathologically enlarged lymph nodes. There is a small volume of ascites. There is severe lowe r lumbar spondylosis. IMPRESSION: 1. Small volume of ascites. Reviewed, dictated and finalized at location A. TESTER IMPRESSION: 1. Small volume of ascites.
[2022-10-23 19:49] VITALS: BP 101/57; PULSE 51; RESP 13; O2SAT 99
[2022-10-23 20:00] VITALS: BP 99/62; PULSE 56; RESP 13; O2SAT 99
[2022-10-23 20:31] VITALS: BP 101/58; PULSE 56; RESP 16; O2SAT 99
--- NOTE | 2022-10-23 20:33 | ED.NAVMDI ---
HPI - Nausea/Vomiting/Diarrhea General Chief complaint: Nausea/Vomiting/Diarrhea Stated complaint: N/V, ABDOMINAL PAIN Time Seen by Provider: 10/23/22 19:56 Source: patient, EMS and old records reviewed Mode of arrival: EMS Limitations: no limitations History of Present Illness HPI Narrative: Patient is a 41-year-old female who presents to the ED via EMS with report of nausea, vomiting, abdominal pain. Patient reports a history of IBS, Crohn's, intussusception, gastroparesis. She sees Dr. Pyle and is prescribed Linzess, Zofran, Bentyl, amitriptyline. Patient reports she was seen in the ED earlier today for nausea and vomiting. She states she asked to leave so that she could go take a warm shower. She states her symptoms improved briefly but returned quickly after getting out of the shower. She complained of persistent vomiting, persistent epigastric abdominal pain. She took Tylenol at 12 PM today. Patient reports last bowel movement 2 days ago, denies diarrhea, rectal bleeding, fevers, urinary symptoms. Patient does smoke marijuana, but denies use recently. Patient received fentanyl in route to the ED. Related Data Allergies Allergy/AdvReac Type Severity Reaction Status Date / Time codeine AdvReac Intermediate Nausea and Verified 10/23/22 09:44 Vomiting Review of Systems Review of Systems: CONSTITUTIONAL: Denies fever, chills, or sweats. CARDIOVASCULAR: Denies chest pain. RESPIRATORY: Denies dyspnea. GASTROINTESTINAL: See HPI. GENITOURINARY: Denies dysuria or hematuria. All systems reviewed & are unremarkable except as noted in HPI and below PMFSH Past Medical History Medical History Adenomatous colon polyp Anxiety (Unknown) Crohn's disease Endometriosis Hematuria History of pancreatitis Intussusception of small bowel Irritable bowel syndrome with constipation Kidney stones Marijuana smoker Pelvic congestion Transaminitis Weight loss Surgical History Surgical History H/O lithotripsy H/O: hysterectomy History of cholecystectomy Laparoscopic cholecystectomy Family History Family History Mother Acute myocardial infarction Asthma Chronic obstructive pulmonary disease Son Asthma Father Chronic obstructive pulmonary disease Diabetes mellitus Liver cancer Kidney malignancy Sibling Diabetes mellitus Social History Social History Social History: She lives at home with her fiance and her step-father. She is independent in her daily activities. 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 Her PCP is Dr. Sunil Grant. She designates her fiance, Jae, as her surrogate decision maker. She would like to be a full code. Smoking status: Never smoker Second hand tobacco smoke exposure: No Additional smoking assessment comments: marijuana Alcohol intake: never Substance use type: marijuana Last use: 03/01/2022 Spiritual care concerns: No Exam Narrative: GENERAL: Well appearing, well-nourished, non-toxic, in no acute distress. HEAD: Normocephalic, atraumatic. NECK: Supple. No adenopathy, no masses. RESPIRATORY: Airway patent, respirations nonlabored. Clear to auscultation bilaterally, no rales, rhonchi, wheezing. CARDIOVASCULAR: Regular rate and rhythm without murmurs, rubs, or gallops. Peripheral pulses 2+ and equal bilaterally. ABDOMINAL: Soft, diffuse tenderness to palpation, nondistended, no hepatosplenomegaly. Normoactive BS. MUSCULOSKELETAL: Moves all extremities. Strength/ROM intact without gross deformities. SKIN: Warm, dry, normal color. No rashes. NEURO: A&O X3. Speech clear. Cranial nerves II-XII grossly intact. Steady gait. No ataxic movements. PSYCHIATRIC: Appropriate mood and affect. Normal interaction. Course Vital Signs Vital sig
[2022-10-23] MEDS: SODIUM CHLORIDE 0.9% IV 1,000 ML 999 ML IV CONT (20:39)
[2022-10-23] MEDS: ONDANSETRON INJ 4 MG/2 ML VIAL IV PUSH (20:40)
[2022-10-23 21:01] VITALS: BP 99/70; PULSE 59; RESP 18; O2SAT 100
[2022-10-23 21:27] LABS: Basophils Percent Auto 0.2 % (0.2-1.2); Hematocrit 39.9 % (37.0-47.0); Hemoglobin 13.4 g/dL (12.0-15.0); Immature Granulocyte Absolute 0.04 K/mm3 (0.00-0.031); Immature Granulocyte Percent A 0.4 % (0-0.5); Lymphocytes Absolute Auto 0.86 K/mm3 (0.9-3.2); Lymphocytes Percent Auto 9.3 % (18.3-44.2); Mean Corpuscular HGB Conc 33.6 g/dl (32-36); Mean Corpuscular Hemoglobin 31.2 pg (26-34); Mean Platelet Volume 9.6 fl (7.4-10.4); Monocytes Absolute Auto 0.3 K/mm3 (0.1-0.6); Monocytes Percent Auto 3.1 % (2.6-8.5); Platelet Count Result 150 k/mm3 (150-375); Red Blood Count 4.29 M/mm3 (4.2-5.4); Red Cell Distribution Width 13.3 % (11.5-14.5); White Blood Count 9.2 K/mm3 (4.5-10.0)
[2022-10-23 21:42] LABS: Appearance Urine Clear (Clear); Bilirubin Urine Negative (Negative); Blood Urine Trace-intact (Negative); Color Urine Yellow (Yellow); Glucose Urine UA Negative (Negative); Ketones Urine Negative (Negative); Leukocyte Esterase Ur Negative LEU/UL (Negative); Nitrate Urine Negative (Negative); Protein Urine 1+ mg/dL (Negative); Urobilinogen Urine 0.2 mg/dL (<2.0); pH Urine 6.5 (5.0-9.0)
[2022-10-23 21:44] LABS: Alanine Aminotransferase 54 U/L (6-35); Albumin Level 4.4 g/dL (3.5-5.1); Alkaline Phosphatase 52 U/L (38-126); Anion Gap 4 mmol/L (8-16); Aspartate Amino Transferase 50 U/L (14-36); Bilirubin,Total 0.5 mg/dL (0.2-1.3); Blood Urea Nitrogen 12 mg/dL (7-17); Carbon Dioxide 26 mmol/L (22-30); Chloride 103 mmol/L (98-107); Estimated Glomerular Filt Rate > 60; Glucose 98 mg/dL (65-110); Lipase 182 U/L (23-300); Sodium 133 mmol/L (137-145)
[2022-10-23 21:46] LABS: Amphetamine Screen Urine Negative (Negative); Barbiturate Screen Urine Negative (Negative); Benzodiazepines Screen Urine Positive (Negative); Cannabinoid Screen Urine Positive (Negative); Cocaine Screen Urine Negative (Negative); Methadone Screen Urine Negative (Negative); Mucus Urine Rare /lpf; Opiate Screen Urine Positive (Negative); Phencyclidine Screen Urine Negative (Negative); Squamous Epithelial Cell Urine Occasional /hpf (Few); WBC Urine 0-3 /hpf
[2022-10-23 21:50] LABS: Add Urine Microscopic? YES
[2022-10-23 23:54] VITALS: BP 111/75; PULSE 56; RESP 16; O2SAT 100
== END 2022-10-24 00:13 | disposition home or self-care (01) ==
PROVIDERS: Emergency Provider Physician Assistant; PCP Family Medicine
DX: R10.13 Epigastric pain (principal); R11.2 Nausea with vomiting, unspecified; K58.9 Irritable bowel syndrome, unspecified; Z79.899 Other long term (current) drug therapy
CPT/HCPCS: 36415; 74177; 80053; 80307; 81001; 83690; 85025; 96361; 96372; 96374; 96375; 99284; A4565; J0131; J0500; J1200; J2270; J2405; J2765; J7030; Q9967

== ENCOUNTER 2023-01-15 06:28 | Emergency (ER) | payer OTHER, SELFPAY ==
--- NOTE | ~2023-01-15 | CT_ITS ---
EXAMINATION: CT abdomen pelvis w con DATE: 01/15/2023 08:15 INDICATION: Abdominal pain. Nausea and vomiting. TECHNIQUE: Computed tomography (CT) of the abdomen and pelvis was performed with 100 mL Omnipaque 350 intravenous contrast. Automated exposure control and iterative reconstruction technique were employe d. The dose-length product was 259.47 mGy-cm. COMPARISON: CT abdomen and pelvis 10/23/2022 FINDINGS: The visualized portions of the lung bases demonstrate mild atelectasis. No pleural effusion . The heart size is normal. No pericardial effusion. There is mild intrahepatic biliary duct dilatati on, likely secondary to cholecystectomy. The spleen, pancreas, and adrenal glands are normal. There a re cysts in the kidneys measuring up to 8 mm on the right. There are no dilated loops of bowel. The a ppendix is normal. There are no pathologically enlarged lymph nodes. There is no free intraperitoneal fluid. There is severe lower lumbar spondylosis. IMPRESSION: 1. No etiology for the patient's symptoms. Reviewed, dictated and finalized at location A.
[2023-01-15 06:35] VITALS: BP 125/75; PULSE 71; RESP 16; TEMP 36.6; O2SAT 98
--- NOTE | 2023-01-15 06:45 | PC.NURSE ---
Patient stated she need to go to the bathroom when this nurse and holden RN went into room to start IV and perform assessment.
[2023-01-15 06:55] VITALS: BP 149/76; PULSE 61; RESP 18; O2SAT 100
[2023-01-15 07:07] LABS: Basophils Absolute Auto 0.1 K/mm3 (0.0-0.1); Eosinophils Absolute Auto 0.3 K/mm3 (0-0.3); Hematocrit 43.1 % (37.0-47.0); Hemoglobin 14.5 g/dL (12.0-15.0); Immature Granulocyte Absolute 0.03 K/mm3 (0.00-0.031); Immature Granulocyte Percent A 0.4 % (0-0.5); Lymphocytes Percent Auto 41.8 % (18.3-44.2); Mean Corpuscular HGB Conc 33.6 g/dl (32-36); Mean Corpuscular Hemoglobin 31.3 pg (26-34); Mean Corpuscular Volume 93.1 fl (80-100); Mean Platelet Volume 9.5 fl (7.4-10.4); Monocytes Absolute Auto 0.8 K/mm3 (0.1-0.6); Neutrophils Absolute Auto 3.2 K/mm3 (1.3-6.7); Neutrophils Percent Auto 41.8 % (45.5-73.1); Platelet Count Result 246 k/mm3 (150-375); Red Blood Count 4.63 M/mm3 (4.2-5.4); Red Cell Distribution Width 13.1 % (11.5-14.5); White Blood Count 7.7 K/mm3 (4.5-10.0)
[2023-01-15 07:17] VITALS: BP 115/76; PULSE 70; RESP 18; O2SAT 100
[2023-01-15 07:17] LABS: Alanine Aminotransferase 37 U/L (6-35); Albumin Level 4.4 g/dL (3.5-5.1); Alkaline Phosphatase 46 U/L (38-126); Anion Gap 6 mmol/L (8-16); Aspartate Amino Transferase 38 U/L (14-36); Bilirubin,Total 0.6 mg/dL (0.2-1.3); Blood Urea Nitrogen 14 mg/dL (7-17); Calcium 8.5 mg/dL (8.4-10.2); Carbon Dioxide 30 mmol/L (22-30); Chloride 104 mmol/L (98-107); Estimated CRCL calculation 71 ml/min; Estimated Glomerular Filt Rate > 60; Glucose 88 mg/dL (65-110); Lipase 155 U/L (23-300); Sodium 140 mmol/L (137-145)
--- NOTE | 2023-01-15 07:20 | ED.ABDPAIN ---
HPI - Abdominal Pain General Chief Complaint: Abdominal Pain Stated Complaint: nausea vomiting, MALS syndrome Time Seen by Provider: 01/15/23 07:19 Source: patient and family History of Present Illness HPI narrative: 42 years old white female complaining of intermittent upper abdominal pain since she was 28 years old. Been seen by numerous physicians, numerous specialist, numerous ED visits without a diagnosis. Somehow was referred to [facility] at [place] 10 days ago and had a diagnosis of MALS syndrome. Patient scheduled to see a specialist on January 21, waiting for Port-A-Cath, IV nutrition, then surgery. Patient contacted [place] today and was told to come back as soon as possible. Patient report the abdominal pain is severe dull aching mid abdomen worse with eating, better sometimes on narcotics. Patient is planning to go back to [place] as soon as possible after pain management in the ED. She denies any fever or chills. Related Data Allergies Allergy/AdvReac Type Severity Reaction Status Date / Time codeine AdvReac Intermediate Nausea and Verified 01/15/23 06:50 Vomiting Review of Systems Review of Systems: All systems reviewed & are unremarkable except as noted in HPI and below PMFSH Past Medical History Medical History Adenomatous colon polyp Anxiety (Unknown) Crohn's disease Endometriosis Hematuria History of pancreatitis Intussusception of small bowel Irritable bowel syndrome with constipation Kidney stones Marijuana smoker Panic attack Pelvic congestion Transaminitis Weight loss Surgical History Surgical History H/O lithotripsy H/O: hysterectomy History of cholecystectomy Laparoscopic cholecystectomy Family History Family History Mother Acute myocardial infarction Asthma Chronic obstructive pulmonary disease Son Asthma Father Chronic obstructive pulmonary disease Diabetes mellitus Liver cancer Kidney malignancy Sibling Diabetes mellitus Social History Social History Social History: She lives at home with her fiance and her step-father. She is independent in her daily activities. 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 Her PCP is Dr. Sunil Grant. She designates her fiance, Jae, as her surrogate decision maker. She would like to be a full code. Smoking status: Never smoker Second hand tobacco smoke exposure: No Additional smoking assessment comments: marijuana Alcohol intake: never Substance use type: marijuana Last use: 03/01/2022 Spiritual care concerns: No Exam Narrative: General appearance: Well-developed, well-nourished Skin: Normal color Head: Normocephalic, nontraumatic Eyes: Clear conjunctiva ENT: Oropharynx normal, ears normal, nose normal Neck: Supple, nontender Chest and respiratory: Airway patent, no respiratory distress, no accessory muscle use Heart: Regular rate/rhythm Abdomen: General guarding, severe tenderness upper abdomen mainly epigastric area, no organomegaly, quiet bowel sounds Vascular: Normal peripheral pulses, normal capillary refill. Musculoskeletal: Normal range of motion, nontender back Neurologic: Alert and oriented ?3, AUTOMOBILE TRAVEL CLUB COUNSELOR is normal as tested, no gross motor deficit Course Reevaluation(s) Reevaluation #1: Patient feeling much better, compared to on arrival. Patient received Dilaudid 2.5 mg twice, Benadryl 50 mg IV once, Reglan 10 mg IV once, Zofran 4 mg IV once, 1 L of IV normal saline, Date: 01/15/23 Time: 09:00 Vital Signs Vital signs:
[2023-01-15 07:22] LABS: Appearance Urine Turbid (Clear); Bacteria Urine 2+ /hpf; Bilirubin Urine Negative (Negative); Blood Urine 1+ (Negative); Calcium Oxalate Crystals Urine Present /hpf; Color Urine Yellow (Yellow); Glucose Urine UA Negative (Negative); Ketones Urine Negative (Negative); Leukocyte Esterase Ur Negative LEU/UL (Negative); Nitrate Urine Negative (Negative); Protein Urine Trace mg/dL (Negative); Specific Grav Ur 1.027 (1.001-1.035); Squamous Epithelial Cell Urine Many /hpf (Few); pH Urine 5.5 (5.0-9.0)
[2023-01-15 07:23] LABS: Add Urine Microscopic? YES
[2023-01-15] MEDS: SODIUM CHLORIDE 0.9% IV 1,000 ML 999 ML IV CONT (07:43)
[2023-01-15] MEDS: ONDANSETRON INJ 4 MG/2 ML VIAL IV PUSH (07:45)
[2023-01-15] MEDS: HYDROmorphone HCL INJ (*CRX) 1 MG/ML SYR 0.5 MG IV PUSH ×2 (07:45→08:32)
[2023-01-15] MEDS: diphenhydrAMINE HCl INJ 50 MG/ML VIAL IV PUSH (08:31)
[2023-01-15] MEDS: METOCLOPRAMIDE HCL INJ 10 MG/2 ML VIAL IV PUSH (08:31)
[2023-01-15 08:42] VITALS: BP 125/83; PULSE 63; RESP 18; O2SAT 100
[2023-01-15 09:12] VITALS: BP 118/74; PULSE 68; RESP 18; O2SAT 100
== END 2023-01-15 09:14 | disposition home or self-care (01) ==
PROVIDERS: Preventive Medicine Aerospace Medicine; Emergency Provider Emergency Medicine; PCP Emergency Medicine
DX: R10.13 Epigastric pain (principal); F41.9 Anxiety disorder, unspecified; Z87.442 Personal history of urinary calculi
CPT/HCPCS: 36415; 74177; 80053; 81001; 81025; 83690; 85025; 87077; 87086; 87186; 96361; 96374; 96375; 96376; 99284; J1170; J1200; J2405; J2765; J7030; Q9967

== ENCOUNTER 2023-01-19 18:08 | Emergency (ER) | payer OTHER, SELFPAY ==
[2023-01-19 18:11] VITALS: BP 150/108; PULSE 87; RESP 18; TEMP 36.7; O2SAT 100
--- NOTE | 2023-01-19 18:39 | PC.NURSE ---
Pt states that she has uncomfortable in her entire abd that has been ongoing for the past 4 days. States she has felt nauseous and had emesis with it. States her last episode of emesis was about 45 minutes prior to arrival while eating. States that her last BM was 3 days prior and has been constipated. States she has used miralax at home with no relief.
[2023-01-19 18:45] LABS: Basophils Absolute Auto 0.1 K/mm3 (0.0-0.1); Basophils Percent Auto 0.9 % (0.2-1.2); Eosinophils Absolute Auto 0.5 K/mm3 (0-0.3); Eosinophils Percent Auto 4.1 % (0-4.4); Hematocrit 44.3 % (37.0-47.0); Hemoglobin 14.9 g/dL (12.0-15.0); Immature Granulocyte Absolute 0.05 K/mm3 (0.00-0.031); Immature Granulocyte Percent A 0.4 % (0-0.5); Lymphocytes Absolute Auto 4.28 K/mm3 (0.9-3.2); Mean Corpuscular HGB Conc 33.6 g/dl (32-36); Mean Corpuscular Hemoglobin 31.6 pg (26-34); Mean Corpuscular Volume 94.1 fl (80-100); Mean Platelet Volume 9.6 fl (7.4-10.4); Monocytes Percent Auto 8.9 % (2.6-8.5); Neutrophils Absolute Auto 5.6 K/mm3 (1.3-6.7); Neutrophils Percent Auto 48.7 % (45.5-73.1); Platelet Count Result 230 k/mm3 (150-375); Red Blood Count 4.71 M/mm3 (4.2-5.4); Red Cell Distribution Width 13.2 % (11.5-14.5); White Blood Count 11.6 K/mm3 (4.5-10.0)
--- NOTE | 2023-01-19 19:10 | ED.ABDPAIN ---
HPI - Abdominal Pain General Chief Complaint: Abdominal Pain <Mary Goins PA-C - Last Filed: 01/20/23 00:57> Stated Complaint: abdominal pain <Mary Goins PA-C - Last Filed: 01/20/23 00:57> Time Seen by Provider: 01/19/23 18:44 <Mary Goins PA-C - Last Filed: 01/20/23 00:57> History of Present Illness HPI narrative: 42-year-old female with a history of transaminitis and MALS syndrome who is currently being worked up by [facility] reports for evaluation of abdominal pain, nausea and vomiting that started today. Patient reports she woke up with dull generalized abdominal pain that suddenly worsened after she had shrimp, soy potatoes and green beans approximately 2 hours ago. Patient states she took her Linzess without any relief. She reports vomiting 2 times after eating and states the generalized abdominal pain is a sharp sensation. Patient reports she has her next appointment with [facility] on January 21 with plans to get a feeding tube due to inability to tolerate p.o. intake. She denies fever, bodyaches, chills, urinary complaints, chest pain or shortness of breath, hematochezia or melena, hematemesis, urinary complaints. <Mary Goins PA-C - Last Filed: 01/20/23 00:57> Related Data Allergies/Adverse Reactions: Allergies Allergy/AdvReac Type Severity Reaction Status Date / Time codeine AdvReac Intermediate Nausea and Verified 01/19/23 18:08 Vomiting <Mary Goins PA-C - Last Filed: 01/20/23 00:57> Review of Systems Review of Systems: CONSTITUTIONAL: Denies fever, chills EYES: Denies visual changes, redness, or discharge. ENT: Denies rhinorrhea, congestion, sore throat, or otalgia. CARDIOVASCULAR: Denies chest pain, palpitations, or edema. RESPIRATORY: Denies cough or dyspnea. GASTROINTESTINAL: See HPI GENITOURINARY: Denies dysuria or hematuria. SKIN: Denies rash or itching. MUSCULOSKELETAL: Denies back pain, joint pain, or myalgia. NEUROLOGIC: Denies headache, numbness, dizziness, or weakness. PSYCHIATRIC: Denies anxiety or depression. <Mary Goins PA-C - Last Filed: 01/20/23 00:57> [facility] Past Medical History Medical History: Medical History Adenomatous colon polyp Anxiety (Unknown) Crohn's disease Endometriosis Hematuria History of pancreatitis Intussusception of small bowel Irritable bowel syndrome with constipation Kidney stones Marijuana smoker Panic attack Pelvic congestion Transaminitis Weight loss <Mary Goins PA-C - Last Filed: 01/20/23 00:57> Surgical History Surgical History: Surgical History H/O lithotripsy H/O: hysterectomy History of cholecystectomy Laparoscopic cholecystectomy <Mary Goins PA-C - Last Filed: 01/20/23 00:57> Family History Family History: Family History Mother Acute myocardial infarction Asthma Chronic obstructive pulmonary disease Son Asthma Father Chronic obstructive pulmonary disease Diabetes mellitus Liver cancer Kidney malignancy Sibling Diabetes mellitus <Mary Goins PA-C - Last Filed: 01/20/23 00:57> Social History Social History: Social History Social History: She lives at home with her fiance and her step-father. She is independent in her daily activities. 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 Her PCP is Dr. Sunil Grant. She designates her fiance, Jae, as her surrogate decision maker. She would like to be a full code. Smoking status: Never smoker Second hand tobacco smoke exposure: No Additional smoking assessment comments: marijuana Alcohol intake: never Substance use type: marijuana Last use: 03/01/2022 Spiritual care concerns: No <Mary Goins PA-C - Last Filed: 01/20/23 00:57> Exam Narrati
[2023-01-19] MEDS: ONDANSETRON INJ 4 MG/2 ML VIAL IV PUSH (19:16)
[2023-01-19] MEDS: diphenhydrAMINE HCl INJ 50 MG/ML VIAL 25 MG IV PUSH (19:16)
[2023-01-19] MEDS: HALOPERIDOL LACTATE 5 MG/ML VIAL IV PUSH (19:16)
[2023-01-19] MEDS: SODIUM CHLORIDE 0.9% IV 1,000 ML 999 ML IV CONT (19:16)
[2023-01-19 19:50] LABS: Alanine Aminotransferase 42 U/L (6-35); Albumin Level 4.4 g/dL (3.5-5.1); Alkaline Phosphatase 41 U/L (38-126); Anion Gap 5 mmol/L (8-16); Aspartate Amino Transferase 47 U/L (14-36); Bilirubin,Total 0.5 mg/dL (0.2-1.3); Blood Urea Nitrogen 16 mg/dL (7-17); Calcium 8.2 mg/dL (8.4-10.2); Carbon Dioxide 26 mmol/L (22-30); Chloride 107 mmol/L (98-107); Estimated CRCL calculation 24 ml/min; Estimated Glomerular Filt Rate > 60; Glucose 98 mg/dL (65-110); Lipase 179 U/L (23-300); Potassium 4.3 mmol/L (3.4-5.0); Sodium 138 mmol/L (137-145)
== END 2023-01-19 20:08 | disposition home or self-care (01) ==
PROVIDERS: Emergency Medicine; Emergency Provider Physician Assistant; PCP Emergency Medicine
DX: R10.84 Generalized abdominal pain (principal); I77.4 Celiac artery compression syndrome
CPT/HCPCS: 36415; 80053; 83690; 85025; 96361; 96374; 96375; 99284; J1200; J1630; J2405; J7030

== ENCOUNTER 2023-01-20 03:36 | Emergency (ER) | payer OTHER, SELFPAY ==
[2023-01-20 03:40] VITALS: BP 141/69; PULSE 59; RESP 14; TEMP 36.8; O2SAT 100
--- NOTE | 2023-01-20 04:01 | PC.NURSE ---
RN in to pass medications on pt. pt. states I don't want that I have MALS disease and it needs to be treated. I have a lawsuit against this place because you treated me so poorly. I am not some dope addict. RN asked pt if she was refusing tx. pt. states Yes I don't want what you are giving me and the doctor is refusing to treat me. RN asked pt. if she was going to sign out AMA. pt. states yeah I want to write down that the doctor refused to treat me. ERP made aware, paperwork signed. RN offered wheelchair to pt. pt. states I will walk myself out. I called my sheeter waxer operator and doctor.
--- NOTE | 2023-01-20 04:09 | ED.ABDPAIN ---
HPI - Abdominal Pain General Chief Complaint: Abdominal Pain Stated Complaint: ABDOMINAL PAIN Time Seen by Provider: 01/20/23 03:38 Source: patient Mode of arrival: EMS Limitations: no limitations History of Present Illness HPI narrative: 42-year-old history of mild syndrome here with complaints of having abdominal pain since this afternoon patient was seen few hours ago and discharged home now requesting for pain medication. She states she is nauseated but no significant vomiting. Patient had an extensive work-up few hours ago and was discharged home. MD elicited complaint: abdominal pain Pertinent past history: diverticulitis and other (MALS Syndrome) Location: diffuse Severity: moderate Migration to: no migration Related Data Allergies Allergy/AdvReac Type Severity Reaction Status Date / Time codeine AdvReac Intermediate Nausea and Verified 01/19/23 18:08 Vomiting PMFSH Past Medical History Medical History Adenomatous colon polyp Anxiety (Unknown) Crohn's disease Endometriosis Hematuria History of pancreatitis Intussusception of small bowel Irritable bowel syndrome with constipation Kidney stones Marijuana smoker Panic attack Pelvic congestion Transaminitis Weight loss Surgical History Surgical History H/O lithotripsy H/O: hysterectomy History of cholecystectomy Laparoscopic cholecystectomy Family History Family History Mother Acute myocardial infarction Asthma Chronic obstructive pulmonary disease Son Asthma Father Chronic obstructive pulmonary disease Diabetes mellitus Liver cancer Kidney malignancy Sibling Diabetes mellitus Social History Social History Social History: She lives at home with her fiance and her step-father. She is independent in her daily activities. 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 Her PCP is Dr. Sunil Grant. She designates her fiance, Jae, as her surrogate decision maker. She would like to be a full code. Smoking status: Never smoker Second hand tobacco smoke exposure: No Additional smoking assessment comments: marijuana Alcohol intake: never Substance use type: marijuana Last use: 03/01/2022 Spiritual care concerns: No Exam Narrative: GENERAL: Well-appearing, well-nourished, and in no acute distress. HEAD: Normocephalic, atraumatic. EYES: PERRLA and EOMI. ENT: Nares clear,. NECK: Supple. EXTREMITIES: Normal range of motion. No edema. SKIN: Warm, dry, no rash. NEURO: No focal deficits. Alert and oriented x3. PSYCH: Normal mood and affect. Course Course Emergency Course: My physical exam was unremarkable as patient was requesting for pain medication I offered Bentyl and Reglan. Pt Stated that i am a fucking doctor and she would like to leave Vital Signs Vital signs: Vital Signs Temperature 36.8 C 01/20/23 03:40 Pulse Rate 59 L 01/20/23 03:40 Respiratory Rate 14 01/20/23 03:40 Blood Pressure 141/69 H 01/20/23 03:40 Pulse Oximetry 100 01/20/23 03:40 Oxygen Delivery Room Air 01/20/23 03:40 Temperature 36.8 C 01/20/23 03:40 Pulse Rate 59 L 01/20/23 03:40 Respiratory Rate 14 01/20/23 03:40 Blood Pressure 141/69 H 01/20/23 03:40 Pulse Oximetry 100 01/20/23 03:40 Oxygen Delivery Room Air 01/20/23 03:40 Discharge Plan Discharge Clinical Impression: Abdominal pain Patient Disposition: Left Against Medical Advice Condition: Stable Prescriptions: No Action Linzess 290 mcg capsule 290 mcg PO DAILY Qty: 30 11RF ondansetron HCl 4 mg tablet 4 mg PO Q8H PRN (Reason: nausea and vomiting) Qty: 90 11RF amitriptyline 25 mg tablet 25 mg PO QHS Qty: 30 5RF metoclopramide HCl 5 mg tablet 5 mg PO .qac 30 Days Qty: 90 11RF dicyclomine 10 mg capsule
== END 2023-01-20 04:06 | disposition left against medical advice (07) ==
PROVIDERS: Emergency Provider Family Medicine; PCP Emergency Medicine
DX: R10.9 Unspecified abdominal pain (principal); K50.90 Crohn's disease, unspecified, without complications; N80.9 Endometriosis, unspecified; Z86.010 Personal history of colon polyps; Z87.442 Personal history of urinary calculi; Z90.710 Acquired absence of both cervix and uterus
CPT/HCPCS: 99281

== ENCOUNTER 2023-05-25 13:17 | Emergency (ER) | payer OTHER, SELFPAY ==
[2023-05-25 13:21] VITALS: BP 157/71; PULSE 61; RESP 18; TEMP 36.9; O2SAT 100
--- NOTE | 2023-05-25 13:40 | PC.NURSE ---
Pt laying on the floor in waiting room, rolling and thrashing. Pt advised to get off of the floor and sit in the wheelchair. Pt refusing to get up at this time. pt fiance with her
--- NOTE | 2023-05-25 14:11 | PC.NURSE ---
Pt asked to sit still in order for us to draw blood from her. Pt states I can't, I can't . This RN states that if she can't stop thrashing, we can't draw her blood at this time. Pt again yells, while thrashing I can't, I can't .
--- NOTE | 2023-05-25 15:30 | PC.NURSE ---
Jagdish and dayanna threatening to call 911.
[2023-05-25 15:32] VITALS: BP 116/87; PULSE 76; RESP 18; O2SAT 100
--- NOTE | 2023-05-25 15:37 | PC.NURSE ---
Pt and dayanna screaming at this RN. stating if i see one more fucking patient go ahead of her i am calling administration Pt and dayanna educated on triage process. Pt vitals taken at this time. I offered again to draw her blood. she states that she would let me.
--- NOTE | 2023-05-25 15:40 | PC.NURSE ---
Pt coming out to the waiting room and yelling to the patients in the waiting room you're going to if you stay here! Security called at this time
[2023-05-25 16:03] LABS: Basophils Absolute Auto 0.1 K/mm3 (0.0-0.1); Basophils Percent Auto 0.5 % (0.2-1.2); Eosinophils Absolute Auto 0.2 K/mm3 (0-0.3); Eosinophils Percent Auto 1.5 % (0-4.4); Hematocrit 38.3 % (37.0-47.0); Immature Granulocyte Absolute 0.06 K/mm3 (0.00-0.031); Immature Granulocyte Percent A 0.4 % (0-0.5); Lymphocytes Absolute Auto 1.51 K/mm3 (0.9-3.2); Lymphocytes Percent Auto 10.7 % (18.3-44.2); Mean Corpuscular HGB Conc 33.9 g/dl (32-36); Mean Corpuscular Hemoglobin 31.5 pg (26-34); Mean Corpuscular Volume 92.7 fl (80-100); Mean Platelet Volume 10.1 fl (7.4-10.4); Monocytes Absolute Auto 1.1 K/mm3 (0.1-0.6); Monocytes Percent Auto 7.8 % (2.6-8.5); Neutrophils Absolute Auto 11.2 K/mm3 (1.3-6.7); Neutrophils Percent Auto 79.1 % (45.5-73.1); Platelet Count Result 257 k/mm3 (150-375); Red Blood Count 4.13 M/mm3 (4.2-5.4); Red Cell Distribution Width 12.7 % (11.5-14.5); White Blood Count 14.2 K/mm3 (4.5-10.0)
--- NOTE | 2023-05-25 16:12 | PC.NURSE ---
Pt ambulated out w/ sig other, states Im contacting administration, I want both of your names, you are going to be sued. Pt ambulated out in NAD. Steady gait.
[2023-05-25 16:13] LABS: Alanine Aminotransferase 52 U/L (6-35); Albumin Level 4.7 g/dL (3.5-5.1); Alkaline Phosphatase 73 U/L (38-126); Anion Gap 9 mmol/L (8-16); Aspartate Amino Transferase 45 U/L (14-36); Bilirubin,Total 0.7 mg/dL (0.2-1.3); Blood Urea Nitrogen 7 mg/dL (7-17); Carbon Dioxide 32 mmol/L (22-30); Chloride 99 mmol/L (98-107); Estimated CRCL calculation 86 ml/min; Estimated Glomerular Filt Rate > 60; Glucose 100 mg/dL (65-110); Lipase 41 U/L (23-300); Potassium 3.2 mmol/L (3.4-5.0); Sodium 140 mmol/L (137-145)
== END 2023-05-25 16:12 | disposition left against medical advice (07) ==
LOC: ANHED 16:17
PROVIDERS: Emergency Provider Preventive Medicine Aerospace Medicine; PCP Emergency Medicine
DX: R10.9 Unspecified abdominal pain (principal)
CPT/HCPCS: 36415; 80053; 83690; 85025; 99199